=== PATIENT | female | born 1945 | race Caucasian/White ===

== ENCOUNTER 2022-11-09 08:33 | Outpatient (OUT) | payer MEDICARE, OTHER, SELFPAY ==
[2022-11-09 09:14] LABS: Basophils Percent Auto 0.8 % (0.2-2.0); Eosinophils Absolute Auto 0.1 10^3/uL (0.0-0.7); Eosinophils Percent Auto 2.6 % (0.9-7.0); Hematocrit 41.5 % (36.0-48.0); Hemoglobin 13.7 g/dL (12.0-16.0); Immature Granulocytes Abs Auto 0.03 10^3/uL (0.00-0.03); Immature Granulocytes Pct Auto 0.6 % (0.0-0.5); Lymphocytes Absolute Auto 1.7 10^3/uL (1.2-3.8); Lymphocytes Percent Auto 31.1 % (20.5-60.0); Mean Corpuscular Hemoglobin 31.6 pg (26.7-34.0); Mean Corpuscular Volume 95.6 fL (81.0-99.0); Mean Platelet Volume 9.2 fL (9.5-13.5); Monocytes Absolute Auto 0.4 10^3/uL (0.3-0.8); Monocytes Percent Auto 6.6 % (1.7-12.0); Neutrophils Absolute Auto 3.1 10^3/uL (1.4-6.5); Neutrophils Percent Auto 58.3 % (43.0-75.0); Platelet Count 282 10^3/uL (150-450); Red Blood Count 4.34 10^6/uL (4.20-5.40); Red Cell Distribution Width 14.5 % (11.0-15.0); White Blood Count 5.3 10^3/uL (4.0-11.0)
[2022-11-09 10:01] LABS: Free T4 1.29 ng/dL (0.76-1.46)
[2022-11-09 10:04] LABS: Thyroid Stimulating Hormone 0.714 uIU/mL (0.358-3.740)
== END 2022-11-09 08:34 | disposition home or self-care (01) ==
LOC: LAB 08:36
PROVIDERS: PCP Family Medicine; Visit Provider Family Medicine
DX: R53.83 Other fatigue (principal); L65.9 Nonscarring hair loss, unspecified
CPT/HCPCS: 36415; 84436; 84439; 84443; 85025

== ENCOUNTER 2022-11-09 08:39 | Outpatient (OUT) | payer MEDICARE, OTHER, SELFPAY ==
[2022-11-09 10:00] LABS: Alanine Aminotransferase 21 U/L (14-59); Albumin Globulin Ratio 0.9; Albumin Level 3.6 g/dL (3.4-5.0); Alkaline Phosphatase 74 U/L (46-116); Anion Gap 12.7; Aspartate Amino Transferase 20 U/L (15-37); Bilirubin Total 0.7 mg/dL (0.2-1.0); Calcium 9.3 mg/dL (8.5-10.1); Carbon Dioxide 25.3 mmol/L (21.0-32.0); Chloride 106 mmol/L (98-107); Estimated GFR (African America >60 (>=60); Estimated GFR (Non-African Ame >60 (>=60); Globulin 4.1 g/dL; Glucose 97 mg/dL (74-106); Sodium 140 mmol/L (136-145); Total Protein 7.7 g/dL (6.4-8.2)
== END 2022-11-09 08:40 | disposition home or self-care (01) ==
PROVIDERS: PCP Family Medicine; Visit Provider Internal Medicine Rheumatology
DX: R53.83 Other fatigue (principal); L65.9 Nonscarring hair loss, unspecified; M15.0 Primary generalized (osteo)arthritis; Z79.899 Other long term (current) drug therapy
CPT/HCPCS: 36415; 80053; 84439; 84443; 85025

== ENCOUNTER 2023-01-07 08:52 | Outpatient (RCR) | payer MEDICARE, OTHER, SELFPAY | END 2023-01-22 16:02 | disposition home or self-care (01) | LOC: PT 08:52 | PROVIDERS: PCP Family Medicine; Visit Provider Family Medicine | DX: M25.511 Pain in right shoulder (principal) | CPT/HCPCS: 97110; 97161 ==

== ENCOUNTER 2023-05-12 07:24 | Outpatient (OUT) | payer MEDICARE, OTHER, SELFPAY ==
--- OUTSIDE RECORDS SUMMARY | 2023-05-12 07:28 | XMS_ITS | CCD ---
Author Name Unknown Address [address] [place] [address] Organization [facility] Care Team Providers Care [employer] Maker Name Role Phone Deborah Garcia Primary Care Provider LITTLE, MASON Attending Unavailable WALKER, BUD W Referring Unavailable LITTLE, MASON Admitting Unavailable LITTLE, MASON Attending Unavailable LITTLE, MASON Attending Unavailable WALKER, UBD W Referring Unavailable WALKER, BUD W Attending Unavailable WALKER, BUD W Referring Unavailable WALKER, BUD W Attending Unavailable WALKER, BUD W Referring Unavailable WALKER, BUD W Attending Unavailable WALKER, BUD W Referring Unavailable DEBORAH GARCIA Primary Care Unavailable Deborah Garcia MD Primary Care Provider Deobrah Garcia Primary Care Physician Deborah Garcia MD Primary Care Provider [phone] Timmis, Suzi H Referring Unavailable Timmis, Suzi H Attending Unavailable Timmis, Suzi H Admitting Unavailable Timmis, Suzi H Referring Unavailable Timmis, Suzi H Attending Unavailable Timmis, Suzi H Admitting Unavailable VIGESAA, MARINA Attending Unavailable VIGESAA, MARINA Admitting Unavailable HOY ., DR CABRERA Primary Care Unavailable VIGESAAMARINA Consulting Unavailable HOY ., DR CABRERA Consulting Unavailable HOY ., DR CABRERA Attending Unavailable HOY ., DR CABRERA Admitting Unavailable HOY ., DR CABRERA Primary Care Unavailable HOY ., DR CABRERA Consulting Unavailable HOY ., DR CABRERA Attending Unavailable HOY ., DR CABRERA Admitting Unavailable HOY ., DR CABRERA Primary Care Unavailable CHARLTON, DR DAWKINS Admitting Unavailable CHARLTON, DR DAWKINS Attending Unavailable HOY ., DR CABRERA Primary Care Unavailable CHARLTON, DR DAWKINS Attending Unavailable CHARLTON, DR DAWKINS Admitting Unavailable HOY ., DR CABRERA Primary Care Unavailable HOY ., DR CABRERA Primary Care Unavailable MISC, DOCTOR Consulting Unavailable MISC, DOCTOR Attending Unavailable MISC, DOCTOR Admitting Unavailable ARIAN DE JESUS Referring Unavailable DEBORAH GARCIA M Primary Care Unavailable DEBORAH GARCIA M Primary Care Unavailable ARMANDOMARINA Referring Unavailable NEAL ARIAN Rosario Attending Unavailable DEBORAH GARCIA Primary Care Unavailable ARIAN DE JESUS Admitting Unavailable ARIAN DE JESUS Referring Unavailable DEBORAH GARCIA Primary Care Unavailable Allergies Allergy Classification Reported Allergen(s) Allergy Type Date of Onset Reaction(s) Facility (7 sources) Acetaminophen; Translations: [acetaminophen] Drug Allergy 02-13-20 15 Other (See Comments) [facility] (6 sources) Acetaminophen / HYDROcodone; Translations: [acetaminophen-hydr ocodone] Drug Allergy 12-17-19 16 Nausea And Vomiting [facility] (7 sources) Amoxicillin; Translations: [amoxicillin] Drug Allergy 12-17-19 16 Diarrhea (finding), Diarrhea [facility] (3 sources) black walnut pollen extract Drug Allergy 12-24-19 16 [facility] (3 sources) cycloSPORINE Drug Allergy 12-24-19 16 [facility] (3 sources) difluprednate Drug Allergy 12-24-19 16 [facility] (6 sources) ezetimibe; Translations: [ezetimibe] Drug Allergy 12-17-19 16 Irregular heart beat (finding) [facility] (4 sources) Hmg-Coa Reductase Inhibitors (Statins); Translations: [statins] Propensity to adverse reactions to drug 02-13-20 15 Other (See Comments) [facility] (6 sources) Ketorolac; Translations: [ketorolac ophthalmic] Drug Allergy 12-17-19 16 Burning of face, cheeks, head, neck [facility] (5 sources) levothyroxine; Translations: [levothyroxine] Drug Allergy 12-17-19 16 Diarrhea (finding) [facility] (4 sources) metroNIDAZOLE; Translations: [metronidazole] Drug Allergy 12-24-19 16 Diarrhea [facility] (3 sources) predniSONE Drug Allergy 12-17-19 16 [facility] (5 sources) Simvastatin; Translations: [Simvastatin] Drug Allergy 05-31-19 19 joint pain, dizziness, headache [facility] (5 sources) Sulfamethoxazole / Trimethoprim; Translations: [sulfamethoxazole-t rimethoprim] Drug Allergy 05-31-19 19 Stomach bleeding, Stomach bloating [facility] (2 sources) Sulfonamides (Antibiotic) Propensity to adverse reactions to drug 01-01-20 16 [facility] (5 sources) Caffeine; Translations: [Caffeine] Drug Allergy 05-11-19 Heart races [facility] (5 sources) carvedilol; Translations: [carvedilol] Drug Allergy 05-11-19 throwing up, dizzy, disoriented [facility] (5 sources) cefdinir; Translations: [cefdinir] Drug Allergy 05-11-19 diarrhea stomach upset, hairloss [facility] (6 sources) fluticasone; Translations: [fluticasone nasal] Drug Allergy 05-11-19 hypertension over 200 cant take steroids [facility] (5 sources) gabapentin; Translations: [gabapentin] Drug Allergy 05-11-19 dizzy, coordination [facility] (3 sources) HMG-CoA reductase inhibitor; Translations: [statins] Drug allergy Unknown [facility] (5 sources) Ipratropium; Translations: [ipratropium nasal] Drug Allergy 05-11-19 nose bleeds [facility] (5 sources) irbesartan; Translations: [irbesartan] Drug Allergy 05-11-19 hair loss [facility] (5 sources) Lisinopril; Translations: [lisinopril] Drug Allergy 05-11-19 23 shakes ,chills, stomach pain, vomiting, dizzy [facility] (5 sources) meloxicam; Translations: [meloxicam] Drug Allergy 05-11-19 vomiting /diarrhea [facility] (5 sources) Metoprolol; Translations: [metoprolol] Drug Allergy 05-11-19 jitters [facility] (3 sources) Metronidazole; Translations: [metronidazole containing compounds] Drug allergy Candidiasis of mouth (disorder), Diarrhea (finding) [facility] (5 sources) Wakeman-3 Acid Ethyl Esters (INTERMEDIATE); Translations: [omega-3 polyunsaturated fatty acids] Drug Allergy 12-24-19 16 Dizziness or Vertigo [facility] (5 sources) prednisoLONE; Translations: [prednisolone ophthalmic] Drug Allergy 05-11-19 23 Burning of face, sinus, cheeks, teeth, head [facility] (1 source) HMG-CoA reductase inhibitor Propensity to adverse reactions to drug 02-13-20 15 Other (See Comments) [employer] (1 source) Ketorolac Drug Allergy 05-11-19 23 [employer] Work Phone: (1 source) Piroxicam Drug Allergy 05-11-19 23 [employer] Work Phone: (1 source) Sulfonamides (Antibiotic) Propensity to adverse reactions to drug 01-01-20 16 [employer] Work Phone: (3 sources) Acetaminophen; Translations: [Tylenol] Drug Allergy 12-24-19 16 [facility] (3 sources) Acetaminophen / HYDROcodone; Translations: [Vicodin] Drug Allergy 12-17-19 16 [facility] (3 sources) ezetimibe; Translations: [Zetia] Drug Allergy 12-17-19 16 [facility] (1 source) Ketorolac; Translations: [ketorolac ophthalmic] Drug Allergy [facility] (3 sources) levothyroxine; Translations: [Levoxyl] Drug Allergy 12-17-19 16 [facility] (3 sources) Simvastatin; Translations: [Zocor] Drug Allergy 12-17-19 16 [facility] (3 sources) Sulfamethoxazole / Trimethoprim; Translations: [Bactrim] Drug Allergy 12-24-19 16 [facility] (2 sources) Amoxicillin Drug Allergy 12-17-[address] [facility] (2 sources) black walnut pollen extract Drug Allergy 12-24-[address] [facility] (2 sources) cycloSPORINE Drug Allergy 12-24-[address] [facility] (2 sources) difluprednate Drug Allergy 12-24-[address] [facility] (2 sources) Ketorolac Drug Allergy 12-17-[address] [facility] (2 sources) metroNIDAZOLE Drug Allergy 12-24-[address] [facility] (2 sources) Wakeman-3 Acid Ethyl Esters (INTERMEDIATE) Drug Allergy 12-24-[address] [facility] (2 sources) predniSONE Drug Allergy 12-17-[address] [facility] (1 source) Sulfonamides (Antibiotic) Drug allergy (disorder) 01-01-[address] [facility] Medications Current Medications Medication Drug Class(es) Dates Sig (Normalized) Sig (Original) aspirin 81 mg oral tablet (9 sources) Platelet Aggregation Inhibitor, Nonsteroidal Anti-inflammatory Drug Start: 04-10-2016 take 81 mg by mouth once daily as needed Aspirin Low Dose 81 mg, Oral, Daily, PRN Other (see comment), Refills(s) 0, Prophylaxis Start Date: 04/10/16 Status: Ordered cycloSPORINE 0.5 mg/ml ophthalmic suspension (5 sources) Calcineurin Inhibitor Immunosuppressant End: 06-06-2018 take 1 drop(s) into the eye(s) twice daily cycloSPORINE (RESTASIS) 0.05 % ophthalmic emulsion Place 1 drop into both eyes 2 times daily 0 Active docosahexaenoic acid 120 mg / eicosapentaenoic acid 180 mg oral capsule (2 sources) take 1 capsule by mouth once daily Wakeman-3 Fatty Acids (FISH OIL) 1000 MG CAPS Take 4,000 mg by mouth daily 0 Active Fish Oils (3 sources) Start: 04-10-2016 take 4 capsules by mouth once daily Fish Oil 1000 mg oral capsule 4,000 mg = 4 cap(s), Oral, Daily, Refills(s) 0, High cholesterol Start Date: 04/10/16 Status: Ordered levothyroxine sodium 0.1 mg oral tablet (12 sources) l-Thyroxine Start: 01-20-2018 End: 06-06-2018 SYNTHROID 100 MCG Tab tablet Start: 04-10-2016 Synthroid 100 microgram, Oral, Daily, Refills(s) 0, Thyroid Start Date: 04/10/16 Status: Ordered omega-3 acid ethyl esters (u sp) 1000 mg oral capsule (4 sources) Wakeman-3 Fatty Ac ids (FISH OIL) 1000 MG Cap Take 4,000 mg by mouth. 0 Active Wakeman-3 Fatty Ac ids (FISH OIL) 1000 MG Cap Take 4,000 mg by mouth. Active pantoprazole 40 mg delayed release oral tablet (7 sources) Proton Pump Inhibitor Start: 04-20-2022 Pantoprazole 40 mg D R Tab 40 mg = 1 tab(s), Oral, Daily, Refills(s) 0, Control of stomach acid Start Date: 04/20/22 Status: Ordered Start: 03-08-2018 pantoprazole [address] DR promethazine hydrochloride 25 mg oral tablet (2 sources) Phenothiazine Start: 06-06-2018 take 1 tablet by mouth every six hours as needed promethazine (PHENERGAN) tablet 12.5 mg Start: 06-06-2018 take 1 tablet by kathleen th every six hours as needed promethazine (PHENERGAN) tablet 25 mg 1000 ml sodium chloride 9 mg /ml injection (1 source) Start: 06-06-2018 sodium chlorid e 0.9% IV solution Completed/Discontinued Medications Medication Drug Class(es) Dates Sig (Normalized) Sig (Original) balanced salt solution 500 mL with 0.5 mg epinephrine (BSS with Epi) ophthalmic irrigation 500 mL (1 source) Start: 06-06-2018 End: 06-06-2018 balanced salt solution 500 mL with 0.5 mg epinephrine (BSS with Epi) ophthalmic irrigation 500 mL 10 ml bupivacaine hydrochloride 7.5 mg/ml injection (1 source) Amide Local Anesthetic Start: 06-06-2018 End: 06-06-2018 bupivacaine (PF) (MARCAINE) 0.75 % injection 1 drop cefdinir 300 mg oral capsule (3 sources) Cephalosporin Antibacterial Start: 01-12-2018 End: 06-06-2018 cefdinir (OMNICEF) 300 MG capsule ciprofloxacin 500 mg oral tablet (3 sources) Quinolone Antimicrobial Start: 01-13-2018 End: 06-06-2018 ciprofloxacin 500 MG Tab tablet cyclopentolate hydrochloride 10 mg/ml ophthalmic solution (1 source) Start: 06-06-2018 End: 06-06-2018 cyclopentolate (CYCLOGYL) 1 % ophthalmic solution 1 drop flurbiprofen sodium 0.3 mg/ml ophthalmic solution (3 sources) Nonsteroidal Anti-inflammatory Drug Start: 06-06-2018 End: 06-06-2018 flurbiprofen (OCUFEN) 0.03 % ophthalmic solution 1 drop take 1 tablet by mouth twice mateusz ly flurbiprofen 50 MG Tab Take 50 mg by mouth 2 times daily. 0 Active phenylephrine hydrochloride 25 mg/ml ophthalmic solution (1 source) alpha-1 Adrenergic Agonist Start: 06-06-2018 End: 06-06-2018 phenylephrine (MYDFRIN) 2.5 % ophthalmic solution 1 drop tropicamide 10 mg/ml ophthalmic solution (1 source) Anticholinergic Start: 06-06-2018 End: 06-06-2018 tropicamide (MYDRIACYL) 1 % ophthalmic solution 1 drop Problems Active Problems Problem Classification Problem Date Documented Date Episodic/Chronic Cardiac dysrhythmias (3 sources) Atrial flutter; Translations: [Unspecified atrial flutter] Onset: 05-03-2022 Chronic Cardiac dysrhythmias (3 sources) Palpitations 04-10-2016 Episodic Comment on above: I've had fibrillati on once in a while It wasn't diagnosed by any kind of monitor and I don't see anyone for it Cataract (7 sources) Age-related nuclear cataract, right eye; Translations: [Cortical age-related cataract of left eye] Onset: 02-18-2015 05-24-2018 Chronic Cataract (1 source) Age-related nuclear cataract of right eye; Translations: [Age-related nuclear cataract, right eye] Onset: 05-24-2018 05-24-2018 Disorders of lipid metabolism (4 sources) Hypercholesterolemia; Translations: [Hyperlipidemia, unspecified] Onset: 01-06-2022 04-20-2022 Chronic Essential hypertension (7 sources) Hypertensive disorder; Translations: [Essential (primary) hypertension] Onset: 01-02-2022 04-10-2016 Chronic Heart valve disorders (3 sources) Heart murmur 04-20-2022 Episodic Malaise and fatigue (1 source) Other fatigue; Translations: [OTHER FATIGUE] Onset: 05-03-2022 Episodic Nutritional deficiencies (1 source) Vitamin D deficiency, unspecified; Translations: [VITAMIN D DEFICIENCY UNSPECIFIED] Onset: 01-06-2022 Chronic Osteoarthritis (4 sources) Primary generalized (osteo)arthritis; Translations: [PRIMARY GENERALIZED OSTEOARTHRITIS] Onset: 07-15-2022 Chronic Other aftercare (1 source) 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; Translations: [OTH 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 CURRENT DRUG THERAPY] Onset: 07-19-2022 Episodic Other circulatory disease (3 sources) History of cardiac arrhythmia 04-10-2016 Episodic Comment on above: I've had fibrillati on once in a while It wasn't diagnosed by any kind of monitor and I don't see anyone for it but me and my family doctor came up with that together Other ear and sense organ disorders (3 sources) Hearing loss 04-20-2022 Chronic Other eye disorders (3 sources) Dry eyes 04-10-2016 Episodic Other eye disorders (1 source) Vitreous detachment of left eye; Translations: [Vitreous detachment, left] Other nervous system disorders (2 sources) Carpal tunnel syndrome, right upper limb; Translations: [Carpal tunnel syndrome, right upper limb] Onset: 04-12-2023 Chronic Other nervous system disorders (3 sources) H/O: migraine 04-20-2022 Episodic Comment on above: Optic Migraines Other nutritional; endocrine; and metabolic disorders (3 sources) H/O: hyperthyroidism 04-10-2016 Episodic Comment on above: S/P Radiation to Thy roid Thyroid disorders (5 sources) Hypothyroidism, unspecified; Translations: [HYPOTHYROIDISM UNSPECIFIED] Onset: 01-06-2022 Chronic Unclassified (2 sources) Post Op Visit; Translations: [Post Op Visit] Onset: 07-06-2018 Past or Other Problems Problem Classification Problem Date Documented Date Episodic/Chronic Diabetes mellitus without complication (1 source) Other abnormal glucose; Translations: [OTHER ABNORMAL GLUCOSE] Onset: 01-06-2022 Episodic Other screening for suspected conditions (not mental disorders or infectious disease) (8 sources) Electrocardiogram abnormal; Translations: [Abnormal electrocardiogram [ECG] [EKG]] Onset: 01-06-2022 Episodic Results Test Name Value Interpretation Reference Range Facility Basic Metabolic Profon 04-12 Anion gap [Moles/Vol] 14 mmol/L Normal 12-13 [facility] Comment on above: Performed By: #### B CÉSAR, CDP #### [facility] [address] [place] [address] Care Taker: Abdirashid Boone MD BUN/CRE Ratio 31 High 12-16 [facility] Comment on above: Performed By: #### B CÉSAR, CDP #### [facility] [address] [place] [address] Care Taker: Abdirashid Boone MD Calcium [Mass/Vol] 10.1 mg/dL Normal 8.6-10.4 [facility] Comment on above: Performed By: #### B CÉSAR, CDP #### [facility] [address] [place], [place] [id number] Care Taker: Abdirashid Boone MD Chloride [Moles/Vol] 102 mmol/L Normal 98-107 [facility] Comment on above: Performed By: #### B CÉSAR, CDP #### [facility] [address] [place] [address] Care Taker: Abdirashid Boone MD CO2 [Moles/Vol] 23 mmol/L Normal 20-31 [facility] Comment on above: Performed By: #### B CÉSAR, CDP #### [facility] [address] [place] [address] Care Taker: Abdirashid Boone MD Creatinine [Mass/Vol] 0.8 mg/dL Normal 0.5-0.9 [facility] Comment on above: Performed By: #### B CÉSAR, CDP #### [facility] [address] [place] [address] Care Taker: Abdirashid Boone MD GFR/1.73 sq M.predicted among non-blacks MDRD (S/P/Bld) [Vol rate/Area] mL/min/{1.73_m2} Normal >60 [facility] Comment on above: Result Comment: These results are not intended for use in patients <18 years of age. eGFR results are calculated without a race factor using the 2020 CKD-EPI equation. Careful clinical correlation is recommended, particularly when comparing to results calculated using previous equations. The CKD-EPI equation is less accurate in patients with extremes of muscle mass, extra-renal metabolism of creatine, excessive creatine ingestion, or following therapy that affects renal tubular secretion. Performed By: #### B CÉSAR, CDP #### [facility] [address] [place] [address] Care Taker: Abdirashid Boone MD Glucose [Mass/Vol] 100 mg/dL High 70-99 [facility] Comment on above: Performed By: #### B CÉSAR, CDP #### [facility] [address] [place], [place] [id number] Care Taker: Abdirashid Boone MD Potassium [Moles/Vol] 4.2 mmol/L Normal 3.7-5.3 [facility] Comment on above: Performed By: #### B CÉSAR, CDP #### [facility] [address] [place], [place] [id number] Care Taker: Abdirashid Boone MD Sodium [Moles/Vol] 139 mmol/L Normal 135-144 [facility] Comment on above: Performed By: #### B CÉSAR, CDP #### [facility] [address] [place], [place] [id number] Care Taker: Abdirashid Boone MD Urea nitrogen [Mass/Vol] 25 mg/dL High 8-23 [facility] Comment on above: Performed By: #### B CÉSAR, CDP #### [facility] [address] [place], [place] [id number] Care Taker: Abdirashid Boone MD CBC with Diffon 04-12-2023 Abs. Basophil 0.02 k/uL Normal 0.00-0.20 [facility] Comment on above: Performed By: #### B CÉSAR, CDP #### [facility] [address] [place], [place] [id number] Care Taker: Abdirashid Boone MD Abs.Imm.Granulocyte 0.01 k/uL Normal 0.00-0.30 [facility] Comment on above: Performed By: #### B CÉSAR, CDP #### [facility] [address] [place], [place] [id number] Care Taker: Abdirashid Boone MD Abs.Neutrophil (Seg) 4.29 k/uL Normal 2.5-7.0 [facility] Comment on above: Performed By: #### B CÉSAR, CDP #### [facility] [address] [place] [address] Care Taker: Abdirashid Boone MD Basophils/100 WBC (Bld) 0 % Normal 0-2 [facility] Comment on above: Performed By: #### B MP, CDP #### [facility] [address] [place] [address] Care Taker: Abdirashid Boone MD Eosinophils (Bld) [#/Vol] 0.17 10*3/uL Normal 0.00-0.40 [facility] Comment on above: Performed By: #### B MP, CDP #### [facility] [address] [place], [place] [id number] Care Taker: Abdirashid Boone MD Eosinophils/100 WBC (Bld) 2 % Normal 0-5 [facility] Comment on above: Performed By: #### B CÉSAR, CDP #### [facility] [address] [place], [place] [id number] Care Taker: Abdirashid Boone MD Erythrocyte distribution width (RBC) [Ratio] 13.5 % Normal 12.1-15.2 [facility] Comment on above: Performed By: #### B MP, CDP #### [facility] [address] [place], [place] [id number] Care Taker: Abdirashid Boone MD Hematocrit (Bld) [Volume fraction] 42.8 % Normal 36.0-46.0 [facility] Comment on above: Performed By: #### B MP, CDP #### [facility] [address] [place], [place] [id number] Care Taker: Abdirashid Boone MD Hemoglobin (Bld) [Mass/Vol] 14.0 g/dL Normal 12.0-16.0 [facility] Comment on above: Performed By: #### B MP, CDP #### [facility] [address] [place] [address] Care Taker: Abdirashid Boone MD Immature granulocytes/100 WBC (Bld) 0 % Normal 0-5 [facility] Comment on above: Performed By: #### B CÉSAR, CDP #### [facility] [address] [place] [address] Care Taker: Abdirashid Boone MD Lymphocytes (Bld) [#/Vol] 2.08 10*3/uL Normal 1.00-4.80 [facility] Comment on above: Performed By: #### B CÉSAR, CDP #### [facility] [address] [place] [address] Care Taker: Abdirashid Boone MD Lymphocytes/100 WBC (Bld) 30 % Normal 15-40 [facility] Comment on above: Performed By: #### B CÉSAR, CDP #### [facility] [address] [place] [address] Care Taker: Abdirashid Boone MD MCH (RBC) [Entitic mass] 29.7 pg Normal 26.0-34.0 [facility] Comment on above: Performed By: #### B CÉSAR, CDP #### [facility] [address] [place] [address] Care Taker: Abdirashid Boone MD MCHC (RBC) [Mass/Vol] 32.7 g/dL Normal 31.0-37.0 [facility] Comment on above: Performed By: #### B CÉSAR, CDP #### [facility] [address] [place] [address] Care Taker: Abdirashid Boone MD MCV (RBC) [Entitic vol] 90.7 fL Normal 80.0-100.0 [facility] Comment on above: Performed By: #### B CÉSAR, CDP #### [facility] [address] [place] [address] Care Taker: Abdirashid Boone MD Monocytes (Bld) [#/Vol] 0.38 10*3/uL Normal 0.00-1.00 [facility] Comment on above: Performed By: #### B MP, CDP #### [facility] [address] [place], [place] [id number] ([phone] Care Taker: Abdirashid Boone MD Monocytes/100 WBC (Bld) 6 % Normal 4-8 [facility] Comment on above: Performed By: #### B MP, CDP #### [facility] [address] [place] [address] Care Taker: Abdirashid Boone MD Neutrophil (Seg) 62 % Normal 47-75 [facility] Comment on above: Performed By: #### B CÉSAR, CDP #### [facility] [address] [place] [address] Care Taker: Abdirashid Boone MD Platelet mean volume (Bld) [Entitic vol] 8.9 fL Normal 6.0-12.0 [facility] Comment on above: Performed By: #### B CÉSAR, CDP #### [facility] [address] [place] [address] Care Taker: Abdirashid Boone MD Platelets (Bld) [#/Vol] 324 10*3/uL Normal 140-450 [facility] Comment on above: Performed By: #### B CÉSAR, CDP #### [facility] [address] [place], [place] [id number] ([phone] Care Taker: Abdirashid Boone MD RBC (Bld) [#/Vol] 4.72 10*6/uL Normal 4.00-5.20 [facility] Comment on above: Performed By: #### B MP, CDP #### [facility] [address] [place], [place] [id number] Care Taker: Abdirashid Boone MD WBC (Bld) [#/Vol] 7.0 10*3/uL Normal 3.5-11.0 [facility] Comment on above: Performed By: #### B MP, CDP #### [facility] [address] [place] [address] Care Taker: Abdirashid Boone MD CBC AUTO DIFFon 07-15-2022 BASO # 0.0 103/ul Normal 0.0-0.1 [facility] Comment on above: Performed By: #### F T3, T4, TSH #### [facility] [address] [place] [address] Dr. Britney Gambino Basophils/100 WBC (Bld) 0.5 % Normal 0.2-2.[address] [facility] Comment on above: Performed By: #### F T3, T4, TSH #### [facility] [address] [place] [address] Dr. Britney Gambino EO # 0.2 103/ul Normal 0.0-0.7 [facility] Comment on above: Performed By: #### F T3, T4, TSH #### [facility] [address] [place] [address] Dr. Britney Gambino Eosinophils/100 WBC (Bld) 2.9 % Normal 0.9-7.[address] [facility] Comment on above: Performed By: #### F T3, T4, TSH #### [facility] [address] [place] [address] Dr. Britney Gambino Erythrocyte distribution width (RBC) [Ratio] 14.2 % Normal 11.0-15.0 [facility] Comment on above: Performed By: #### F T3, T4, TSH #### [facility] [address] [place] [address] Dr. Britney Gambino Hematocrit (Bld) [Volume fraction] 43.4 % Normal 36.0-48.[address] [facility] Comment on above: Performed By: #### F T3, T4, TSH #### [facility] [address] [place] [address] Dr. Britney Gambino Hemoglobin (Bld) [Mass/Vol] 14.1 g/dL Normal 12.0-16.[address] [facility] Comment on above: Performed By: #### F T3, T4, TSH #### [facility] [address] [address] [address] Britney Gambino IG # 0.02 10e3/ul Normal 0.00-0.03 [facility] Comment on above: Performed By: #### F T3, T4, TSH #### [facility] [address] [address] [address] Britney Gambnio IG % 0.3 % Normal 0.0-0.5 [facility] Comment on above: Performed By: #### F T3, T4, TSH #### [facility] [address] [place] [address] Dr. Britney Gambino LYMPH # 2.1 103/ul Normal 1.2-3.8 [facility] Comment on above: Performed By: #### F T3, T4, TSH #### [facility] [address] [place] [address] Dr. Britney Gambino Lymphocytes/100 WBC (Bld) 33.1 % Normal 20.5-60.0 [facility] Comment on above: Performed By: #### F T3, T4, TSH #### [facility] [address] [place] [address] Dr. Britney Gambino MANUAL DIFF REQ NO Normal [facility] Comment on above: Performed By: #### F T3, T4, TSH #### [facility] [address] [place] [address] Dr. Britney Gambino MCH (RBC) [Entitic mass] 31.1 pg Normal 26.7-34.0 [facility] Comment on above: Performed By: #### F T3, T4, TSH #### [facility] [address] [place] [address] Dr. Britney Gambino MCHC (RBC) [Mass/Vol] 32.5 g/dL Normal 29.9-35.2 [facility] Comment on above: Performed By: #### F T3, T4, TSH #### [facility] [address] [place] [address] Dr. Britney Gambino MCV (RBC) [Entitic vol] 95.8 fL Normal 81.0-99.0 [facility] Comment on above: Performed By: #### F T3, T4, TSH #### [facility] [address] [place] [address] Dr. Britney Gambino MONO # 0.4 103/ul Normal 0.3-0.8 [facility] Comment on above: Performed By: #### F T3, T4, TSH #### [facility] [address] [place] [address] Dr. Britney Gambino Monocytes/100 WBC (Bld) 6.0 % Normal 1.7-12.0 [facility] Comment on above: Performed By: #### F T3, T4, TSH #### [facility] [address] [place] [address] Dr. Britney Gambino NEUT # 3.6 103/ul Normal 1.4-6.5 [facility] Comment on above: Performed By: #### F T3, T4, TSH #### [facility] [address] [place] [address] Dr. Britney Gambino Neutrophils/100 WBC (Bld) 57.2 % Normal 43.0-75.0 [facility] Comment on above: Performed By: #### F T3, T4, TSH #### [facility] [address] [place] [address] Dr. Britney Gambino Platelet mean volume (Bld) [Entitic vol] 9.7 fL Normal 9.5-13.[address] [facility] Comment on above: Performed By: #### F T3, T4, TSH #### [facility] [address] [place] [address] Dr. Britney Gambino PLT 264 103/ul Normal 150-[address] [facility] Comment on above: Performed By: #### F T3, T4, TSH #### [facility] [address] [place] [address] Dr. Britney Gambino RBC 4.53 106/ul Normal 4.20-5.[address] [facility] Comment on above: Performed By: #### F T3, T4, TSH #### [facility] [address] [place] [address] Dr. Britney Gambino WBC 6.2 103/ul Normal 4.0-11.0 [facility] Comment on above: Performed By: #### F T3, T4, TSH #### [facility] [address] [place] [address] Dr. Britney Gambino PROF 14(COMP METB)on 023 Albumin [Mass/Vol] 3.6 g/dL Normal 3.4-5.0 [facility] Comment on above: Performed By: #### F T3, T4, TSH #### [facility] [address] [place] [address] Dr. Britney Gambino Albumin/Globulin [Mass ratio] 0.8 {ratio} Normal [facility] Comment on above: Performed By: #### F T3, T4, TSH #### [facility] [address] [place] [address] Dr. Britney Gambino ALP [Catalytic activity/Vol] 76 U/L Normal 46-116 [facility] Comment on above: Performed By: #### F T3, T4, TSH #### [facility] [address] [place] [address] Dr. Britney Gambino ALT [Catalytic activity/Vol] 20 U/L Normal 14-59 [facility] Comment on above: Performed By: #### F T3, T4, TSH #### [facility] [address] [place] [address] Dr. Britney Gambino Anion gap [Moles/Vol] 13.3 mmol/L Normal [facility] Comment on above: Performed By: #### F T3, T4, TSH #### [facility] [address] [place] [address] Dr. Britney Gambino AST [Catalytic activity/Vol] 22 U/L Normal 15-37 [facility] Comment on above: Performed By: #### F T3, T4, TSH #### [facility] [address] [place] [address] Dr. Britney Gambino Bilirubin [Mass/Vol] 0.6 mg/dL Normal 0.2-1.0 [facility] Comment on above: Performed By: #### F T3, T4, TSH #### [facility] [address] [address] [address] Britney Gambino Calcium [Mass/Vol] 9.6 mg/dL Normal 8.5-10.1 [facility] Comment on above: Performed By: #### F T3, T4, TSH #### [facility] [address] [address] [address] Britney Gambino Chloride [Moles/Vol] 107 mmol/L Normal 98-[address] [facility] Comment on above: Performed By: #### F T3, T4, TSH #### [facility] [address] [place] [address] Dr. Britney Gambino CO2 [Moles/Vol] 26.9 mmol/L Normal 21.0-32.0 [facility] Comment on above: Performed By: #### F T3, T4, TSH #### [facility] [address] [place] [address] Dr. Britney Gambino Creatinine [Mass/Vol] 1.03 mg/dL Critically high 0.55-1.02 [facility] Comment on above: Performed By: #### F T3, T4, TSH #### [facility] [address] [place] [address] Dr. Britney Gambino EGFR-AF [facility] >60 Normal >=[address] [facility] Comment on above: Performed By: #### F T3, T4, TSH #### [facility] [address] [place] [address] Dr. Britney Gambino EGFR-NON AF [facility] 52 mL/min/1.73m2 Critically low >=[address] [facility] Comment on above: Performed By: #### F T3, T4, TSH #### [facility] [address] [place] [address] Dr. Britney Gambino Globulin (S) [Mass/Vol] 4.4 g/dL Normal [facility] Comment on above: Performed By: #### F T3, T4, TSH #### [facility] [address] [place] [address] Dr. Britney Gambino Glucose [Mass/Vol] 90 mg/dL Normal 74-106 [facility] Comment on above: Performed By: #### F T3, T4, TSH #### [facility] [address] [address] [address] Britney Gambino Potassium [Moles/Vol] 4.2 mmol/L Normal 3.5-5.1 [facility] Comment on above: Performed By: #### F T3, T4, TSH #### [facility] [address] [address] [address] Britney Gambino Protein [Mass/Vol] 8.0 g/dL Normal 6.4-8.2 [facility] Comment on above: Performed By: #### F T3, T4, TSH #### [facility] [address] [address] [address] Britney Gambino Sodium [Moles/Vol] 143 mmol/L Normal 136-145 [facility] Comment on above: Performed By: #### F T3, T4, TSH #### [facility] [address] [address] [address] Britney Gambino Urea nitrogen [Mass/Vol] 22.0 mg/dL Critically high 7.0-18.0 [facility] Comment on above: Performed By: #### F T3, T4, TSH #### [facility] [address] [address] [address] Britney Gambino Urea nitrogen/Creatinine [Mass ratio] 21.4 mg/mg Normal [facility] Comment on above: Performed By: #### F T3, T4, TSH #### [facility] [address] [address] [address] Britney Gambino Postoperative Documentson Postoperative Documents [id number]#1 .00CD:127 Normal [facility] Coding Summary.on 06-03-2022 Coding Summary. CD:[id number] G h0bWw+PGhlYWQ+JT6SEDD oD71bqALhyZ3qQ2XLETkT SywgQVBQTElOSyIgbmFtZ N0zfYTaNLYq IC8+CU0pEHBaBicphQZbt 4H8wSJ2Q78ztu6eDHvxqM P0JMNgYwIrsgcuv4dqpKx 6IDcuNmluOyBt PBYgsH71OBD7kR55On57l MMqxIRuz3ckqJt2MhFxAJ ScXUX5kFvpSBwfu1MmALD cX09ouKAni4R4 PVIggUpoeLChJeFwsKH4t D4oHVhxplyyn2ixxidkGz l6mw22hNZdz8A4eYK7G4J sdgM2ZPMinTKf ZshqaCCUqT5ktsdaj7eic fsbQxUaXEPcMLh5SBg1UZ MazPrsSlDzAF82BUU8IJD iypDbT4NkDVSd cNhxWoG8f8W1Di8NF9ZYT qwfB4UQVTOMUUzfwLJ+PC 48bz86H8OsGlyjBqx7VDD mNBL6fAI4wN7q UKGrWYlfo2E1jDI9P4Mhp gKrny8wl6ddXTCnHZukE6 5ceWDsr2O8CJBgiHS2CER xmZpaJrFpkP97 Oyc+IGXciRead9BgGuohc 4hih3nphUf0OrptGSDwtb GyzNnzCAW3n1ReWn6zNPG qvOZ9gUX6tJ8o BwDfXaJ9FOcsA594YeZct LUbClvtA19pC1PmkKB+PH HeTus9GPRdmCwdCI2bH0J hZGRpbmctbGVm dWuyFU1oMGIxxnlbTTDso B6cGRRaX9l1OwMxOxY1EK xrL3QrDYMewmksXa03zI3 iUqYsBuC3KFmm E2UlgiQ3IMNnvMFkNQucH TY7T72hb1J7KTAuLWKqQQ Y9iMW3aG9dqQeydhndsGJ mdDsgdmVydGlj NEzrJMpuT859NSUcbGdjC kNvZGluZyBEYXRlOiAgMD MvMDgvMjAyMzwvdGQ+PHR aJXM0tTrkRQVq iABwSHhlLa4qwTxgvRiwW Q1oVQVmcizuMEXrmB6jXW EtiGXvfUdmBO0uQDCwlwd jt002HsKlJKM3 SUJjbFZdF2AdrK9oRnDdV RPiUGBgZ1EimHQaIJkjU6 86NBbnHqZ5MOJgxdLxL1V sLWFsaWduOiB0 h3N2Bo2Jf7CmjiexE4Pmu SQfJlSbMdjuETq1C2YuDu wvdHI+ZK61IJVrJM58YPr 8POK2mAxvMYnc OCAlS6CxnJ0cSxWmGRRjD GRkOyc+PHRhYmxlIHdpZH RoPScxMDAlJyBzdHlsZT0 lQl3jPWOyWNIr yPgvpEEsSaAun0rmDVTgX UubTA3ikGybB3DnqMK7LC Fmc2n5Kf38T83nW8IjvEU +GYYzhKD2iFG4 aL6tCtFkDhZ4SUngK056C aSjyHHvFikwr7lde0dlwA y0FkH4ZPHnpxZeaSguRUU 0i4OnHh53T21j IHdpZHRoPSIxNSUiIHZhb Yzfvu2jvP8jFi0+PGNvbC M5zIV1nP6hGzYsQwM2CSk iR419HlQvyPNy Kyhrv6qnp8vyoQe5YxPtU GTymjEvyUbqWUX6x3OoOr 58N5KgfHnpz8WdIlq9dm9 6gPZfr3C9mDW0 T2MhNHRydpjusWApnRbhS O5lCTFehbsxQUWcfG0wXJ AfF8b4FrNtByV0IOzdF8Z sfiL6BLWonFDs PBXnnIUQcS0ibytja0leu moqXyOxYVJmJHs0OIw7UU PwcIupRyXfSOO3YpA4DYX 7zCYbzB6pbSdj tmlhkT1dQxb+VKS0xLWrn GUVMI5yVogrhOZ+PHRkIH Z1kNkrQXfxUMXnjM3oJKT nM5t2PzOuUzB4 GQcvC1FgzxX3STVnoLNnC AXbuEWTaX5sjhmcr3zulx owXiPsKJSzLUq1ABj2RAL saWduOiBsZWZ0 ZjV6PMB3zRXysM0ivQhrv vigpD8vShf+QmlydGggRG W6KKm4S0YsEqc6YTRchXy dBS2wlLDlDVpe Tm4jzOqgnCvtDA1xNESym zjcv453EuMsj3tmPJNkdN DpVQvvHTG5K83mm7M4QAJ qFTAgITG3uWU3 dI8qdTlcpnqzsVVbkVfsa pIejKytCPnnHJzzS942SK KlpWlvFaVuWQw7Z6AxMuf 5EHGltMimXU8s wQZyZLiuXe8ymNjfeHxzZ Q9aZWBlbedtt520NhQmt9 dbBGEjyEVqXUetKUN7P00 rh9W4RDKqTMVi RNG4vTF9yK9zsVqcibxua GVmdDsgdmVydGljYWwtYW rxL506JNJfyYfmQfGrlEg 7X1NhCrw3MAHe sAugUR7stGXhAXuwKf8lq IjyePfnMH7vIWFoxccoy8 60YdMph7ybLZSsuTRzGKs wLNU2T55ht6E3 GWOoMOHoBCR8uEP7jB1mt GlnbjogbGVmdDsgdmVydG fzZUawTZfhW813LVUkdZo nPlBhdGllbnQg HQeaKGc5U5GcDbmeiZE+P G40VMSlET06eDTcgPTze3 ldtTn5ZcGsRNOoMYH9mRi kCScuc7PnFQNo C27riGHri8J4CDSwqRbpj YXaJhZxpTW6cU4lCIyjcr kyz9trayxaLfbsb3rong2 3rC17T28vQAtc ZHRoPSIzMCUiIHZhbGlnb k1jkL4pBg9+SIBbqMO0tC A1xG9sABJcGgE0IYxiI08 9InRvcCIvPjxj g7thn1evhAq4MkY9ZGCeu xStlPziUWV5s6FcVa99E6 9sIHdpZHRoPSIyMCUiIHZ qqYggod0dqF4y Ii8+ULNnvYA3mOP0nL0hU lMsQsQ4HVzoX102RhTzgG IeAwjnU82fO3BddCM+PHR eVhp7AXHdzYyy MH6ivYIfFHodFs2dVSR0V vHeMlFbYHqwS0MqJUIiwl fgmbkysNE0QPOpYBFusG2 9Hx3pmBhmJJSg dGDLlQ2xfztbn7aqrlfsT tUwMAGpQYm9ADb6ASZtlS xrBrRyJQI7PyB4FEH6pPH meU8ypXnjhpky eY7dT9QxJDRfnbktJs16i C5iGgPaIiD4KJckBjp+Uk eNRUbULuuRJvjeU7CRWP9 gSzwvdGQ+PHRk KKM8mRwrUGmjVHMwuQ0tV UMoQ9o8PzSyEtA5QFlaJ3 AwYUEpdltfNq96vI7hZbM sWyI7EOqiZ3Vg ixH4LFDvgRKuRLhbCET4Q 90rd2P1SNWtSZEoMXG6dJ C3vK5rkVbqxxogoIUdxWc gdmVydGljYWwt GMcgT664KQUbbXlqAqOgI cD2VhB3YDV5F9OfJlz3UG UawTikCU5ovJWuOGlmWx5 voLupeFpfTI0p WQMtmwhaMLOltZ3jHGOiz QDlzSzhHK2vCIYhldzct3 15QhEzACQ7TNEjhHUmM9M jtY8vPrPrXPIa RAJtX3NmsBHiBXdgB183X KekRwR9NSOvfbGgN1CfMX UnyRrvEnE8g5F2Bi82SlQ ZZWFyczwvdGQ+ TVBdXDN3bFxcNGqzMUCsh T6wXYBbW9u4UaEuAtL0FX jpK2EvILRagtwgIh27eF9 gKzQtMjZ2SMii H3PtqmM5FPEfcIFdRBmbH NG3F28uh7T2KFRnUCAtPS X0gEC7oA5qkRqnbzfhoXV mdDsgdmVydGlj YBluNIifK380ATAffGejT kZlbWFsZTwvdGQ+PHRkIH O5jOvlXJugGYFhhB7nICJ sN3k5AiZjApQ0 PTwbA8HqVSSaqqskZv15s Z9zVuUmGkB6UQkfW3Utwo U2NPRxzGErFYxxVQJ6Q17 pg3V0OTRuBKEp NKB9eJD1jI4koNmlkazig GVmdDsgdmVydGljYWwtYW spZ724VFExcVwyIo21jLO jzJapbsH0X4Cj PjwvdHI+JS14YSMyMM46g KKuoSVpa9jfgRg9BiXtHZ AuDCK9iHzeWJths2XgAII xK36puAEjm0R1 EEKbrLklxRSwXmIguXB6i F6eRTgxbuhqu5qoidizIo lvd3kage96cO37W09aVRg pZHRoPSIzMCUi PLRysMflse3geA2oGk6+P ELwtRE3yVF8hE9gHlLeTu Q9LOgiX969DySadNAbGgq jt2egb6tyjUv8 ZeIyWFZkgrSdrUqfRBA7b 5UfDk91V29gQOiyWCErZG QeDJYoPPCyzDhoiy3kzB7 wIi8+NH8lh3lh ac53jW30lCD+AJInJOT8b PihRNnjIXRrxE4rAVpbZh N2BRAiZbKmqQ58vLGhHRt kCx8smSfgkBxt JR1cBBYnpldtk875HkQwf 0hpHJTeiGRbEOkcHEW3H3 5mh5C1PVFpKDRgYHQ8cIZ 9xI7mtTjkkayj bGVmdDsgdmVydGljYWwtY MxsI104QUWiaBjnMpMbzM YiF1hvayWDIU8qFkvezKG +JQNaDPU2aHpl OCntDXUfaF3kFPAmX0a2I hFdPqK8FIffQ7JaenQ6OE NbuTDqRCEwgUYSoG3ewlb uy9rmfvmnEpVb EZAsOFp7CQs7EXHtqYhvW cZdYWP8QyM2CKL3oBUdxP 8udRkvuuguxQ8iKlw+Rkl OOjwvdGQ+PHRk RNN4iYipOKitPJXnrJ8wV RGoW9z3JkEoBkI7ORfqQ8 AnukN5YHTnmQToVVDzcDE YwJ3inkkkw5yd gcevFrQeCACpSAt1MHl9G OQxkFwnJdCsMQE1GhY3HZ M1nQGixW2pqGbfixcdeO8 wOyc+TVJOOjwv dGQ+NZDuDDA7tIydFEcoY QUvqW8yJYQcT5t8JqCjWa S6JQocE4XofpX6ACGvyTQ uXVXrgBJGjT9w xlhgq2uqrvvzBtFcBEYmU Sg5CDy7URDskAobVgYlZO D2HlC6PXN4lGThsV1jaAm idewqfO4zFmk+ XJW9UZO0NO35WR50L1GyR jwvdGFibGU+PHRhYmxlIH dpZHRoPScxMDAlJyBzdHl uIS3wIo8lYBAn LWNv (more content not included)... [facility] Physician Orderon 06-03-2022 Physician Order [id number]#1 .00CD:127 [facility] Consent for Anesthesiaon Consent for Anesthesia [id number]# 1.00CD:127 [facility] Discharge Instructionson Discharge Instructions [id number]# 1.00CD:127 [facility] Outside Recordson 06-02-2022 Outside Records [id number]# 1.00CD:127 [facility] Preoperative Documentson Preoperative Documents [id number]# 1.00CD:127 [facility] Preoperative Documents [id number]# 1.00CD:127 [facility] Coding Summary.on 06-01-2022 Coding Summary. CD:[id number] G h0bWw+PGhlYWQ+XL3OMAC yR71gyGCfcB8KD9qNWI2D SIBTXEBSJV3OQU0eyZD4L CloA0TlglWs SycanKWoBB31ZLg8KII0q EuoAAwnvF1jjGZkB7b8Ox BuPT69yF00XGvsZDGuMfK 3LjZpbjsgbWFy H2prBwRfaFCjGnl+PHRhY mxlIHdpZHRoPScxMDAlJy QvsLttZG4nRd7lJTWcVUF vbGxhcHNlOiBj f3owICIvNInnNM8yuEqfY 1ZueON5GIUpd5z0Hb84pU I+PERbKPF7aZmzWJatd18 1MmUvb8edRXI9 sZZfWFzmLNB9T64pd8H0Z PDsKLAlCCP1aJO9aZ1zbF itjprpQ8LnyDXqYhU9BGM 5gAHhpH3kdAov pptvqX4oDhw+J44HPC4HT MNQWY9FXvs6I2SbBynnaO I+IU91SJEvBK43dHCacKG gn6yfxFg7FbUz GTXqCYU9iAkbZDipb6KxP NSpP16fxGTbp8A1RDRwwQ dosSJoEdDxcFP0bT2gWIg bbmufc5mfhxud Hxdzv7wcyd25jT70E68yZ QxlPSFqMMN7MBOhKZMtjU vuxw2krK0pWe0+QTnki8b zj5lqyKz3KvMv ITOusvMadQzvQLS0k3UrB l69P3JikVhan1UaRrp9ok 28oPOtq1B1xSB7CLslQUN fsG2pXMphNaT4 ZDThLkTykF22iSDmMVibE j9msHcdoNriBY7oVKExej bqXRTqmA6gUBXqaTOnmTt oPB5yCJZcgywf q553AaRfZYD0ADYcqMTgD 2QosC5wBtMkDMZqSOChO8 BkuUOyYBkdO058BKfsHuA 7VARlhnExN0Ht QUDurLciEdO7v7Z9Ar6Tt 5AbzouiTEB0WDodTYZoHf K6BvRsVrY0O2GvUcw6FPS fpMztTH2lR7Uu WWSfxgcqfvflxZH1MRYwM WGccR58pCUvIQjsJy9wm5 L7i303CZUdKEUcqV24Th5 udDogMTBwdCBU rF7ckxuyv4flbdghAkJxK NZdONc4ZYj1DKBjqAwnUz BmKNK8MkJ6SKF3kJKyfQ7 tcRbjfgtgyY9x Oyc+H18tuY2iWGM3GDQ3t pmrZNRsbjQfET37JJ95M8 RyPjwvdGFibGU+PGRpdiB qqIuuRX7yBxGq f7vis8WrOUpvJ0JyTKVbF UhvRsl3SDCoJMW5qBB8lE 5eJUEsYXvtr6O7bYV6B5P jucGuag7vk7pa SVPxWLicD54moZGhz4P9W AUeoEW0COJjoBabQsLygH 93Oyc+PWHraVpcv2SlNsj uc4xwk0lnkHp6 DhBvWJNrvfFxoKrqHZQ8m 2LsVn19K58jVGyrECKpOI IuPMIoITAdaAkupz0mfR9 wIi8+PGNvbCB3 pXH3yM1nXUFzPbP4ELnqQ 760BrLmbZEoSnugc2qtr4 qxiBe1SeCmWGRucyKcgMv sJNX6e5PiUi76 L81mXLmdAVLsHCRdECSxR YEzpQrsiv7wjD2hNs6+PC 8pi8jfgm51aT89mSG+PHR qDPP3pQugOBuw GVMghF5bJGnwZbX2QUJpW jIsrD88zRIhJVpgWx0yaP xuuRzeIQ2fEDPxmfgcs68 2LvGyt4upPBFw kTWuTHgrYMR4F79oo2T6K LMvUWYaNMH5nCE0qU4rfB lnbjogbGVmdDsgdmVydGl iOSzoECucX137 IHRvcDsnPlBhdGllbnQgT aAuKCw0G8LtSvb4MEXafM sdDU8ioIOcHBfsXj5wlRb hzFlyXF0mRXFi thnlb580RzGpc2eyICTfd XJpYEugCOW7X70bg4U4TC PaVNSuMBG8hEX5zS8mtBo nbjogbGVmdDsg ycAdgNbfXLemJGntE610U HRvcDsnPkJpcnRoIERhdG C1EO57YN59yDYwv7R5sOE 1L1LrEDWjuicc mniniRP6ARYgNJMmzR75S p2yfYzbCx9oIKJyCTF0WR JmjQSvH3QpdU8hPcJkINB dFXQhV4GooSIr DJlmQ252CLvjUoG3GOTdo cHvT3HtGTFppYdgAaH6k4 R7Vx1BB5L6DL94UX72rFS iv4G7uDJ8G7Wr VOCgopkmntrkfUL1BVPkK AAodN44Yy8ykRjvUn5iTS JdHRD9EEQirJKeI6GmfK4 yOiAjMDAwMDAw M2KcaJTiOGtsD035CKsnZ wI4VPSspxUgQ3KuSUNkjJ xlQgZ2h0Y1Zl3MVVx2XQ3 8NP25vEIwd3Z8 kYY1E1QeEHRhusjhpdxum QG2ZGHfQQDxvG69Bb9egI ehTi7uYVQsUYY2ROWwlHK dD4NsgT2zZdPx QBAhJCAjI8HjkMTkATmpA 231ODfzJsE7ZDKfkeBtT8 TtRBQbxGcwOmG9o5Y1My7 VNJBrWH72SHT1 xXK5FK73IM94W4FySewwl GFibGU+PHRhYmxlIHdpZH RoPScxMDAlJyBzdHlsZT0 fVl6sAZDwRCWz lRehtVRbWhZrw6doQDUcX JtgKT0zoHtxL5YxoVL5LE Aby4b9Rx70A27jV0DbqWX +XSSgjUC0rRW0 vO4nToRxKfS5TObaH444X sAyvRRkPfusy6szj9cxmI f2RgO7ICKvggPuiWztNAL 8q8UjDj34S29a IHdpZHRoPSIxNSUiIHZhb Oogqp1paV4rUi6+PGNvbC U3xOY2vE7oZlLcUeD7ALt iW930AvIdsYJe Wpaxt3ljr2gncSq5BgWuT MFyibEzbRxsUMI8i9OpEw 87D1UywFfqr8JyPgd5xv0 3hNAtc5U5jUD6 V9JuPVZspnwddPGmtZdmO Z4bIYOspeliPHPcbM2dOD DvZ8p1XyUnYyT8ZUttC8A heuH0XJGndTSh RYqyCPI5C20fd0H6HDJrX SKjQDM0eWK7zW6vhNnthd ogbGVmdDsgdmVydGljYWw yHGzzZ533INYf aRveMJOfnV3uJFEbaGZsy FjqSA8oGMNrjtwlIdCSXG CXGA5ALWWjRWLAT4LHVZq 3B5TkKdb4HXHm mBwzSK5wxZJmOYrjIt9sc LkmlXumMF7rOLFxtigeIA PzfC5wCYFmsGNnwJkhCK2 hJWFdchmni588 QdKkFIF6JSKouHQdD3Hyh M0pNxAgSGXlWXBcM5FqiK NpZDsiW678HHkcCaK4CEG aqaKsE3JaUTXb rLcpGaP7f1A2Mp7hNl7bN U6bLRR4EJ46DV48vPFtj1 P4zHU3P1EsZJGhcyjhmig adUJ1GNJiGWUx cX49cVOfPTtyKd4ik3E2v 844CSCvPLKrsG28Cy3npL ozBQQwlMMPlE4dcsghm9i vcjogIzAwMDAw SDb3FNy4SPIkdTdoBhLsX JO6OuE0QCC8eUIzqS4ueE cckbvocN8oJjd+NzcgWWV xhgV3U3LeOgu3 IRXcwHmwUH7kbSStBVpeL d3yvHuhcRqtZY4jOKNnxi ymTBYouB7mYKBqcOVjrAh jEG2jRAGmflxz s630RpUxKTI2NWYfqJAfC 9BueT8rCgJkULJbHLUwG1 ItrERjSJwdU789YBdySoE 5ALLjzcOaP2Gy TUGlbBjeXtE8x0H2Ht5LL T9lhVN4O4BjTsi0LPBrqM bbKI2bbMMbTMwuOo4pdAq miUzlAC6eHENs fbqkQBZaoY1kUEGhmGVkq UdxWA7bFZRpqgycl931De LxAYE1EFKchNWzB0EryL9 yOiAjMDAwMDAw C1ApmHXwXFmxC562NFdqU vB4LGYnwmDmM9CrEPMnpF jgAcC2s9L4At5ZlTQ3rHT 5b0Q6K7RvdUCa KTQ1ZGS5dyinphe6P1RpG jwvdHI+JM66MJAfPM07eY VysNVeq1wuwHw1IwYtGRN lDAI1lItrSDbd m2QlRMEzT96sbQNdv0S6Z UKcxHjqwOZfQyZwpHP1mL 5bZJpgqpfbe6astekjWxt iq4rebt46yK20 C63vNVwkZSWaAEKxWAXsL MIqvWbmyu2reD0tSv9+PG KnzAH0cLX6uS5qQhFeHsW 9KJkbX595JdBp uOMjWtsja3tce0qngXl4Y wQgYRChrfXfwTcoFYM3o7 ZuZp44V23nSEnuWSXlFJE yMCUiIHZhbGln er3vlK5nUu7+JR1pg7uwz j76pS07qQS+KRGgZBE9qZ zzLYlmQSTuyX1oYBrrTfB 3XXBxJvBghS54 rINvJTxiGj9ccDdwsFftK T5iWUUuwskme887FsZoj9 eqXFNfjDXbBFodAIO1L86 yi6J0GSRmMDVf ITF7sKA2sZ8lwNsylbofl GVmdDsgdmVydGljYWwtYW zrV778ZTDutSalNrDvnXR jF9grluMGIL7z OjwvdGQ+ICUuDFC8wAsjT SytLZBepR1tLXUeR7r1Mm UeEhW4NQetP8WvluB6UXW vbGQgMTBwdCBU dM0jceghu7hzuzddKbVkX POzJAf0CMf0OVLbhFfgXy NfSOD8WbW3AII2nGTxcT7 bsTgzehsdxP0u Oyc+RklOOjwvdGQ+PHRkI GB4fAwkAUxnLYCtvM4bLE NtG4x0JmHoCbD7ZYncM7F nwbN8QJJybLGd HZTxjSJKlA0qlusen3mdq csdAsUzGHNjBSt8VWy8QC EqvXfeKyNdBRZ4HzI1WZU 4sTCgbX6qbWef bypaxG7nUgs+TVJOOjwvd GQ+COLjEVS7bIggQYhyZY ZwnI7wLSEcM2s9KoTiZxS 3VBfjL7AcwoQ9 YXKguOLhZYQszSBDdK1la dpod4btfcijQpEyTPEvAY r0YEg8YREnzQnfZcOrTOQ 8BsP3WNK1kURa eI4prQcirmjknC8xCgp+U SN3EQK5WW26LZ56R5RyCh wvdGFibGU+PHRhYmxlIHd pZHRoPScxMDAl JyBz (more content not included)... Normal [facility] Progress Note-Physicianon Progress Note-Physician Patient: PATRICIA TURNER Age: 77 years Sex: Female : 1945 Associated Diagnoses: None Author: Riky Robles Jr, DO Preoperative Information Time patient last ate or drank:=== (npo 8 hours) Anesthesia history: Patient history: No prior anesthesia problems. Re-evaluation prior to induction: Completed, Initial evaluation reviewed. Review of Systems Respiratory: No shortness of breath. Cardiovascular: No chest pain. Hematology/Lymphatics : No bruising tendency, No bleeding tendency. Health Status Allergies: Allergic Reactions (All) Severity Not Documented Amoxicillin- Diarrhea. Bactrim- Stomach bloating and stomach bleeding. Carvedilol- Throwing up, dizzy, disoriented. Cefdinir- Diarrhea stomach upset, hairloss. Fluticasone Propionate- Hypertension over 200 cant take steroids. Gabapentin- Dizzy, coordination. Ipratropium [place] Nasal- Nose bleeds. Irbesartan- Hair loss. Ketorolac ophthalmic- Burning of face, cheeks, head, neck. Levoxyl- Diarrhea. Lisinopril- Shakes ,chills, stomach pain, vomiting, dizzy. Metoprolol- Jitters. Metronidazole- Oral thrush and diarrhea. PrednisoLONE ophthalmic- burning of face, sinus, cheeks, teeth, head . Statins- Unknown. Tylenol- Headaches. Vicodin- Vomiting. Zetia- Irregular heartbeat. Zocor- Dizziness, headache and joint pain. Nonallergic Reactions (All) Severity Not Documented Caffeine- heart races . Lovaza- feels like head will explode , dizziness and headaches. Meloxicam- Vomiting /diarrhea. Current medications: (Selected) Inpatient Medications Ordered Lactated Ringers IV Pascale 1000 mL 1,000 mL: 1,000 mL, IV, 150 mL/hr, Routine, Start date 05/29/22 12:00:00 EST, 6.7 hour(s), Total volume (mL): 1,000 Documented Medications Documented Aspirin Low Dose: 81 mg, Oral, Daily, PRN Other (see comment), Refills(s) 0, Prophylaxis Fish Oil 1000 mg oral capsule: 4,000 mg = 4 cap(s), Oral, Daily, Refills(s) 0, High cholesterol Pantoprazole [address] Tab: 40 mg = 1 tab(s), Oral, Daily, Refills(s) 0, Control of stomach acid Synthroid: 100 microgram, Oral, Daily, Refills(s) 0, Thyroid Problem list: All Problems Bilateral dry eyes / SNOMED CT 680309895 / Confirmed History of hyperthyroidism / SNOMED CT 530853900 / Confirmed S/P Radiation to Thyroid Hx of migraines optic / SNOMED CT 070469300 / Confirmed Optic Migraines [place] (hard of hearing) / SNOMED CT 28932834 / Confirmed Cardiac murmur / SNOMED CT 825362231 / Confirmed History of irregular heartbeat / SNOMED CT 0042532057 / Confirmed I've had fibrillation once in a while It wasn't diagnosed by any kind of monitor and I don't see anyone for it but me and my family doctor came up with that together Hypertension / SNOMED CT 8120076419 / Confirmed Heart palpitations / SNOMED CT 554647473 / Confirmed I've had fibrillation once in a while It wasn't diagnosed by any kind of monitor and I don't see anyone for it Resolved: High cholesterol / SNOMED CT 03278006 Histories Past Medical History: No active or resolved past medical history items have been selected or recorded. Family History: No family history items have been selected or recorded. Procedure history: mri with sedation on 04/27/2016 at 71 Years. History of YAG laser capsulotomy of lens ([id number]) in 2015 at 71 Years. Cataract extraction and insertion of intraocular lens ([id number]) in 2014 at 70 Years. Comments: 04/10/2016 10:41 Rhina Bermeo RN Left Eye History of appendectomy ([id number]) in 2008 at 64 Years. History of cholecystectomy ([id number]) in 2008 at 64 Years. History of repair of umbilical hernia ([id number]) in 2008 at 64 Years. Radiation to eyes in 2007 at 63 Years. Thyroid Radiation in 2006 at 62 Years. History of Left Meniscus Repair in 1999 at 55 Years. Diskectomy ([id number]) in 1989 at 45 Years. Social History Social & Psychosocial Habits Alcohol 04/10/2016 Risk Assessment: Denies Alcohol Use Substance Abuse 04/10/2016 Risk Assessment: Denies Substance Abuse Tobacco 04/10/2016 Risk Assessment: Denies Tobacco Use . Physical Examination Vital Signs 05/29/2022 12:17 EST Heart Rate Monitored 100 bpm SpO2 97 % 05/29/2022 12:17 EST Respiratory Rate 20 br/min 05/29/2022 12:16 EST Systolic Blood Pressure 163 mmHg HI Diastolic Blood Pressure 83 mmHg Mean Arterial Pressure, Monitered 110 mmHg Respiratory: Lungs are clear to auscultation. Cardiovascular: Normal rate, Regular rhythm. Review / Management Results review Interpretation of Outside Results Chest x-ray results Radiology results ECG interpretation Condition Plan [place] [employer] (ASA) physical status classification: Class III. Anesthetic Preoperative Plan Anesthesia: General. . Anesthetic plan, risks, benefits, and alternatives discussed with the patient and/or famil (more content not included)... Normal [facility] Comment on above: Result Comment: Elec tronically Signed By: Riky Robles Jr, DO\.br\Date and Time Signed: 06/01/22 09:10 EST Progress Note-Physician Patient: PATRICIA TURNER Age: 77 years Sex: Female : 1945 Associated Diagnoses: None Author: Riky Robles Jr, DO Postoperative Information Postoperative disposition: Postoperative disposition: To PACU. Optimetrix number: Optimetrix number [id number]. Anesthetic utilized: General. Health Status Allergies: Allergic Reactions (Selected) Severity Not Documented Amoxicillin- Diarrhea. Bactrim- Stomach bloating and stomach bleeding. Carvedilol- Throwing up, dizzy, disoriented. Cefdinir- Diarrhea stomach upset, hairloss. Fluticasone Propionate- Hypertension over 200 cant take steroids. Gabapentin- Dizzy, coordination. Ipratropium [place] Nasal- Nose bleeds. Irbesartan- Hair loss. Ketorolac ophthalmic- Burning of face, cheeks, head, neck. Levoxyl- Diarrhea. Lisinopril- Shakes ,chills, stomach pain, vomiting, dizzy. Metoprolol- Jitters. Metronidazole- Oral thrush and diarrhea. PrednisoLONE ophthalmic- burning of face, sinus, cheeks, teeth, head . Statins- Unknown. Tylenol- Headaches. Vicodin- Vomiting. Zetia- Irregular heartbeat. Zocor- Dizziness, headache and joint pain. Nonallergic Reactions (Selected) Severity Not Documented Caffeine- heart races . Lovaza- feels like head will explode , dizziness and headaches. Meloxicam- Vomiting /diarrhea. Physical Examination VS/Measurements Pain Assessment: Controlled. General: Awake, Alert, Appropriate. Respiratory: Adequate air exchange. Cardiovascular: Stable, Normal peripheral perfusion. Neurological: Normal sensory function, Normal motor function. Assessment Anesthetic outcome No anesthetic complications noted. Adequate pain relief. able to void without difficulty, able to ambulate with assist, tolerating PO intake, no N/V. Review / Management Condition: Stable. Plan Transfer/Discharge: Transfer/Discharge Discharge when meets criteria ( To home ). Normal [facility] Comment on above: Result Comment: Elec tronically Signed By: Riky Robles Jr, DO\Date and Time Signed: 06/01/22 09:10 EST MRI Brain w/ + w/o Contrasto n 05-30-2022 MRI Brain w/ + w/o Contrast Exam Date/Time: 05/29/2022 15:30 EST Reason for Exam: H90.3 Report IMPRESSION: NO ACUTE INTRACRANIAL PROCESS. NORMAL SIGNAL AND MORPHOLOGY OF CRANIAL NERVES VII/VIII COMPLEXES. NO INTERNAL AUDITORY CANAL OR CEREBELLOPONTINE ANGLE MASS. EXAM: MRI of the brain without and with contrast History: Right ear pain, tenderness, and hearing loss since December 2021 Technique: Multiplanar multisequence MRI of the brain was performed without and with contrast including pre and postcontrast thin contrast sequences through the internal auditory canals. Comparison: None available Findings: Brain volume is age-appropriate. Ventricular morphology is within normal limits. No edema, hemorrhage, enhancing mass or pathologic enhancement, mass effect, midline shift, or abnormal extra-axial fluid collection. Midline structures are within normal limits. The posterior fossa is within normal limits. There is no diffusion restriction. No susceptibility artifact is identified on the gradient echo sequence. Cranial nerves VII and VIII are normal in course and contour. No enhancing mass is present in the cerebellopontine angles or internal auditory canals. There is normal fluid signal of the inner ear structures including cochlea and vestibules. There is intact osseous covering over the superior semicircular canals. The major intracranial vascular flow voids are maintained. Mild paranasal sinus because of thickening. The bilateral mastoid air cells are clear. Ordering Provider: Suzi Neely FINAL REPORT Dictated: 05/30/2022 12:08 pm Jhony Kimball DO Signed (Electronic Signature): 05/30/2022 12:08 pm Signed by: Jhony Kimball DO Transcribed by: JERSEY Technologist: NAPOLEON Technical Comments MultiHance Contrast amount in ml's: 18 Normal [facility] CHEMISTRYOrdered By: SYSTEM SYSTEM on 05-29-2022 Creatinine [Mass/Vol] 0.8 mg/dL Normal 0.5 - 1.3 mg/dL [facility] Remisol GFR/1.73 sq M.predicted among blacks MDRD (S/P/Bld) [Vol rate/Area] mL/min/1.73 m2 Normal >=59mL/min/1. 73 m2 [facility] Chem S GFR/1.73 sq M.predicted among non-blacks MDRD (S/P/Bld) [Vol rate/Area] mL/min/1.73 m2 Normal >=59mL/min/1. 73 m2 [facility] Chem S Consent for Treatmenton Consent for Treatment [id number]#1 .00CD:127 Normal [facility] Creatinineon 05-29-2022 Creatinine [Mass/Vol] 0.8 mg/dL Normal 0.5-1.3 [facility] Comment on above: Performed By: #### 1 [id number] ####[facility] [address] [place] [address] Main OR PACU I [facility] Main OR PACU I Record PACU Phase I Docum ent Type FT Summary Primary Physician: EVY, XXXX Finalized Date/Time: 05/29/22 17:30:09 Pt. Name: PATRICIA TURNER Markus Hoover/Sex: 1945 Female Med Rec #: [id number] Physician: Suzi Neely MD Financial #: [id number] Pt. Type: A Room/Bed: Admit/Disch: 05/29/22 11:53:30 - 05/29/22 17:15:00 Institution: Case Times PACU I FT Pre-Care Text: Identifies barriers to communication and implements measures to provide psychological support Develops individualized plan of care, and ensures continuity of care Maintains patient's dignity and privacy, and maintains patient confidentiality Identifies and reports philosophical, cultural, and spiritual beliefs and values Identifies individual values and wishes concerning care Implements aseptic technique, and administers prescribed antibiotic therapy and immunizing agents as ordered Evaluates postoperative tissue perfusion Implements thermoregulation measures, and monitors body temperature Evaluates postoperative respiratory status Evaluates postoperative cardiac status Evaluates postoperative neurological status Assesses pain control, collaborated in initiating patient-controlled analgesia and implements alternative methods of pain control Verifies allergies, administers prescribed medications and solutions, evaluates response to medications Entry 1 In PACU I 05/29/22 15:25:00 Discharge from PACU 05/29/22 15:55:00 I Outcomes Met? Yes Last Modified By: Melania Morris RN 05/29/22 17:28:10 Post-Care Text: The patient demonstrates knowledge of the expected response to the operative or invasive procedure The patient's care is consistent with the individualized perioperative plan of care The patient's right to privacy is maintained The patient's value system, lifestyle, ethnicity, and culture are considered, respected, and incorporated into the perioperative plan of care The patient participates in decisions affecting his or her perioperative plan of care The patient is free from signs and symptoms of infection The patient has wound/tissue perfusion consistent with or improved from baseline levels established preoperatively The patient is at or returning to normothermia at the conclusion of the immediate postoperative period The patient's respiratory function is consistent with or improved from baseline levels established preoperatively The patient's cardiovascular status is consistent with or improved from baseline levels established preoperatively The patient's cardiovascular status is consistent with or improved from baseline levels established preoperatively The patient demonstrates and/or reports adequate pain control throughout the perioperative period The patient received appropriate medication(s), safely administered during the perioperative period Acuity Level PACU I FT Entry 1 Start Time 05/29/22 15:25:00 Stop Time 05/29/22 15:55:00 Acuity Level Acuity Level I Last Modified By: Melania Morris RN 05/29/22 17:28:27 Finalized By: Melania Morris RN Document Signatures Signed By: Melania Morris RN 05/29/22 17:28 Melania Morris RN 05/29/22 17:28 Melania Morris RN 05/29/22 17:30 [facility] Main OR PACU II Rec[facility] Main OR PACU II Record PACU Phase II Document Type FT Summary Primary Physician: NONE, XXXX Finalized Date/Time: 05/29/22 17:19:40 Pt. Name: PATRICIA TURNER Sneha/Sex: 1945 Female Med Rec #: [id number] Physician: Suzi Neely MD Financial #: [id number] Pt. Type: A Room/Bed: Admit/Disch: 05/29/22 11:53:30 - Institution: Case Times PACU II FT Pre-Care Text: Identifies barriers to communication and implements measures to provide psychological support and determines knowledge level Develops individualized plan of care, and ensures continuity of care Maintains patient's dignity and privacy, and maintains patient confidentiality Identifies and reports philosophical, cultural, and spiritual beliefs and values Identifies individual values and wishes concerning care administers prescribed antibiotic therapy and immunizing agents as ordered, Evaluates postoperative tissue perfusion Implements thermoregulation measures, and monitors body temperature Evaluates postoperative respiratory status Evaluates postoperative cardiac status Evaluates postoperative neurological status Assesses pain control, collaborated in initiating patient-controlled analgesia and implements alternative methods of pain control Verifies allergies, administers prescribed medications and solutions, evaluates response to medications Entry 1 In PACU II 05/29/22 15:56:00 Discharge from PACU 05/29/22 17:15:00 II Outcomes Met? Yes Last Modified By: Nicki Ortiz 05/29/22 17:19:38 Post-Care Text: The patient demonstrates knowledge of the expected response to the operative or invasive procedure The patient's care is consistent with the individualized perioperative plan of care The patient's right to privacy is maintained The patient's value system, lifestyle, ethnicity, and culture are considered, respected, and incorporated into the perioperative plan of care The patient participates in decisions affecting his or her perioperative plan of care. The patient is free from signs and symptoms of infection The patient has wound/tissue perfusion consistent with or improved from baseline levels established preoperatively The patient is at or returning to normothermia at the conclusion of the immediate postoperative period The patient's respiratory function is consistent with or improved from baseline levels established preoperatively The patient's cardiovascular status is consistent with or improved from baseline levels established preoperatively The patient's neurological status is consistent with or improved from baseline levels established preoperatively The patient demonstrates and/or reports adequate pain control throughout the perioperative period The patient received appropriate medication(s), safely administered during the perioperative period Finalized By: Nicki Ortiz Document Signatures Signed By: Nicki Ortiz 05/29/22 17:19 Normal [facility] Monitor [facility] 05-29-2022 Monitor Record [id number]# 1.00CD:127 Normal [facility] Progress Note-Nurseon 2022 Progress Note-Nurse 1402 PATIENT TRANSPORTED TO MRI VIA CART. ALL SIDERAILS UP. PATIENT AWAKE, ALERT AND ORIENTED. 1405 ARRIVED IN MRI. 1411 PATIENT PUT TO SLEEP BY Aleksandra LU CRNA. LMA. 1415 PATIENT MOVED INTO MRI ROOM. VS: 176/89, HR 89, RR 21, SPO2 98%. 1421 MRI STARTED. 1440 PATIENT TOLERATING ANESTHESIA AND MRI WELL. VS: 85/56, HR 82, RR 20, SPO2 98%. 1450 VS: 110/68, HR 91, RR18, SPO2 99%. 1505 VS: 92/61, HR93, RR 18, SPO2 98%. 1515 MRI COMPLETE. PATIENT BEING WOKE UP BY ANESTHESIA. VS AT THIS TIME 87/59, HR 92, RR 24, SPO2 98%. 1525 PATIENT TRANSPORTED TO PACU BY DR. ROBLES AND Viri GOULD RN. PATIENT AWAKE AND FOLLOWING DIRECTIONS. NO SIGNS OF DISTRESS. TRANSPORTED VIA CART WITH SIDERAILS UP. VERBAL AND WRITTEN REPORT GIVEN TO PACU NURSES ON ARRIVAL. Rosi GOULD RN. Normal [facility] RAD - MRI Screening Formon 0 05-29-2022 RAD - MRI Screening Form [id number] #1.00CD:127 Normal [facility] RAD - MRI Screening Form [id number] #1.00CD:127 Normal [facility] eGFRon 05-29-2022 GFR/1.73 sq M.predicted among blacks MDRD (S/P/Bld) [Vol rate/Area] mL/min/{1.73_m2} Normal >=59 [facility] Comment on above: Order Comment: Order added by Discern Expert. Result Comment: eGFR is race adjusted. AA=. Performed By: #### 1 [id number], [id number] ####[facility] [address] [place] [address] GFR/1.73 sq M.predicted among non-blacks MDRD (S/P/Bld) [Vol rate/Area] mL/min/{1.73_m2} Normal >=59 [facility] Comment on above: Order Comment: Order added by Discern Expert. Result Comment: Mud Temperer basia kidney disease could be indicated at eGFR's of less than 60 mL/min/1.73m2. Kidney failure is indicated at less than 15 mL/min/1.73m2. Performed By: #### 1 [id number], [id number] ####[facility] [address] [place] [address] Physician Orderon 05-28-2022 Physician Order [id number]# 1.00CD:127 Normal [facility] Outside Recordson 05-27-2022 Outside Records [id number]#1 .00CD:127 Normal [facility] Lipid Panelon 05-11-2022 Cholesterol [Mass/Vol] 191 mg/dL NINF - 200 mg/dL [facility] Comment on above: Cholesterol Guidelines: <200 Desirable 200-240 Borderline >240 Undesirable Cholesterol in HDL [Mass/Vol] 50 mg/dL 40 - PINF mg/dL [facility] Comment on above: HDL Guidelines: <40 Undesirable 40-59 Borderline >59 Desirable Cholesterol in LDL [Mass/Vol] 114 mg/dL 0 - 130 mg/dL [employer] Comment on above: LDL Guidelines: <100 Desirable 100-129 Near to/above Desirable 130-159 Borderline >159 Undesirable Direct (measured) LDL and calculated LDL are not interchangeable tests. Cholesterol.total/Cho lesterol in HDL [Mass ratio] 3.8 {ratio} NINF - 5 [facility] Triglyceride [Mass/Vol] 136 mg/dL NINF - 150 mg/dL [facility] Comment on above: Triglyceride Guidelines: <150 Desirable 150-199 Borderline 200-499 High >499 Very high Based on AHA Guidelines for fasting triglyceride, December 2011. [facility] Lipid Profileon 05-11-2022 Cholesterol [Mass/Vol] 191 mg/dL Normal <200 [facility] Comment on above: Result Comment: Cholesterol Guidelines: <200 Desirable 200-240 Borderline >240 Undesirable Performed By: #### Z FAST #### [facility] [address] [place] [address] Care Taker: Abdirashid Boone MD #### LIPR #### [facility] [address] [place] [address] [id number] Care Taker: Morteza German MD Cholesterol in HDL [Mass/Vol] 50 mg/dL Normal >40 [facility] Comment on above: Result Comment: HDL Guidelines: <40 Undesirable 40-59 Borderline >59 Desirable Performed By: #### Z FAST #### [facility] [address] [place] [address] Care Taker: Abdirashid Boone MD #### LIPR #### [address] [address] Care Taker: Morteza German MD Cholesterol in LDL [Mass/Vol] 114 mg/dL Normal 0-130 [facility] Comment on above: Result Comment: LDL Guidelines: <100 Desirable 100-129 Near to/above Desirable 130-159 Borderline >159 Undesirable Direct (measured) LDL and calculated LDL are not interchangeable tests. Performed By: #### Z FAST #### [facility] [address] [place] [address] Care Taker: Abdirashid Boone MD #### LIPR #### [address] [place] [address] Care Taker: Morteza German MD Cholesterol.total/Cho lesterol in HDL [Mass ratio] 3.8 {ratio} Normal <5 [facility] Comment on above: Performed By: #### Z FAST #### [facility] [address] [place], [place] [id number] Care Taker: Abdirashid Boone MD #### LIPR #### [facility] [address] [place], [place] [id number] Care Taker: Morteza German MD Triglyceride [Mass/Vol] 136 mg/dL Normal <150 [facility] Comment on above: Result Comment: Triglyceride Guidelines: <150 Desirable 150-199 Borderline 200-499 High >499 Very high Based on AHA Guidelines for fasting triglyceride, December 2011. Performed By: #### Z FAST #### [facility] [address] [place], [place] [id number] Care Taker: Abdirashid Boone MD #### LIPR #### [facility] [address] [place], [place] [id number] Care Taker: Morteza German MD Patient Fasting?on 3 Patient Fasting? yes [facility] Patient fasting?on 3 Patient fasting? yes Normal [facility] Comment on above: Performed By: #### Z FAST #### [facility] [address] [place] [address] Care Taker: Abdirashid Boone MD #### LIPR #### [facility] [address] [place], [place] [id number] Care Taker: Morteza German MD ECHOCARDIO M/2D COMPLETEon 0 05-01-2022 ECHOCARDIO M/2D COMPLETE Patient: PATRICIA TURNER Exam Date: 05/01/2022 : 1945 Gender:F Ordering : DR DEBORAH GARCIA . Admission #: [id number] Family : MARINA LERMA Order #: [id number] CLICK HERE TO VIEW EXAM ECHOCARDIOGRAM REPORT PROCEDURE: CARDIO PULMONARY ECHOCARDIO M/2D COMP INDICATIONS: Abnormal EKG COMPARISON: None. DESCRIPTION: COMPLETE ECHOCARDIOGRAM Real-time transthoracic echocardiography with 2D, M-mode, spectral and color flow Doppler performed. QUALITY: Technical quality was good. 63 190# BP 152/80 LEFT VENTRICLE: Normal chamber size. Thickened septal wall. LV EF: Normal left ventricular ejection fraction, (>55%). No wall motion abnormalities. DIASTOLIC: Not adequately assessed due to heart rhythm. ATRIAL SEPTUM: Visually appears intact. LEFT ATRIUM: Severe dilatation. RIGHT ATRIUM: Moderate dilatation. RIGHT VENTRICLE: Mild dilatation. Right ventricular systolic function is normal. TRICUSPID VALVE: Normal mobility and thickness. Moderate regurgitation. Doppler studies reveal moderately (45-60) elevated right sided pressures. RVSP 52 mmHg MITRAL VALVE: Mildly thickened with normal mobility. No evidence of mitral valve stenosis. There is no mitral annular calcification. Mild mitral regurgitation. AORTIC VALVE: Normal trileaflet appearance. Thickened aortic valve. Normal leaflet mobility. No evidence of aortic valve stenosis. No aortic regurgitation. AORTIC ROOT: Normal diameter and appearance. PULMONIC VALVE: Normal thickness and mobility. No stenosis. Trivial regurgitation. PERICARDIUM: Anterior free space; trivial effusion versus fat pad. IVC: Not well visualized. CONCLUSION: Global left ventricular systolic function is normal; visually estimated ejection fraction is 55 to 60%. No wall motion abnormalities. Left ventricular wall thickness is increased. Biatrial enlargement. The right ventricle is mildly dilated with normal systolic function. Moderate tricuspid regurgitation. Moderately elevated right-sided pressures; RVSP 52 mmHg. Mild mitral regurgitation. Anterior free space; trivial effusion versus fat pad. Adult Echocardiography Procedure Report Left Ventricle LVEDD (3.7 - 5.6 cm): 5.04 cm LVESD (2.2 - 4.0 cm): 4.12 cm LVIVS thickness (0.6 - 1.2 cm): 1.27 cm LVPW thickness (0.5 - 1.0 cm): 0.91 cm LVOT Max Gradient: 0.83 mm[Hg] Peak Velocity (LVOT): 0.45 m/s LVOT Diameter 2.26 cm Left Atrium LA Volume Index (2D A2C): 94.25 ml, 94.25 ml Left Atrium Systolic Dimension: 5.08 cm Mitral Valve Mitral Valve E-Wave Peak Velocity: 0.74 m/s, 0.65 m/s Right Ventricle Aorta AO Root Diam: 3.13 cm Aortic Valve AoV Area (Peak Koby): 2.14 cm2, 2.14 cm2 Peak Velocity(Antegrade Flow): 0.85 m/s Peak Gradient(Antegrade Flow): 2.91 mm[Hg] Tricuspid Valve Peak Velocity (Regurgitant Flow): 2.41 m/s, 2.22 m/s, 2.28 m/s, 3.03 m/s Pulmonic Valve Peak Velocity: 0.73 m/s, 0.65 m/s Peak Gradient: 2.15 mm[Hg], 1.71 mm[Hg] Right Atrium Right Atrium Systolic Pressure: 93.61 ml, 93.61 ml Dictated by: Ashanti House M.D. on 05/01/2022 at 11:33 Approved by: Ashanti House M.D. on 05/01/2022 at 11:36 Normal [facility] FREE T3on 05-01-2022 FREE T3 2.42 pg/mlL Normal 2.18-3.98 [facility] Comment on above: Performed By: #### F T3, T4, TSH #### [facility] [address] [place] [address] Dr. Britney Gambino MAGNESIUMon 05-01-2022 Magnesium [Mass/Vol] 1.9 mg/dL Normal 1.8-2.4 [facility] Comment on above: Performed By: #### M G, CMP #### [facility] [address] [place] [address] Dr. Britney Gambino PROF 14(COMP METB)on 023 Albumin [Mass/Vol] 3.7 g/dL Normal 3.4-5.0 [facility] Comment on above: Performed By: #### M G, CMP #### [facility] [address] [place] [address] Dr. Britney Gambino Albumin/Globulin [Mass ratio] 0.8 {ratio} Normal [facility] Comment on above: Performed By: #### M G, CMP #### [facility] [address] [place] [address] Dr. Britney Gambino ALP [Catalytic activity/Vol] 87 U/L Normal 46-[address] [facility] Comment on above: Performed By: #### M G, CMP #### [facility] [address] [place] [address] Dr. Britney Gambino ALT [Catalytic activity/Vol] 19 U/L Normal 14-59 [facility] Comment on above: Performed By: #### M G, CMP #### [facility] [address] [address] [address] Britney Gambino Anion gap [Moles/Vol] 13.0 mmol/L Normal [facility] Comment on above: Performed By: #### M G, CMP #### [facility] [address] [place] [address] [address] Britney Gambino AST [Catalytic activity/Vol] 18 U/L Normal 15-37 [facility] Comment on above: Performed By: #### M G, CMP #### [facility] [address] [address] [address] Britney Gambino Bilirubin [Mass/Vol] 0.7 mg/dL Normal 0.2-1.0 [facility] Comment on above: Performed By: #### M G, CMP #### [facility] [address] [address] [address] Britney Gambino Calcium [Mass/Vol] 9.5 mg/dL Normal 8.5-10.1 [facility] Comment on above: Performed By: #### M G, CMP #### [facility] [address] [address] [address] Britney Gambino Chloride [Moles/Vol] 103 mmol/L Normal 98-107 [facility] [facility] Comment on above: Performed By: #### M G, CMP #### [facility] [address] [address] [address] Britney Gambino CO2 [Moles/Vol] 27.1 mmol/L Normal 21.0-32.[address] [facility] Comment on above: Performed By: #### M G, CMP #### [facility] [address] [address] [address] Britney Gambino Creatinine [Mass/Vol] 0.90 mg/dL Normal 0.55-1.02 [facility] Comment on above: Performed By: #### M G, CMP #### [facility] [address] [address] [address] Britney Gambino EGFR-AF ST LUCIAN >60 Normal >=60 [facility] Comment on above: Performed By: #### M G, CMP #### [facility] [address] [address] [address] Britney Gambino EGFR-NON AF ST LUCIAN >60 Normal >=[address] [facility] Comment on above: Performed By: #### M G, CMP #### [facility] [address] [address] [address] Britney Gambino Globulin (S) [Mass/Vol] 4.4 g/dL Normal [facility] Comment on above: Performed By: #### M G, CMP #### [facility] [address] [address] [address] Britney Gambino Glucose [Mass/Vol] 89 mg/dL Normal 74-106 [facility] Comment on above: Performed By: #### M G, CMP #### [facility] [address] [place] [address] Dr. Britney Gambino Potassium [Moles/Vol] 4.1 mmol/L Normal 3.5-5.[address] [facility] Comment on above: Performed By: #### M G, CMP #### [facility] [address] [place] [address] Dr. Britney Gambino Protein [Mass/Vol] 8.1 g/dL Normal 6.4-8.2 [facility] Comment on above: Performed By: #### M G, CMP #### [facility] [address] [place] [address] Dr. Britney Gambino Sodium [Moles/Vol] 139 mmol/L Normal 136-145 [facility] Comment on above: Performed By: #### M G, CMP #### [facility] [address] [place] [address] Dr. Britney Gambino Urea nitrogen [Mass/Vol] 17.0 mg/dL Normal 7.0-18.[address] [facility] Comment on above: Performed By: #### M G, CMP #### [facility] [address] [place] [address] Dr. Britney Gambino Urea nitrogen/Creatinine [Mass ratio] 18.9 mg/mg Normal [facility] Comment on above: Performed By: #### M G, CMP #### [facility] [address] [place], [place] [address] Dr. Britney Gambino T4on 05-01-2022 T4 [Mass/Vol] 10.10 ug/dL Normal 4.80-13.90 [facility] Comment on above: Performed By: #### F T3, T4, TSH #### [facility] [address] [address] [address] Britney Gambino TSHon 05-01-2022 TSH 0.825 uIU/mL Normal 0.358-3.740 [facility] Comment on above: Performed By: #### F T3, T4, TSH #### [facility] [address] [address] [address] Britney Gambino RAD - MRI Screening Formon 0 04-22-2022 RAD - MRI Screening Form [id number]# 1.00CD:127 Normal [facility] COVID-19 (MC)on 04-21-2022 Performing Instrument FT Octavio 2 Normal [facility] Comment on above: Performed By: #### 2 [id number] ####[facility] [address] [place] [address] SARS-CoV-2 (COVID-19) RNA KRYSTA+probe Ql (Resp) Not detected Normal Not Detected [facility] Comment on above: Result Comment: This test result should be correlated with clinical presentations and medical history by a healthcare provider to determine its clinical significance. This assay was performed by a reverse transcriptase real-time polymerase chain reaction (rt PCR) method on the [employer] system. This test has been authorized only for the detection of nucleic acid from SARS-CoV-2, not for any other viruses or pathogens. This test has not been FDA cleared or approved. This test has been authorized by FDA under an Emergency Use Authorization (EUA). This test is only authorized for the duration of time the declaration on that circumstances exist justifying the authorization emergency use of in vitro diagnostic tests for detection and/or diagnosis of COVID-19 infection under section 564 (b) (1) of the Act, 21 U.S.C. 360 bbb-3 (b) (1), unless authorization is terminated or revoked sooner. Performed By: #### 2 [id number] ####[facility] [address] [place] [address] SARS-CoV-2 (COVID-19) RNA KRYSTA+probe Ql (Unsp spec) Pass Normal Pass [facility] Comment on above: Performed By: #### 2 [id number] ####[address] [place] [address] Specimen source Nom (Unsp spec) Nasal Normal [facility] Comment on above: Performed By: #### 2 [id number] ####[address] [place] [address] XR Chest 2 Viewson 3 XR Chest 2 Views Exam Date/Time: 04/20/2022 16:53 EST Reason for Exam: pre op Report IMPRESSION: NO RADIOGRAPHIC EVIDENCE OF ACTIVE DISEASE IN THE CHEST. CLINICAL INFORMATION: pre op. COMPARISON: APRIL 10, 2016. FINDINGS: Two views of the chest were obtained. Heart and mediastinum appear normal. The lungs appear clear. Visualized bony thorax and remainder of the chest appears unremarkable. FINAL REPORT Dictated: 04/21/2022 9:25 am Efra Ferrer MD Signed (Electronic Signature): 04/21/2022 9:25 am Signed by: Efra Ferrer MD Transcribed by: JERSEY Technologist: ORB Normal [facility] BUNon 04-20-2022 Urea nitrogen [Mass/Vol] 27 mg/dL High 5-21 [facility] Comment on above: Performed By: #### 2 [id number], 1377022, 5520276, 47073918, 3560378, 8095702 ####[facility] [address] [place] [address] CBC w/Indiceson 04-20-2022 Erythrocyte distribution width (RBC) [Ratio] 14.9 % High 10.9-14.2 [facility] Comment on above: Performed By: #### 2 775702, 4006227, 8522210, 90012147, 7736165, 3074069 ####[id number] Hematocrit (Bld) [Volume fraction] 43.9 % Normal 34.0-46.0 [facility] Comment on above: Performed By: #### 2 332294, 9492302, 4197662, 88041844, 9564475, 0922555 ####[address] [address] Hemoglobin (Bld) [Mass/Vol] 14.1 g/dL Normal 12.0-16.0 [facility] Comment on above: Performed By: #### 2 071762, 9832350, 3623867, 15600457, 9752788, 9108003 ####[address] MCH (RBC) [Entitic mass] 30.8 pg Normal 27.0-34.0 [facility] Comment on above: Performed By: #### 2 668470, 4854736, 7719134, 72861514, 0943121, 2872187 ####[address] MCHC (RBC) [Mass/Vol] 32.1 g/dL Normal 31.4-36.0 [facility] Comment on above: Performed By: #### 2 497942, 2761183, 2580296, 26377781, 6198329, 3774371 ####[address] [address] MCV (RBC) [Entitic vol] 96.1 fL Normal 80.0-100.0 [facility] Comment on above: Performed By: #### 2 293916, 2366356, 2275960, 38877613, 9688464, 8383451 ####[address] [address] Platelet mean volume (Bld) [Entitic vol] 8.6 fL Normal 6.4-10.8 [facility] Comment on above: Performed By: #### 2 828587, 8084586, 8366828, 32481712, 4020564, 3660228 ####[facility] [address] [place] [address] Platelets (Bld) [#/Vol] 253.0 E9/L Normal 150.0-500.0 [facility] Comment on above: Performed By: #### 2 524446, 4288988, 8041636, 55248761, 2530241, 1805460 ####[facility] [address] [place] [address] RBC (Bld) [#/Vol] 4.6 E12/L Normal 4.3-5.9 [facility] Comment on above: Performed By: #### 2 140648, 8291471, 5719249, 92569975, 8048542, 3657348 ####[facility] [address] [place] [address] WBC corrected for nucl RBC Auto (Bld) [#/Vol] 6.4 E9/L Normal 4.0-11.0 [facility] Comment on above: Performed By: #### 2 175120, 6048338, 1124946, 48729308, 4740518, 0597010 ####[facility] [address] [place] [address] CHEMISTRYOrdered By: SYSTEM SYSTEM on 04-20-2022 Anion gap [Moles/Vol] 12 mmol/L Normal 6 - 16 mEq/L [facility] Remisol Chloride [Moles/Vol] 105 mmol/L Normal 101 - 1 11 mmol/L [facility] Remisol CO2 [Moles/Vol] 23 mmol/L Normal 21 - 31 mmol/L [facility] Remisol Creatinine [Mass/Vol] 0.8 mg/dL Normal 0.5 - 1.3 mg/dL FT Remisol GFR/1.73 sq M.predicted among blacks MDRD (S/P/Bld) [Vol rate/Area] mL/min/1.73 m2 Normal >=59mL/min/1. 73 m2 [facility] Chem S GFR/1.73 sq M.predicted among non-blacks MDRD (S/P/Bld) [Vol rate/Area] mL/min/1.73 m2 Normal >=59mL/min/1. 73 m2 [facility] Chem S Glucose [Mass/Vol] 82 mg/dL Normal 55 - 199 mg/dL [facility] Remisol Potassium [Moles/Vol] 4.1 mmol/L Normal 3.5 - 5.3 mmol/L [facility] Remisol Sodium [Moles/Vol] 136 mmol/L Normal 135 - 145 mmol/L [facility] Remisol Urea nitrogen [Mass/Vol] 27 mg/dL High 5 - 21 mg/dL [facility] Remisol Consent for Treatmenton 03-30 Consent for Treatment [id number]#1 .00CD:127 Normal [facility] Consent for Treatment [id number]# 1.00CD:127 Normal [facility] Creatinineon 04-20-2022 Creatinine [Mass/Vol] 0.8 mg/dL Normal 0.5-1.3 [facility] Comment on above: Performed By: #### 2 844998, 7116031, 5606832, 00356382, 8189986, 3077476 ####[facility] [address] [place] [address] Glucoseon 04-20-2022 Glucose [Mass/Vol] 82 mg/dL Normal 55-199 [facility] Comment on above: Performed By: #### 2 996057, 1852521, 1144942, 78980829, 3025041, 1132366 ####[facility] [address] [place] [address] HEMATOLOGYOrdered By: Katrina Arias on 04-20-2022 Erythrocyte distribution width (RBC) [Ratio] 14.9 % High 10.9 - 14.2 % [facility] HemeAutoSS Hematocrit (Bld) [Volume fraction] 43.9 % Normal 34.0 - 46.0 % [facility] HemeAutoSS Hemoglobin (Bld) [Mass/Vol] 14.1 g/dL Normal 12.0 - 16.0 gm/dL [facility] HemeAutoSS MCH (RBC) [Entitic mass] 30.8 pg Normal 27.0 - 34.0 pg [facility] HemeAutoSS MCHC (RBC) [Mass/Vol] 32.1 g/dL Normal 31.4 - 36.0 gm/dL FT [employer] MCV (RBC) [Entitic vol] 96.1 fL Normal 80.0 - 100.0 fL FT [facility] Platelet mean volume (Bld) [Entitic vol] 8.6 fL Normal 6.4 - 10.8 fL FT [facility] Platelets (Bld) [#/Vol] 253.0 E9/L Normal 150.0 - 500.0 E9/L FT [facility] RBC (Bld) [#/Vol] 4.6 E12/L Normal 4.3 - 5.9 E12/L FT [facility] WBC corrected for nucl RBC Auto (Bld) [#/Vol] 6.4 E9/L Normal 4.0 - 11.0 E9/L [facility] HemeAutoSS Lyteson 04-20-2022 Anion gap [Moles/Vol] 12 mmol/L Normal 6-16 [facility] Comment on above: Performed By: #### 2 320093, 2924617, 7557051, 19480868, 4506798, 1584887 ####[facility] [address] [place] [address] Chloride [Moles/Vol] 105 mmol/L Normal 101-111 [facility] Comment on above: Performed By: #### 2 626275, 5231697, 8313352, 66237847, 9932047, 0543500 ####[facility] [address] [place] [address] CO2 [Moles/Vol] 23 mmol/L Normal 21-31 [facility] Comment on above: Performed By: #### 2 866977, 3388955, 3935393, 70805420, 3135458, 8108019 ####[facility] [address] [place] [address] Potassium [Moles/Vol] 4.1 mmol/L Normal 3.5-5.3 [facility] Comment on above: Performed By: #### 2 243020, 6397540, 5968227, 18792935, 2526710, 1450261 ####[facility] [address] [place] [address] Sodium [Moles/Vol] 136 mmol/L Normal 135-145 [facility] Comment on above: Performed By: #### 2 067325, 4483702, 2890251, 75740503, 1303881, 7496985 ####[facility] [address] [place] [address] eGFRon 04-20-2022 GFR/1.73 sq M.predicted among blacks MDRD (S/P/Bld) [Vol rate/Area] mL/min/{1.73_m2} Normal >=59 [facility] Comment on above: Order Comment: Order added by Discern Expert. Result Comment: eGFR is race adjusted. AA=. Performed By: #### 2 429676, 0317884, 6816422, 17419348, 8687244, 9688570 ####[facility] [address] [place] [address] GFR/1.73 sq M.predicted among non-blacks MDRD (S/P/Bld) [Vol rate/Area] mL/min/{1.73_m2} Normal >=59 [facility] Comment on above: Order Comment: Order added by Discern Expert. Result Comment: Mud Temperer basia kidney disease could be indicated at eGFR's of less than 60 mL/min/1.73m2. Kidney failure is indicated at less than 15 mL/min/1.73m2. Performed By: #### 2 835290, 0201252, 1568610, 51970951, 7932444, 1950616 ####[facility] [address] [place] [address] COVID-19 ([facility])on 04-17-2022 ADMITTED TO INTENSIVE CARE UNIT FOR CONDITION OF INTEREST:FIND:PT: NO Normal [facility] Comment on above: Performed By: #### 2 [id number] ####[facility] [address] [place] [address] EMPLOYED IN A HEALTHCARE SETTING:FIND:PT: Unknown Normal [facility] Comment on above: Performed By: #### 2 [id number] ####[facility] [address] [place] [address] FIRST TEST FOR CONDITION OF INTEREST:FIND:PT: Unknown Normal [facility] Comment on above: Performed By: #### 2 [id number] ####[place] [address] HAS SYMPTOMS RELATED TO CONDITION OF INTEREST:FIND:PT: Unknown Normal [facility] Comment on above: Performed By: #### 2 [id number] ####[place] [address] HOSPITALIZED FOR CONDITION OF INTEREST:FIND:PT: NO Normal [facility] Comment on above: Performed By: #### 2 [id number] ####[place] [address] STATUS:FIND:PT: NO Normal [facility] Comment on above: Performed By: #### 2 [id number] ####[place] [address] RESIDES IN A CONGREGA CARE SETTING:FIND:PT: Unknown Normal [facility] Comment on above: Performed By: #### 2 [id number] ####[place] [address] Physician Orderon 04-16-2022 Physician Order [id number]# 1.00CD:127 Normal [facility] Physician Orderon 04-15-2022 Physician Order [id number]#1 .00CD:127 Normal [facility] CBC AUTO DIFFon 01-02-2022 BASO # 0.0 103/ul Normal 0.0-0.1 [facility] Comment on above: Performed By: #### F T3, T4, TSH #### [facility] [address] [address] [address] Britney Gambino Basophils/100 WBC (Bld) 0.8 % Normal 0.2-2.0 [facility] Comment on above: Performed By: #### F T3, T4, TSH #### [facility] [address] [place] [address] Dr. Britney Gambino EO # 0.2 103/ul Normal 0.0-0.7 [facility] Comment on above: Performed By: #### F T3, T4, TSH #### [facility] [address] [place] [address] Dr. Britney Gambino Eosinophils/100 WBC (Bld) 4.7 % Normal 0.9-7.[address] [facility] Comment on above: Performed By: #### F T3, T4, TSH #### [facility] [address] [place] [address] Dr. Britney Gambino Erythrocyte distribution width (RBC) [Ratio] 13.5 % Normal 11.0-15.0 [facility] Comment on above: Performed By: #### F T3, T4, TSH #### [facility] [address] [place] [address] Dr. Britney Gambino Hematocrit (Bld) [Volume fraction] 39.9 % Normal 36.0-48.[address] [facility] Comment on above: Performed By: #### F T3, T4, TSH #### [facility] [address] [place] [address] Dr. Britney Gambino Hemoglobin (Bld) [Mass/Vol] 12.9 g/dL Normal 12.0-16.[address] [facility] Comment on above: Performed By: #### F T3, T4, TSH #### [facility] [address] [place] [address] Dr. Britney Gambino IG # 0.02 10e3/ul Normal 0.00-0.[address] [facility] Comment on above: Performed By: #### F T3, T4, TSH #### [facility] [address] [place] [address] Dr. Britney Gambino IG % 0.4 % Normal 0.0-0.[address] [facility] Comment on above: Performed By: #### F T3, T4, TSH #### [facility] [address] [address] [address] Britney Gambino LYMPH # 2.1 103/ul Normal 1.2-3.[address] [facility] Comment on above: Performed By: #### F T3, T4, TSH #### [facility] [address] [place] [address] Dr. Britney Gambino Lymphocytes/100 WBC (Bld) 40.6 % Normal 20.5-60.[address] [facility] Comment on above: Performed By: #### F T3, T4, TSH #### [facility] [address] [place] [address] Dr. Britney Gambino MANUAL DIFF REQ NO Normal [facility] Comment on above: Performed By: #### F T3, T4, TSH #### [facility] [address] [place] [address] Dr. Britney Gambino MCH (RBC) [Entitic mass] 31.2 pg Normal 26.7-34.0 [facility] Comment on above: Performed By: #### F T3, T4, TSH #### [facility] [address] [place] [address] Dr. Britney Gambino MCHC (RBC) [Mass/Vol] 32.3 g/dL Normal 29.9-35.2 [facility] Comment on above: Performed By: #### F T3, T4, TSH #### [facility] [address] [place] [address] Dr. Britney Gambino MCV (RBC) [Entitic vol] 96.4 fL Normal 81.0-99.0 [facility] Comment on above: Performed By: #### F T3, T4, TSH #### [facility] [address] [place] [address] Dr. Britney Gambino MONO # 0.4 103/ul Normal 0.3-0.[address] [facility] Comment on above: Performed By: #### F T3, T4, TSH #### [facility] [address] [place] [address] Dr. Britney Gambino Monocytes/100 WBC (Bld) 7.6 % Normal 1.7-12.0 [facility] Comment on above: Performed By: #### F T3, T4, TSH #### [facility] [address] [address] [address] Britney Gambino NEUT # 2.3 103/ul Normal 1.4-6.5 [facility] Comment on above: Performed By: #### F T3, T4, TSH #### [facility] [address] [place] [address] Dr. Britney Gambino Neutrophils/100 WBC (Bld) 45.9 % Normal 43.0-75.0 [facility] Comment on above: Performed By: #### F T3, T4, TSH #### [facility] [address] [place] [address] Dr. Britney Gambino Platelet mean volume (Bld) [Entitic vol] 9.5 fL Normal 9.5-13.5 [facility] Comment on above: Performed By: #### F T3, T4, TSH #### [facility] [address] [place] [address] Dr. Britney Gambino PLT 250 103/ul Normal 150-[address] [facility] Comment on above: Performed By: #### F T3, T4, TSH #### [facility] [address] [place] [address] Dr. Britney Gambino RBC 4.14 106/ul Critically low 4.20-5.40 [facility] Comment on above: Performed By: #### F T3, T4, TSH #### [facility] [address] [place] [address] Dr. Britney Gambino WBC 5.1 103/ul Normal 4.0-11.[address] [facility] Comment on above: Performed By: #### F T3, T4, TSH #### [facility] [address] [place] [address] Dr. Britney Gambino FREE T3on 01-02-2022 FREE T3 2.30 pg/mlL Normal 2.18-3.98 [facility] Comment on above: Performed By: #### L IPID, TSH, CMP, T4, FT3 #### [facility] [address] [place] [address] Dr. Britney aGmbino GLYCOHEMOGLOBIN A1Con 2021 ADA RECOMMENDATION SEE BELOW Normal [facility] Comment on above: Result Comment: ADA RECOMMENDED LIMIT 4.0 - 6.0 ADA THERAPEUTIC TARGET < 7.0 ACTION SUGGESTED > 7.0 Performed By: #### F T3, T4, TSH #### [facility] [address] [address] [address] Britney Gambino Glucose [Mass/Vol] 103 mg/dL Normal [facility] Comment on above: Performed By: #### F T3, T4, TSH #### [facility] [address] [address] [address] Britney Gambino HbA1c (Bld) [Mass fraction] 5.2 % Normal 4.5-6.2 [facility] Comment on above: Performed By: #### F T3, T4, TSH #### [facility] [address] [address] [address] Britney Gambino LIPID PROFILEon 01-02-2022 CHOL-HDL RATIO NORM SEE BELOW Normal [facility] Comment on above: Result Comment: 3.3 - 4.4 LOW RISK 4.4 - 7.1 AVERAGE RISK 7.1 - 11.0 MODERATE RISK >11.0 HIGH RISK Performed By: #### F T3, T4, TSH #### [facility] [address] [place] [address] Dr. Britney Gambino Cholesterol [Mass/Vol] 211 mg/dL Critically high <=200 [facility] Comment on above: Performed By: #### F T3, T4, TSH #### [facility] [address] [address] [address] Britney Gambino Cholesterol in HDL [Mass/Vol] 65 mg/dL Critically high 40-60 [facility] Comment on above: Performed By: #### F T3, T4, TSH #### [facility] [address] [address] [address] Britney Gambino Cholesterol in LDL [Mass/Vol] 129.0 mg/dL Normal [facility] Comment on above: Performed By: #### F T3, T4, TSH #### [facility] [address] [address] [address] Britney Gambino Cholesterol.total/Cho lesterol in HDL [Mass ratio] 3.2 {ratio} Normal [facility] Comment on above: Performed By: #### F T3, T4, TSH #### [facility] [address] [place] [address] Dr. Britney Gambino HDL NORMAL > or = 60 mg/dl - LO W CARDIOVASCULAR RISK <40 mg/dl - HIGH CARDIOVASCULAR RISK Normal [facility] Comment on above: Performed By: #### F T3, T4, TSH #### [facility] [address] [place] [address] Dr. Britney Gambino LDL CALC NORMAL SEE BELOW Normal [facility] Comment on above: Result Comment: <100 mg/dl OPTIMAL 100 - 129 mg/dl NEAR OR ABOVE OPTIMAL 130 - 159 mg/dl BORDERLINE HIGH 160 - 189 mg/dl HIGH >190 mg/dl VERY HIGH Performed By: #### F T3, T4, TSH #### [facility] [address] [place] [address] Dr. Britney Gambino Triglyceride [Mass/Vol] 85 mg/dL Normal <=150 [facility] Comment on above: Performed By: #### F T3, T4, TSH #### [facility] [address] [place] [address] Dr. Britney Gambino VLDL CALC 17.0 mg/dL Normal [facility] Comment on above: Performed By: #### F T3, T4, TSH #### [facility] [address] [place] [address] Dr. Britney Gambino PROF 14(COMP METB)on 022 Albumin [Mass/Vol] 3.8 g/dL Normal 3.4-5.0 [facility] Comment on above: Performed By: #### L IPID, TSH, CMP, T4, FT3 #### [facility] [address] [place] [address] Dr. Britney Gambino Albumin/Globulin [Mass ratio] 1.0 {ratio} Normal [facility] Comment on above: Performed By: #### L IPID, TSH, CMP, T4, FT3 #### [facility] [address] [place] [address] Dr. Britney Gambino ALP [Catalytic activity/Vol] 70 U/L Normal 46-116 [facility] Comment on above: Performed By: #### L IPID, TSH, CMP, T4, FT3 #### [facility] [address] [place] [address] Dr. Britney Gambino ALT [Catalytic activity/Vol] 19 U/L Normal 14-59 [facility] Comment on above: Performed By: #### L IPID, TSH, CMP, T4, FT3 #### [facility] [address] [address] [address] Britney Gambino Anion gap [Moles/Vol] 9.8 mmol/L Normal [facility] Comment on above: Performed By: #### L IPID, TSH, CMP, T4, FT3 #### [facility] [address] [place] [address] Dr. Britney Gambino AST [Catalytic activity/Vol] 18 U/L Normal 15-37 [facility] Comment on above: Performed By: #### L IPID, TSH, CMP, T4, FT3 #### [facility] [address] [place] [address] Dr. Britney Gambino Bilirubin [Mass/Vol] 0.8 mg/dL Normal 0.2-1.0 [facility] Comment on above: Performed By: #### L IPID, TSH, CMP, T4, FT3 #### [facility] [address] [place] [address] Dr. Britney Gambino Calcium [Mass/Vol] 9.3 mg/dL Normal 8.5-10.1 [facility] Comment on above: Performed By: #### L IPID, TSH, CMP, T4, FT3 #### [facility] [address] [place] [address] Dr. Britney Gambino Chloride [Moles/Vol] 104 mmol/L Normal 98-107 [facility] Comment on above: Performed By: #### L IPID, TSH, CMP, T4, FT3 #### [facility] [address] [place] [address] Dr. Britney Gambino CO2 [Moles/Vol] 27.1 mmol/L Normal 21.0-32.[address] [facility] Comment on above: Performed By: #### L IPID, TSH, CMP, T4, FT3 #### [facility] [address] [address] [address] Britney Gambino Creatinine [Mass/Vol] 0.84 mg/dL Normal 0.55-1.02 [facility] Comment on above: Performed By: #### L IPID, TSH, CMP, T4, FT3 #### [facility] [address] [address] [address] Britney Gambino EGFR-AF [facility] LUCIAN >60 Normal >=[address] [facility] Comment on above: Performed By: #### L IPID, TSH, CMP, T4, FT3 #### [facility] [address] [place] [address] Dr. Britney Gambino EGFR-NON AF [facility] LUCIAN >60 Normal >=60 [facility] Comment on above: Performed By: #### L IPID, TSH, CMP, T4, FT3 #### [facility] [address] [place] [address] Dr. Britney Gambino Globulin (S) [Mass/Vol] 3.8 g/dL Normal [facility] Comment on above: Performed By: #### L IPID, TSH, CMP, T4, FT3 #### [facility] [address] [address] [address] Britney Gambino Glucose [Mass/Vol] 95 mg/dL Normal 74-106 [facility] Comment on above: Performed By: #### L IPID, TSH, CMP, T4, FT3 #### [facility] [address] [address] [address] Britney Gambino Potassium [Moles/Vol] 3.9 mmol/L Normal 3.5-5.1 [facility] Comment on above: Performed By: #### L IPID, TSH, CMP, T4, FT3 #### [facility] [address] [address] [address] Britney Gambino Protein [Mass/Vol] 7.6 g/dL Normal 6.4-8.2 [facility] Comment on above: Performed By: #### L IPID, TSH, CMP, T4, FT3 #### [facility] [address] [place] [address] Dr. Britney Gamibno Sodium [Moles/Vol] 137 mmol/L Normal 136-145 [facility] Comment on above: Performed By: #### L IPID, TSH, CMP, T4, FT3 #### [facility] [address] [place] [address] Dr. Britney Gambino Urea nitrogen [Mass/Vol] 16.0 mg/dL Normal 7.0-18.0 [facility] Comment on above: Performed By: #### L IPID, TSH, CMP, T4, FT3 #### [facility] [address] [place] [address] Dr. Britney Gambino Urea nitrogen/Creatinine [Mass ratio] 19.0 mg/mg Normal [facility] Comment on above: Performed By: #### L IPID, TSH, CMP, T4, FT3 #### [facility] [address] [place] [address] Dr. Britney Gambino T4on 01-02-2022 T4 [Mass/Vol] 11.40 ug/dL Normal 4.80-13.90 [facility] Comment on above: Performed By: #### L IPID, TSH, CMP, T4, FT3 #### [facility] [address] [place] [address] Dr. Britney Gambino TSHon 01-02-2022 TSH 1.861 uIU/mL Normal 0.358-3.740 [facility] Comment on above: Performed By: #### L IPID, TSH, CMP, T4, FT3 #### [facility] [address] [place] [address] Dr. Britney Gambino VITAMIN D 25 OHon 01-02-2022 VIT D 25-OH 35.9 ng/mL Normal [facility] Comment on above: Performed By: #### F T3, T4, TSH #### [facility] [address] [place] [address] Dr. Britney Gambino VIT D RANGES SEE BELOW Normal [facility] Comment on above: Result Comment: <20 ng/mL Vit D deficient 20 - <30 ng/mL Vit D insufficient 30 - 100 ng/mL Vit D sufficient >100 ng/mL Potential Toxicity Performed By: #### F T3, T4, TSH #### [facility] [address] [address] [address] Britney Gambino Vital Signs Date Time Vital Sign Value Performing Clinician Faci lity 05-29-2022 17:00-0500 Heart rate 80 /min Suzi Timmis [facility] 05-29-2022 17:00-0500 SaO2% (BldA) [Mass fraction] 100 % Suzi Timmis [facility] 05-29-2022 17:00-0500 Respiratory rate 18 /min Suzi Timmis [facility] 05-29-2022 17:00-0500 Diastolic blood pressure 88 mm[Hg] Suzi Timmis [facility] 05-29-2022 17:00-0500 Mean blood pressure 109 mm[Hg] Suzi Timmis [facility] 05-29-2022 17:00-0500 Systolic blood pressure 151 mm[Hg] Suzi Timmis [facility] 05-29-2022 16:03-0500 Heart rate 71 /min Suzi Timmis [facility] 05-29-2022 16:03-0500 SaO2% (BldA) [Mass fraction] 97 % Suzi Timmis [facility] 05-29-2022 16:03-0500 Respiratory rate 16 /min Suzi Timmis [facility] 05-29-2022 16:03-0500 Diastolic blood pressure 87 mm[Hg] Suzi Timmis [facility] 05-29-2022 16:03-0500 Mean blood pressure 111 mm[Hg] Suzi Timmis [facility] 05-29-2022 16:03-0500 Systolic blood pressure 161 mm[Hg] Suzi Timmis [facility] 05-29-2022 16:03-0500 Body temperature 98.78 [degF] Suzi Timmis [facility] 05-29-2022 15:50-0500 Blood Pressure Location Suzi Timmis [facility] 05-29-2022 15:50-0500 Body temperature 97.52 [degF] Suzi Timmis [facility] 05-29-2022 15:50-0500 Diastolic blood pressure 94 mm[Hg] Suzi Timmis [facility] 05-29-2022 15:50-0500 Heart rate 92 /min Suzi Timmis [facility] 05-29-2022 15:50-0500 Respiratory rate 18 /min Suzi Timmis [facility] 05-29-2022 15:50-0500 SaO2% (BldA) [Mass fraction] 96 % Suzi Timmis [facility] 05-29-2022 15:50-0500 Systolic blood pressure 146 mm[Hg] Suzi Timmis [facility] 05-29-2022 15:40-0500 Blood Pressure Location Suzi Timmis [facility] 05-29-2022 15:40-0500 Respiratory rate 15 /min Suzi Timmis [facility] 05-29-2022 15:35-0500 Blood Pressure Location Suzi Timmis [facility] 05-29-2022 15:35-0500 Respiratory rate 11 /min Suzi Timmis [facility] 05-29-2022 12:17-0500 Respiratory rate 20 /min Suzi Timmis [facility] 05-29-2022 12:16-0500 Mean blood pressure 110 mm[Hg] Suzi Timmis [facility] 04-20-2022 16:54-0500 Blood Pressure Location Suzi Timmis [facility] 04-20-2022 16:54-0500 Diastolic blood pressure 90 mm[Hg] Suzi Timmis [facility] 04-20-2022 16:54-0500 Systolic blood pressure 166 mm[Hg] Suzi Timmis [facility] 04-20-2022 16:43-0500 Heart rate 86 /min Suzi Timmis [facility] 04-20-2022 16:43-0500 SaO2% (BldA) [Mass fraction] 99 % Suzi Timmis [facility] 04-20-2022 16:43-0500 Diastolic blood pressure 91 mm[Hg] Suzi Timmis [facility] 04-20-2022 16:43-0500 Mean blood pressure 116 mm[Hg] Suzi Timmis [facility] 04-20-2022 16:43-0500 Systolic blood pressure 168 mm[Hg] Suzi Timmis [facility] 04-20-2022 16:43-0500 Blood Pressure Location Suzi Timmis [facility] 04-20-2022 16:43-0500 Body temperature 98.06 [degF] Suzi Neely [facility] 04-20-2022 16:43-0500 Respiratory rate 16 /min Suzi Neely [facility] 06-06-2018 08:05-0400 BP Diastolic 52 mm[Hg] [facility] 06-06-2018 08:05-0400 BP Systolic 109 mm[Hg] [facility] 06-06-2018 08:05-0400 Pulse (Heart Rate) 53 /min [facility] 06-06-2018 08:05-0400 Pulse Oximetry 93 % [facility] 06-06-2018 08:05-0400 Respiratory Rate 15 /min [facility] 06-06-2018 07:55-0400 Body Temperature 97 [degF] [facility] 06-06-2018 06:46-0400 BMI (Body Mass Index) 34.75 kg/m2 [facility] 06-06-2018 06:46-0400 Weight 86.18 kg [facility] 06-06-2018 06:43-0400 Height 157.5 cm [facility] Encounters Encounter Date Encounter Type Care Provider Facility Start: 04-16-2023 End: 04-16-2023 [facility] Start: 04-12-2023 End: 04-13-2023 ambulatory [facility] Start: 07-15-2022 End: 07-16-[address] DEBORAH GARCIA . Facility: Start: 05-29-2022 End: 05-29-2022 ambulatory Suzi Neely Facility[facility] Start: 05-29-2022 End: 05-29-2022 Admission to same day surgery center Suzi Neely [facility] Start: 05-11-2022 End: 05-12-2022 ambulatory DEBORAH GARCIA [facility] Start: 05-11-2022 Encounter for other preprocedural examination ARIAN [facility] Start: 05-11-2022 End: 05-11-2022 Patient encounter status Deborah Garcia MD Work Phone: [facility] Start: 05-11-2022 End: 05-11-2022 Subsequent hospital visit by physician Deborah Garcia MD Work Phone: [facility] Comment on above: Abnormal EKG; Atrial flutter, unspecified type (HCC); Encounter for lipid screening for cardiovascular disease; Pre-op testing Start: 05-03-2022 Encounter for other preprocedural examination MARINA LERMA [facility] Start: 05-01-2022 End: 05-02-2022 Encounter for other preprocedural examination MARINA LERMA Facility:[facility] Start: 05-01-2022 End: 05-02-2022 ambulatory MARINA LERMA Facility:[facility] Start: 04-20-2022 End: 04-21-2022 ambulatory Suzi Neely Facility:[facility] Start: 04-20-2022 End: 04-20-2022 Patient encounter procedure Suzi Neely [facility] Start: 04-15-2022 End: 04-24-2022 Pre-admission assessment Suzi Neely [facility] Start: 01-02-2022 End: 01-03-[address] DEBORAH GARCIA . Facility:[facility] Start: 10-09-[address] JUANCHO CHARLTON [facility] ity:[facility] Start: 06-06-2021 End: 06-06-2021 Subsequent hospital visit by physician Karmen George OT [facility] Comment on above: Arrived Start: 05-19-2019 End: 05-19-2019 Office outpatient visit 25 minutes Bud Henderson Work Phone: [facility] Comment on above: Vitreous detachment, left (Primary Dx) Start: 07-06-2018 Patient encounter procedure [facility] Start: 06-14-2018 Patient encounter procedure MASHPEE Saeed [facility] Start: 06-07-[address] [facility] Start: 06-06-2018 End: 06-06-2018 [facility] Start: 06-06-2018 End: 06-06-2018 Patient encounter procedure Mason Kate Work Phone: [facility]i Comment on above: Age-related nuclear cataract, right eye Start: 05-24-2018 End: 05-24-2018 Patient encounter procedure Mason Kate Work Phone: [facility] Start: 04-05-2018 End: 04-05-2018 Patient encounter procedure Historical Provider [facility] [place] Start: 04-01-2018 Patient encounter procedure [facility] Procedures Date Procedure Procedure Detail Performing Clinician Start: 05-29-2022 Magnetic resonance imaging Suzi Blankmis Start: 05-11-2022 Lipid panel Marina morales MD Work Phone: Start: 05-11-2022 PATIENT FASTING? Marina Lerma MD Work Phone: Start: 05-24-2018 OPHTHALMOLOGY DIAGNO STIC IMAGING (SCANNED) Mason Kate Work Phone: Start: 04-01-2018 End: 04-01-2018 OPHTHALMOLOGY DIAGNOSTIC IMAGING (SCANNED) Historical Provider Start: 04-27-2016 mri with sedation Santipriti Neely Start: 03-29-2015 History of jdfrsfz-[id number] (YAG) laser capsulotomy of lens Suzi Abhaymis Start: 03-29-2014 Cataract extraction and insertion of intraocular lens Suzi Abhaymis Comment on above: Left Eye Start: 03-29-2008 History of appendectomy Suzi Timmis Start: 03-29-2008 History of cholecystectomy Suzi Abhaymis Start: 03-29-2008 History of repair of umbilical hernia Suzi Bridgess Start: 03-29-2007 Radiation to eyes Deon y Cyruss Start: 03-29-2006 Thyroid Radiation Santiar y Abhaymis Start: 03-29-1999 History of Left Meni scus Repair Suzi Neely Start: 03-29-1989 Discectomy of spine Hil kenisha Neely Plan of Treatment Date Care Activity Detail Author Start: 10-27-2021 Influenza vaccination Flu vaccine (# 1) [facility] Start: 06-13-2021 End: 06-13-2021 Patient encounter procedure 06/13/2021 Appointment Occupational Therapy Kala Bal OTA [facility] Start: 06-10-2021 End: 06-10-2021 Patient encounter procedure 06/10/2021 Appointment Occupational Therapy Karmen George OT [facility] Start: 06-06-2021 Annual Wellness Visi t (AWV) Annual Wellness Visit (AWV) [facility] Start: 11-27-2020 Influenza vaccination Flu vaccine (# 1) [facility] Start: 05-24-2020 End: 05-24-2020 Office Visit 05/24/2020 Office Visit Optometry Bud Henderson, OD [address] [facility] [address] [facility], [place] [id number] [facility] [place] Start: 11-27-2018 Influenza vaccination INFLUENZA VACC INE (#1) [facility] Start: 06-14-2018 End: 06-14-2018 Office Visit 06/14/2018 Office Visit Optometry Bud Henderson, OD [address] [place], [place] [id number] [facility] [place] Start: 06-07-2018 End: 06-07-2018 Office Visit 06/07/2018 Office Visit Ophthalmology Mason Kate MD [address] [place] [address] [facility] Start: 06-06-2018 End: 06-06-2018 Procedure Pass FELICIA [facility] Per[facility] Comment on above: Age-related nuclear cataract, right eye EXTRACTION EXTRACAPS ULAR CATARACT W/ IMPLANT (ECCE IOL) right Start: 05-24-2018 End: 05-24-2018 Ambulatory 05/24/2018 Office Visit Ophthalmology Mason Kate MD [address] [place] [id number] [facility] Start: 11-27-2017 Influenza vaccination INFLUENZA VACC INE (#1) [facility] Work Phone: Start: 2010 Pneumococcal 65+ yea rs Vaccine (1 - PCV) Pneumococcal 65+ years Vaccine (1 - PCV) [facility] Start: 2010 Pneumococcal 65+ yea rs Vaccine (1 of 1 - PPSV23) Pneumococcal 65+ years Vaccine (1 of 1 - PPSV23) [facility] Start: 2010 Pneumococcal vaccination PNEUMOCOCCAL VACCINE SERIES (1 of 2 - PCV13) [facility] Work Phone: Start: 2000 Screening for osteoporosis DEXA (modify frequency per FRAX score) [facility] Start: 1995 Colonoscopy COLORECTAL CAN CER SCREENING DISCUSSION [facility] Start: 1995 Protein mass conc COLON CANCER SCREENING DISCUSSION [facility] Work Phone: Start: 1995 Shingles Vaccine (1 of 2) Shingles Vaccine (1 of 2) [facility] Start: 1995 Zoster vaccine hzv l ilene for subcutaneous use ZOSTER (SHINGLES) VACCINE (1 of 2) [facility] Start: 1985 Fasting lipid profile LIPID SCREENIN G [facility] Work Phone: Start: 12-09-1985 Protein mass conc MAMMOGRAM SC REENING DISCUSSION [facility] Work Phone: Start: 1985 Screening mammography MAMMOGRA M SCREENING DISCUSSION [facility] Start: 1966 Screening for malign ant neoplasm of cervix [facility] Work Phone: Start: 1964 DTaP/Tdap/Td vaccine (1 - Tdap) DTaP/Tdap/Td vaccine (1 - Tdap) [facility] Start: 1964 Third diphtheria, tetanus and acellular pertussis (DTaP) vaccination TDAP (ADULT) [facility] Work Phone: Start: 1963 Hepatitis C screening Hepatitis C sc reen [facility] Start: 1963 Tetanus vaccination TETANUS [facility] Work Phone: Start: 1957 Depression Screen Depression Screen [facility] Start: 1950 COVID-19 Vaccine (1) COVID-19 Vaccin e (1) [facility] Start: 1945 COVID-19 Vaccine (#1) COVID-19 Vacci ne (#1) [facility] Start: 1945 Hepatitis C antibody , confirmatory test HEPATITIS C VIRUS SCREENING [facility] Work Phone: Start: 1945 Hepatitis C screening Hepatitis C sc [facility] Start: 1945 Screening for osteoporosis DEXA SCAN DISCUSSION [facility] Work Phone: Start: 1945 Thyrotropin Qn TSH [facility] Work Phone: Payers Date Payer Category Payer Unknown [id number] 2018 Medicare MEDICARE MEDICAR E A AND B xxxxxxxxxxx 2018-Present [place], [place] xxxxxxxxxxx [id number] 2018 Unknown GENERIC PAYOR GE NERIC PLAN xxxxxxxx 2018-Present xxxxxxxx [id number] 2018 Unknown [id number] 1959 Medicare [id number] 1959 Self-pay 1959 Unknown [id number] 1945 Unknown [id number] 1945 Unknown [id number] 1945 Unknown [id number] 1945 Unknown [id number] 1945 Unknown [id number] 1945 Unknown [id number] 1945 Unknown [id number] 1945 Unknown [id number] [id number] 1945 Unknown [id number] 1945 Unknown [id number] 1945 Unknown [id number] 1945 Unknown [id number] 1945 Unknown [id number] 1945 Unknown [id number] 1945 Unknown [id number] Social History Date Type Detail Facility [facility] Work Phone: Start: 1945 Sex Assigned At Not on file O [facility] Work Phone: Start: 05-24-2018 [facility] if ever smoked [employer] Start: 02-18-2015 End: 06-06-2018 Tobacco smoking status NHIS Never smoker [employer] Start: 06-06-2018 Alcohol Comment rarely [facility] Start: 02-18-2015 Alcohol intake Current drinke r of alcohol (finding) [employer] Work Phone: Start: 02-18-2015 Alcohol intake [facility] Work Phone: Start: 02-18-2015 History SDOH Alcohol Comment occ [employer] Work Phone: Tobacco smoking status No Smokin g Status Entered [facility] Sex Assigned At Female [facility] History of tobacco use Passive smoker [facility] Work Phone: Medical Equipment Procedure Code Equipment Code Equipment Origin al Text Equipment Identifier Dates [employer] Start: 06-06-2018 Acrysof Iq Start: 06-06-2018 Acrysof Iq [id number] Start: 06-06-2018 Functional Status Date Assessment Result Facility 04-20-2022 Functional Status No [facility] History of Present illness Narrative 06-06-2021 Karmen George, OT - 06/06/2021 3:30 PM EST Note Date & Type Note Facility 06-06-2021 History of Present illness Narrative Images from the original note were not included. [facility] Outpatient Occupational Therapy Evaluation Date: 06/06/2021 Patient: Patricia Turner : 1945 Referring Practitioner: Stevenson Camilo PA-C Diagnosis: L CTR surgery Additional Pertinent Hx: Pt had CTR on 06/03/2021. Referred to outpt OT 3 days post op. Treatment Diagnosis: L CTR Onset Date: 06/06/21 Total # of Visits Approved: 12 Per Physician Order Total # of Visits to Date: 1 No Show: 0 Canceled Appointment: 0 Subjective Subjective: Pt presents to evaluation w/ soft bandages on L hand. Per pt, this can come off today & be replaced w/ a regular adhesive bandage. Objective LUE AROM (degrees) LUE General AROM: Pt can make full fist w/ all digits touching DPC, can complete thumb opposition to all digits L Forearm Pron 0-90: WFL L Forearm Supination 0-90: WFL L Wrist Radial Deviation 0-20: 0-15 L Wrist Ulnar Deviation 0-45: 0-15 RUE AROM (degrees) R Forearm Pron 0-90: WFL R Forearm Supination 0-90: WFL R Wrist Flexion 0-80: 0-60 R Wrist Extension 0-70: 0-62 R Wrist Radial Deviation 0-20: 0-20 R Wrist Ulnar Deviation 0-45: 0-35 Right Hand AROM (degrees) Right Hand General AROM: pt can complete full fist & touch all digits to DPC and thumb opposition to all digits Assessment Performance deficits / Impairments: Decreased ROM,Decreased strength,Decreased high-level IADLs Assessment: Pt referred to outpt OT 3 days p/o CTR. Pt's post op dressing removed. Pt suture site looks clean and dry. Dry banage placed over sutures to keep dry. Educated pt on ROM for digits only and provided tendon glide HEP. Educated pt on suture site care and edema control. Instructed pt to continue to wear prefab splint to limit use of hand- pt V/U. Pt demonstrates the above deficits with ROM & safety director/pinch strength and would benefit from continued outpt OT at this time. Pt has follow-up appt with surgeon on . 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 1: Pt to demonstrate L wrist flexion 60 degrees or more & L wrist extension to 62 degrees or more in order to push self up from seated surfaces jail goal 2: Pt to demonstrate L wrist radial deviation 20 degrees or more & L wrist ulnar deviation 35 degrees or more in order to open containers jail goal 3: Pt to demonstrate L safety director strength to within 10% of R hand in order to carry heavy items jail goal 4: Pt to demonstrate L lateral/tip/ 3pt pinch strength tto within 10% of the R hand 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 Patient's Goal: Pt wishes to return to daily tasks Time In: 1535 Time Out: 1625 Timed Coded Minutes: 0 Total Treatment Time: 50 ALEK Shoemaker, OTR/L 06/06/2021 documented in this encounter [facility] Phone: Evaluation + Plan note Radiology Note Date & Type Note Facility Evaluation + Plan note Future Appointments Appointment Date:04/23/2022 10:00:00 AM Scheduled Provider: Location:.MRI Appointment Type:MRI Brain (FT) Appointment Date:04/23/2022 10:00:00 AM Scheduled Provider: Location:[facility] Appointment Type:Surgery FT Diagnostic Tests PendingCOVID-19 ([facility] 04/20/22 Future Scheduled TestsMRI Brain w/ + w/o Contrast 04/23/22 [facility] Evaluation note Note Date & Type Note Facility Evaluation note Diagnosis Abnormal EKG Nonspecific abnormal electrocardiogram (ECG) (EKG) Atrial flutter, unspecified type (HCC) Encounter for lipid screening for cardiovascular disease Pre-op testing Preoperative examination, unspecified documented in this encounter [facility] Work Phone: Hospital course Narrative Note Date & Type Note Facility Hospital course Narrative No data available for this section [facility] Hospital Discharge instructions Note Date & Type Note Facility Hospital Discharge instructions No data available for this section [facility] Progress note Note Date & Type Note Facility Progress note No data available for this section [facility] Assessments Diagnosis Age-related nuclear cataract, right eye Diagnosis Vitreous detachment, left Summary Purpose Family History No Family History Records FoundNo Family History Records FoundNo Family History Records FoundNo Family History Records FoundNo Family History Records Found Advance Directives No Advanced Directives Records FoundDocuments on File Type Date 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 ACP-Advance Directive ACP-Power of Nurses' Registry Director Latest Code Status on File Code Status Date Activated Date Inactivated Comments Full Code 02/18/2015 10:45 AM 02/18/2015 12:05 PM Full Code 02/18/2015 10:45 AM 02/18/2015 10:45 AM Full Code 02/18/2015 7:56 AM 02/18/2015 10:45 AM Latest Code Status on File Code Status Date Activated Date Inactivated Comments Full Code 02/18/2015 10:45 AM 02/18/2015 12:05 PM Full Code 02/18/2015 10:45 AM 02/18/2015 10:45 AM Full Code 02/18/2015 7:56 AM 02/18/2015 10:45 AM History of Present Illness * Bud Henderson, OD - 05/19/2019 9:00 AM EST REASON FOR VISIT Chief Complaint Eye Problem HISTORY OF PRESENT ILLNESS HPI 1 year followup of: PE/IOL OU; OS- Set for NEAR Vitreous detachment left. No changes in appearance, per pt. She denies eye discomfort Last edited by Bud Henderson, OD on 05/19/2019 9:44 AM. (History) Allergies, medications & history reviewed & updated by Bud Henderson, OD Assessment: 1) Stable PE/IOL OU; OS- Set for NEAR 2) Vitreous detachment left. 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 Could also be her awareness of vitreous detachment cloud. Plan: 1) spect Rx issed at patient's request 2) 1 year dilated exam; sooner if having vision changes or eye discomfort *Pt is very sensitive to clinic equipment sterilization practices: alcohol wipe for her to see as evidence. She is appreciative of this practice. documented in this encounter Additional Source Comments Reason for Visit (unrecogniz ed section and content) Status Reason Specialty Diagnoses / Procedures Referre d By Contact Referred To Contact Diagnoses Age-related nuclear cataract, right eye [H25.11] Mason Kate MD [address] [facility] [address] [place] [address] Reason Comments Eye Problem Specialty Diagnoses / Procedures Referred By Rick bui Referred To Contact Occupational Therapy Diagnoses Encounter for other preprocedural examination Carpal tunnel syndrome, left upper limb Pre surg eval CTS Procedures eval and treat Stevenson Camilo PA-C [address] [address] [address] [facility] [address] [place] [address] Referral ID Status Reason Start Date Expiration Date V isits Requested Visits Authorized [id number] Pending Review 05/26/2021 05/26/2022 1 1 INFORMATION SOURCE (unrecogn ized section and content) DATE CREATED AUTHOR 06/08/2018 [facility] DATE CREATED AUTHOR AUTHOR'S ORGANIZ ATION 07/07/2018 [facility] DATE CREATED AUTHOR AUTHOR'S ORGANIZ ATION 06/10/2022 [facility] DATE CREATED AUTHOR AUTHOR'S ORGANIZ ATION 07/19/2022 [facility] DATE CREATED AUTHOR AUTHOR'S ORGANIZ ATION 04/17/2023 [facility] Care Teams (unrecognized sec tion and content) [employer] Relationship Specialty Start Date End Date Deborah Garcia MD [address] [place] [address] PCP - General 02/13/15 [employer] Relationship Specialty Start Date End Date Deborah Garcia MD [address] [place] [address] PCP - General 02/13/15 FOR RECORDS PERTAINING TO PATIENTS WHO ARE OR HAVE BEEN ENROLLED IN A CHEMICAL DEPENDENCY/SUBSTANCEABUSE PROGRAM, SOME INFORMATION MAY BE OMITTED. This clinical summary was aggregated from multiple sources. Caution should be exercised in using it in the provision of clinical care. This summary normalizes information from multiple sources, and as a consequence, information in this document may materially change the coding, format and clinical context of patient data. In addition, data may be omitted in some cases. CLINICAL DECISIONS SHOULD BE BASED ON THE PRIMARY CLINICAL RECORDS. [facility] [employer] [facility]. provides no warranty or guarantee of the accuracy or completeness of information in this document.
[2023-05-12 07:44] LABS: Basophils Absolute Auto 0.1 10^3/uL (0.0-0.1); Basophils Percent Auto 1.2 % (0.2-2.0); Eosinophils Absolute Auto 0.2 10^3/uL (0.0-0.7); Eosinophils Percent Auto 3.6 % (0.9-7.0); Hemoglobin 13.1 g/dL (12.0-16.0); Immature Granulocytes Abs Auto 0.03 10^3/uL (0.00-0.03); Immature Granulocytes Pct Auto 0.5 % (0.0-0.5); Lymphocytes Absolute Auto 2.1 10^3/uL (1.2-3.8); Lymphocytes Percent Auto 36.3 % (20.5-60.0); Mean Corpuscular Volume 93.8 fL (81.0-99.0); Mean Platelet Volume 9.1 fL (9.5-13.5); Monocytes Absolute Auto 0.5 10^3/uL (0.3-0.8); Monocytes Percent Auto 8.2 % (1.7-12.0); Neutrophils Absolute Auto 2.9 10^3/uL (1.4-6.5); Neutrophils Percent Auto 50.2 % (43.0-75.0); Platelet Count 307 10^3/uL (150-450); Red Blood Count 4.37 10^6/uL (4.20-5.40); Red Cell Distribution Width 14.4 % (11.0-15.0); White Blood Count 5.8 10^3/uL (4.0-11.0)
[2023-05-12 07:51] LABS: Alanine Aminotransferase 17 U/L (14-59); Albumin Globulin Ratio 0.7; Albumin Level 3.3 g/dL (3.4-5.0); Alkaline Phosphatase 86 U/L (46-116); Anion Gap 12.2; Aspartate Amino Transferase 17 U/L (15-37); BUN Creatinine Ratio 25.8; Bilirubin Total 0.6 mg/dL (0.2-1.0); Calcium 9.2 mg/dL (8.5-10.1); Chloride 104 mmol/L (98-107); Estimated GFR (African America >60 (>=60); Estimated GFR (Non-African Ame 58 (>=60); Globulin 4.5 g/dL; Glucose 86 mg/dL (74-106); Potassium 4.2 mmol/L (3.5-5.1); Sodium 139 mmol/L (136-145); Total Protein 7.8 g/dL (6.4-8.2)
== END 2023-05-12 07:25 | disposition home or self-care (01) ==
LOC: LAB 07:26
PROVIDERS: PCP Family Medicine; Visit Provider Registered Nurse
DX: M15.0 Primary generalized (osteo)arthritis (principal); Z79.899 Other long term (current) drug therapy
CPT/HCPCS: 36415; 80053; 85025

== ENCOUNTER 2023-11-17 08:16 | Outpatient (OUT) | payer MEDICARE, OTHER, SELFPAY ==
--- OUTSIDE RECORDS SUMMARY | 2023-11-17 08:29 | XMS_ITS | CCD ---
Author Organization [facility] Care Team Providers Care Dredgemaster Name Role Phone Deborah Garcia Primary Care Provider LITTLE, MASON Attending Unavailable WALKER, BUD W Referring Unavailable LITTLE, MASON Admitting Unavailable LITTLE, MASON Attending Unavailable LITTLE, MASON Attending Unavailable WALKER, BUD W Referring Unavailable WALKER, BUD W Attending Unavailable WALKER, BUD W Referring Unavailable WALKER, BUD W Attending Unavailable WALKER, BUD W Referring Unavailable WALKER, BUD W Attending Unavailable WALKER, BUD W Referring Unavailable DEBORAH GARCIA Primary Care Unavailable Deborah Garcia MD Primary Care Provider [phone] Deborah Garcia Primary Care Physician [phone] Deborah Garcia MD Primary Care Provider Timmis, Suzi H Referring Unavailable Timmis, Suzi H Attending Unavailable Timmis, Suzi H Admitting Unavailable Timmis, Suzi H Referring Unavailable Timmis, Suzi H Attending Unavailable Timmis, Suzi H Admitting Unavailable VIGESAAMARINA Attending Unavailable VIGESAA, MARINA Admitting Unavailable CHRISY ., DR CABRERA Primary Care Unavailable VIGESAAMARINA [...] Primary Care Unavailable MISC, DOCTOR Consulting Unavailable MIS, DOCTOR Attending Unavailable MISC, DOCTOR Admitting Unavailable ARIAN DE JESUS Referring Unavailable DEBORAH GARCIA Primary Care Unavailable DEBORAH GARCIA Primary Care Unavailable MARINA LERMA Referring Unavailable ARIAN DE JESUS Attending Unavailable CHRISDEBORAH Oliveros Primary Care Unavailable ARIAN DE JESUS Admitting Unavailable ARIAN DE JESUS Referring Unavailable CHRISDEBORAH Oliveros Primary Care Unavailable Allergies Allergy Classification Reported Allergen(s) Allergy Type Date of Onset Reaction(s) Facility (7 sources) Acetaminophen; Translations: [acetaminophen] Drug Allergy 02-13-20 15 Other (See Comments) [facility] (6 sources) Acetaminophen / HYDROcodone; Translations: [acetaminophen-hydr ocodone] Drug Allergy 12-17-19 16 Nausea And Vomiting [facility] (7 sources) Amoxicillin; Translations: [amoxicillin] Drug Allergy 12-17-19 16 Diarrhea (finding), Diarrhea [facility] (3 sources) black walnut pollen extract Drug Allergy 12-24-19 16 [facility] (3 sources) cycloSPORINE Drug Allergy 12-24-19 16 [facility] (3 sources) difluprednate Drug Allergy 12-24-19 16 [facility] (6 sources) ezetimibe; Translations: [ezetimibe] Drug Allergy 12-17-19 16 Irregular heart beat (finding) [facility] (4 sources) Hmg-Coa Reductase Inhibitors (Statins); Translations: [statins] Propensity to adverse reactions to drug 02-13-20 15 Other (See Comments) [facility] (6 sources) Ketorolac; Translations: [ketorolac ophthalmic] Drug Allergy 12-17-19 16 Burning of face, cheeks, head, neck [facility] (5 sources) levothyroxine; Translations: [levothyroxine] Drug Allergy 12-17-19 16 Diarrhea (finding) [facility] (4 sources) metroNIDAZOLE; Translations: [metronidazole] Drug Allergy 12-24-19 16 Diarrhea [facility] (3 sources) predniSONE Drug Allergy 12-17-19 16 [facility] (5 sources) Simvastatin; Translations: [Simvastatin] Drug Allergy 05-31-19 19 joint pain, dizziness, headache [facility] (5 sources) Sulfamethoxazole / Trimethoprim; Translations: [sulfamethoxazole-t rimethoprim] Drug Allergy 05-31-19 19 Stomach bleeding, Stomach bloating [facility] (2 sources) Sulfonamides (Antibiotic) Propensity to adverse reactions to drug 01-01-20 [facility] (5 sources) Caffeine; Translations: [Caffeine] Drug Allergy 05-11-19 23 Heart races [facility] (5 sources) carvedilol; Translations: [carvedilol] Drug Allergy 05-11-19 throwing up, dizzy, disoriented [facility] (5 sources) cefdinir; Translations: [cefdinir] Drug Allergy 05-11-19 diarrhea stomach upset, hairloss [facility] (6 sources) fluticasone; Translations: [fluticasone nasal] Drug Allergy 05-11-19 hypertension over 200 cant take steroids [facility] (5 sources) gabapentin; Translations: [gabapentin] Drug Allergy 05-11-19 dizzy, coordination [facility] (3 sources) HMG-CoA reductase inhibitor; Translations: [statins] Drug allergy Unknown [facility] (5 sources) Ipratropium; Translations: [ipratropium nasal] Drug Allergy 05-11-19 nose bleeds [facility] (5 sources) irbesartan; Translations: [irbesartan] Drug Allergy 05-11-19 23 hair loss [facility] (5 sources) Lisinopril; Translations: [lisinopril] Drug Allergy 05-11-19 shakes ,chills, stomach pain, vomiting, dizzy [facility] (5 sources) meloxicam; Translations: [meloxicam] Drug Allergy 05-11-19 vomiting /diarrhea [facility] (5 sources) Metoprolol; Translations: [metoprolol] Drug Allergy 05-11-19 23 jitters [facility] (3 sources) Metronidazole; Translations: [metronidazole containing compounds] Drug allergy Candidiasis of mouth (disorder), Diarrhea (finding) [facility] (5 sources) [place]-3 Acid Ethyl Esters ([facility]); Translations: [omega-3 polyunsaturated fatty acids] Drug Allergy 12-24-19 16 Dizziness or Vertigo [facility] (5 sources) prednisoLONE; Translations: [prednisolone ophthalmic] Drug Allergy 05-11-19 23 Burning of face, sinus, cheeks, teeth, head [facility] (1 source) HMG-CoA reductase inhibitor Propensity to adverse reactions to drug 02-13-20 15 Other (See Comments) [facility] (1 source) Ketorolac Drug Allergy 05-11-19 23 [employer] Work Phone: (1 source) Piroxicam Drug Allergy 05-11-19 23 [employer] Work Phone: (1 source) Sulfonamides (Antibiotic) Propensity to adverse reactions to drug 01-01-20 16 [facility] Phone: (3 sources) Acetaminophen; Translations: [Tylenol] Drug Allergy 12-24-19 16 [facility] (3 sources) Acetaminophen / HYDROcodone; Translations: [Vicodin] Drug Allergy 12-17-19 16 [facility] (3 sources) ezetimibe; Translations: [Zetia] Drug Allergy 12-17-19 16 [facility] (1 source) Ketorolac; Translations: [ketorolac ophthalmic] Drug Allergy [facility] (3 sources) levothyroxine; Translations: [Levoxyl] Drug Allergy 12-17-19 16 [facility] (3 sources) Simvastatin; Translations: [Zocor] Drug Allergy 12-17-19 16 [facility] (3 sources) Sulfamethoxazole / Trimethoprim; Translations: [Bactrim] Drug Allergy 12-24-19 16 [facility] (2 sources) Amoxicillin Drug Allergy 12-17-[address] [facility] (2 sources) black walnut pollen extract Drug Allergy 12-24-[address] [facility] (2 sources) cycloSPORINE Drug Allergy 12-24-[address] [facility] (2 sources) difluprednate Drug Allergy 12-24-[address] [facility] (2 sources) Ketorolac Drug Allergy 12-17-[address] [facility] (2 sources) metroNIDAZOLE Drug Allergy 12-24-[address] [facility] (2 sources) [place]-3 Acid Ethyl Esters ([facility]) Drug Allergy 12-24-[address] [facility] (2 sources) predniSONE Drug Allergy 12-17-[address] [facility] (1 source) Sulfonamides (Antibiotic) Drug allergy (disorder) 01-01-[address] [facility] Medications Current Medications Medication Drug Class(es) [...] take 1 capsule by mouth once daily [place]-3 Fatty Acids (FISH OIL) 1000 MG CAPS [...] sp) 1000 mg oral capsule (4 sources) [place]-3 Fatty Ac ids (FISH OIL) 1000 MG Cap Take 4,000 mg by mouth. 0 Active [place]-3 Fatty Ac ids (FISH OIL) 1000 MG [...] 07-15-2022 Chronic Other aftercare (1 source) Other long term care administrator (current) drug therapy; Translations: [OTH ASSISTED CURRENT DRUG THERAPY] Onset: 07-19-2022 Episodic Other [...] 04-12 Anion gap [Moles/Vol] 14 mmol/L Normal 9-17 [facility] Comment on above: Performed By: #### B CÉSAR, CDP #### [facility] [address] [place], [place] [id number] Rd Lab Technician: Abdirashid Boone MD BUN/CRE Ratio 31 High 9- [facility] Comment on above: Performed By: #### B CÉSAR, CDP #### [facility] [address] [place], [place] [id number] Rd Lab Technician: Abdirashid Boone MD Calcium [Mass/Vol] 10.1 mg/dL Normal 8.6-10.4 [facility] Comment on above: Performed By: #### B MP, CDP #### [facility] [address] [place], [place] [id number] Rd Lab Technician: Abdirashid Boone MD Chloride [Moles/Vol] 102 mmol/L Normal 98-107 [facility] Comment on above: Performed By: #### B MP, CDP #### [facility] [address] [place] [address] Rd Lab Technician: Abdirashid Boone MD CO2 [Moles/Vol] 23 mmol/L Normal 20-31 [facility] Comment on above: Performed By: #### B MP, CDP #### [facility] [address] [place], [place] [id number] Rd Lab Technician: Abdirashid Boone MD Creatinine [Mass/Vol] 0.8 mg/dL Normal 0.5-0.9 [facility] Comment on above: Performed By: #### B CÉSAR, CDP #### [facility] [address] [place], [place] [id number] Rd Lab Technician: Abdirashid Boone MD GFR/1.73 sq M.predicted among non-blacks MDRD (S/P/Bld) [Vol rate/Area] mL/min/{1.73_m2} Normal >60 [facility] Comment on above: Result Comment: These results [...] renal tubular secretion. Performed By: #### B MP, CDP #### [facility] [address] [place], [place] [address] Rd Lab Technician: Abdirashid Boone MD Glucose [Mass/Vol] 100 mg/dL High 70-99 [facility] Comment on above: Performed By: #### B CÉSAR, CDP #### [facility] [address] [place], [place] [id number] Rd Lab Technician: Abdirashid Boone MD Potassium [Moles/Vol] 4.2 mmol/L Normal 3.7-5.3 [facility] Comment on above: Performed By: #### B CÉSAR, CDP #### [facility] [address] [place], [place] [id number] Rd Lab Technician: Abdirashid Boone MD Sodium [Moles/Vol] 139 mmol/L Normal 135-144 [facility] Comment on above: Performed By: #### B CÉSAR, CDP #### [facility] [address] [place], [place] [id number] Rd Lab Technician: Abdirashid Boone MD Urea nitrogen [Mass/Vol] 25 mg/dL High 8-23 [facility] Comment on above: Performed By: #### B CÉSAR, CDP #### [facility] [address] [place], [place] [id number] Rd Lab Technician: Abdirashid Boone MD CBC with Diffon 04-12-2023 Abs. Basophil 0.02 k/uL Normal 0.00-0.20 [facility] Comment on above: Performed By: #### B CÉSAR, CDP #### [facility] [address] [place], [place] [id number] Rd Lab Technician: Abdirashid Boone MD Abs.Imm.Granulocyte 0.01 k/uL Normal 0.00-0.30 [facility] Comment on above: Performed By: #### B CÉSAR, CDP #### [facility] [address] [place], [place] [id number] Rd Lab Technician: Abdirashid Bonoe MD Abs.Neutrophil (Seg) 4.29 k/uL Normal 2.5-7.0 [facility] Comment on above: Performed By: #### B CÉSAR, CDP #### [facility] [address] [place], [place] [id number] Rd Lab Technician: Abdirashid Boone MD Basophils/100 WBC (Bld) 0 % Normal 0-2 [facility] Comment on above: Performed By: #### B CÉSAR, CDP #### [facility] [address] [place], [place] [id number] Rd Lab Technician: Abdirashid Boone MD Eosinophils (Bld) [#/Vol] 0.17 10*3/uL Normal 0.00-0.40 [facility] Comment on above: Performed By: #### B CÉSAR, CDP #### [facility] [address] [place], [place] [id number] Rd Lab Technician: Abdirashid Boone MD Eosinophils/100 WBC (Bld) 2 % Normal 0-5 [facility] Comment on above: Performed By: #### B CÉSAR, CDP #### [facility] [address] [place], [place] [id number] Rd Lab Technician: Abdirashid Boone MD Erythrocyte distribution width (RBC) [Ratio] 13.5 % Normal 12.1-15.2 [facility] Comment on above: Performed By: #### B CÉSAR, CDP #### [facility] [address] [place], [place] [id number] Rd Lab Technician: Abdirashid Boone MD Hematocrit (Bld) [Volume fraction] 42.8 % Normal 36.0-46.0 [facility] Comment on above: Performed By: #### B CÉSAR, CDP #### [facility] [address] [place], [place] [id number] Rd Lab Technician: Abdirashid Boone MD Hemoglobin (Bld) [Mass/Vol] 14.0 g/dL Normal 12.0-16.0 [facility] Comment on above: Performed By: #### B CÉSAR, CDP #### [facility] [address] [place], [place] [id number] Rd Lab Technician: Abdirashid Boone MD Immature granulocytes/100 WBC (Bld) 0 % Normal 0-5 [facility] Comment on above: Performed By: #### B CÉSAR, CDP #### [facility] [address] [place] [address] Rd Lab Technician: Abdirashid Boone MD Lymphocytes (Bld) [#/Vol] 2.08 10*3/uL Normal 1.00-4.80 [facility] Comment on above: Performed By: #### B CÉSAR, CDP #### [facility] [address] [place] [address] Rd Lab Technician: Abdirashid Boone MD Lymphocytes/100 WBC (Bld) 30 % Normal 15-40 [facility] Comment on above: Performed By: #### B CÉSAR, CDP #### [facility] [address] [place] [address] Rd Lab Technician: Abdirashid Boone MD MCH (RBC) [Entitic mass] 29.7 pg Normal 26.0-34.0 [facility] Comment on above: Performed By: #### B CÉSAR, CDP #### [facility] [address] [place] [address] Rd Lab Technician: Abdirashid Boone MD MCHC (RBC) [Mass/Vol] 32.7 g/dL Normal 31.0-37.0 [facility] Comment on above: Performed By: #### B CÉSAR, CDP #### [facility] [address] [place] [address] Rd Lab Technician: Abdirashid Boone MD MCV (RBC) [Entitic vol] 90.7 fL Normal 80.0-100.0 [facility] Comment on above: Performed By: #### B CÉSAR, CDP #### [facility] [address] [place] [address] Rd Lab Technician: Abdirashid Boone MD Monocytes (Bld) [#/Vol] 0.38 10*3/uL Normal 0.00-1.00 [facility] Comment on above: Performed By: #### B MP, CDP #### [facility] [address] [place], [place] [id number] (842) Rd Lab Technician: Abdirashid Boone MD Monocytes/100 WBC (Bld) 6 % Normal 4-8 [facility] Comment on above: Performed By: #### B MP, CDP #### [facility] [address] [place], [place] [id number] (090) Rd Lab Technician: Abdirashid Boone MD Neutrophil (Seg) 62 % Normal 47-75 [facility] Comment on above: Performed By: #### B MP, CDP #### [facility] [address] [place], [place] [address]74240 (246) Rd Lab Technician: Abdirashid Boone MD Platelet mean volume (Bld) [Entitic vol] 8.9 fL Normal 6.0-12.0 [facility] Comment on above: Performed By: #### B MP, CDP #### [facility] [address] [place], [place] [id number] (865) Rd Lab Technician: Abdirashid Boone MD Platelets (Bld) [#/Vol] 324 10*3/uL Normal 140-450 [facility] Comment on above: Performed By: #### B MP, CDP #### [facility] [address] [place], [place] [id number] (739) Rd Lab Technician: Abdirashid Boone MD RBC (Bld) [#/Vol] 4.72 10*6/uL Normal 4.00-5.20 [facility] Comment on above: Performed By: #### B MP, CDP #### [facility] [address] [place], [place] [id number] (124) Rd Lab Technician: Abdirashid Boone MD WBC (Bld) [#/Vol] 7.0 10*3/uL Normal 3.5-11.0 [facility] Comment on above: Performed By: #### B MP, CDP #### [facility] [address] [place] [address] Rd Lab Technician: Abdirashid Boone MD CBC AUTO DIFFon 07-15-2022 BASO # 0.0 103/ul Normal 0.0-0.1 [facility] Comment on above: Performed By: #### F T3, T4, TSH #### [facility] [address] [place] [address] Dr. Britney Gambino Basophils/100 WBC (Bld) 0.5 % Normal 0.2-2.0 [facility] Comment on above: Performed By: #### F T3, T4, TSH #### [facility] [address] [place] [address] Dr. Britney Gambino EO # 0.2 103/ul Normal 0.0-0.7 [facility] Comment on above: Performed By: #### F T3, T4, TSH #### [facility] [address] [place] [address] Dr. Britney Gambino Eosinophils/100 WBC (Bld) 2.9 % Normal 0.9-7.0 [facility] Comment on above: Performed By: #### F T3, T4, TSH #### [facility] [address] [place] [address] Dr. Britney Gambino Erythrocyte distribution width (RBC) [Ratio] 14.2 % Normal 11.0-15.0 [facility] Comment on above: Performed By: #### F T3, T4, TSH #### [facility] [address] [place] [address] Dr. Britney Gambino Hematocrit (Bld) [Volume fraction] 43.4 % Normal 36.0-48.0 [facility] Comment on above: Performed By: #### F T3, T4, TSH #### [facility] [address] [place] [address] Dr. Britney Gambino Hemoglobin (Bld) [Mass/Vol] 14.1 g/dL Normal 12.0-16.0 [facility] Comment on above: Performed By: #### F T3, T4, TSH #### [facility] [address] [address] [address] Britney Gambino IG # 0.02 10e3/ul Normal 0.00-0.03 [facility] Comment on above: Performed By: #### F T3, T4, TSH #### [facility] [address] [place] [address] Dr. Britney Gambino IG % 0.3 % Normal 0.0-0.5 [facility] Comment on above: Performed By: #### F T3, T4, TSH #### [facility] [address] [place] [address] Dr. Britney Gambino LYMPH # 2.1 103/ul Normal 1.2-3.[address] [facility] Comment on above: Performed By: #### F T3, T4, TSH #### [facility] [address] [place] [address] Dr. Britney Gambino Lymphocytes/100 WBC (Bld) 33.1 % Normal 20.5-60.0 [facility] Comment on above: Performed By: #### F T3, T4, TSH #### [facility] [address] [place] [address] Dr. Britney Gambino MANUAL DIFF REQ NO Normal [facility] Comment on above: Performed By: #### F T3, T4, TSH #### [facility] [address] [place] [address] Dr. Britney Gambino MCH (RBC) [Entitic mass] 31.1 pg Normal 26.7-34.0 [facility] Comment on above: Performed By: #### F T3, T4, TSH #### [facility] [address] [place] [address] Dr. Britney Gambino MCHC (RBC) [Mass/Vol] 32.5 g/dL Normal 29.9-35.[address] [facility] Comment on above: Performed By: #### F T3, T4, TSH #### [facility] [address] [place] [address] Dr. Britney Gambino MCV (RBC) [Entitic vol] 95.8 fL Normal 81.0-99.0 [facility] Comment on above: Performed By: #### F T3, T4, TSH #### [facility] [address] [place] [address] Dr. Britney Gambino MONO # 0.4 103/ul Normal 0.3-0.8 [facility] Comment on above: Performed By: #### F T3, T4, TSH #### [facility] [address] [place] [address] Dr. Britney Gambino Monocytes/100 WBC (Bld) 6.0 % Normal 1.7-12.0 [facility] Comment on above: Performed By: #### F T3, T4, TSH #### [facility] [address] [place] [address] Dr. Britney Gambino NEUT # 3.6 103/ul Normal 1.4-6.5 [facility] Comment on above: Performed By: #### F T3, T4, TSH #### [facility] [address] [place] [address] Dr. Britney Gambino Neutrophils/100 WBC (Bld) 57.2 % Normal 43.0-75.0 [facility] Comment on above: Performed By: #### F T3, T4, TSH #### [facility] [address] [place] [address] Dr. Britney Gambino Platelet mean volume (Bld) [Entitic vol] 9.7 fL Normal 9.5-13.5 [facility] Comment on above: Performed By: #### F T3, T4, TSH #### [facility] [address] [place] [address] Dr. Britney Gambino PLT 264 103/ul Normal 150-[address] [facility] Comment on above: Performed By: #### F T3, T4, TSH #### [facility] [address] [place] [address] Dr. Britney Gambino RBC 4.53 106/ul Normal 4.20-5.[address] [facility] Comment on above: Performed By: #### F T3, T4, TSH #### [facility] [address] [place] [address] Dr. Britney Gambino WBC 6.2 103/ul Normal 4.0-11.0 [facility] Comment on above: Performed By: #### F T3, T4, TSH #### [facility] [address] [address] [address] Britney Gambino PROF 14(COMP METB)on 023 Albumin [Mass/Vol] 3.6 g/dL Normal 3.4-5.0 [facility] Comment on above: Performed By: #### F T3, T4, TSH #### [facility] [address] [address] [address] Britney Gambino Albumin/Globulin [Mass ratio] 0.8 {ratio} Normal [facility] Comment on above: Performed By: #### F T3, T4, TSH #### [facility] [address] [place] [address] Dr. Britney Gambino ALP [Catalytic activity/Vol] 76 U/L Normal 46-116 [facility] Comment on above: Performed By: #### F T3, T4, TSH #### [facility] [address] [address] [address] Britney Gambino ALT [Catalytic activity/Vol] 20 U/L Normal 14-59 [facility] Comment on above: Performed By: #### F T3, T4, TSH #### [facility] [address] [place] [address] Dr. Britney Gambino Anion gap [Moles/Vol] 13.3 mmol/L Normal [facility] Comment on above: Performed By: #### F T3, T4, TSH #### [facility] [address] [place] [address] Dr. Britney Gambino AST [Catalytic activity/Vol] 22 U/L Normal 15-37 [facility] Comment on above: Performed By: #### F T3, T4, TSH #### [facility] [address] [place] [address] Dr. Britney Gambino Bilirubin [Mass/Vol] 0.6 mg/dL Normal 0.2-1.0 [facility] Comment on above: Performed By: #### F T3, T4, TSH #### [facility] [address] [place] [address] Dr. Britney Gambino Calcium [Mass/Vol] 9.6 mg/dL Normal 8.5-10.1 [facility] Comment on above: Performed By: #### F T3, T4, TSH #### [facility] [address] [address] [address] Britney Gambino Chloride [Moles/Vol] 107 mmol/L Normal 98-[address] [facility] Comment on above: Performed By: #### F T3, T4, TSH #### [facility] [address] [address] [address] Britney Gambino CO2 [Moles/Vol] 26.9 mmol/L Normal 21.0-32.0 [facility] Comment on above: Performed By: #### F T3, T4, TSH #### [facility] [address] [place] [address] Dr. Britney Gambino Creatinine [Mass/Vol] 1.03 mg/dL Critically high 0.55-1.02 [facility] Comment on above: Performed By: #### F T3, T4, TSH #### [facility] [address] [place] [address] Dr. Britney Gambino EGFR-AF IVORIAN >60 Normal >=60 [facility] Comment on above: Performed By: #### F T3, T4, TSH #### [facility] [address] [place] [address] Dr. Britney Gambino EGFR-NON AF IVORIAN 52 mL/min/1.73m2 Critically low >=[address] [facility] Comment on above: Performed By: #### F T3, T4, TSH #### [facility] [address] [address] [address] Britney Gambino Globulin (S) [Mass/Vol] 4.4 g/dL Normal [facility] Comment on above: Performed By: #### F T3, T4, TSH #### [facility] [address] [place] [address] Dr. Britney Gambino Glucose [Mass/Vol] 90 mg/dL Normal 74-106 [facility] Comment on above: Performed By: #### F T3, T4, TSH #### [facility] [address] [address] [address] Britney Gambino Potassium [Moles/Vol] 4.2 mmol/L Normal 3.5-5.1 [facility] [facility] Comment on above: Performed By: #### F T3, T4, TSH #### [facility] [address] [address] [address] Britney Gambino Protein [Mass/Vol] 8.0 g/dL Normal 6.4-8.2 [facility] Comment on above: Performed By: #### F T3, T4, TSH #### [facility] [address] [address] [address] Britney Gambino Sodium [Moles/Vol] 143 mmol/L Normal 136-145 [facility] Comment on above: Performed By: #### F T3, T4, TSH #### [facility] [address] [address] [address] Britney Gambino Urea nitrogen [Mass/Vol] 22.0 mg/dL Critically high 7.0-18.0 [facility] Comment on above: Performed By: #### F T3, T4, TSH #### [facility] [address] [address] [address] Britney Gambino Urea nitrogen/Creatinine [Mass ratio] 21.4 mg/mg Normal [facility] Comment on above: Performed By: #### F T3, T4, TSH #### [facility] [address] [place] [address] Dr. Britney Gambino Postoperative Documentson Postoperative Documents [id number]#1 .00CD:127 [facility] Coding Summary.on 06-03-2022 Coding Summary. CD:[id number] G h0bWw+PGhlYWQ+JO8PKID oM36kgIWipE3aM7OISHsD SywgQVBQTElOSyIgbmFtZ D3raQPjLPIr IC8+UG3rOXOuWpxmrKPuw 4D9eTG0R99bqn2zBLnhiR L4EAJaRhWnfbejg1stwCg 6IDcuNmluOyBt TWIwxJ71XXL4zU30Kv93e XWnnSVjv7rkqLz8NiCqLE YoCBS6hWhmFCfwb7KnDRP yF50oeTYpe5E4 AOXrbWinoZAfKcLzjCT7s W4fBIicnkcta9awhpvyKg c3hp24sWQao7O0uTE6A4X vhsJ7OKOozRTe DndtaTHJoT5onwnoy3deb bzsOvFdGVHrATs5WHb3WG UmbCfpFrRzDR49QCB9JWO qxfGuI9QkLKHr qUzgDwX5n6D0Jp9QZ4QMG dvlJ6BRHYURPUkccAR+PC 43ff25A6BqXzytPua9WEW zYCP1iBV7xR1i RAOtFSoix3R9qNB3E0Mba dBbon8dr2nvQXCjJEefD2 0yxQUuf8Y0ZBOlwMO5OES baTtsQpEahN92 Oyc+CIYeaNtwv8JoVeyrh 8uab3nnlIm9KcajLKQhiz EowVjrPQN2d9CrWg5lXPN ylYS0xUQ4gZ7a DvGfYbX0GBegI450BvWip TIrRyysY38dW1FziGD+PH MeImv4TAKgbTlvYY0oF3J hZGRpbmctbGVm lJikJF4jQIYttrrgXNGrr Y0fTSOmL9o0AvIcNzC8UK wnP5SyOROtzyzaBy96tO2 sHwVtIpW6UCzj E4NlrjC8QGGfzEChJYexM EB5U79em7F3UIIlXMSxKM N5hLN6tA7zvCmsgojshPK mdDsgdmVydGlj JJcwXQpfJ694BSXhkQcjL kNvZGluZyBEYXRlOiAgMD MvMDgvMjAyMzwvdGQ+PHR kYHS7pEmrNTEc xZUbHIwnJc9xkRvsoVnnC V6bVEWoyslhALWrwK8yQF BorBLivBviHF2eAJGtfpg us259PmCrAAQ1 PECbjYWdJ6VrdE1iHfNcZ ONzPJHkU9FnbEPvGRedE3 02LQfzImH8DRGtbpTuO9Y sLWFsaWduOiB0 z2A2We0Pu9CwzaubI0Glb PBnAsYzUlakYJd0C8QxFe wvdHI+PD75BHUtJD42JTq 6FIA1zKjqWHcx RMJjL2QjcO9uEiLhYDZsN GRkOyc+PHRhYmxlIHdpZH RoPScxMDAlJyBzdHlsZT0 qKj6qZISpYRQp dXbfoEFmVmJjv8jkKNUpF XjtZC1fbMqjS8EmpOT4HS Kpw0x7Ha35F61dT5YotHW +SNScbOP8jBB7 xK5rOsMzGaB9DXruV843Q yLeoRTwFdgro0sen1uxxL y0XhX8TASybsFdrRxpHJW 2p7ZlIg94V73r IHdpZHRoPSIxNSUiIHZhb Ezrpl9kdL8nGo4+PGNvbC M7wBW8xO4bNvBrUcI5ZDm uM733BsSbiCFt Iripq9zcq0vayCm7NtPjQ SOfyvDhqWzpIHL8d3MfXj 42X9DkcWyal8NvHjt2ub0 9eGQwa5S1wJJ3 E6EsWNWzkirnmZNuxZptH C6uURTssruzFYUhiK4yPC InG8q5UyGuYaT3JNpoV4L kxyH4IYMogZVu IOMfpNXQaS1sibrvv1oij qemDjSyLKEsEZp9MPm8ZU BdtNafHmKcKNO6JuC5LDD 8bBWpeS6wnEpt zgmtaZ1dQoa+PGP5wHZkl WREIF7xEcfvuFB+PHRkIH M8oCmpLXpyLUFscE3hFIX hF8d4WlYpFbZ1 XUfiW7ZbmbZ0OCWhtQCdR XKhePBTvV2ohsbky9nuzm bdAnBfQDZdHWb0IGw0DVC saWduOiBsZWZ0 NaK6QEE0kQCszK7xrHbvh thysI1aBij+QmlydGggRG F5IPg6C2RxAbp3YACawKi xIU5mdQFkWGvy Dm5rzRxmiHpqSX0wSNCgb vrbm806QyGnn2daROKfvQ SlSZibVJF3V64lm4S5VUI qSOKhIZZ7dDU1 sJ7nuWgroeyzvAAnmKmld iAzpWpnTTkfORpgW731HE NjaWulOiKlGKe3J5WlPig 1HYGwaAeuJD1u pACqQIanDw5pkXqynQvvR N6sXDTpobwyk586RbCej5 jwMGHagMNxBUpjIHG1M68 pz4P6HREwPWEs FUK5hXY0nY5asIqklswov GVmdDsgdmVydGljYWwtYW oyN694JMOfnVnqPrSuiBj 0K6EjEhg1UVTw aEosSM1clMCkIDpmLr4ra SqjfFstEP8mSSGuefrxx0 35SqUjk5hwXNJlcHDvBKe kVKR8W92ki5O4 PXUdMNBnFTA6xTE4vK1nd GlnbjogbGVmdDsgdmVydG enDHexWItiK523NSXvhKz nPlBhdGllbnQg NYdcQTp6B8GbOtlhxSS+P X78NGKeBE44wAUycBBja7 egcZl4UtCuFQSvGJT7uJh iNMpzx4TrWNFc O02jiVRom7B7HJPdaLcbr HYyTxFhbZT7iC5vYFdxei wmv4cltxytZpidq4ktni7 1nJ84H97nJQkv ZHRoPSIzMCUiIHZhbGlnb l8smD9mSm8+FXYiwTG6hR E1gC3tMBXoIpA6HHwaV32 9InRvcCIvPjxj m4pka3bnkHf7WbB3FHWka xNmzGlpDNA3x0RgSj76D8 9sIHdpZHRoPSIyMCUiIHZ oiVypbp2gnQ9y Ii8+SMCrfMR2hFV9bS9aP aLnClA1NUzeX962GgBrbT UlQijgL80gS4EtoES+PHR dEia9DDGkwOzi EN3hpWIxSHrsQt2sRBU3S wSzTzZgPMizG3ArOXGuvh msrgmycJC4BWIaWATwqH4 7Hs7peBkiKFTz tKCZeN6sugnih5kdncpuY zFfGPXlTCl4WCg1QYGyxL phMdIwMKZ2SkN2KXX1gIS kpG9xzDmifsmo kQ9eX9BuMYWlfcigZj81t F6zExGiCwC6RLwmJdb+Uk lVCBsSEmkMVdyaJ7URIP6 gSzwvdGQ+PHRk RUT8xBopBJmxJFJcuN3kI LHbP8h3LiWbFcW8QZkzM4 XoWNVddvylCq14bI7sLyH kVdA7SUbzF4Xd ibE7ZABevRQgHNndQNY7X 28wv3E0LTZsXGDdEKT1pG U3cT0auExnisxnkCTifEe gdmVydGljYWwt PDsuR070WIKojQzcBvYxK bF4HtH0QIE8Z8YvZkv8AU DubLrxJE1feNZlSHhvCd5 hlPbjoKyaVF7h ZLRxfsldENQyeC9gQQLsq CKbsBzsFB5bRICxqytwd6 41PkVbEUK1EDWgrQPjH9S hvI3xQfCpXQOm AAJiJ6EflKVzKBnpS787I RrkZsM0DFZkswNsL9TrCG GbkKwlNdW2g7M9Xj98UtU ZZWFyczwvdGQ+ NRWcXQV4wZszITwnRGDkj C5jEVJxB2e8MmHiKdU7NN nuB6XrNKAvdatkRg71jA7 cUaBhZoQ5FChr W7VhhhK6EDVaxACwHTtoH RN3H17kb4W3KWOiCYKtBG M5gUY7vY3kkUqeefhawLQ mdDsgdmVydGlj ZCtlKPibP915PCQghSsjT kZlbWFsZTwvdGQ+PHRkIH R6vFcnTHujRMKtvK3zJWI bG3l7KvFfOgN6 ZGosM9UrGVAgtyidGr07r R9xTmQcHeO0RUkpU6Qlxk X6ILOrsNOuYCgfTDZ8J55 dv2L3GKNlBPYq DAT7rXI2iP4qyJobakvwr GVmdDsgdmVydGljYWwtYW znE050CHFovRenTx08zLS zbDpbihQ3Q3Wg PjwvdHI+XE93CCOrCT52p ETkoJAji9pzsMq1YeMoTV YgYVR4lGkwGHmad8YiVQE iJ06esUYdg5B8 LXTqfQqarJDhLxLpoZC2d S5uLLhdfwagu6dwvuhgJc gqi0wpid84pW55N41cAXw pZHRoPSIzMCUi MUNliNolvh1maW1lDo0+P SFykMY6aWC2dU1pLwTmZa L9EPibX389IzNdpBIiPet rt3lkd7ohtOj6 EzDoSDUpnwOsmIbnXDS1b 9PqWc73X96fPZznGCXdBM WfEOFeOMBwuZxwnd4wrX4 wIi8+KB1cm3ef jz74eM98bQO+BHLsSJF4z IkhLIkcOVVrmE7lXNyiWw P5OZAoHaWogZ33rBEmHXr ySi5lrQgayIlu XV1oGTQljwjvp330JpBog 7kwSZAdcLIrOMayLGH0V6 8uw9M2UDZzFVYzZOL7dCF 3hM8akDnfvgog bGVmdDsgdmVydGljYWwtY GjmY566CZVgzPqtFrInoF TbH6vuhrFYXE1oTfjrpUO +IMIyEEE2mAbg BQyiOPLhcB5tZTNmV3w6L nJfAfK3UHpuX0MoqnO7FP VotLXeFMAesGJZpB6wkxg db3lqsebqEpMt DMWsYTz7GBa3VJDhdPrhC vVsSMI4NeP9LHE1jMJvcA 7sjVntecmtbI5jGgh+Rkl OOjwvdGQ+PHRk BHL0oMkpMFwoDYBjmC3gR MBvH6g8BrOaPdG5HOslC5 RaiwF2VNBfaOHgAQEhcIH ToI3yaizpa6su ymafVuQaZGDyJIa6OUm5Q HQliVxnQcWpQYW0RjB3WR Z5oNVuzB6wyAqrfpozyF2 wOyc+TVJOOjwv dGQ+PVTwNRX6xCahRAxaY HTbgP0yGASqA7w0YoEdYn C1WTldB6CjuwW4TDPciFS hAVDtuOCGrO0q ytoup3kknujySaUrLFGjP Ss8JEh8GVIssAylYaZsJE G8MgM2SVL3jPQosF4mqGa ifihwbH0bSez+ CNM3FSW9VN70HH54U7McG jwvdGFibGU+PHRhYmxlIH dpZHRoPScxMDAlJyBzdHl gWM8bUg8hSTLd LWNv (more content not included)... Normal [facility] Physician Orderon 06-03-2022 Physician Order [id number]#1 .00CD:127 [facility] Consent for Anesthesiaon Consent for Anesthesia [id number]# 1.00CD:127 [facility] Discharge Instructionson Discharge Instructions [id number]# 1.00CD:127 [facility] Outside Recordson 06-02-2022 Outside Records [id number]# 1.00CD:127 [facility] Preoperative Documentson Preoperative Documents [id number]# 1.00CD:127 [facility] Preoperative Documents [id number]# 1.00CD:127 [facility] Coding Summary.on 06-01-2022 Coding Summary. CD:[id number] G h0bWw+PGhlYWQ+KU4TZTY rG49uvLIqdJ3HC8fKOT2B JUPJISTHWA6UBY5omSU6F DnqO0DixlIq YjlczFCoZT67XUq2SCQ7n VzwAZvccT8ewFHgW7l2Gc UpGT79aZ48UAulOIEmEqC 3LjZpbjsgbWFy Q2lhQsIaaWBeQfi+PHRhY mxlIHdpZHRoPScxMDAlJy HfjMyuAB4zGu4xBAIpJVF vbGxhcHNlOiBj y8qaVFGaBZvqBP1jlNsfS 3MbuQL7NWUiv0x1Wu42aG I+CKBbVDR5cLbwUManb78 6WrClz3ggMLT0 zHHjLIhpRTF6Y27dq7O8O CCgCEHuQLP6cTG8wG8lbB dljtxfS8MiqOVdNuR9BEA 7aWCycM1jcJds gqgdwR9vSxl+G71SDI5HB UNREO1LNgc4P0BwCjexqS I+ZR41CMBuTP38wIDjzXH kq0mewNn1EcAv CWOiVHL1nTrpYVkxg1KcR KGzQ67wyGSxb2T5PUSyyJ uspGSzOmVjoTH6mN3qJSe eoqeoh0urhpak Kjcbk0zuqd92yI43Q43eA PhkJSNaIKP7DDQrUJIzuE rfyg9voE6lWx1+QBzer4y rr6owfKy4EfYj QLMwerDktEtnMYR7s0ChD o07S3BfhGotn6YoRdz2eq 18sODrs3G6hVF1WKfzPIC ovJ6yNUpxQhS1 LFDoNkMbdJ25cATgKQwsB p7ydKdcqLszCE4kZTBnxv lbWCWlpX7jKRUacBQovOm tST5kGXKpjznf e507DjKtRAH2ZMObhKTxS 5WloW1yOiWgWEEkUUVdJ9 BdvRFiBRsfS993QLczNyY 1PJQorgByM4Hc YNPtzQbxUfF4q5S5Av3Cr 3OwtsxxOIO1RGbdKLZxKl C4OvHcUlF1Y1QiQcv8PJJ moDqzPP2sJ5Sl PGUgqajykntgtUY0OPNjZ JHhjG28aEDhVRluYr1yg2 W8p873LYKqKUJjpD12Dy3 udDogMTBwdCBU hG7oglrte3bhhpagRuEqC LRrHKs6DNy3WNQsiOxnDd ZhDBC7RsY9IMA4kUIyhS8 ezOeywkjjqI1o Oyc+U59xxC1iZYP6JPG4e ypdBSWriySnFM81CE82L6 RyPjwvdGFibGU+PGRpdiB ezTkmHF9uGjCr u0szb8FmCQfyJ4ImZGIfW VsuHib4JHFqMVY7vRS7dQ 2lHNLlEVzvy1P9lBT3U9L eweHpos6dl6ec IJPkLFyuQ25tlFCfe8I1J YEkyBJ0CJLcgHvhFjOraW 93Oyc+QNVcaIvql8ZfJld ct5bfk6bcxKu3 DgEjYJUgggQjdTaoXYX2k 9XiAo04Z64aIBezSZLdJS HdJDCeYCChzJohus4xtZ6 wIi8+PGNvbCB3 vKM6zQ2yPCCxXsB0XGueY 888IeOskKZqAgcny2anc1 dfsIf9AwHbBPCtagJgxFg jGQK3o4NhOr57 Y60jTIbkNENoAWJoZYHzB URujUibln0slM6sDl4+PC 2zc1vtvd19rZ61jYK+PHR wEJX3lQzhCMco OWGrxW9lUXdoKuF6LAAwM fPoaT07gVIfGXbyAo9wjA rzjHdyCI3hICUtcoxes59 8GdIkv0noFEQk iSFgYOhfYEU3A02lk9J6K UBrYBDaVAH3uIN6jP1slE lnbjogbGVmdDsgdmVydGl hKMpcHWunO648 IHRvcDsnPlBhdGllbnQgT wOdGHt5E7DmYnb2CDHtzE juXL7pjZUnWMbeRn2qrRu wiYrnWX6rLHCu kuigv004ZkCmo3cvKTRxq JFxGBuiYIM4Q25xn6T5UO SuFPAhHFL6cIL6fK8puXw nbjogbGVmdDsg znPnaJhjMZcjVSouF502H HRvcDsnPkJpcnRoIERhdG H2XG22ID52gLKdy9T9cQB 8B5LaBJEslyet ngorlKG0FKVcLWEevD66U r4vhKjhSp2pNAAeYLW8ZL RwkNOgC5ZcpR3aYwYkIWV rRKVqE5CamPJq SApeS285MCxpPoC0HXDdr rSaX5WcIPOecAzgHmQ4p1 G1Op6KZ0S3WV90KI19rHO iw8N1vYB6N9Ag CTNjlmvevvbasWL1HXLlD HMhvC13Kp0cvLytPe3nRF ZrEDS1NHVneAOjG4EvmI3 yOiAjMDAwMDAw O7NncMJrWAyfT301TMudK kP7MRSdzpQtR9YvSVEniK tyUyI2z6T6Up0DHSs9YI7 8JU22bRGoj1K7 tKL7S2EiGOSuvywiuhazl EJ2HEBsHUYcgZ77Om5uvI vcZz4jWITeHHD1FOIkfDM uP4CsaS6lJyYg ZWIwPEIgT3CcpISbSEywW 694KWoeXpI5QHPviyWeF8 QfNDOlvQxtUzD6a5L8Yn0 BFRGaOX63ESO1 yDA0MK33PI53D6EuUpbwq GFibGU+PHRhYmxlIHdpZH RoPScxMDAlJyBzdHlsZT0 bXc6hCEWxTSMv xCmgnGMeAaKgv3qcROPiH NefDN4bsFbhP6TnvSA1QE Pnc1r2Jg14K27dE8UewYV +ULAguKT8xLA7 nD8qVcNqDwH0TEqaR588M dCyxUGfThewp9jcw2asuZ y9GmE2UEZqcdSprWrnPBC 5v8AdQq35F42h IHdpZHRoPSIxNSUiIHZhb Ybqqy8dpQ2aUf1+PGNvbC M0zBB3kM0zOhRcUfU7CXb qL359YeZmxCMd Oxztn0gep9cbyDl4MmLzA EEbkiNstJzbCQT7c5ImXw 41E6DymBzah8LqQfx9py1 6mOYxi9N0sMX5 W5PhAHKahznhmPZpgAjnB Q7hRYLurcgjSKGfxH2hHL MxK9t9MtEfMsK6XEenQ9K ugpB2HIXwyOGm GEifTVP0M59kh5Z9WQVtN SEoQZO7qTO6iY2akUiaaf ogbGVmdDsgdmVydGljYWw tZWriV544SPIb hZjgENFffT3oKPYdwXTyd QbvCS5aTHXwlxhgCfVGJM KKEP2ITHQjTZPZE2NBVGd 6L2PfHut6HTSg pYbfRG2kgBRlGOdzMq2so LpzyXxaFX2jIXXzigphQD JmsU8tIBMxfHKzhGfnUQ7 rFAIzyrtcb404 LyZvMRB4QHFpqRWjZ7Urg H7wAoAwXLIsSBMjW8SlbO VdZOmpW224SJblVaM6YDP juiRuI1GoBXWw fKlxVaQ5u0R1Jm4nCc9mQ W7aXMS4TH55BC00cEBll8 K4sFO1I6HtFVDhakumvkg zbSW2HQCnOZHn gO15jWAqPUuoTc5zr1R0u 368KESgAYFzrU19Ib9opR duFNDgsWRYfZ3qnsygu0q vcjogIzAwMDAw UYj3ITs1NKJbkAalEfSrI GJ3ZkJ7JVX2bDNsqT6wbC jygckhiF5kBhs+NzcgWWV nbvE1J8TzKrx2 FLOieDfgOA7xnVCuGWdgF w9bgZputYcbTW6yWBGaps plCDPayT8oCGGxmYYxyVk xWW4qYKUkdhma r517MsAiOCC7TKTdiQGrS 9ZyrC8wBvRwQBXsMCGjO0 ZerUDsTPfsK271EJwfWmH 3SJVlhyOpQ3Vf ZYYncYuoEbM9c6P2Ac8QX X7upIF9A5CyAkb4NZJvyV tePJ7uuVXcCEmtAo8leIp uiGxbGD0zTMAv ymnnCOOzxH5oIGXfpEClq MhbZB2eUVIlatraa456Yn RyCEI7TSToxCFzK0OnqB8 yOiAjMDAwMDAw A9EhzYFoHIffP119KHchF cS0BAEovoUtJ6JrTKNzdQ vdSfK1r7D7Zk8JwBU2xQL 4u3Z6E1DspXDc XWL1DAL8lnxecur3B3QjG jwvdHI+SY67NVHwNC58nR WukCLiv7jrwQx8RbGeSTX dTES8nVgcYTbv m7RuDYBeL86gcEBuq7R1S UHwyMmriVWiKzYgrJR7cW 6lATfxzapeh8trqkewDvr im5ptvq39nE86 I20vOIwkMFJaEVEqLCOyA KAjbUmrbx4ynF1rDh5+PG TjrCL6gOJ1sR2aRdPzZqC 8AMphI315OcWy lHTfReiwg3yyc4pexVc0K uPjZFJkhvLetZgvKTZ1m9 LkEu88E13qXLfaLWKxARL yMCUiIHZhbGln wb6ucO0hXh3+QA0sx4gei e37eM25yFJ+SDFkNJH9aO cnFHufJPVosQ4oSRxsFuA 6HTLiItEfxH21 kUCtSAziWo8adPiytFhxF F2oDMUdaamdc216BeIiz4 unCLGgtRRvVTjhUGG4B52 uo1W4IECxJSPz KXQ1yPW5aK8ieAyuomwbe GVmdDsgdmVydGljYWwtYW psB670KWMwzNafNnRhjOX aA8hcblGISN0p OjwvdGQ+ZNUaPVK5kRyzZ IqnLERbsB7mEQCnS2u2Fv OdXjY0VIzkF8JahvS5HQO vbGQgMTBwdCBU eI3iqevyq8vyxvhkJbRmS PPrOMq9MTk3CALdmNjrFw FiZPS3DoO1ASP5xRGkaJ4 rlYpdqdydeM4i Oyc+RklOOjwvdGQ+PHRkI GO4tSdiROuoOSJsoW5cYY FvB2p1MxLkFmF3GZxuS2H chqG6JOKxcWWl TZRfpEETbV8dwccpj7gtx ggaZrHgZDTuOJd8NZb2UW ZuzHeiCyObJIC8MzQ6URJ 5nYAfwL3bbHmr mrmpoD5aYap+TVJOOjwvd GQ+VSXbXJX4pYrqUGqyVP VqiA8lNJQfX7j8DxGlSkZ 1SKtbL6VcupZ0 LWVitSOtSCQdiXTOzE8jn pzfb3kzejowBcZsIBRqZG y9BSu1XYMfmPykQlFlFBO 1AcB1AKL8vXBg pX2ybYqfqtxvzU7qLjw+U BI4BXA4XY89LN87O5SyYw wvdGFibGU+PHRhYmxlIHd pZHRoPScxMDAl JyBz (more content not included)... Normal [facility] Progress Note-Physicianon Progress Note-Physician Patient: PATRICIA [...] cant take steroids. Gabapentin- Dizzy, coordination. Ipratropium [place] Nasal- Nose bleeds. Irbesartan- Hair loss. Ketorolac [...] Problems Bilateral dry eyes / SNOMED CT [id number] / Confirmed History of hyperthyroidism / SNOMED CT 598702664 / Confirmed S/P Radiation to Thyroid Hx of migraines optic / SNOMED CT 895135487 / Confirmed Optic Migraines [place] (hard of hearing) / SNOMED CT 73209889 / Confirmed Cardiac murmur / SNOMED CT 295279168 / Confirmed History of irregular heartbeat / SNOMED CT 0018699582 / Confirmed I've had fibrillation once in a while It wasn't diagnosed by any kind of monitor and I don't see anyone for it but me and my family doctor came up with that together Hypertension / SNOMED CT 4810323090 / Confirmed Heart palpitations / SNOMED CT 850426514 / Confirmed I've had fibrillation once in a while It wasn't diagnosed by any kind of monitor and I don't see anyone for it Resolved: High cholesterol / SNOMED CT 82936330 Histories Past Medical History: No active or resolved past medical history items have been selected or recorded. Family History: No family history items have been selected or recorded. Procedure history: mri with sedation on 04/27/2016 at 71 Years. History of YAG laser capsulotomy of lens ([id number]) in 2015 at 71 Years. Cataract extraction and insertion of intraocular lens ([id number]) in 2014 at 70 Years. Comments: 04/10/2016 10:41 Rhina Bermeo RN Left Eye History of appendectomy ([id number]) in 2008 at 64 Years. History of cholecystectomy ([id number]) in 2008 at 64 Years. History of repair of umbilical hernia ([id number]) in 2008 at 64 Years. Radiation to eyes in 2007 at 63 Years. Thyroid Radiation in 2006 at 62 Years. History of Left Meniscus Repair in 1999 at 55 Years. Diskectomy ([id number]) in 1989 at 45 Years. Social History [...] results Radiology results ECG interpretation Condition Plan [place] [employer] (ASA) physical status classification: Class III. Anesthetic Preoperative Plan Anesthesia: General. . Anesthetic plan, risks, benefits, and alternatives discussed with the patient and/or famil (more content not included)... Normal [facility] Comment on above: Result Comment: Elec [...] cant take steroids. Gabapentin- Dizzy, coordination. Ipratropium [place] Nasal- Nose bleeds. Irbesartan- Hair loss. Ketorolac [...] meets criteria ( To home ). Normal [facility] Comment on above: Result Comment: Elec [...] MultiHance Contrast amount in ml's: 18 Normal [facility] CHEMISTRYOrdered By: SYSTEM SYSTEM on 05-29-2022 Creatinine [Mass/Vol] 0.8 mg/dL Normal 0.5 - 1.3 mg/dL [facility] Remisol GFR/1.73 sq M.predicted among blacks MDRD (S/P/Bld) [Vol rate/Area] mL/min/1.73 m2 Normal >=59mL/min/1. 73 m2 [facility] Chem S GFR/1.73 sq M.predicted among non-blacks MDRD (S/P/Bld) [Vol rate/Area] mL/min/1.73 m2 Normal >=59mL/min/1. 73 m2 [facility] Chem S Consent for Treatmenton Consent for Treatment [id number]#1 .00CD:127 Normal [facility] Creatinineon 05-29-2022 Creatinine [Mass/Vol] 0.8 mg/dL Normal 0.5-1.3 [facility] Comment on above: Performed By: #### 1 [id number] ####[facility] [id number] [place] [address] Main OR PACU I Recordon Main OR PACU I Record PACU Phase I Docum ent Type FT Summary Primary Physician: NONE, XXXX Finalized Date/Time: 05/29/22 17:30:09 Pt. Name: YUEPATRICIA/Sex: 1945 Female Med Rec #: [id number] Physician: Suzi Neely MD Financial #: [id number] Pt. Type: A Room/Bed: [facility]/ Admit/Disch: 05/29/22 11:53:30 - 05/29/22 17:15:00 Institution: [...] 05/29/22 17:28 Melania Morris RN 05/29/22 17:30 [facility] Main OR PACU II Recordon Main OR PACU II Record PACU Phase II Document Type FT Summary Primary Physician: NONE, XXXX Finalized Date/Time: 05/29/22 17:19:40 Pt. Name: PATRICIA TURNER./Sex: 1945 Female Med Rec #: [id number] Physician: Suzi Neely MD Financial #: [id number] Pt. Type: A Room/Bed: Admit/Disch: 05/29/22 11:53:30 [...] Ortiz Document Signatures Signed By: Nicki Ortiz 03/03/23 17:19 [facility] Monitor Recordon 05-29-2022 Monitor Record [id number]# 1.00CD:127 Normal [facility] Progress Note-Nurseon 2022 Progress Note-Nurse 1402 [...] NURSES ON ARRIVAL. Rosi GOULD RN. Normal [facility] RAD - MRI Screening Formon 0 05-29-2022 RAD - MRI Screening Form [id number] #1.00CD:127 Normal [facility] RAD - MRI Screening Form [id number] #1.00CD:127 Normal [facility] eGFRon 05-29-2022 GFR/1.73 sq M.predicted among blacks MDRD (S/P/Bld) [Vol rate/Area] mL/min/{1.73_m2} Normal >=59 [facility] Comment on above: Order Comment: Order added by Discern Expert. Result Comment: eGFR is race adjusted. AA=. Performed By: #### 1 [id number] ####[id number] [place] [address] GFR/1.73 sq M.predicted among non-blacks MDRD (S/P/Bld) [Vol rate/Area] mL/min/{1.73_m2} Normal >=59 [facility] Comment on above: Order Comment: Order added by Discern Expert. Result Comment: Statistics Teacher basia kidney disease could be indicated at eGFR's of less than 60 mL/min/1.73m2. Kidney failure is indicated at less than 15 mL/min/1.73m2. Performed By: #### 1 [id number], [id number] ####[facility] [id number] [place] [address] Physician Orderon 05-28-2022 Physician Order [id number]# 1.00CD:127 Normal [facility] Outside Recordson 05-27-2022 Outside Records [id number]#1 .00CD:127 Normal [facility] Lipid Panelon 05-11-2022 Cholesterol [Mass/Vol] 191 mg/dL NINF - 200 mg/dL [facility] Comment on above: Cholesterol Guidelines: <200 Desirable 200-240 Borderline >240 Undesirable Cholesterol in HDL [Mass/Vol] 50 mg/dL 40 - PINF mg/dL [facility] Comment on above: HDL Guidelines: <40 Undesirable 40-59 Borderline >59 Desirable Cholesterol in LDL [Mass/Vol] 114 mg/dL 0 - 130 mg/dL [facility] Comment on above: LDL Guidelines: <100 Desirable 100-129 Near to/above Desirable 130-159 Borderline >159 Undesirable Direct (measured) LDL and calculated LDL are not interchangeable tests. Cholesterol.total/Cho lesterol in HDL [Mass ratio] 3.8 {ratio} NINF - 5 [facility] Triglyceride [Mass/Vol] 136 mg/dL NINF - 150 mg/dL [facility] Comment on above: Triglyceride Guidelines: <150 Desirable 150-199 Borderline 200-499 High >499 Very high Based on AHA Guidelines for fasting triglyceride, December 2011. [facility] Lipid Profileon 05-11-2022 Cholesterol [Mass/Vol] 191 mg/dL Normal <200 [facility] Comment on above: Result Comment: Cholesterol Guidelines: <200 Desirable 200-240 Borderline >240 Undesirable Performed By: #### Z FAST #### [facility] [address] [place] [address] Rd Lab Technician: Abdirashid Boone MD #### LIPR #### [address] [address] [address] Lab Technician: Morteza German MD Cholesterol in HDL [Mass/Vol] 50 mg/dL Normal >40 [facility] Comment on above: Result Comment: HDL Guidelines: <40 Undesirable 40-59 Borderline >59 Desirable Performed By: #### Z FAST #### [facility] [address] [place] [address] Rd Lab Technician: Abdirashid Boone MD #### LIPR #### [address] [address] [address] Lab Technician: Morteza German MD Cholesterol in LDL [Mass/Vol] 114 mg/dL Normal 0-130 [facility] Comment on above: Result Comment: LDL Guidelines: <100 Desirable 100-129 Near to/above Desirable 130-159 Borderline >159 Undesirable Direct (measured) LDL and calculated LDL are not interchangeable tests. Performed By: #### Z FAST #### [facility] [address] [place] [address] Rd Lab Technician: Abdirashid Boone MD #### LIPR #### [address] [address] [address] Lab Technician: Morteza German MD Cholesterol.total/Cho lesterol in HDL [Mass ratio] 3.8 {ratio} Normal <5 [facility] Comment on above: Performed By: #### Z FAST #### [facility] [address] [place] [address] Rd Lab Technician: Abdirashid Boone MD #### LIPR #### [facility] [address] [place] [id number] Lab Technician: Morteza German MD Triglyceride [Mass/Vol] 136 mg/dL Normal <150 [facility] Comment on above: Result Comment: Triglyceride Guidelines: <150 Desirable 150-199 Borderline 200-499 High >499 Very high Based on AHA Guidelines for fasting triglyceride, December 2011. Performed By: #### Z FAST #### [facility] [address] [place] [address] Rd Lab Technician: Abdirashid Boone MD #### LIPR #### [facility] [address] [place], [place] [id number] Rd Lab Technician: Morteza German MD Patient Fasting?on 3 Patient Fasting? yes [facility] Patient fasting?on 3 Patient fasting? yes Normal [facility] Comment on above: Performed By: #### Z FAST #### [facility] [address] [place] [address] Rd Lab Technician: Abdirashid Boone MD #### LIPR #### [facility] [address] [place], [place] [id number] Rd Lab Technician: Morteza German MD ECHOCARDIO M/2D COMPLETEon 0 05-01-2022 ECHOCARDIO M/2D COMPLETE Patient: PATRICIA TURNER Exam Date: 05/01/2022 : 1945 Gender:F Ordering : DR DEBORAH GARCIA . Admission #: [id number] Family : MARINA LERMA Order #: [id number] CLICK HERE TO VIEW EXAM ECHOCARDIOGRAM REPORT [...] House M.D. on 05/01/2022 at 11:36 Normal [facility] FREE T3on 05-01-2022 FREE T3 2.42 pg/mlL Normal 2.18-3.98 [facility] Comment on above: Performed By: #### F T3, T4, TSH #### [facility] [address] [place] [address] Dr. Britney Gambino MAGNESIUMon 05-01-2022 Magnesium [Mass/Vol] 1.9 mg/dL Normal 1.8-2.4 [facility] Comment on above: Performed By: #### Jessica Wells, CMP #### [facility] [address] [place] [address] Dr. Britney Gambino PROF 14(COMP METB)on 023 Albumin [Mass/Vol] 3.7 g/dL Normal 3.4-5.0 [facility] Comment on above: Performed By: #### Jessica Wells, CMP #### [facility] [address] [place] [address] Dr. Britney Gambino Albumin/Globulin [Mass ratio] 0.8 {ratio} Normal [facility] Comment on above: Performed By: #### Jessica Wells, CMP #### [facility] [address] [place] [address] Dr. Britney Gambino ALP [Catalytic activity/Vol] 87 U/L Normal 46-[address] [facility] Comment on above: Performed By: #### M G, CMP #### [facility] [address] [place] [address] Dr. Britney Gambino ALT [Catalytic activity/Vol] 19 U/L Normal 14-59 [facility] Comment on above: Performed By: #### Jessica Wells, CMP #### [facility] [address] [place] [address] Dr. Britney Gambino Anion gap [Moles/Vol] 13.0 mmol/L Normal [facility] Comment on above: Performed By: #### M G, CMP #### [facility] [address] [place] [address] Dr. Britney Gambino AST [Catalytic activity/Vol] 18 U/L Normal 15-37 [facility] Comment on above: Performed By: #### M G, CMP #### [facility] [address] [place] [address] Dr. Britney Gambino Bilirubin [Mass/Vol] 0.7 mg/dL Normal 0.2-1.0 [facility] Comment on above: Performed By: #### M G, CMP #### [facility] [address] [place] [address] Dr. Britney Gambino Calcium [Mass/Vol] 9.5 mg/dL Normal 8.5-10.1 [facility] Comment on above: Performed By: #### Jesisca G, CMP #### [facility] [address] [place] [address] Dr. Britney Gambino Chloride [Moles/Vol] 103 mmol/L Normal 98-107 [facility] Comment on above: Performed By: #### M G, CMP #### [facility] [address] [place] [address] Dr. Britney Gambino CO2 [Moles/Vol] 27.1 mmol/L Normal 21.0-32.0 [facility] Comment on above: Performed By: #### Jessica Wells, CMP #### [facility] [address] [place] [address] Dr. Britney Gambino Creatinine [Mass/Vol] 0.90 mg/dL Normal 0.55-1.02 [facility] Comment on above: Performed By: #### M G, CMP #### [facility] [address] [place] [address] Dr. Britney Gambino EGFR-AF IVORIAN >60 Normal >=60 [facility] Comment on above: Performed By: #### M G, CMP #### [facility] [address] [place] [address] Dr. Britney Gambino EGFR-NON AF IVORIAN >60 Normal >=60 [facility] Comment on above: Performed By: #### M G, CMP #### [facility] [address] [place] [address] Dr. Britney Gambino Globulin (S) [Mass/Vol] 4.4 g/dL Normal [facility] Comment on above: Performed By: #### M G, CMP #### [facility] [address] [place] [address] Dr. Britney Gambino Glucose [Mass/Vol] 89 mg/dL Normal 74-106 [facility] Comment on above: Performed By: #### M G, CMP #### [facility] [address] [place] [address] Dr. Britney Gambino Potassium [Moles/Vol] 4.1 mmol/L Normal 3.5-5.1 [facility] Comment on above: Performed By: #### Jessica G, CMP #### [facility] [address] [place] [address] Dr. Britney Gambino Protein [Mass/Vol] 8.1 g/dL Normal 6.4-8.2 [facility] Comment on above: Performed By: #### M G, CMP #### [facility] [address] [place] [address] Dr. Britney Gambino Sodium [Moles/Vol] 139 mmol/L Normal 136-145 [facility] Comment on above: Performed By: #### M G, CMP #### [facility] [address] [place] [address] Dr. Britney Gambino Urea nitrogen [Mass/Vol] 17.0 mg/dL Normal 7.0-18.0 [facility] Comment on above: Performed By: #### M G, CMP #### [facility] [address] [place] [address] Dr. Britney Gambino Urea nitrogen/Creatinine [Mass ratio] 18.9 mg/mg Normal [facility] Comment on above: Performed By: #### M G, CMP #### [facility] [address] [place] [address] Dr. Britney Gambino T4on 05-01-2022 T4 [Mass/Vol] 10.10 ug/dL Normal 4.80-13.90 [facility] Comment on above: Performed By: #### F T3, T4, TSH #### [facility] [address] [place], [place] [address] Dr. Britney Gambino TSHon 05-01-2022 TSH 0.825 uIU/mL Normal 0.358-3.740 [facility] Comment on above: Performed By: #### F T3, T4, TSH #### [facility] [address] [address] [address] Britney Gambino RAD - MRI Screening Formon 0 04-22-2022 RAD - MRI Screening Form [id number]# 1.00CD:127 Normal [facility] COVID-19 (MC)on 04-21-2022 Performing Instrument FT Octavio 2 Normal Fis [facility] Comment on above: Performed By: #### 2 [id number] ####[facility] [address] [place] [address] SARS-CoV-2 (COVID-19) RNA KRYSTA+probe Ql (Resp) Not detected Normal Not Detected [facility] Comment on above: Result Comment: This test result should be correlated with clinical presentations and medical history by a healthcare provider to determine its clinical significance. This assay was performed by a reverse transcriptase real-time polymerase chain reaction (rt PCR) method on the [employer] system. This test has been authorized only [...] or revoked sooner. Performed By: #### 2 [id number] ####[facility] [address] [place] [address] SARS-CoV-2 (COVID-19) RNA KRYSTA+probe Ql (Unsp spec) Pass Normal Pass [facility] Comment on above: Performed By: #### 2 [id number] ####[facility] [address] [place] [address] Specimen source Nom (Unsp spec) Nasal Normal [facility] Comment on above: Performed By: #### 2 [id number] ####[address] [place] [address] XR Chest 2 Viewson 3 XR Chest [...] MD Transcribed by: JERSEY Technologist: ORB Normal [facility] BUNon 04-20-2022 Urea nitrogen [Mass/Vol] 27 mg/dL High 5-21 [facility] Comment on above: Performed By: #### 2 280471, 8463163, 7719243, 03777370, 6324937, 8403722 ####[facility] [address] [place] [address] CBC w/Indiceson 04-20-2022 Erythrocyte distribution width (RBC) [Ratio] 14.9 % High 10.9-14.2 [facility] Comment on above: Performed By: #### 2 205770, 4303628, 8170237, 65834613, 6151831, 3189517 ####[facility] [address] [place] [address] Hematocrit (Bld) [Volume fraction] 43.9 % Normal 34.0-46.0 [facility] Comment on above: Performed By: #### 2 240959, 9460152, 2833350, 82637852, 8977414, 1405614 ####[facility] [address] [place] [address] Hemoglobin (Bld) [Mass/Vol] 14.1 g/dL Normal 12.0-16.0 [facility] Comment on above: Performed By: #### 2 174758, 1018852, 3945185, 91447812, 0701199, 0573093 ####[address] [place] [address] MCH (RBC) [Entitic mass] 30.8 pg Normal 27.0-34.0 [facility] Comment on above: Performed By: #### 2 817709, 0974948, 0061074, 78835657, 3409743, 6513908 ####[address] [address] MCHC (RBC) [Mass/Vol] 32.1 g/dL Normal 31.4-36.0 [facility] Comment on above: Performed By: #### 2 592012, 8889531, 2085961, 89968390, 4867385, 2333552 ####[address] [address] MCV (RBC) [Entitic vol] 96.1 fL Normal 80.0-100.0 [facility] Comment on above: Performed By: #### 2 422337, 2462970, 9544469, 15404107, 9208275, 5901828 ####[address] [place] [address] Platelet mean volume (Bld) [Entitic vol] 8.6 fL Normal 6.4-10.8 [facility] Comment on above: Performed By: #### 2 809684, 2672372, 9168915, 44801273, 0257889, 0153944 ####[address] [place] [address] Platelets (Bld) [#/Vol] 253.0 E9/L Normal 150.0-500.0 [facility] Comment on above: Performed By: #### 2 642211, 1389571, 4932827, 71035481, 2686035, 4254262 ####[facility] [address] [place] [address] RBC (Bld) [#/Vol] 4.6 E12/L Normal 4.3-5.9 [facility] Comment on above: Performed By: #### 2 781126, 7372933, 8333491, 52186670, 7901524, 3200511 ####[facility] [address] [place] [address] WBC corrected for nucl RBC Auto (Bld) [#/Vol] 6.4 E9/L Normal 4.0-11.0 [facility] Comment on above: Performed By: #### 2 321595, 6331151, 9413370, 83186998, 0904111, 1638803 ####[facility] [address] [place] [address] CHEMISTRYOrdered By: SYSTEM SYSTEM on 04-20-2022 Anion gap [Moles/Vol] 12 mmol/L Normal 6 - 16 mEq/L F [facility] Remisol Chloride [Moles/Vol] 105 mmol/L Normal 101 - 1 11 mmol/L [facility] Remisol CO2 [Moles/Vol] 23 mmol/L Normal 21 - 31 mmol/L [facility] Remisol Creatinine [Mass/Vol] 0.8 mg/dL Normal 0.5 - 1.3 mg/dL [facility] Remisol GFR/1.73 sq M.predicted among blacks MDRD (S/P/Bld) [Vol rate/Area] mL/min/1.73 m2 Normal >=59mL/min/1. 73 m2 [facility] Chem S GFR/1.73 sq M.predicted among non-blacks MDRD (S/P/Bld) [Vol rate/Area] mL/min/1.73 m2 Normal >=59mL/min/1. 73 m2 [facility] Chem S Glucose [Mass/Vol] 82 mg/dL Normal 55 - 199 mg/dL [facility] Remisol Potassium [Moles/Vol] 4.1 mmol/L Normal 3.5 - 5.3 mmol/L [facility] Remisol Sodium [Moles/Vol] 136 mmol/L Normal 135 - 145 mmol/L [facility] Remisol Urea nitrogen [Mass/Vol] 27 mg/dL High 5 - 21 mg/dL [facility] Remisol Consent for Treatmenton 03-30 Consent for Treatment [id number]#1 .00CD:127 Normal [facility] Consent for Treatment [id number]# 1.00CD:127 Normal [facility] Creatinineon 04-20-2022 Creatinine [Mass/Vol] 0.8 mg/dL Normal 0.5-1.3 [facility] Comment on above: Performed By: #### 2 912955, 9759278, 3331856, 57648982, 6449981, 1210301 ####[facility] [address] [place] [address] Glucoseon 04-20-2022 Glucose [Mass/Vol] 82 mg/dL Normal 55-199 [facility] Comment on above: Performed By: #### 2 302389, 2074473, 8270824, 67589018, 6182587, 5723200 ####[facility] [address] [place] [address] HEMATOLOGYOrdered By: Katrina Arias on 04-20-2022 Erythrocyte distribution width (RBC) [Ratio] 14.9 % High 10.9 - 14.2 % [facility] HemeAutoSS Hematocrit (Bld) [Volume fraction] 43.9 % Normal 34.0 - 46.0 % [facility] HemeAutoSS Hemoglobin (Bld) [Mass/Vol] 14.1 g/dL Normal 12.0 - 16.0 gm/dL [facility] HemeAutoSS MCH (RBC) [Entitic mass] 30.8 pg Normal 27.0 - 34.0 pg [facility] HemeAuto[employer] MCHC (RBC) [Mass/Vol] 32.1 g/dL Normal 31.4 - 36.0 gm/dL [facility] [employer] MCV (RBC) [Entitic vol] 96.1 fL Normal 80.0 - 100.0 fL FT [facility] Platelet mean volume (Bld) [Entitic vol] 8.6 fL Normal 6.4 - 10.8 fL [facility] HemeAutoSS Platelets (Bld) [#/Vol] 253.0 E9/L Normal 150.0 - 500.0 E9/L FT [facility] RBC (Bld) [#/Vol] 4.6 E12/L Normal 4.3 - 5.9 E12/L [facility] HemeAutoSS WBC corrected for nucl RBC Auto (Bld) [#/Vol] 6.4 E9/L Normal 4.0 - 11.0 E9/L [facility] HemeAutoSS Lyteson 04-20-2022 Anion gap [Moles/Vol] 12 mmol/L Normal 6-16 [facility] Comment on above: Performed By: #### 2 575000, 1442411, 4865689, 54523857, 1349671, 7578782 ####[facility] [address] [place] [address] Chloride [Moles/Vol] 105 mmol/L Normal 101-111 [facility] Comment on above: Performed By: #### 2 654146, 6017115, 9834873, 45037538, 9744785, 0359984 ####[facility] [address] [place] [address] CO2 [Moles/Vol] 23 mmol/L Normal 21-31 [facility] Comment on above: Performed By: #### 2 138354, 9577916, 5093786, 65157675, 8747324, 8198759 ####[facility] [address] [place] [address] Potassium [Moles/Vol] 4.1 mmol/L Normal 3.5-5.3 [facility] Comment on above: Performed By: #### 2 818908, 0140598, 0841517, 56764426, 7146635, 5585535 ####[facility] [address] [place] [address] Sodium [Moles/Vol] 136 mmol/L Normal 135-145 [facility] Comment on above: Performed By: #### 2 257777, 1291403, 0901655, 33517566, 5510507, 2886338 ####[facility] [address] [place] [address] eGFRon 04-20-2022 GFR/1.73 sq M.predicted among blacks MDRD (S/P/Bld) [Vol rate/Area] mL/min/{1.73_m2} Normal >=59 [facility] Comment on above: Order Comment: Order added by Discern Expert. Result Comment: eGFR is race adjusted. AA=. Performed By: #### 2 517233, 6230985, 5651961, 82940954, 7544670, 3564303 ####[facility] [address] [place] [address] GFR/1.73 sq M.predicted among non-blacks MDRD (S/P/Bld) [Vol rate/Area] mL/min/{1.73_m2} Normal >=59 [facility] Comment on above: Order Comment: Order added by Discern Expert. Result Comment: Statistics Teacher basia kidney disease could be indicated at eGFR's of less than 60 mL/min/1.73m2. Kidney failure is indicated at less than 15 mL/min/1.73m2. Performed By: #### 2 430793, 3413829, 7086667, 91162439, 4463030, 8797518 ####[facility] [address] [place] [address] COVID-19 ([facility])on 04-17-2022 ADMITTED TO INTENSIVE CARE UNIT FOR CONDITION OF INTEREST:FIND:PT: NO Normal [facility] Comment on above: Performed By: #### 2 [id number] ####[facility] [address] [place] [address] EMPLOYED IN A HEALTHCARE SETTING:FIND:PT: Unknown Normal [facility] Comment on above: Performed By: #### 2 [id number] ####[place] [address] FIRST TEST FOR CONDITION OF INTEREST:FIND:PT: Unknown Normal [facility] Comment on above: Performed By: #### 2 [id number] ####[place] [address] HAS SYMPTOMS RELATED TO CONDITION OF INTEREST:FIND:PT: Unknown Normal [facility] Comment on above: Performed By: #### 2 [id number] ####[place] [address] HOSPITALIZED FOR CONDITION OF INTEREST:FIND:PT: NO Normal [facility] Comment on above: Performed By: #### 2 [id number] ####[place] [address] STATUS:FIND:PT: NO Normal [facility] Comment on above: Performed By: #### 2 [id number] ####[place] [address] RESIDES IN A [facility] CARE SETTING:FIND:PT: Unknown Normal [facility] Comment on above: Performed By: #### 2 [id number] ####[place] [address] Physician Orderon 04-16-2022 Physician Order [id number]# 1.00CD:127 Normal [facility] Physician Orderon 04-15-2022 Physician Order [id number]#1 .00CD:127 Normal [facility] CBC AUTO DIFFon 01-02-2022 BASO # 0.0 103/ul Normal 0.0-0.1 [facility] Comment on above: Performed By: #### F T3, T4, TSH #### [facility] [address] [address] [address] Britney Gambino Basophils/100 WBC (Bld) 0.8 % Normal 0.2-2.0 [facility] Comment on above: Performed By: #### F T3, T4, TSH #### [facility] [address] [place] [address] Dr. Britney Gambino EO # 0.2 103/ul Normal 0.0-0.7 [facility] Comment on above: Performed By: #### F T3, T4, TSH #### [facility] [address] [place] [address] Dr. Britney Gambino Eosinophils/100 WBC (Bld) 4.7 % Normal 0.9-7.0 [facility] Comment on above: Performed By: #### F T3, T4, TSH #### [facility] [address] [place] [address] Dr. Britney Gambino Erythrocyte distribution width (RBC) [Ratio] 13.5 % Normal 11.0-15.0 [facility] Comment on above: Performed By: #### F T3, T4, TSH #### [facility] [address] [place] [address] Dr. Britney Gambino Hematocrit (Bld) [Volume fraction] 39.9 % Normal 36.0-48.0 [facility] Comment on above: Performed By: #### F T3, T4, TSH #### [facility] [address] [place] [address] Dr. Britney Gambino Hemoglobin (Bld) [Mass/Vol] 12.9 g/dL Normal 12.0-16.0 [facility] Comment on above: Performed By: #### F T3, T4, TSH #### [facility] [address] [place] [address] Dr. Britney Gambino IG # 0.02 10e3/ul Normal 0.00-0.[address] [facility] Comment on above: Performed By: #### F T3, T4, TSH #### [facility] [address] [place] [address] Dr. Britney Gambino IG % 0.4 % Normal 0.0-0.5 [facility] Comment on above: Performed By: #### F T3, T4, TSH #### [facility] [address] [place] [address] Dr. Britney Gambino LYMPH # 2.1 103/ul Normal 1.2-3.[address] [facility] Comment on above: Performed By: #### F T3, T4, TSH #### [facility] [address] [place] [address] Dr. Britney Gambino Lymphocytes/100 WBC (Bld) 40.6 % Normal 20.5-60.0 [facility] Comment on above: Performed By: #### F T3, T4, TSH #### [facility] [address] [place] [address] Dr. Britney Gambino MANUAL DIFF REQ NO Normal [facility] Comment on above: Performed By: #### F T3, T4, TSH #### [facility] [address] [place] [address] Dr. Britney Gambino MCH (RBC) [Entitic mass] 31.2 pg Normal 26.7-34.0 [facility] Comment on above: Performed By: #### F T3, T4, TSH #### [facility] [address] [place] [address] Dr. Britney Gambino MCHC (RBC) [Mass/Vol] 32.3 g/dL Normal 29.9-35.[address] [facility] Comment on above: Performed By: #### F T3, T4, TSH #### [facility] [address] [place] [address] Dr. Brtiney Gambino MCV (RBC) [Entitic vol] 96.4 fL Normal 81.0-99.[address] [facility] Comment on above: Performed By: #### F T3, T4, TSH #### [facility] [address] [place] [address] Dr. Britney Gambino MONO # 0.4 103/ul Normal 0.3-0.[address] [facility] Comment on above: Performed By: #### F T3, T4, TSH #### [facility] [address] [place] [address] Dr. Britney Gambino Monocytes/100 WBC (Bld) 7.6 % Normal 1.7-12.[address] [facility] Comment on above: Performed By: #### F T3, T4, TSH #### [facility] [address] [address] [address] Britney Gambino NEUT # 2.3 103/ul Normal 1.4-6.5 [facility] Comment on above: Performed By: #### F T3, T4, TSH #### [facility] [address] [address] [address] Britney Gambino Neutrophils/100 WBC (Bld) 45.9 % Normal 43.0-75.0 [facility] Comment on above: Performed By: #### F T3, T4, TSH #### [facility] [address] [address] [address] Britney Gambino Platelet mean volume (Bld) [Entitic vol] 9.5 fL Normal 9.5-13.5 [facility] Comment on above: Performed By: #### F T3, T4, TSH #### [facility] [address] [address] [address] Britney Gambino PLT 250 103/ul Normal 150-[address] [facility] Comment on above: Performed By: #### F T3, T4, TSH #### [facility] [address] [address] [address] Britney Gambino RBC 4.14 106/ul Critically low 4.20-5.[address] [facility] Comment on above: Performed By: #### F T3, T4, TSH #### [facility] [address] [address] [address] Britney Gambino WBC 5.1 103/ul Normal 4.0-11.[address] [facility] Comment on above: Performed By: #### F T3, T4, TSH #### [facility] [address] [address] [address] Britney Gambino FREE T3on 01-02-2022 FREE T3 2.30 pg/mlL Normal 2.18-3.98 [facility] Comment on above: Performed By: #### L IPID, TSH, CMP, T4, FT3 #### [facility] [address] [address] [address] Britney Gambino GLYCOHEMOGLOBIN A1Con 2021 ADA RECOMMENDATION SEE BELOW Normal [facility] Comment on above: Result Comment: ADA RECOMMENDED LIMIT 4.0 - 6.0 ADA THERAPEUTIC TARGET < 7.0 ACTION SUGGESTED > 7.0 Performed By: #### F T3, T4, TSH #### [facility] [address] [address] [address] Britney Gambino Glucose [Mass/Vol] 103 mg/dL Normal [facility] Comment on above: Performed By: #### F T3, T4, TSH #### [facility] [address] [address] [address] Britney Gambino HbA1c (Bld) [Mass fraction] 5.2 % Normal 4.5-6.2 [facility] Comment on above: Performed By: #### F T3, T4, TSH #### [facility] [address] [place] [address] Dr. Britney Gambino LIPID PROFILEon 01-02-2022 CHOL-HDL RATIO NORM SEE BELOW Normal [facility] Comment on above: Result Comment: 3.3 - 4.4 LOW RISK 4.4 - 7.1 AVERAGE RISK 7.1 - 11.0 MODERATE RISK >11.0 HIGH RISK Performed By: #### F T3, T4, TSH #### [facility] [address] [address] [address] Britney Gambino Cholesterol [Mass/Vol] 211 mg/dL Critically high <=200 [facility] Comment on above: Performed By: #### F T3, T4, TSH #### [facility] [address] [address] [address] Britney Gambino Cholesterol in HDL [Mass/Vol] 65 mg/dL Critically high 40-60 [facility] Comment on above: Performed By: #### F T3, T4, TSH #### [facility] [address] [address] [address] Britney Gambino Cholesterol in LDL [Mass/Vol] 129.0 mg/dL Normal [facility] Comment on above: Performed By: #### F T3, T4, TSH #### [facility] [address] [address] [address] Britney Gambino Cholesterol.total/Cho lesterol in HDL [Mass ratio] 3.2 {ratio} Normal [facility] Comment on above: Performed By: #### F T3, T4, TSH #### [facility] [address] [address] [address] Britney Gambino HDL NORMAL > or = 60 mg/dl - LO W CARDIOVASCULAR RISK <40 mg/dl - HIGH CARDIOVASCULAR RISK Normal [facility] Comment on above: Performed By: #### F T3, T4, TSH #### [facility] [address] [address] [address] Britney Gambino LDL CALC NORMAL SEE BELOW Normal [facility] Comment on above: Result Comment: <100 mg/dl OPTIMAL 100 - 129 mg/dl NEAR OR ABOVE OPTIMAL 130 - 159 mg/dl BORDERLINE HIGH 160 - 189 mg/dl HIGH >190 mg/dl VERY HIGH Performed By: #### F T3, T4, TSH #### [facility] [address] [address] [address] Britney Gambino Triglyceride [Mass/Vol] 85 mg/dL Normal <=150 [facility] Comment on above: Performed By: #### F T3, T4, TSH #### [facility] [address] [address] [address] Britney Gambino VLDL CALC 17.0 mg/dL Normal [facility] Comment on above: Performed By: #### F T3, T4, TSH #### [facility] [address] [address] [address] Britney Gambnio PROF 14(COMP METB)on 022 Albumin [Mass/Vol] 3.8 g/dL Normal 3.4-5.0 [facility] Comment on above: Performed By: #### L IPID, TSH, CMP, T4, FT3 #### [facility] [address] [address] [address] Britney Gambino Albumin/Globulin [Mass ratio] 1.0 {ratio} Normal [facility] Comment on above: Performed By: #### L IPID, TSH, CMP, T4, FT3 #### [facility] [address] [address] [address] Britney Gambino ALP [Catalytic activity/Vol] 70 U/L Normal 46-116 [facility] Comment on above: Performed By: #### L IPID, TSH, CMP, T4, FT3 #### [facility] [address] [address] [address] Britney Gambino ALT [Catalytic activity/Vol] 19 U/L Normal 14-59 [facility] Comment on above: Performed By: #### L IPID, TSH, CMP, T4, FT3 #### [facility] [address] [address] [address] Britney Gambino Anion gap [Moles/Vol] 9.8 mmol/L Normal [facility] Comment on above: Performed By: #### L IPID, TSH, CMP, T4, FT3 #### [facility] [address] [place] [address] Dr. Britney Gambino AST [Catalytic activity/Vol] 18 U/L Normal 15-37 [facility] Comment on above: Performed By: #### L IPID, TSH, CMP, T4, FT3 #### [facility] [address] [place] [address] Dr. Britney Gambino Bilirubin [Mass/Vol] 0.8 mg/dL Normal 0.2-1.0 [facility] Comment on above: Performed By: #### L IPID, TSH, CMP, T4, FT3 #### [facility] [address] [place] [address] Dr. Britney Gambino Calcium [Mass/Vol] 9.3 mg/dL Normal 8.5-10.1 [facility] Comment on above: Performed By: #### L IPID, TSH, CMP, T4, FT3 #### [facility] [address] [address] [address] Britney Gambino Chloride [Moles/Vol] 104 mmol/L Normal 98-107 [facility] Comment on above: Performed By: #### L IPID, TSH, CMP, T4, FT3 #### [facility] [address] [address] [address] Britney Gambino CO2 [Moles/Vol] 27.1 mmol/L Normal 21.0-32.0 [facility] Comment on above: Performed By: #### L IPID, TSH, CMP, T4, FT3 #### [facility] [address] [place] [address] Dr. Britney Gambino Creatinine [Mass/Vol] 0.84 mg/dL Normal 0.55-1.[address] [facility] Comment on above: Performed By: #### L IPID, TSH, CMP, T4, FT3 #### [facility] [address] [place] [address] Dr. Britney Gambino EGFR-AF IVORIAN >60 Normal >=60 [facility] Comment on above: Performed By: #### L IPID, TSH, CMP, T4, FT3 #### [facility] [address] [place] [address] Dr. Britney Gambino EGFR-NON AF IVORIAN >60 Normal >=60 [facility] Comment on above: Performed By: #### L IPID, TSH, CMP, T4, FT3 #### [facility] [address] [place] [address] Dr. Britney Gambino Globulin (S) [Mass/Vol] 3.8 g/dL Normal [facility] Comment on above: Performed By: #### L IPID, TSH, CMP, T4, FT3 #### [facility] [address] [place] [address] Dr. Britney Gambino Glucose [Mass/Vol] 95 mg/dL Normal 74-106 [facility] Comment on above: Performed By: #### L IPID, TSH, CMP, T4, FT3 #### [facility] [address] [place] [address] Dr. Britney Gambino Potassium [Moles/Vol] 3.9 mmol/L Normal 3.5-5.[address] [facility] Comment on above: Performed By: #### L IPID, TSH, CMP, T4, FT3 #### [facility] [address] [place] [address] Dr. Britney Gambino Protein [Mass/Vol] 7.6 g/dL Normal 6.4-8.2 [facility] Comment on above: Performed By: #### L IPID, TSH, CMP, T4, FT3 #### [facility] [address] [address] [address] Britney Gambino Sodium [Moles/Vol] 137 mmol/L Normal 136-145 [facility] Comment on above: Performed By: #### L IPID, TSH, CMP, T4, FT3 #### [facility] [address] [place] [address] Dr. Britney Gambino Urea nitrogen [Mass/Vol] 16.0 mg/dL Normal 7.0-18.0 [facility] Comment on above: Performed By: #### L IPID, TSH, CMP, T4, FT3 #### [facility] [address] [place] [address] Dr. Britney Gambino Urea nitrogen/Creatinine [Mass ratio] 19.0 mg/mg Normal [facility] Comment on above: Performed By: #### L IPID, TSH, CMP, T4, FT3 #### [facility] [address] [place] [address] Dr. Britney Gambino T4on 01-02-2022 T4 [Mass/Vol] 11.40 ug/dL Normal 4.80-13.90 [facility] Comment on above: Performed By: #### L IPID, TSH, CMP, T4, FT3 #### [facility] [address] [place] [address] Dr. Britney Gambino TSHon 01-02-2022 TSH 1.861 uIU/mL Normal 0.358-3.740 [facility] Comment on above: Performed By: #### L IPID, TSH, CMP, T4, FT3 #### [facility] [address] [place] [address] Dr. Britney Gambino VITAMIN D 25 OHon 01-02-2022 VIT D 25-OH 35.9 ng/mL Normal [facility] Comment on above: Performed By: #### F T3, T4, TSH #### [facility] [address] [place] [address] Dr. Britney Gambino VIT D RANGES SEE BELOW Normal [facility] Comment on above: Result Comment: <20 ng/mL Vit D deficient 20 - <30 ng/mL Vit D insufficient 30 - 100 ng/mL Vit D sufficient >100 ng/mL Potential Toxicity Performed By: #### F T3, T4, TSH #### [facility] [address] [place] [address] Dr. Britney Gambino Vital Signs Date Time Vital Sign Value Performing Clinician Faci lity 05-29-2022 17:00-0500 Heart rate 80 /min Suzi Timmis [facility] 05-29-2022 17:00-0500 SaO2% (BldA) [Mass fraction] 100 % Suzi Timmis [facility] 05-29-2022 17:00-0500 Respiratory rate 18 /min Suzi Timmis [facility] 05-29-2022 17:00-0500 Diastolic blood pressure 88 mm[Hg] Suzi Timmis [facility] 05-29-2022 17:00-0500 Mean blood pressure 109 mm[Hg] Suzi Timmis [facility] 05-29-2022 17:00-0500 Systolic blood pressure 151 mm[Hg] Suzi Timmis [facility] 05-29-2022 16:03-0500 Heart rate 71 /min Suzi Timmis [facility] 05-29-2022 16:03-0500 SaO2% (BldA) [Mass fraction] 97 % Suzi Timmis [facility] 05-29-2022 16:03-0500 Respiratory rate 16 /min Suzi Timmis [facility] 05-29-2022 16:03-0500 Diastolic blood pressure 87 mm[Hg] Suzi Timmis [facility] 05-29-2022 16:03-0500 Mean blood pressure 111 mm[Hg] Suzi Timmis [facility] 05-29-2022 16:03-0500 Systolic blood pressure 161 mm[Hg] Suzi Timmis [facility] 05-29-2022 16:03-0500 Body temperature 98.78 [degF] Suzi Timmis [facility] 05-29-2022 15:50-0500 Blood Pressure Location Suzi Timmis [facility] 05-29-2022 15:50-0500 Body temperature 97.52 [degF] Suzi Timmis [facility] 05-29-2022 15:50-0500 Diastolic blood pressure 94 mm[Hg] Suzi Timmis [facility] 05-29-2022 15:50-0500 Heart rate 92 /min Suzi Timmis [facility] 05-29-2022 15:50-0500 Respiratory rate 18 /min Suzi Timmis [facility] 05-29-2022 15:50-0500 SaO2% (BldA) [Mass fraction] 96 % Suzi Timmis [facility] 05-29-2022 15:50-0500 Systolic blood pressure 146 mm[Hg] Suzi Timmis [facility] 05-29-2022 15:40-0500 Blood Pressure Location Suzi Timmis [facility] 05-29-2022 15:40-0500 Respiratory rate 15 /min Suzi Timmis [facility] 05-29-2022 15:35-0500 Blood Pressure Location Suzi Timmis [facility] 05-29-2022 15:35-0500 Respiratory rate 11 /min Suzi Timmis [facility] 05-29-2022 12:17-0500 Respiratory rate 20 /min Suzi Timmis [facility] 05-29-2022 12:16-0500 Mean blood pressure 110 mm[Hg] Suzi Timmis [facility] 04-20-2022 16:54-0500 Blood Pressure Location Suzi Timmis [facility] 04-20-2022 16:54-0500 Diastolic blood pressure 90 mm[Hg] Suzi Timmis [facility] 04-20-2022 16:54-0500 Systolic blood pressure 166 mm[Hg] Suzi Timmis [facility] 04-20-2022 16:43-0500 Heart rate 86 /min Suzi Timmis [facility] 04-20-2022 16:43-0500 SaO2% (BldA) [Mass fraction] 99 % Suzi Timmis [facility] 04-20-2022 16:43-0500 Diastolic blood pressure 91 mm[Hg] Suzi Timmis [facility] 04-20-2022 16:43-0500 Mean blood pressure 116 mm[Hg] Suzi Timmis [facility] 04-20-2022 16:43-0500 Systolic blood pressure 168 mm[Hg] Suzi Timmis [facility] 04-20-2022 16:43-0500 Blood Pressure Location Suzi Timmis [facility] 04-20-2022 16:43-0500 Body temperature 98.06 [degF] Suzi Neely [facility] 04-20-2022 16:43-0500 Respiratory rate 16 /min Suzi Neely [facility] 06-06-2018 08:05-0400 BP Diastolic 52 mm[Hg] [facility] 06-06-2018 08:05-0400 BP Systolic 109 mm[Hg] [facility] 06-06-2018 08:05-0400 Pulse (Heart Rate) 53 /min [facility] 06-06-2018 08:05-0400 Pulse Oximetry 93 % [facility] 06-06-2018 08:05-0400 Respiratory Rate 15 /min [facility] 06-06-2018 07:55-0400 Body Temperature 97 [degF] [facility] 06-06-2018 06:46-0400 BMI (Body Mass Index) 34.75 kg/m2 [facility] 06-06-2018 06:46-0400 Weight 86.18 kg [facility] 06-06-2018 06:43-0400 Height 157.5 cm [facility] Encounters Encounter Date Encounter Type Care Provider Facility Start: 04-16-2023 End: 04-16-2023 [facility] Start: 04-12-2023 End: 04-13-2023 [facility] Start: 07-15-2022 End: 07-16-[address] DEBORAH GARCIA . Facility: Start: 05-29-2022 End: 05-29-2022 ambulatory Suzi Kenzie Abhayharper Facility:[facility] Start: 05-29-2022 End: 05-29-2022 Admission to same day surgery center Suzi Kenzie Abhayharper [facility] Start: 05-11-2022 End: 05-12-2022 ambulatory [facility] Start: 05-11-2022 [facility] Start: 05-11-2022 End: 05-11-2022 Patient encounter status Deborah Garcia MD Work Phone: [facility] Start: 05-11-2022 End: 05-11-2022 Subsequent hospital visit by physician Deborah Garcia MD Work Phone: [facility] Comment on above: Abnormal EKG; Atrial flutter, unspecified type (HCC); Encounter for lipid screening for cardiovascular disease; Pre-op testing Start: 05-03-2022 Encounter for other preprocedural examination MARINA LERMA [facility] Start: 05-01-2022 End: 05-02-2022 Encounter for other preprocedural examination MARINA LERMA Facility:[facility] Start: 05-01-2022 End: 05-02-2022 ambulatory MARINA LERMA Facility:[facility] Start: 04-20-2022 End: 04-21-2022 ambulatory Suzi Neely Facility:[facility] Start: 04-20-2022 End: 04-20-2022 Patient encounter procedure Suzi Neely [facility] Start: 04-15-2022 End: 04-24-2022 Pre-admission assessment Suzi Neely [facility] Start: 01-02-2022 End: 01-03-[address] DEBORAH GARCIA . Facility:[facility] Start: 10-09-[address] JUANCHO CHARLTON [facility] ity:[facility] Start: 06-06-2021 End: 06-06-2021 Subsequent hospital visit by physician Karmen George OT [facility] Comment on above: Arrived Start: 05-19-2019 End: 05-19-2019 Office outpatient visit 25 minutes Bud Henderson Work Phone: [facility] Comment on above: Vitreous detachment, left (Primary Dx) Start: 07-06-2018 Patient encounter procedure BUD W [facility] Start: 06-14-2018 Patient encounter procedure BUD [place]on [facility] Start: 06-07-2018 Patient encounter procedure MASONRosi KATE [facility] Start: 06-06-2018 End: 06-06-2018 Patient encounter procedure MASON KATE [facility] Start: 06-06-2018 End: 06-06-2018 Patient encounter procedure Mason Kate Work Phone: [facility] Comment on above: Age-related nuclear cataract, right eye Start: 05-24-2018 End: 05-24-2018 Patient encounter procedure Mason Kate Work Phone: [facility] Start: 04-05-2018 End: 04-05-2018 Patient encounter procedure Historical Provider [facility] [place] Start: 04-01-2018 Patient encounter procedure BUD [place] [facility] Procedures Date Procedure Procedure Detail Performing Clinician Start: 05-29-2022 Magnetic resonance imaging Suzi Bridgess Start: 05-11-2022 Lipid panel Marina morales MD Work Phone: Start: 05-11-2022 PATIENT FASTING? Marina Lerma MD Work Phone: Start: 05-24-2018 OPHTHALMOLOGY DIAGNO STIC IMAGING (SCANNED) Mason Kate Work Phone: Start: 04-01-2018 End: 04-01-2018 OPHTHALMOLOGY DIAGNOSTIC IMAGING (SCANNED) Historical Provider Start: 04-27-2016 mri with sedation Santiar y Chin Start: 03-29-2015 History of goszgrf-epjrstbf-pbkrdg (YAG) laser capsulotomy of lens Suzi Abhaymis Start: 03-29-2014 Cataract extraction and insertion of intraocular lens Suzi Abhaymis Comment on above: Left Eye Start: 03-29-2008 History of appendectomy Suzi Timmis Start: 03-29-2008 History of cholecystectomy Suzi Abhaymis Start: 03-29-2008 History of repair of umbilical hernia Suzi Neely Start: 03-29-2007 Radiation to eyes Deon y Chin Start: 03-29-2006 Thyroid Radiation Deon y Chin Start: 03-29-1999 History of Left Meni scus Repair Suzi Neely Start: 03-29-1989 Discectomy of spine Hil kenisha Neely Plan of Treatment Date Care Activity Detail Author Start: 10-27-2021 Influenza vaccination Flu vaccine (# 1) [facility] Start: 06-13-2021 End: 06-13-2021 Patient encounter procedure 06/13/2021 Appointment Occupational Therapy Kala Bal OTA [facility] Start: 06-10-2021 End: 06-10-2021 Patient encounter procedure 06/10/2021 Appointment Occupational Therapy Karmen George OT [facility] Start: 06-06-2021 Annual Wellness Visi t (AWV) Annual Wellness Visit (AWV) [facility] Start: 11-27-2020 Influenza vaccination Flu vaccine (# 1) [facility] Start: 05-24-2020 End: 05-24-2020 Office Visit 05/24/2020 Office Visit Optometry Bud Henderson, OD [address] [place] [address] [facility] [place] Start: 11-27-2018 Influenza vaccination INFLUENZA VACC INE (#1) [facility] Start: 06-14-2018 End: 06-14-2018 Office Visit 06/14/2018 Office Visit Optometry Bud Henderson, OD [address] [place] [address] [facility] [place] Start: 06-07-2018 End: 06-07-2018 Office Visit 06/07/2018 Office Visit Ophthalmology Mason Kate MD [address] [place] [address] [place] [phone] [facility] Start: 06-06-2018 End: 06-06-2018 Procedure Pass [facility] Comment on above: Age-related nuclear cataract, right eye EXTRACTION EXTRACAPS ULAR CATARACT W/ IMPLANT (ECCE IOL) right Start: 05-24-2018 End: 05-24-2018 Ambulatory 05/24/2018 Office Visit Ophthalmology Mason Kate MD [address] [place] [phone] [facility] Start: 11-27-2017 Influenza vaccination INFLUENZA VACC INE (#1) [facility] Work Phone: Start: 2010 Pneumococcal 65+ yea rs Vaccine (1 - PCV) Pneumococcal 65+ years Vaccine (1 - PCV) [facility] Start: 2010 Pneumococcal 65+ yea rs Vaccine (1 of 1 - PPSV23) Pneumococcal 65+ years Vaccine (1 of 1 - PPSV23) [facility] Start: 2010 Pneumococcal vaccination PNEUMOCOCCAL VACCINE SERIES (1 of 2 - PCV13) [facility] Work Phone: Start: 2000 Screening for osteoporosis DEXA (modify frequency per FRAX score) [facility] Start: 1995 Colonoscopy COLORECTAL CAN CER SCREENING DISCUSSION [facility] Start: 1995 Protein mass conc COLON CANCER SCREENING DISCUSSION [facility] Work Phone: Start: 1995 Shingles Vaccine (1 of 2) Shingles Vaccine (1 of 2) [facility] Start: 1995 Zoster vaccine hzv l ilene for subcutaneous use ZOSTER (SHINGLES) VACCINE (1 of 2) [facility] Start: 1985 Fasting lipid profile LIPID SCREENIN G [facility] Work Phone: Start: 1985 Protein mass conc MAMMOGRAM SC REENING DISCUSSION [facility] Work Phone: Start: 1985 Screening mammography MAMMOGRA M SCREENING DISCUSSION [facility] Start: 1966 Screening for malign ant neoplasm of cervix [facility] Work Phone: Start: 1964 DTaP/Tdap/Td vaccine (1 - Tdap) DTaP/Tdap/Td vaccine (1 - Tdap) [facility] Start: 1964 Third diphtheria, tetanus and acellular pertussis (DTaP) vaccination TDAP (ADULT) [facility] Work Phone: Start: 1963 Hepatitis C screening Hepatitis C sc reen [facility] Start: 1963 Tetanus vaccination TETANUS Idi [facility] Work Phone: Start: 1957 Depression Screen Depression Screen [facility] Start: 1950 COVID-19 Vaccine (1) COVID-19 Vaccin e (1) [facility] Start: 1945 COVID-19 Vaccine (#1) COVID-19 Vacci ne (#1) [facility] Start: 1945 Hepatitis C antibody , confirmatory test HEPATITIS C VIRUS SCREENING [facility] Work Phone: Start: 1945 Hepatitis C screening Hepatitis C sc [facility] Start: 1945 Screening for osteoporosis DEXA SCAN DISCUSSION [facility] Work Phone: Start: 1945 Thyrotropin Qn TSH [facility] Work Phone: Payers Date Payer Category Payer Unknown [id number] 2018 Medicare MEDICARE MEDICAR E A AND B xxxxxxxxxxx 2018-Present [place], [place] xxxxxxxxxxx [id number] 2018 Unknown GENERIC PAYOR NERIC PLAN xxxxxxxx 2018-Present xxxxxxxx [id number] 2018 Unknown [id number] 1959 Medicare [id number] 1959 Self-pay 1959 Unknown [id number] 1945 Unknown [id number] 1945 Unknown [id number] 1945 Unknown [id number] 1945 Unknown [id number] 1945 Unknown [id number] [id number] 1945 Unknown [id number] 1945 Unknown [id number] 1945 Unknown [id number] [id number] 1945 Unknown [id number] [id number] 1945 Unknown [id number] 1945 Unknown [id number] [id number] 1945 Unknown [id number] [id number] 1945 Unknown [id number] [id number] 1945 Unknown [id number] [id number] 1945 Unknown [id number] Social History Date Type Detail Facility [facility] Work Phone: Start: 1945 Sex Assigned At Not on file [facility] Work Phone: Start: 05-24-2018 [facility] if ever smoked [employer] Start: 02-18-2015 End: 06-06-2018 Tobacco smoking status NHIS Never smoker [employer] Start: 06-06-2018 Alcohol Comment rarely [facility] Start: 02-18-2015 Alcohol intake Current drinke r of alcohol (finding) [employer] Work Phone: Start: 02-18-2015 Alcohol intake Intent [facility] Work Phone: Start: 02-18-2015 History SDOH Alcohol Comment occ [employer] Work Phone: Tobacco smoking status No Smokin g Status Entered [facility] Sex Assigned At Female [facility] History of tobacco use Passive smoker [employer] Work Phone: Medical Equipment Procedure Code Equipment Code Equipment Origin al Text Equipment Identifier Dates [employer] Start: 06-06-2018 Acrysof Iq Start: 06-06-2018 Acrysof Iq [id number] Start: 06-06-2018 Functional Status Date Assessment Result Facility 04-20-2022 Functional Status No [facility] History of Present illness Narrative 06-06-2021 Karmen George, OT - 06/06/2021 3:30 PM EST Note Date & Type Note Facility 06-06-2021 History of Present illness Narrative Images from the original note were not included. [facility] Evaluation Date: 06/06/2021 Patient: [...] demonstrates the above deficits with ROM & front office associate/pinch strength and would benefit from continued outpt OT at this time. Pt has follow-up appt with surgeon on . Prognosis: Fair Short term goals Time Frame for Short term goals: 6 visits (06/27/2021) Short term goal 1: Pt to be independent in HEP Short term goal 2: Pt to be compliant w/ splint wear schedule termite helper goals Time Frame for termite helper goals : 12 visits (07/18/2021) termite helper goal 1: Pt to demonstrate L wrist flexion 60 degrees or more & L wrist extension to 62 degrees or more in order to push self up from seated surfaces FPC goal 2: Pt to demonstrate L wrist radial deviation 20 degrees or more & L wrist ulnar deviation 35 degrees or more in order to open containers FPC goal 3: Pt to demonstrate L front office associate strength to within 10% of R hand in order to carry heavy items FPC goal 4: Pt to demonstrate L lateral/tip/ 3pt pinch strength tto within 10% of the R hand in order to pick up attendant and hold objects Patient's Goal: Pt wishes to return to daily tasks Time In: 1535 Time Out: 1625 Timed Coded Minutes: 0 Total Treatment Time: 50 ALEK Shoemaker, OTR/L 06/06/2021 documented in this encounter [employer] Phone: Evaluation + Plan note Radiology Note Date & Type Note Facility Evaluation + Plan note Future Appointments Appointment Date:04/23/2022 10:00:00 AM Scheduled Provider: Location:.MRI Appointment Type:MRI Brain (FT) Appointment Date:04/23/2022 10:00:00 AM Scheduled Provider: Location:[facility] Appointment Type:Surgery FT Diagnostic Tests PendingCOVID-19 ([facility]) 04/20/22 Future Scheduled TestsMRI Brain w/ + w/o Contrast 04/23/22 [facility] Evaluation note Note Date & Type Note Facility Evaluation note Diagnosis Abnormal EKG Nonspecific abnormal electrocardiogram (ECG) (EKG) Atrial flutter, unspecified type (HCC) Encounter for lipid screening for cardiovascular disease Pre-op testing Preoperative examination, unspecified documented in this encounter [facility] [employer] Phone: Hospital course Narrative Note Date & Type Note Facility Hospital course Narrative No data available for this section [facility] Hospital Discharge instructions Note Date & Type Note Facility Hospital Discharge instructions No data available for this section [facility] Progress note Note Date & Type Note Facility Progress note No data available for this section [facility] Assessments Diagnosis Age-related nuclear cataract, right eye Diagnosis Vitreous detachment, left Summary Purpose Family History No Family History Records FoundNo Family History Records FoundNo Family History Records FoundNo Family History Records FoundNo Family History Records Found Advance Directives No Advanced Directives Records FoundDocuments on File Type Date Recorded Patient Physical Education Department Chair Expl anation ACP-Advance Directive ACP-Power of Internal Communications Intern Latest Code Status on File Code Status [...] right eye [H25.11] Mason Kate MD [address] [facility] [address] [place] [address] Reason Comments Eye Problem Specialty Diagnoses / Procedures Referred By Contac t Referred To Contact Occupational Therapy Diagnoses Encounter for other preprocedural examination Carpal tunnel syndrome, left upper limb Pre surg eval CTS Procedures eval and treat Stevenson Camilo PA-C [address] [facility] [address] [place] [address] [facility] [address] [place] [address] Referral ID Status Reason Start Date Expiration Date V isits Requested Visits Authorized [id number] Pending Review 05/26/2021 05/26/2022 1 1 INFORMATION SOURCE (unrecogn ized section and content) DATE CREATED AUTHOR 06/08/2018 [facility] DATE CREATED AUTHOR AUTHOR'S ORGANIZ ATION 07/07/2018 [facility] DATE CREATED AUTHOR AUTHOR'S ORGANIZ ATION 06/10/2022 [facility] DATE CREATED AUTHOR AUTHOR'S ORGANIZ ATION 07/19/2022 [facility] DATE CREATED AUTHOR AUTHOR'S ORGANIZ ATION 04/17/2023 [facility] Care Teams (unrecognized sec tion and content) Dredgemaster Relationship Specialty [place] [address] [place] [id number] PCP - General 02/13/15 [employer]redgemaster Relationship Specialty Start Date End Date Deborah Garcia MD [address] [place] [address] PCP - General 02/13/15 FOR RECORDS PERTAINING [...] BE BASED ON THE PRIMARY CLINICAL RECORDS. [facility] ([employer] [facility]. provides no warranty or guarantee of the accuracy or completeness of information in this document.
[2023-11-17 08:47] LABS: Basophils Absolute Auto 0.1 10^3/uL (0.0-0.1); Basophils Percent Auto 0.8 % (0.2-2.0); Eosinophils Absolute Auto 0.2 10^3/uL (0.0-0.7); Eosinophils Percent Auto 3.2 % (0.9-7.0); Hematocrit 40.7 % (36.0-48.0); Hemoglobin 13.3 g/dL (12.0-16.0); Immature Granulocytes Abs Auto 0.02 10^3/uL (0.00-0.03); Immature Granulocytes Pct Auto 0.3 % (0.0-0.5); Lymphocytes Absolute Auto 2.1 10^3/uL (1.2-3.8); Lymphocytes Percent Auto 34.2 % (20.5-60.0); Mean Corpuscular HGB Conc 32.7 g/dL (29.9-35.2); Mean Corpuscular Hemoglobin 31.6 pg (26.7-34.0); Mean Corpuscular Volume 96.7 fL (81.0-99.0); Mean Platelet Volume 9.6 fL (9.5-13.5); Monocytes Absolute Auto 0.5 10^3/uL (0.3-0.8); Neutrophils Absolute Auto 3.2 10^3/uL (1.4-6.5); Neutrophils Percent Auto 53.5 % (43.0-75.0); Platelet Count 260 10^3/uL (150-450); Red Blood Count 4.21 10^6/uL (4.20-5.40); Red Cell Distribution Width 14.6 % (11.0-15.0)
[2023-11-17 09:17] LABS: Alanine Aminotransferase 20 U/L (14-59); Albumin Globulin Ratio 0.9; Albumin Level 3.4 g/dL (3.4-5.0); Alkaline Phosphatase 78 U/L (46-116); Anion Gap 13.3; Aspartate Amino Transferase 19 U/L (15-37); BUN Creatinine Ratio 30.4; Bilirubin Total 0.6 mg/dL (0.2-1.0); Calcium 9.6 mg/dL (8.5-10.1); Carbon Dioxide 25.9 mmol/L (21.0-32.0); Chloride 105 mmol/L (98-107); Cholesterol 187 mg/dL (<=200); Estimated GFR (African America >60 (>=60); Estimated GFR (Non-African Ame 59 (>=60); Free T3 2.23 pg/mL (2.18-3.98); Globulin 3.8 g/dL; Glucose 81 mg/dL (74-106); HDL Cholesterol 62 mg/dL (40-60); Potassium 4.2 mmol/L (3.5-5.1); Sodium 140 mmol/L (136-145); Total Protein 7.2 g/dL (6.4-8.2); Triglycerides 59 mg/dL (<=150); VLDL CHOLESTEROL 11.8 mg/dL
[2023-11-17 10:10] LABS: Estimated Average Glucose 108 mg/dL; Glycohemoglobin A1C 5.4 % (4.5-6.2)
== END 2023-11-17 08:17 | disposition home or self-care (01) ==
LOC: LAB 08:17
PROVIDERS: PCP Family Medicine; Visit Provider Family Medicine
DX: G56.00 Carpal tunnel syndrome, unspecified upper limb (principal); K21.9 Gastro-esophageal reflux disease without esophagitis; E78.5 Hyperlipidemia, unspecified; E03.9 Hypothyroidism, unspecified; R03.0 Elevated blood-pressure reading, without diagnosis of hypertension; D64.9 Anemia, unspecified; E11.9 Type 2 diabetes mellitus without complications; I10 Essential (primary) hypertension; E55.0 Rickets, active
CPT/HCPCS: 36415; 80053; 80061; 82306; 83036; 83540; 84436; 84443; 84481; 85025

== ENCOUNTER 2024-05-17 08:38 | Outpatient (OUT) | payer MEDICARE, OTHER, SELFPAY ==
[2024-05-17 08:57] LABS: Basophils Absolute Auto 0.1 10^3/uL (0.0-0.1); Basophils Percent Auto 0.9 % (0.2-2.0); Eosinophils Absolute Auto 0.2 10^3/uL (0.0-0.7); Eosinophils Percent Auto 3.6 % (0.9-7.0); Hematocrit 39.1 % (36.0-48.0); Hemoglobin 12.6 g/dL (12.0-16.0); Immature Granulocytes Abs Auto 0.02 10^3/uL (0.00-0.03); Immature Granulocytes Pct Auto 0.4 % (0.0-0.5); Lymphocytes Absolute Auto 1.9 10^3/uL (1.2-3.8); Lymphocytes Percent Auto 34.5 % (20.5-60.0); Mean Corpuscular HGB Conc 32.2 g/dL (29.9-35.2); Mean Corpuscular Hemoglobin 31.2 pg (26.7-34.0); Mean Corpuscular Volume 96.8 fL (81.0-99.0); Mean Platelet Volume 9.2 fL (9.5-13.5); Monocytes Absolute Auto 0.4 10^3/uL (0.3-0.8); Monocytes Percent Auto 6.9 % (1.7-12.0); Neutrophils Percent Auto 53.7 % (43.0-75.0); Platelet Count 319 10^3/uL (150-450); Red Blood Count 4.04 10^6/uL (4.20-5.40); Red Cell Distribution Width 13.5 % (11.0-15.0); White Blood Count 5.5 10^3/uL (4.0-11.0)
[2024-05-17 09:20] LABS: Alanine Aminotransferase 17 U/L (14-59); Albumin Globulin Ratio 0.9; Albumin Level 3.6 g/dL (3.4-5.0); Alkaline Phosphatase 82 U/L (46-116); Anion Gap 12.6; Aspartate Amino Transferase 22 U/L (15-37); BUN Creatinine Ratio 21.8; Bilirubin Total 0.8 mg/dL (0.2-1.0); Calcium 9.4 mg/dL (8.5-10.1); Carbon Dioxide 26.6 mmol/L (21.0-32.0); Chloride 105 mmol/L (98-107); Estimated GFR (African America 58 (>=60 mL/min/1.73m^2); Estimated GFR (Non-African Ame 48 (>=60 mL/min/1.73m^2); Globulin 3.9 g/dL; Glucose 87 mg/dL (74-106); Potassium 4.2 mmol/L (3.5-5.1); Sodium 140 mmol/L (136-145); Total Protein 7.5 g/dL (6.4-8.2)
== END 2024-05-17 08:39 | disposition home or self-care (01) ==
LOC: LAB 08:39
PROVIDERS: PCP Family Medicine; Visit Provider Registered Nurse
DX: M15.0 Primary generalized (osteo)arthritis (principal); Z79.899 Other long term (current) drug therapy
CPT/HCPCS: 36415; 80053; 85025

== ENCOUNTER 2024-09-13 08:26 | Outpatient (OUT) | payer MEDICARE, OTHER, SELFPAY ==
--- OUTSIDE RECORDS SUMMARY | 2023-11-25 07:29 | XMS_ITS ---
Author Organization [facility] [place] Address [address] [place] [address] Care Team Providers Care Regional Geodetic Advisor Name Role Phone Shabbir Garcia Primary Care Provider [phone] Encounters Encounter Location Date Provider Diagnosis [facility] [address] [place] [address] 11/25/2023 Shabbir Garcia Plan Of Treatment No Information Progress Notes * Patricia TURNER KDOB:[birth year] (78 yo F)Acc No.[id number]:11/25/2023 Patient: Milton HERCULESPatricia :1945 A ge:78 Y S ex:Female Address: [address], [place], [address] Subjective: * Chief Complaints: * * Medical History: * Surgical History: * Hospitalization/Major Diagno stic Procedure: * Medications: Objective: * Vitals: * Physical Examination: Assessment: Plan: * Treatment: * Procedure Codes: * true * Date: Generated for Printi ng/Faxing/eTransmitting on: 0 09/13/2024 08:34 AM EDT
--- OUTSIDE RECORDS SUMMARY | 2024-01-31 03:58 | XMS_ITS ---
Author Organization [facility] in [place] Address [address] [place] [address] Care Team Providers Care Social Service Liaison Name Role Phone Hirajosé miguelShabbir Primary Care Provider [phone] Medications Medication SIG (Take, Route, Fr equency, Duration) Notes Start Date End Date Status Synthroid 100 MCG TAKE 1 TABLET BY REDD TH ONCE DAILY IN THE MORNING ON AN EMPTY STOMACH Orally Once a day for 90 days Ac tive Encounters Encounter Location Date Provider Diagnosis [address] [address] 01/31/2024 Shabbir Garcia Plan Of Treatment Medication Medication Name Sig Start Date Stop Date Notes Synthroid 100 MCG TAKE 1 TABLET BY REDD TH ONCE DAILY IN THE MORNING ON AN EMPTY STOMACH Orally Once a day for 90 days Progress Notes * Patricia TURNER KDOB:[birth year] (78 yo F)Acc No.[id number]:01/31/2024 Patient: Milton Patricia HERCULES :1945 A ge:78 Y S ex:Female Address: [address], [place], [place], [address] * Refills Refill Synthroid Tablet, 100 MCG, Orally, 90, TAKE 1 TABLET BY MOUTH ONCE DAILY IN THE MORNING ON AN EMPTY STOMACH, Once a day, 90 days, Refills=3 * true * Date: Generated for Printi ng/Faroxannag/eTransmitting on: 0 09/13/2024 08:35 AM EDT
--- OUTSIDE RECORDS SUMMARY | 2024-09-13 08:34 | XMS_ITS | Clinical Summary ---
Author Organization [facility] Address [address] [place] [address] Phone Care Team Providers Care Escrow Officer Name Role Phone Unavailable Primary Care Provider Unavailabl e Social History Tobacco Use Types Packs/Day Years Used Date Smoking Tobacco: Never Assessed Comments Unknown Sex and Gender Information Value Date Recorded Sex Assigned at Not on file Legal Sex Female 4:06 PM EDT Gender Identity Not on file Sexual Orientation Not on file Plan of Treatment Not on file
--- OUTSIDE RECORDS SUMMARY | 2024-09-13 08:34 | XMS_ITS | Clinical Summary ---
Author Organization [facility] Address [address] [facility] [facility] [place] [address] Care Team Providers Care Wool Scourer Name Role Phone Ernst Garcia MD Primary Care Provider [phone] Allergies Active Allergy Reactions Criticality Noted Date Comments Acetaminophen 02/12/2015 Other reaction(s): AOF, Other (See Comments) davis Amoxicillin 12/17/2015 Sulfamethoxazole-Trimethoprim 2018 Black [place] Pollen 12/24/2015 Other reaction(s): AOF Cyclosporine 12/24/2015 Difluprednate 12/24/2015 Ezetimibe 12/17/2015 Other reaction(s): AOF Hydrocodone-Acetaminophen 12/17/2015 Other reaction(s): AOF Ketorolac 12/17/2015 Metronidazole 12/24/2015 Other reaction(s): UNKNOWN Prednisone 12/17/2015 Statins 02/12/2015 Other reaction(s): AOF, Other (See Comments) h a vomiting Sulfa Antibiotics 01/01/2016 Thyroxine 12/17/2015 Other reaction(s): AOF Simvastatin 05/30/2018 Medications aspirin 81 MG Tab Take 81 mg by mouth. Active [place]-3 Fatty Acids (FISH OIL) 1000 MG Cap Take 4,000 mg by mouth. Active SYNTHROID 100 MCG Tab tablet 01/20/2018 Acti ve pantoprazole [address] tablet DR 03/08/2018 Active flurbiprofen 50 MG Tab Take 50 mg by mouth 2 times daily. Active Active Problems Problem Noted Date Diagnosed Date Age-related nuclear cataract, right eye 05/24/19 19 Overview (05/24/2018): Added automatically from request for surgery [id number] Social History Tobacco Use Types Packs/Day Years Used Date Smoking Tobacco: Never Smokeless Tobacco: Never Comments No Sex and Gender Information Value Date Recorded Sex Assigned at Not on file Legal Sex Female 9:19 AM EST Gender Identity Female 03/28/2018 9:23 AM EST Sexual Orientation Not on file Last Filed Vital Signs Vital Sign Reading Time Taken Comments Blood Pressure 109/52 06/06/2018 8:05 AM EDT Pulse 53 06/06/2018 8:05 AM EDT Temperature 36.1 C (97 F) 06/06/2018 7:55 AM EDT Respiratory Rate 15 06/06/2018 8:05 AM EDT Oxygen Saturation 93% 06/06/2018 8:05 AM EDT Inhaled Oxygen Concentration - - Weight 86.2 kg (190 lb) 06/06/2018 6:46 AM EDT Height 157.5 cm (5' 2 ) 06/06/2018 6:43 AM EDT Body Mass Index 34.75 06/06/2018 6:43 AM EDT Plan of Treatment Health Maintenance Due Date Last Done Comments DEXA SCAN DISCUSSION 1945 HEPATITIS C VIRUS SCREENING 1945 TETANUS 1945 TDAP (ADULT) 1964 CERVICAL CANCER SCREENING DISCUSSION 1966 MAMMOGRAM SCREENING DISCUSSION 1985 COLORECTAL CANCER SCREENING DISCUSSION 1990 PNEUMOCOCCAL VACCINE SERIES (1 of 1 - PCV) 1995 ZOSTER (SHINGLES) VACCINE (1 of 2) 1995 RSV VACCINE (1 - 1-dose 75+ series) 2020 COVID-19 VACCINE ( - 2023-2 5 season) 2023 INFLUENZA VACCINE (Season Ended) 2024 HEP B VACCINE Aged Out No longer elig ible based on patient's age to complete this topic Medical Devices Implanted Type Area Airborne Electronics Analyst Device Identifier Shelf Expiration Date Model / Serial / Lot Acrysof Iq Implanted:Qty: 1 on 06/06/2018 by Mason Kate MD at [facility] Right: Eye [employer] 08/26/2022 [id number] / [id number] / Insurance MEDICARE A AND B GENERIC PLAN MEDICARE A AND B GENERIC PLAN Care Teams Wool Scourer Relationship Specialty Start Date End Date Ernst Garcia MD PCP - General Family Medicine 04/01/18
--- OUTSIDE RECORDS SUMMARY | 2024-09-13 08:34 | XMS_ITS | Patient Health Record ---
Author Organization [facility] Address [address] [place] [address] Care Team Providers Care Onyx Chip Terrazzo Worker Name Role Phone Shabbir Garcialas Primary Care Provider Unavailabl e Allergies Allergen (clinical drug ingredient) Drug/Non Drug Allergy documented on EMR Reaction Allergy Type Onset Date Status metronidazole METRONIDAZOLE comment: diarrhea,oral thrush; Drug Allergy Active SULFAMETHOXAZOLE comment: stomach bloatness-blee ding; Drug Allergy Active trimethoprim TRIMETHOPRIM comment: stomach bloatness-blee ding; Drug Allergy Active ketorolac KETOROLAC comment: (eye)-burning sinus,face,madyson eks,teeth,head ; Drug Allergy Active lovastatin LOVASTATIN comment: feels like head will explode; Drug Allergy Active SIMVASTATIN comment: headache,dizzy ,joints hurt; Drug Allergy Active caffeine CAFFEINE comment: heart races; Drug Allergy Active ezetimibe EZETIMIBE comment: regular-irregu lar heart beat; Drug Allergy Active LEVOTHYROXINE SODIUM comment: diarrhea; Drug Allergy Active PREDNISOLONE ACETATE comment: (eye); Drug Allergy Active Reason For Referral No Information Medications Medication SIG (Take, Route, Frequency, Duration) Notes Start Date End Date Status Restasis 0.05% OPHTHALMIC RESTASIS Acti ve topiramate 50 mg ORAL TOPIRAMATE Ac tive Aspir-Low 81 mg ORAL ASPIR-LOW Acti ve Synthroid 100 mcg (0.1 mg) ORAL SYNTHROID Active Fish Oil ORAL FISH OIL Active Ibuprofen 800 mg ORAL IBUPROFEN Act ilene Problems Problem Type SNOMED Code ICD Code Onset Dates Problem Status W/U Status Risk Notes Problem 198042992762704 Carpal tunnel syndrome of right wrist (G56.01) Active confirmed Problem 412803545 Surgical aftercare, nervous system (Z48.811) Active confirmed Plan Of Treatment Pending Test Test Name Order Date CBC with diff, BMP, EKG 01/11/2023 Surgery Scheduling 03/31/2023 Insurance Providers Payer Name Payer Address Payer Phone Subscriber Number Group Number Insured Name Patient Relationship to Insured Coverage Start Date [place] [address] [place] [address] [id number] LUIS A COLE Self - patient is the insured [address] [id number] LUIS A COLE Self - patient is the insured Medical (General) History Medical History History ICD Code Hypothyroidism Surgical History Surgery Date(Month/Year) Right endoscopic carpal tunnel release 0 04/16/2023
--- OUTSIDE RECORDS SUMMARY | 2024-09-13 08:35 | XMS_ITS | Encounter Summary ---
Author Organization [facility] Address [address] [place] [address] Care Team Providers Care Membership Administrator Name Role Phone Ernst Garcia MD Primary Care Provider [phone] Encounter Details Date Type Department Care Team (Late st Contact Info) Description 02/12/2015 PAT Telephone [facility] PRE ADMIT [address] [phone] Enedelia Gaytan, RN Social History Tobacco Use Types Packs/Day Years Used Date Smoking Tobacco: Never Assessed Comments Unknown Sex and Gender Information Value Date Recorded Sex Assigned at Not on file Legal Sex Female 1:17 PM EST Gender Identity Not on file Sexual Orientation Not on file documented as of this encounter Plan of Treatment Not on file documented as of this encounter Visit Diagnoses Not on filedocumented in this encounter Care Teams Membership Administrator Relationship Specialty Start Date End Date Ernst Garcia MD [address] [place] [address] PCP - General 02/13/15 documented as of this encounter
--- OUTSIDE RECORDS SUMMARY | 2024-09-13 08:35 | XMS_ITS | Clinical Summary ---
Author Organization [facility] Address [address] [place] [address] Care Team Providers Care Oyster Cultivator Name Role Phone Ernst Garcia MD Primary Care Provider [phone] Allergies Active Allergy Reactions Criticality Noted Date Comments Amoxicillin Diarrhea Low 12/17/2015 Other reaction(s): moderate Sulfamethoxazole-Trim ethoprim Rash Low 04/06/2023 Black [place] Pollen Low 12/24/2015 Caffeine 05/11/2022 Other reaction(s): Heart races Carvedilol 05/11/2022 Other reaction(s): throwing up, dizzy, disoriented Cefdinir 05/11/2022 Other reaction(s): diarrhea stomach upset, hairloss, stomach upset, diarrhea Cetirizine Dizziness or Vertigo 04/06/2023 Cyclosporine Low 12/24/2015 Other reaction(s): mild Difluprednate Low 12/24/2015 Other reaction(s): mild Ezetimibe Low 12/17/2015 Other reaction(s): Irregular heartbeat, mild Other reaction(s): AOF Fluticasone 05/11/2022 Other reaction(s): hypertension over 200 cant take steroids Fluticasone Propionate 05/11/2022 Other reaction(s): hypertension over 200 cant take steroids Gabapentin 05/11/2022 Other reaction(s): dizzy, coordination Hydrocodone-Acetamino phen Nausea And Vomiting Low 12/17/2015 Other reaction(s): mild Ipratropium 05/11/2022 Other reaction(s): nose bleeds Irbesartan 05/11/2022 Other reaction(s): hair loss Ketorolac Low 12/17/2015 Other reaction(s): Burning of face, cheeks, head, neck Ketorolac Tromethamine 05/11/2022 Other reaction(s): mild Lisinopril 05/11/2022 Other reaction(s): shakes ,chills, stomach pain, vomiting, dizzy Meloxicam 05/11/2022 Other reaction(s): vomiting /diarrhea Metoprolol 05/11/2022 Other reaction(s): jitters Metronidazole Diarrhea Low 12/24/2015 Other reaction(s): mild, Oral thrush Other reaction(s): UNKNOWN [id number] Ethyl Esters (Fish) Dizziness or Vertigo Low 12/24/2015 Other reaction(s): feels like head will explode , headaches, mild Piroxicam 05/11/2022 Other reaction(s): joint pain Prednisolone 05/11/2022 Other reaction(s): Burning of face, sinus, cheeks, teeth, head , mild Prednisone Low 12/17/2015 Propofol Hallucinations 04/06/2023 Statins Other (See Comments) 02/12/2015 h a vomiting Sulfa Antibiotics 01/01/2016 Thyroxine Diarrhea 12/17/2015 Other reaction(s): AOF Acetaminophen Other (See Comments) 02/12/2015 davis Medications aspirin 81 MG tablet Take 81 mg by mouth daily Active levothyroxine (SYNTHROID) 100 MCG tablet Take 1 tablet by mouth Daily Active [place]-3 Fatty Acids (FISH OIL) 1000 MG CAPS Take 4 capsules by mouth daily Active cycloSPORINE (RESTASIS) 0.05 % ophthalmic emulsion Place 1 drop into both eyes 2 times daily Active Biotin 72731 MCG TABS Take 1 tablet by mouth daily Active Active Problems Problem Noted Date Diagnosed Date 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 Social History Tobacco Use Types Packs/Day Years Used Date Smoking Tobacco: Passive Smo ke Exposure - Never Smoker Alcohol Use Standard Drinks/Week Comments Yes 1 (1 standard drink = 0.6 oz pur e alcohol) occ Interpersonal Safety Domain Source: IP Abuse Scr eening Answer Date Recorded Read-Only, Retired: Physical Abuse Denies 04/16/2023 Read-Only, Retired: Verbal Abuse Denies 04/16/2023 Read-Only, Retired: Emotional abuse Denies 04/16/2023 Read-Only, Retired: Financial Abuse Denies 04/16/2023 Read-Only, Retired: Sexual abuse Denies 04/16/2023 Comments No Sex and Gender Information Value Date Recorded Sex Assigned at Not on file Legal Sex Female 1:17 PM EST Gender Identity Not on file Sexual Orientation Not on file Last Filed Vital Signs Vital Sign Reading Time Taken Comments Blood Pressure 121/70 04/16/2023 10:45 AM EST Pulse 101 04/16/2023 10:45 AM EST Temperature 36.1 C (96.9 F) 04/16/2023 10:15 AM EST Respiratory Rate 18 04/16/2023 10:45 AM EST Oxygen Saturation 95% 04/16/2023 10:45 AM EST Inhaled Oxygen Concentration - - Weight 80.1 kg (176 lb 9.6 oz) 04/16/2023 8:52 A M EST Height 157.5 cm (5' 2 ) 04/16/2023 8:52 AM EST Body Mass Index 32.3 04/16/2023 8:52 AM EST Plan of Treatment Health Maintenance Due Date Last Done Comments Depression Screen 1957 Hepatitis C screen 1963 DTaP/Tdap/Td vaccine (1 - Tdap) 1964 Pneumococcal 50+ years Vacci ne (1 of 1 - PCV) 1995 Shingles vaccine (1 of 2) 1995 DEXA (modify frequency per F RAX score) 2000 Respiratory Syncytial Virus (RSV) or age 60 yrs+ (1 - 1-dose 75+ series) 2020 Annual Wellness Visit (Medicare) 02/22/2023 COVID-19 Vaccine (1 - 2023-2 5 season) 2023 Flu vaccine (Season Ended) 2024 Lipids Discontinued 05/11/2022 Hepatitis A vaccine Aged Out No longe r eligible based on patient's age to complete this topic Hepatitis B vaccine Aged Out No longe r eligible based on patient's age to complete this topic Hib vaccine Aged Out No longer eligi ble based on patient's age to complete this topic Meningococcal (ACWY) vaccine Aged Out No longer eligible based on patient's age to complete this topic Meningococcal B vaccine Aged Out No l onger eligible based on patient's age to complete this topic Polio vaccine Aged Out No longer elig ible based on patient's age to complete this topic Procedures Procedure Name Priority Date/Time Associated Diagnosis Comments LIPID PANEL Routine 05/11/2022 7:32 AM EST Abnormal EKG Atrial flutter, unspecified type (HCC) Encounter for lipid screening for cardiovascular disease Pre-op testing from Last 3 Months or Most Recently Relevant to Health Maintenance Results * Lipid Panel (05/11/2022 7:32 AM EST) Cholesterol 191 <200 mg/dL 05/11/2022 7:32 AM EST [facility] Comment: Cholesterol Guidelines: <200 Desirable 200-240 Borderline >240 Undesirable HDL 50 >40 mg/dL 05/11/2022 7:32 AM EST [facility] Comment: HDL Guidelines: <40 Undesirable 40-59 Borderline >59 Desirable LDL Cholesterol 114 0 - 130 mg/dL 05/11/2022 7:32 AM EST [facility] Comment: LDL Guidelines: <100 Desirable 100-129 Near to/above Desirable 130-159 Borderline >159 Undesirable Direct (measured) LDL and calculated LDL are not interchangeable tests. Chol/HDL Ratio 3.8 <5 05/11/2022 7:32 AM EST [facility] Comment: Triglycerides 136 <150 mg/dL 05/11/2022 7:32 AM EST [facility] Comment: Triglyceride Guidelines: <150 Desirable 150-199 Borderline 200-499 High >499 Very high Based on AHA Guidelines for fasting triglyceride, December 2011. BLOOD SPECIMEN / Unknown 05/11/2022 7:32 AM EST 05/11/2022 7:33 AM EST us Cruz Lerma MD CHEMISTRY ORDERABLES Final Res ult [employer] [facility] [address] [place] [address], [facility] [phone] [facility] [place] [address], [facility] [phone] from Last 3 Months or Most Recently Relevant to Health Maintenance Insurance MEDICARE [facility] Advance Directives * Full Code (Latest Code Status on File) Date Activated Date Inactivated Comments 02/18/2015 10:45 AM 02/18/2015 12:05 PM * Full Code Date Activated Date Inactivated Comments 02/18/2015 10:45 AM 02/18/2015 10:45 AM * Full Code Date Activated Date Inactivated Comments 02/18/2015 7:56 AM 02/18/2015 10:45 AM Care Teams Oyster Cultivator Relationship Specialty Start Date End Date Ernst Garcia MD [address] [place] [address] PCP - General 02/13/15
--- OUTSIDE RECORDS SUMMARY | 2024-09-13 08:35 | XMS_ITS | Encounter Summary ---
Author Organization [facility] Address [address] [place] [address] Care Team Providers Care Financial Services Assistant Name Role Phone Ernst Garcia MD Primary Care Provider [phone] Encounter Details Date Type Department Care Team (Late st Contact Info) Description 09/01/2022 Abstract [facility] [address] [place] [id number] Jillian Kim, [facility] [address] [place] [address] Social History Tobacco Use Types Packs/Day Years Used Date Smoking Tobacco: Never Smokeless Tobacco: Never Alcohol Use Standard Drinks/Week Comments Yes 2 (1 standard drink = 0.6 oz pur e alcohol) Comments Unknown Sex and Gender Information Value Date Recorded Sex Assigned at Not on file Legal Sex Female 6:52 PM EDT Gender Identity Not on file Sexual Orientation Not on file COVID-19 Exposure Response Date Recorded In the last 10 days, have yo u been in contact with someone who was confirmed or suspected to have Coronavirus/COVID-19? No / Unsure 09/01/2022 1:46 PM EDT documented as of this encounter Plan of Treatment Not on file documented as of this encounter Visit Diagnoses Not on filedocumented in this encounter Care Teams Financial Services Assistant Relationship Specialty Start Date End Date Ernst Garcia MD PCP - General Family Medicine 08/31/22 documented as of this encounter
--- OUTSIDE RECORDS SUMMARY | 2024-09-13 08:35 | XMS_ITS | Patient Health Record ---
Author Organization [facility] [place] Address [address] [place] [address] Care Team Providers Care Nursing Manager Name Role Phone Shabbir Garcia Primary Care Provider Allergies Allergen (clinical drug ingredient) Drug/Non Drug Allergy documented on EMR Reaction Allergy Type Onset Date Status propofol diprovan (uncoded) Unknown Allergy A ctive sulfamethoxazole / trimethoprim Bactrim Unknown Drug Allergy Active metronidazole Flagyl Unknown Drug Allergy Act ilene ketorolac Ketorolac Tromethamine Unknown Drug Allergy Active omega-3 acid ethyl esters (GROUP [facility]) Lovaza Unknown Drug Allergy Active prednisolone prednisoLONE Unknown Drug Allergy A ctive cyclosporine Restasis Unknown Drug Allergy Acti ve acetaminophen Tylenol Unknown Drug Allergy Act ilene Vicodin Unknown Drug Allergy Active ezetimibe Zetia Unknown Drug Allergy Active difluprednate Durezol Unknown Drug Allergy Act ilene amoxicillin Amoxicillin Unknown Drug Allergy Act ilene levothyroxine Levothyroxine Unknown Drug Allergy Active simvastatin Simvastatin Unknown Drug Allergy Act ilene Results Component Value Reference Range Notes CBC AUTO DIFF Reviewed date:11/17/2023 12:46:52 PM Interpretation: Performing Lab: Notes/Report: [facility] , White Blood Count 6.0 4.0-11.0 10 3/uL Red Blood Count 4.21 4.20-5.40 10 6/uL Hemoglobin 13.3 12.0-16.0 g/dL Hematocrit 40.7 36.0-48.0 % Mean Corpuscular Volume 96.7 81.0-99.0 fL Mean Corpuscular Hemoglobin 31.6 26.7-34.0 pg Mean Corpuscular HGB Conc 32.7 29.9-35.2 g/dL Red Cell Distribution Width 14.6 11.0-15.0 % Platelet Count 260 150-450 10 3/uL Mean Platelet Volume 9.6 9.5-13.5 fL Neutrophils Percent Auto 53.5 43.0-75.0 % Lymphocytes Percent Auto 34.2 20.5-60.0 % Monocytes Percent Auto 8.0 1.7-12.0 % Eosinophils Percent Auto 3.2 0.9-7.0 % Basophils Percent Auto 0.8 0.2-2.0 % Immature Granulocytes Pct Auto 0.3 0.0-0.5 % Neutrophils Absolute Auto 3.2 1.4-6.5 10 3/uL Lymphocytes Absolute Auto 2.1 1.2-3.8 10 3/uL Monocytes Absolute Auto 0.5 0.3-0.8 10 3/uL Eosinophils Absolute Auto 0.2 0.0-0.7 10 3/uL Basophils Absolute Auto 0.1 0.0-0.1 10 3/uL Immature Granulocytes Abs Auto 0.02 0.00-0.03 10 3/uL Performing Lab: see note ML - [facility] LB FREE T3 Reviewed date:11/17/2023 12:46:52 PM Interpretation: Performing Lab: Notes/Report: [facility] , Free T3 2.23 2.18-3.98 pg/mL Performing Lab: see note ML - [facility] LB IRON Reviewed date:11/17/2023 12:46:52 PM Interpretation: Performing Lab: Notes/Report: [facility] , Iron 44.0 50.0-170.0 ug/dL Performing Lab: see note ML - [facility] LB LIPID PROFILE Reviewed date:11/17/2023 12:46:52 PM Interpretation: Performing Lab: Notes/Report: [facility] , Triglycerides 59 <=150 mg/dL Cholesterol 187 <=200 mg/dL HDL Cholesterol 62 40-60 mg/dL <40 mg/dl - HIGH CARDIOVASCULAR RISK > or =60 mg/dl - LOW CARDIOVASCULAR RISK LDL Cholesterol Calculated 114.0 >190 mg/dl VERY HIGH 100-129 mg/dl NEAR OR ABOVE OPTIMAL <100 mg/dl OPTIMAL 130-159 mg/dl BORDERLINE HIGH 160-189 mg/dl HIGH VLDL CHOLESTEROL 11.8 Chol HDL Ratio 3.0 4.4 - 7.1 AVERAGE RISK 3.3 - 4.4 LOW RISK >11.0 HIGH RISK 7.1 - 11.0 MODERATE RISK Performing Lab: see note ML - [facility] PROF 14(COMP METB) Reviewed date:11/17/2023 12:46:52 PM Interpretation: Performing Lab: Notes/Report: [facility] , Sodium 140 136-145 mmol/L Potassium 4.2 3.5-5.1 mmol/L Chloride 105 98-107 mmol/L Carbon Dioxide 25.9 21.0-32.0 mmol/L Anion Gap 13.3 Glucose 81 74-106 mg/dL Blood Urea Nitrogen 28.0 7.0-18.0 mg/dL Creatinine 0.92 0.55-1.02 mg/dL Estimated GFR ( Nathalie >60 >=60 Estimated GFR (Non- Lore 59 >=60 BUN Creatinine Ratio 30.4 Calcium 9.6 8.5-10.1 mg/dL Bilirubin Total 0.6 0.2-1.0 mg/dL Aspartate Amino Transferase 19 15-37 U/L Alanine Aminotransferase 20 14-59 U/L Alkaline Phosphatase 78 46-116 U/L Total Protein 7.2 6.4-8.2 g/dL Albumin Level 3.4 3.4-5.0 g/dL Globulin 3.8 Albumin Globulin Ratio 0.9 Performing Lab: see note ML - [facility] LB T4 Reviewed date:11/17/2023 12:46:52 PM Interpretation: Performing Lab: Notes/Report: [facility] , T4 Thyroxine 11.40 4.80-13.90 ug/dL Performing Lab: see note ML - [facility] LB TSH Reviewed date:11/17/2023 12:46:52 PM Interpretation: Performing Lab: Notes/Report: [facility] , Thyroid Stimulating Hormone 1.020 0.358-3.740 u IU/mL Performing Lab: see note ML - [facility] LB PROF 14(COMP METB) Reviewed date:05/17/2024 07:41:33 PM Interpretation: Performing Lab: Notes/Report: [facility] , Sodium 140 136-145 mmol/L Potassium 4.2 3.5-5.1 mmol/L Chloride 105 98-107 mmol/L Carbon Dioxide 26.6 21.0-32.0 mmol/L Anion Gap 12.6 Glucose 87 74-106 mg/dL Blood Urea Nitrogen 24.0 7.0-18.0 mg/dL Creatinine 1.10 0.55-1.02 mg/dL Estimated GFR ( Nathalie 58 >=60 mL/min/1.73m 2 Estimated GFR (Non- Lore 48 >=60 mL/min/1.73m 2 BUN Creatinine Ratio 21.8 Calcium 9.4 8.5-10.1 mg/dL Bilirubin Total 0.8 0.2-1.0 mg/dL Aspartate Amino Transferase 22 15-37 U/L Alanine Aminotransferase 17 14-59 U/L Alkaline Phosphatase 82 46-116 U/L Total Protein 7.5 6.4-8.2 g/dL Albumin Level 3.6 3.4-5.0 g/dL Globulin 3.9 Albumin Globulin Ratio 0.9 Performing Lab: see note ML - [facility] LB CBC AUTO DIFF Reviewed date:05/17/2024 07:41:33 PM Interpretation: Performing Lab: Notes/Report: [facility] , White Blood Count 5.5 4.0-11.0 10 3/uL Red Blood Count 4.04 4.20-5.40 10 6/uL Hemoglobin 12.6 12.0-16.0 g/dL Hematocrit 39.1 36.0-48.0 % Mean Corpuscular Volume 96.8 81.0-99.0 fL Mean Corpuscular Hemoglobin 31.2 26.7-34.0 pg Mean Corpuscular HGB Conc 32.2 29.9-35.2 g/dL Red Cell Distribution Width 13.5 11.0-15.0 % Platelet Count 319 150-450 10 3/uL Mean Platelet Volume 9.2 9.5-13.5 fL Neutrophils Percent Auto 53.7 43.0-75.0 % Lymphocytes Percent Auto 34.5 20.5-60.0 % Monocytes Percent Auto 6.9 1.7-12.0 % Eosinophils Percent Auto 3.6 0.9-7.0 % Basophils Percent Auto 0.9 0.2-2.0 % Immature Granulocytes Pct Auto 0.4 0.0-0.5 % Neutrophils Absolute Auto 3.0 1.4-6.5 10 3/uL Lymphocytes Absolute Auto 1.9 1.2-3.8 10 3/uL Monocytes Absolute Auto 0.4 0.3-0.8 10 3/uL Eosinophils Absolute Auto 0.2 0.0-0.7 10 3/uL Basophils Absolute Auto 0.1 0.0-0.1 10 3/uL Immature Granulocytes Abs Auto 0.02 0.00-0.03 10 3/uL Performing Lab: see note - [facility] VITAMIN D 25 [place] Reviewed date:11/17/2023 12:46:52 PM Interpretation: Performing Lab: Notes/Report: [facility] , Vitamin D 39.6 >100 ng/mL Potential Toxicity 30-100 ng/mL Vit D sufficient <20 ng/mL Vit D deficient 20-<30 ng/mL Vit D insufficient Performing Lab: see note [facility] GLYCOHEMOGLOBIN A1C Reviewed date:11/17/2023 12:46:52 PM Interpretation: Performing Lab: Notes/Report: [facility] , Glycohemoglobin A1C 5.4 4.5-6.2 % ADA RECOMMENDED LIMIT 4.0 - 6.0 ADA THERAPEUTIC TARGET < 7.0 ACTION SUGGESTED > 7.0 Estimated Average Glucose 108 Performing Lab: see note - [facility] Reason For Referral No Information Medications Medication SIG (Take, Route, Fr equency, Duration) Notes Start Date End Date Status Synthroid 100 MCG TAKE 1 TABLET BY REDD TH ONCE DAILY IN THE MORNING ON AN EMPTY STOMACH Orally Once a day for 90 days Ac tive Social History Tobacco Use: Social History Observation Description Date Details (start date - stop date) Never Smoker NA - NA Tobacco Use/Smoking Question Answer Notes Patient is a nonsmoker Alcohol Screen (Audit-C) Question Answer Notes Did you have a drink containing alcohol in the p ast year? No Points 0 Interpretation Negative AUDIT-C (Standard) Question Answer Notes Did you have a drink contain ing alcohol in the past year? Yes How often did you have six o r more drinks on one occasion in the past year? Never (0 point) How many drinks did you have on a typical day when you were drinking in the past year? 1 or 2 drinks (0 point) How often did you have a dri nk containing alcohol in the past year? Monthly or less (1 point) Points 1 Interpretation Negative Problems Problem Type SNOMED Code ICD Code Onset Dates Problem Status W/U Status Risk Notes Problem Hyperlipidemia (31235413) Hyperlipidemia (E78.5) Active confirmed Problem Osteoarthritis (419852870) Osteoarthritis (M19.90) Active confirmed Problem Gastroesophageal reflux disease (662711637) GERD (gastroesophageal reflux disease) (K21.9) Active confirmed Problem Hypothyroidism (59120145) Hypothyroidism (E03.9) Active confirmed Problem Atrial fibrillation (disorder) (98293728) Afib (I48.91) Active confirmed Problem Carpal tunnel syndrome (81286496) Carpal tunnel syndrome (G56.00) Active confirmed Problem Diverticular disease of colon (085161750) Diverticulosis (K57.90) Active confirmed Problem Irritable bowel syndrome (98790153) IBS (irritable bowel syndrome) (K58.9) Active confirmed Problem Elevated blood pressure reading without diagnosis of hypertension (852248927) Borderline hypertension (R03.0) Active confirmed Problem Colitis (28454692) Colitis (K52.9) Active confi rmed Problem Degeneration of lumbar intervertebral disc (37109708) Degenerative disc disease, lumbar (M51.36) Active confirmed Problem Serous otitis media (59293821) Serous otitis media (H65.90) Active confirmed Problem Paresthesia (63160060) Paresthesia (R20.2) Active confirmed Problem Dysphagia (41526363) Dysphagia (R13.10) Active confirmed Problem Cervical disc disease (682306753) Cervical disc disease (M50.90) Active confirmed Problem Shoulder joint pain (279016923) Shoulder pain, right (M25.511) Active confirmed Problem Graves disease (991324628) Graves disease (E05.00) Active confirmed Problem Overweight (529295517) Over weight (E66.3) Active confirmed Problem Spondylolysis of cervical spine (436721180) Cervical spondylolysis (M43.02) Active confirmed Vital Signs Blood pressure diastolic 92 mm Hg 11/16/2023 Height 63 in 11/16/2023 Blood pressure systolic 160 mm Hg 11/16/2023 Weight 179.8 lbs 11/16/2023 BMI 31.85 kg/m2 11/16/2023 Encounters Encounter Location Date Provider Diagnosis [facility] [address] [place] [address] 11/05/2023 Shabbir Robert Breck [facility] [address] [facility] [place] [address] 11/17/2023 Shabbir josé miguel [facility] [address] [place] [address] 11/25/2023 Shabbir Garcia [facility] [address] [place] [address] 01/31/2024 Shabbir Robert Breck [facility] [address] [facility] [place] [address] 11/16/2023 Shabbir josé miguel Carpal tunnel syndro me G56.00 ; GERD (gastroesophageal reflux disease) K21.9 ; Hyperlipidemia E78.5 ; Hypothyroidism E03.9 and Borderline hypertension R03.0 Assessments Encounter Date Diagnosis (ICD Code) Assessment Notes Treatment Notes Treatment Clinical Notes Section Notes 11/16/2023 Carpal tunnel syndrome (ICD-10 - G56.00) 11/16/2023 GERD (gastroesophageal reflux disease) (ICD-10 - K21.9) 11/16/2023 Hyperlipidemia (ICD-10 - E78.5) 11/16/2023 Hypothyroidism (ICD-10 - E03.9) 11/16/2023 Borderline hypertension (ICD-10 - R03.0) Plan Of Treatment Pending Test Test Name Order Date CMP (COMPLETE METABOLIC PANEL) 4 HEMOGLOBIN A1C (GLYCO) 11/16/2023 IRON, TOTAL 11/16/2023 LIPID PANEL (CHOL/TRIG/HDL/LDL) 11/16/19 24 CBC WITH DIFF 11/16/2023 VITAMIN D, 25 LEVEL (TOTAL) 11/16/2023 CBC AUTO DIFF 10/30/2022 THYROID PROFILE WITH TSH 10/30/2022 THYROID PANEL (T4/TSH/FREE T3) 4 MM screening mammo BI 11/16/2023 Insurance Providers Payer Name Payer Address Payer Phone Subscriber Number Group Number Insured Name Patient Relationship to Insured Coverage Start Date Coverage End Date [place] [address] [place] [address] [id number] Patricia Guan Self - patient is the insured [employer] OF [address] [facility] [id number] MEDICARE SUPP [facility] [phone] [id number] Patricia Guan Self - patient is the insured Medical (General) History Medical History History ICD Code Afib I48.91 Over weight E66.3 Osteoarthritis M19.90 Cervical spondylolysis M43.02 Carpal tunnel syndrome G56.00 Paresthesia R20.2 GERD (gastroesophageal reflux disease) K 21.9 Dysphagia R13.10 Degenerative disc disease, lumbar M51.36 Hyperlipidemia E78.5 Colitis K52.9 Cervical disc disease M50.90 Diverticulosis K57.90 Graves disease E05.00 Hypothyroidism E03.9 IBS (irritable bowel syndrome) K58.9 Surgical History Surgery Date(Month/Year) appendectomy cholecystectomy intracular lens cataract right eye 2018 carpal tunnel release left wrist 2021 carpal tunnel release right wrist 2023 Hospitalization History Reason Date(Month/Year) see above
--- OUTSIDE RECORDS SUMMARY | 2024-09-13 08:35 | XMS_ITS | Clinical Summary ---
Author Organization [facility] Address [address] [place] [address] Care Team Providers Care Carriage Rider Name Role Phone Ernst Garcia MD Primary Care Provider [phone] Allergies Active Allergy Reactions Criticality Noted Date Comments Acetaminophen 08/30/2022 Other Reaction(s): mild Amoxicillin 08/30/2022 Other Reaction(s): moderate [place] Pollen Low 12/24/2015 Other reaction(s): AOF Caffeine 05/11/2022 Other reaction(s): Heart races Carvedilol 05/11/2022 Other reaction(s): throwing up, dizzy, disoriented Cefdinir 08/30/2022 Other Reaction(s): stomach upset, diarrhea Cyclosporine 08/30/2022 Other Reaction(s): mild Difluprednate 08/30/2022 Other Reaction(s): mild Ezetimibe 08/30/2022 Other Reaction(s): mild Fluticasone 05/11/2022 Other reaction(s): hypertension over 200 cant take steroids Gabapentin 05/11/2022 Other reaction(s): dizzy, coordination Hydrocodone-Acetaminophen 08/30/2022 Other Reaction(s): mild Ipratropium 05/11/2022 Other reaction(s): nose bleeds Irbesartan 05/11/2022 Other reaction(s): hair loss Ketorolac Tromethamine 08/30/2022 Other Reaction(s): mild Levothyroxine 08/30/2022 Other Reaction(s): mild Lisinopril 05/11/2022 Other reaction(s): shakes ,chills, stomach pain, vomiting, dizzy Meloxicam 05/11/2022 Other reaction(s): vomiting /diarrhea Metoprolol 05/11/2022 Other reaction(s): jitters Metronidazole 08/30/2022 Other Reaction(s): mild [id number] Ethyl Esters (Fish) 08/30/2022 Other Reaction(s): mild Piroxicam 08/30/2022 Other Reaction(s): joint pain Prednisolone 08/30/2022 Other Reaction(s): mild Propofol 08/30/2022 Other Reaction(s): severe Simvastatin 08/30/2022 Other Reaction(s): critical Sulfa Antibiotics 01/01/2016 Sulfamethoxazole-Trimethopr im 08/30/2022 Other Reaction(s): mild Medications buffered aspirin 81 MG tablet Take 81 mg by mouth. Active triamterene-hyd roCHLOROthiazid e (Dyazide) 37.5-25 MG capsule Take 1 capsule by mouth 1 (one) time each day at the same time. 06/29/2022 Active [place]-3 Fatty Acids (FISH OIL ADULT GUMMIES PO) Take 1 tablet by mouth in the morning. Active cycloSPORINE (Restasis) 0.05 % ophthalmic emulsion 1 drop. Active levothyroxine (Synthroid, Levoxyl) 100 MCG tablet Take 100 mcg by mouth in the morning. Active omega-3 (Fish Oil) 1000 MG capsule Take 4,000 mg by mouth in the morning. Active pantoprazole (ProtoNix) 40 MG EC tablet Take 40 mg by mouth 1 (one) time each day at the same time. 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 02/18/2015 08/30/2022 Family History Medical History Relation Name Comments Heart failure Father Stroke Father Cancer Mother Heart failure Paternal Grandfather Asthma Paternal Grandmother Diabetes Paternal Grandmother Relation Name Status Comments Father Mother Paternal Grandfather Paternal Grandmother Social History Tobacco Use Types Packs/Day Years Used Date Smoking Tobacco: Never Smokeless Tobacco: Never Tobacco Cessation:Counseling Given: Not Answered Alcohol Use Standard Drinks/Week Comments Yes 2 (1 standard drink = 0.6 oz pur e alcohol) Comments Unknown Sex and Gender Information Value Date Recorded Sex Assigned at Not on file Legal Sex Female 6:52 PM EDT Gender Identity Not on file Sexual Orientation Not on file Last Filed Vital Signs Vital Sign Reading Time Taken Comments Blood Pressure 158/84 09/09/2022 8:59 AM EDT Pulse - - Temperature - - Respiratory Rate - - Oxygen Saturation - - Inhaled Oxygen Concentration - - Weight 80.3 kg (177 lb) 09/09/2022 8:59 AM EDT Height 160 cm (5' 3 ) 09/09/2022 8:59 AM EDT Body Mass Index 31.35 09/09/2022 8:59 AM EDT Plan of Treatment Not on file Insurance [facility]ICARE [facility] [place] [id number] Care Teams Carriage Rider Relationship Specialty Start Date End Date Ernst Garcia MD PCP - General Family Medicine 08/31/22
--- OUTSIDE RECORDS SUMMARY | 2024-09-13 08:53 | XMS_ITS | CCD ---
Author Organization [facility] Care Team Providers Care Scrap Preparer Name Role Phone Deborah Garcia Primary Care Provider [phone] LITTLE, MASON Attending Unavailable WALKER, BUD W [...] Unavailable Deborah Garcia MD Primary Care Provider Deborah Garcia Primary Care Physician [phone] Deborah Garcia MD Primary Care Provider Timmis, [...] Drug Allergy 02-13-20 15 Other (See Comments) [facility] (6 sources) Acetaminophen / HYDROcodone; Translations: [acetaminophen-hydr ocodone] Drug Allergy 12-17-19 16 Nausea And Vomiting [facility] (7 sources) Amoxicillin; Translations: [amoxicillin] Drug Allergy 12-17-19 16 Diarrhea (finding), Diarrhea [facility] (3 sources) black walnut pollen extract Drug Allergy 12-24-[address] [facility] (3 sources) cycloSPORINE Drug Allergy 12-24-[address] [facility] (3 sources) difluprednate Drug Allergy 12-24-[address] [facility] (6 sources) ezetimibe; Translations: [ezetimibe] Drug Allergy 12-17-19 16 Irregular heart beat (finding) [facility] (4 sources) Hmg-Coa Reductase Inhibitors (Statins); Translations: [statins] Propensity to adverse reactions to drug 02-13-20 15 Other (See Comments) [facility] (6 sources) Ketorolac; Translations: [ketorolac ophthalmic] Drug Allergy 12-17-19 16 Burning of face, cheeks, head, neck [facility] (5 sources) levothyroxine; Translations: [levothyroxine] Drug Allergy 12-17-19 16 Diarrhea (finding) [facility] (4 sources) metroNIDAZOLE; Translations: [metronidazole] Drug Allergy 12-24-19 [address] [facility] (3 sources) predniSONE Drug Allergy 12-17-19 [address] [facility] (5 sources) Simvastatin; Translations: [Simvastatin] Drug Allergy 05-31-19 19 joint pain, dizziness, headache [facility] (5 sources) Sulfamethoxazole / Trimethoprim; Translations: [sulfamethoxazole-t rimethoprim] Drug Allergy 05-31-19 19 Stomach bleeding, Stomach bloating [facility] (2 sources) Sulfonamides (Antibiotic) Propensity to adverse reactions to drug 01-01-[address] [facility] (5 sources) Caffeine; Translations: [Caffeine] Drug Allergy 05-11-19 23 Heart races [facility] (5 sources) carvedilol; Translations: [carvedilol] Drug Allergy 05-11-19 throwing up, dizzy, disoriented [facility] (5 sources) cefdinir; Translations: [cefdinir] Drug Allergy 05-11-19 diarrhea stomach upset, hairloss [facility] (6 sources) fluticasone; Translations: [fluticasone nasal] Drug Allergy 05-11-19 hypertension over 200 cant take steroids [facility] (5 sources) gabapentin; Translations: [gabapentin] Drug Allergy 05-11-19 dizzy, coordination [facility] (3 sources) HMG-CoA reductase inhibitor; Translations: [statins] Drug allergy Unknown [facility] (5 sources) Ipratropium; Translations: [ipratropium nasal] Drug Allergy 05-11-19 nose bleeds [facility] (5 sources) irbesartan; Translations: [irbesartan] Drug Allergy 05-11-19 23 hair loss [facility] (5 sources) Lisinopril; Translations: [lisinopril] Drug Allergy 05-11-19 shakes ,chills, stomach pain, vomiting, dizzy [facility] (5 sources) meloxicam; Translations: [meloxicam] Drug Allergy 05-11-19 vomiting /diarrhea [facility] (5 sources) Metoprolol; Translations: [metoprolol] Drug Allergy 05-11-19 23 jitters [facility] (3 sources) Metronidazole; Translations: [metronidazole containing compounds] Drug allergy Candidiasis of mouth (disorder), Diarrhea (finding) [facility] (5 sources) [place]-3 Acid Ethyl Esters (INTERMEDIATE); Translations: [omega-3 polyunsaturated fatty acids] Drug Allergy 12-24-19 16 Dizziness or Vertigo [facility] (5 sources) prednisoLONE; Translations: [prednisolone ophthalmic] Drug Allergy 05-11-19 23 Burning of face, sinus, cheeks, teeth, head [facility] (1 source) HMG-CoA reductase inhibitor Propensity to adverse reactions to drug 02-13-20 15 Other (See Comments) [employer] (1 source) Ketorolac Drug Allergy 05-11-19 23 [employer] Work Phone: (1 source) Piroxicam Drug Allergy 05-11-19 23 [employer] Work Phone: (1 source) Sulfonamides (Antibiotic) Propensity to adverse reactions to drug 01-01-20 16 [employer] Phone: (3 sources) Acetaminophen; Translations: [Tylenol] Drug Allergy 12-24-19 16 [facility] (3 sources) Acetaminophen / HYDROcodone; Translations: [Vicodin] Drug Allergy 12-17-19 16 [facility] (3 sources) ezetimibe; Translations: [Zetia] Drug Allergy 12-17-19 16 [facility] (1 source) Ketorolac; Translations: [ketorolac ophthalmic] Drug Allergy [facility] (3 sources) levothyroxine; Translations: [Levoxyl] Drug Allergy 12-17-19 16 [facility] (3 sources) Simvastatin; Translations: [Zocor] Drug Allergy 12-17-19 16 [facility] (3 sources) Sulfamethoxazole / Trimethoprim; Translations: [Bactrim] Drug Allergy 12-24-19 16 [facility] (2 sources) Amoxicillin Drug Allergy 12-17-19 16 [facility] (2 sources) black walnut pollen extract Drug Allergy 12-24-19 16 [facility] (2 sources) cycloSPORINE Drug Allergy 12-24-19 16 [facility] (2 sources) difluprednate Drug Allergy 12-24-19 16 [facility] (2 sources) Ketorolac Drug Allergy 12-17-19 16 [facility] (2 sources) metroNIDAZOLE Drug Allergy 12-24-19 16 [facility] (2 sources) [place]-3 Acid Ethyl Esters (INTERMEDIATE) Drug Allergy 12-24-19 16 [facility] (2 sources) predniSONE Drug Allergy 12-17-19 16 [facility] (1 source) Sulfonamides (Antibiotic) Drug allergy (disorder) 01-01-20 16 [facility] Medications Current Medications Medication Drug [...] take 1 capsule by mouth once daily [place]-3 Fatty Acids (FISH OIL) 1000 MG CAPS [...] sp) 1000 mg oral capsule (4 sources) [place]-3 Fatty Ac ids (FISH OIL) 1000 MG Cap Take 4,000 mg by mouth. 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] Onset: 07-19-2022 Episodic Other [...] Anion gap [Moles/Vol] 14 mmol/L Normal 9-17 [facility] Comment on above: Performed By: #### B CÉSAR, CDP #### [facility] [address] [place], [place] [phone] Diamond Mounter: Abdirashid Boone MD BUN/CRE Ratio 31 High 9- [facility] Comment on above: Performed By: #### B CÉSAR, CDP #### [facility] [address] [place], [place] [phone] Diamond Mounter: Abdirashid Boone MD Calcium [Mass/Vol] 10.1 mg/dL Normal 8.6-10.4 [facility] Comment on above: Performed By: #### B MP, CDP #### [facility] [address], [place] [phone] Diamond Mounter: Abdirashid Boone MD Chloride [Moles/Vol] 102 mmol/L Normal 98-107 [facility] Comment on above: Performed By: #### B MP, CDP #### [facility] [address] [place] [address] Diamond Mounter: Abdirashid Boone MD CO2 [Moles/Vol] 23 mmol/L Normal 20-31 [facility] Comment on above: Performed By: #### B MP, CDP #### [facility] [address], [place] [phone] Diamond Mounter: Abdirashid Boone MD Creatinine [Mass/Vol] 0.8 mg/dL Normal 0.5-0.9 [facility] Comment on above: Performed By: #### B CÉSAR, CDP #### [facility] [address], [place] [phone] Diamond Mounter: Abdirashid Boone MD GFR/1.73 sq M.predicted among non-blacks MDRD (S/P/Bld) [Vol rate/Area] mL/min/{1.73_m2} Normal >60 [facility] Comment on above: Result Comment: These [...] Performed By: #### B MP, CDP #### [facility] [address], [place] [phone] Diamond Mounter: Abdirashid Boone MD Glucose [Mass/Vol] 100 mg/dL High 70-99 [facility] Comment on above: Performed By: #### B CÉSAR, CDP #### [facility] [address], [place] [phone] Diamond Mounter: Abdirashid Boone MD Potassium [Moles/Vol] 4.2 mmol/L Normal 3.7-5.3 [facility] Comment on above: Performed By: #### B CÉSAR, CDP #### [facility] [address], [place] [phone] Diamond Mounter: Abdirashid Boone MD Sodium [Moles/Vol] 139 mmol/L Normal 135-144 [facility] Comment on above: Performed By: #### B CÉSAR, CDP #### [facility] [address], [place] [phone] Diamond Mounter: Abdirashid Boone MD Urea nitrogen [Mass/Vol] 25 mg/dL High 8-23 [facility] Comment on above: Performed By: #### B CÉSAR, CDP #### [facility] [address], [place] [phone] Diamond Mounter: Abdirashid Boone MD CBC with Diffon 04-12-2023 Abs. Basophil 0.02 k/uL Normal 0.00-0.20 [facility] Comment on above: Performed By: #### B CÉSAR, CDP #### [facility] [address], [place] [phone] Diamond Mounter: Abdirashid Boone MD Abs.Imm.Granulocyte 0.01 k/uL Normal 0.00-0.30 [facility] Comment on above: Performed By: #### B CÉSAR, CDP #### [facility] [address], [place] [phone] Diamond Mounter: Abdirashid Boone MD Abs.Neutrophil (Seg) 4.29 k/uL Normal 2.5-7.0 [facility] Comment on above: Performed By: #### B CÉSAR, CDP #### [facility] [address], [place] [phone] Diamond Mounter: Abdirashid Boone MD Basophils/100 WBC (Bld) 0 % Normal 0-2 [facility] Comment on above: Performed By: #### B CÉSAR, CDP #### [facility] [address], [place] [phone] Diamond Mounter: Abdirashid Boone MD Eosinophils (Bld) [#/Vol] 0.17 10*3/uL Normal 0.00-0.40 [facility] Comment on above: Performed By: #### B CÉSAR, CDP #### [facility] [address], [place] [phone] Diamond Mounter: Abdirashid Boone MD Eosinophils/100 WBC (Bld) 2 % Normal 0-5 [facility] Comment on above: Performed By: #### B CÉSAR, CDP #### [facility] [address], [place] [phone] Diamond Mounter: Abdirashid Boone MD Erythrocyte distribution width (RBC) [Ratio] 13.5 % Normal 12.1-15.2 [facility] Comment on above: Performed By: #### B CÉSAR, CDP #### [facility] [address], [place] [phone] Diamond Mounter: Abdirashid Boone MD Hematocrit (Bld) [Volume fraction] 42.8 % Normal 36.0-46.0 [facility] Comment on above: Performed By: #### B CÉSAR, CDP #### [facility] [address], [place] [phone] Diamond Mounter: Abdirashid Boone MD Hemoglobin (Bld) [Mass/Vol] 14.0 g/dL Normal 12.0-16.0 [facility] Comment on above: Performed By: #### B CÉSAR, CDP #### [facility] [address], [place] [phone] Diamond Mounter: Abdirashid Boone MD Immature granulocytes/100 WBC (Bld) 0 % Normal 0-5 [facility] Comment on above: Performed By: #### B CÉSAR, CDP #### [facility] [address] [place] [address] Diamond Mounter: Abdirashid Boone MD Lymphocytes (Bld) [#/Vol] 2.08 10*3/uL Normal 1.00-4.80 [facility] Comment on above: Performed By: #### B CÉSAR, CDP #### [facility] [address] [place] [address] Diamond Mounter: Abdirashid Boone MD Lymphocytes/100 WBC (Bld) 30 % Normal 15-40 [facility] Comment on above: Performed By: #### B CÉSAR, CDP #### [facility] [address] [place] [address] Diamond Mounter: Abdirashid Boone MD MCH (RBC) [Entitic mass] 29.7 pg Normal 26.0-34.0 [facility] Comment on above: Performed By: #### B CÉSAR, CDP #### [facility] [address] [place] [address] Diamond Mounter: Abdirashid Boone MD MCHC (RBC) [Mass/Vol] 32.7 g/dL Normal 31.0-37.0 [facility] Comment on above: Performed By: #### B CÉSAR, CDP #### [facility] [address] [place] [address] Diamond Mounter: Abdirashid Boone MD MCV (RBC) [Entitic vol] 90.7 fL Normal 80.0-100.0 [facility] Comment on above: Performed By: #### B CÉSAR, CDP #### [facility] [address] [place] [address] Diamond Mounter: Abdirashid Boone MD Monocytes (Bld) [#/Vol] 0.38 10*3/uL Normal 0.00-1.00 [facility] Comment on above: Performed By: #### B MP, CDP #### [facility] [address], [place] [phone] Diamond Mounter: Abdirashid Boone MD Monocytes/100 WBC (Bld) 6 % Normal 4-8 [facility] Comment on above: Performed By: #### B MP, CDP #### [facility] [address], [place] [phone] (468) Diamond Mounter: Abdirashid Boone MD Neutrophil (Seg) 62 % Normal 47-75 [facility] Comment on above: Performed By: #### B MP, CDP #### [facility] [address], [place] [phone] ([phone] Diamond Mounter: Abdirashid Boone MD Platelet mean volume (Bld) [Entitic vol] 8.9 fL Normal 6.0-12.0 [facility] Comment on above: Performed By: #### B MP, CDP #### [facility] [address], [place] [phone] Diamond Mounter: Abdirashid Boone MD Platelets (Bld) [#/Vol] 324 10*3/uL Normal 140-450 [facility] Comment on above: Performed By: #### B MP, CDP #### [facility] [address], [place] [phone] Diamond Mounter: Abdirashid Boone MD RBC (Bld) [#/Vol] 4.72 10*6/uL Normal 4.00-5.20 [facility] Comment on above: Performed By: #### B MP, CDP #### [facility] [address], [place] [phone] Diamond Mounter: Abdirashid Boone MD WBC (Bld) [#/Vol] 7.0 10*3/uL Normal 3.5-11.0 [facility] Comment on above: Performed By: #### B MP, CDP #### [facility] [address] [place] [address] Diamond Mounter: Abdirashid Boone MD CBC AUTO DIFFon 07-15-2022 BASO # 0.0 103/ul Normal 0.0-0.1 [facility] Comment on above: Performed By: #### F T3, T4, TSH #### [facility] [address] [place] [address] Dr. Britney Gambino Basophils/100 WBC (Bld) 0.5 % Normal 0.2-2.0 [facility] Comment on above: Performed By: #### F T3, T4, TSH #### [facility] [address] [place] [address] Dr. Britney Gambino EO # 0.2 103/ul Normal 0.0-0.7 [facility] Comment on above: Performed By: #### F T3, T4, TSH #### [facility] [address] [place] [address] Dr. Britney Gambino Eosinophils/100 WBC (Bld) 2.9 % Normal 0.9-7.0 [facility] Comment on above: Performed By: #### F T3, T4, TSH #### [facility] [address] [place] [address] Dr. Britney Gambino Erythrocyte distribution width (RBC) [Ratio] 14.2 % Normal 11.0-15.0 [facility] Comment on above: Performed By: #### F T3, T4, TSH #### [facility] [address] [place] [address] Dr. Britney Gambino Hematocrit (Bld) [Volume fraction] 43.4 % Normal 36.0-48.0 [facility] Comment on above: Performed By: #### F T3, T4, TSH #### [facility] [address] [place] [address] Dr. Britney Gambino Hemoglobin (Bld) [Mass/Vol] 14.1 g/dL Normal 12.0-16.0 [facility] Comment on above: Performed By: #### F T3, T4, TSH #### [facility] [address] [address] [address] Britney Gambino IG # 0.02 10e3/ul Normal 0.00-0.03 [facility] Comment on above: Performed By: #### F T3, T4, TSH #### [facility] [address] [place] [address] Dr. Britney Gambino IG % 0.3 % Normal 0.0-0.5 [facility] Comment on above: Performed By: #### F T3, T4, TSH #### [facility] [address] [place] [address] Dr. Britney Gambino LYMPH # 2.1 103/ul Normal 1.2-3.8 [facility] Comment on above: Performed By: #### F T3, T4, TSH #### [facility] [address] [place] [address] Dr. Britney Gambino Lymphocytes/100 WBC (Bld) 33.1 % Normal 20.5-60.0 [facility] Comment on above: Performed By: #### F T3, T4, TSH #### [facility] [address] [place] [address] Dr. Britney Gambino MANUAL DIFF REQ NO Normal [facility] Comment on above: Performed By: #### F T3, T4, TSH #### [facility] [address] [place] [address] Dr. Britney Gambino MCH (RBC) [Entitic mass] 31.1 pg Normal 26.7-34.0 [facility] Comment on above: Performed By: #### F T3, T4, TSH #### [facility] [address] [place] [address] Dr. Britney Gambino MCHC (RBC) [Mass/Vol] 32.5 g/dL Normal 29.9-35.2 [facility] Comment on above: Performed By: #### F T3, T4, TSH #### [facility] [address] [place] [address] Dr. Britney Gambino MCV (RBC) [Entitic vol] 95.8 fL Normal 81.0-99.0 [facility] Comment on above: Performed By: #### F T3, T4, TSH #### [facility] [address] [place] [address] Dr. Britney Gambino MONO # 0.4 103/ul Normal 0.3-0.8 [facility] Comment on above: Performed By: #### F T3, T4, TSH #### [facility] [address] [place] [address] Dr. Britney Gambino Monocytes/100 WBC (Bld) 6.0 % Normal 1.7-12.0 [facility] Comment on above: Performed By: #### F T3, T4, TSH #### [facility] [address] [place] [address] Dr. Britney Gambino NEUT # 3.6 103/ul Normal 1.4-6.5 [facility] Comment on above: Performed By: #### F T3, T4, TSH #### [facility] [address] [place] [address] Dr. Britney Gambino Neutrophils/100 WBC (Bld) 57.2 % Normal 43.0-75.0 [facility] Comment on above: Performed By: #### F T3, T4, TSH #### [facility] [address] [place] [address] Dr. Britney Gambino Platelet mean volume (Bld) [Entitic vol] 9.7 fL Normal 9.5-13.5 [facility] Comment on above: Performed By: #### F T3, T4, TSH #### [facility] [address] [place] [address] Dr. Britney Gambino PLT 264 103/ul Normal 150-450 [facility] Comment on above: Performed By: #### F T3, T4, TSH #### [facility] [address] [place] [address] Dr. Britney Gambino RBC 4.53 106/ul Normal 4.20-5.40 [facility] Comment on above: Performed By: #### F T3, T4, TSH #### [facility] [address] [place] [address] Dr. Britney Gambino WBC 6.2 103/ul Normal 4.0-11.0 [facility] Comment on above: Performed By: #### F T3, T4, TSH #### [facility] [address] [address] [address] Britney Gambino PROF 14(COMP METB)on 023 Albumin [Mass/Vol] 3.6 g/dL Normal 3.4-5.0 [facility] Comment on above: Performed By: #### F T3, T4, TSH #### [facility] [address] [address] [address] Britney Gambino Albumin/Globulin [Mass ratio] 0.8 {ratio} Normal [facility] Comment on above: Performed By: #### F T3, T4, TSH #### [facility] [address] [place] [address] Dr. Britney Gambino ALP [Catalytic activity/Vol] 76 U/L Normal 46-116 [facility] Comment on above: Performed By: #### F T3, T4, TSH #### [facility] [address] [address] [address] Britney Gambino ALT [Catalytic activity/Vol] 20 U/L Normal 14-59 [facility] Comment on above: Performed By: #### F T3, T4, TSH #### [facility] [address] [place] [address] Dr. Britney Gambino Anion gap [Moles/Vol] 13.3 mmol/L Normal [facility] Comment on above: Performed By: #### F T3, T4, TSH #### [facility] [address] [place] [address] Dr. Britney Gambino AST [Catalytic activity/Vol] 22 U/L Normal 15-37 [facility] Comment on above: Performed By: #### F T3, T4, TSH #### [facility] [address] [place] [address] Dr. Britney Gambino Bilirubin [Mass/Vol] 0.6 mg/dL Normal 0.2-1.0 [facility] Comment on above: Performed By: #### F T3, T4, TSH #### [facility] [address] [place] [address] Dr. Britney Gambino Calcium [Mass/Vol] 9.6 mg/dL Normal 8.5-10.1 [facility] Comment on above: Performed By: #### F T3, T4, TSH #### [facility] [address] [address] [address] Britney Gambino Chloride [Moles/Vol] 107 mmol/L Normal 98-107 [facility] Comment on above: Performed By: #### F T3, T4, TSH #### [facility] [address] [address] [address] Britney Gambino CO2 [Moles/Vol] 26.9 mmol/L Normal 21.0-32.0 [facility] Comment on above: Performed By: #### F T3, T4, TSH #### [facility] [address] [place] [address] Dr. Britney Gambino Creatinine [Mass/Vol] 1.03 mg/dL Critically high 0.55-1.02 [facility] Comment on above: Performed By: #### F T3, T4, TSH #### [facility] [address] [place] [address] Dr. Britney Gambino EGFR-AF SERBIAN >60 Normal >=60 [facility] Comment on above: Performed By: #### F T3, T4, TSH #### [facility] [address] [place] [address] Dr. Britney Gambino EGFR-NON AF SERBIAN 52 mL/min/1.73m2 Critically low >=60 [facility] Comment on above: Performed By: #### F T3, T4, TSH #### [facility] [address] [address] [address] Britney Gambino Globulin (S) [Mass/Vol] 4.4 g/dL Normal [facility] Comment on above: Performed By: #### F T3, T4, TSH #### [facility] [address] [place] [address] Dr. Britney Gambino Glucose [Mass/Vol] 90 mg/dL Normal 74-106 [facility] Comment on above: Performed By: #### F T3, T4, TSH #### [facility] [address] [address] [address] Britney Gambino Potassium [Moles/Vol] 4.2 mmol/L Normal 3.5-5.1 [facility] Comment on above: Performed By: #### F T3, T4, TSH #### [facility] [address] [address] [address] Britney Gambino Protein [Mass/Vol] 8.0 g/dL Normal 6.4-8.2 [facility] Comment on above: Performed By: #### F T3, T4, TSH #### [facility] [address] [address] [address] Britney Gambino Sodium [Moles/Vol] 143 mmol/L Normal 136-145 [facility] Comment on above: Performed By: #### F T3, T4, TSH #### [facility] [address] [address] [address] Britney Gambino Urea nitrogen [Mass/Vol] 22.0 mg/dL Critically high 7.0-18.0 [facility] Comment on above: Performed By: #### F T3, T4, TSH #### [facility] [address] [address] [address] Birtney Gambino Urea nitrogen/Creatinine [Mass ratio] 21.4 mg/mg Normal [facility] Comment on above: Performed By: #### F T3, T4, TSH #### [facility] [address] [place] [address] Dr. Britney Gambino Postoperative Documentson Postoperative Documents [id number]#1 .00CD:127 Normal [facility] Coding Summary.on 06-03-2022 Coding Summary. CD:[id number] G h0bWw+PGhlYWQ+ZB4XNCV rS22wdJLmmO4oJ6PNFSwG SywgQVBQTElOSyIgbmFtZ Z9tdDMaMLDa IC8+VH5hRTHdVnjvsLIac 6G6yFX7T91cxr2yGKurbR L1FIYsOzRthhhbh2bjxJw 6IDcuNmluOyBt UXYgtJ97ZCZ4gY80Ao87t CBgzPLur5oilBi3RhJeFV IsYTQ2fLsoOYqhm5AkWKM gD84gkGRki1U7 TGScvHkzfHIeSoRduIB8p D3iNOafcaaxr4nlvibmLr t5wa07eRIhc1H8nNX3T2N zubO6GWXkfWLr KdarePZQdR1auydqz2nqy mfoMzUnDCCjFXx5FTy1TR GefJjoYaIpRP05LON9BSY mtwQyD5NaATTk vVbjSeY1k9A1Zw8AK8QDS elkH5BEMPDHKMzloFU+PC 99js14I3IlZmrcCoa2FBE hSZG4qUO7xM0g WIMnBRvsf7X2wVX7A2Pwt zPegt7wb8lsZWMxLRhiX5 0nmWYfy6D2XMCozKT7SUB qrQwrEbRuiK63 Oyc+PKVmiNeuy8NwHzemb 5nxc0kwvZs1ItlkQQWowa TxsWzgKGP3n1KgTn6gNUF dxKP3tDK0jN8t UpDtTqC2ELkpO092GdPwc XSaZgosB80jE9QpwRM+PH YdEyj9EZLkrZpeBB5uM0K hZGRpbmctbGVm pOmyOP9zCBTbdyjsVRAif D3sWLIsM3g0OvRwRqR3UN koW9DhJPBmxklrGm87jP7 uSaPeHaH1TEmu G6CfqvO5CEEvbOZjONomH IY6S50qd9S2MNEfTMReZD R3bOG3kO8cqUqhsznjlCI mdDsgdmVydGlj OUipGCplQ276HYXsfXftZ kNvZGluZyBEYXRlOiAgMD MvMDgvMjAyMzwvdGQ+PHR aGFX4jCifKXIs cPBbYKiwLc8rbHzmfAvxX R6lWKWzesjoVHNdnA9xZJ PdwNBlgOgxRM2mSDWnqvh ah337DcVnIEB4 CAAodJOqY9KtcM2dZjElS VPpTLLnT6LxtGQoBKacL5 82WPdgJqS6MMKvgwCjO7J sLWFsaWduOiB0 d6Z7Iz8Zv4LmmcvqM8Upb OFqNnKvSapyJDs4D9BlWw wvdHI+PE99XZNcTR14LSe 7MZX0iIxdWIvu SBGxY3CbmR8dFtHwNBAkY GRkOyc+PHRhYmxlIHdpZH RoPScxMDAlJyBzdHlsZT0 cGz5kXQKiLFYx mVmfiMCfRmDel3mpOKHgM CkkWV8jhIupQ2IvzSO1KU Jvs6y1Zg74F45vH5GslPU +UKAcnQV4dEI1 cO8fHqHgGcT0HXybQ345M nJloROwBfgjk9xgj2pnjE a1EjR5NGAyhzCcgVwdUNI 9d4EiVj65A85e IHdpZHRoPSIxNSUiIHZhb Kqdmm2ftB2tOx0+PGNvbC X1pOA7nX8dZqOuVfE4TRn jD538OuEyeWYn Nixwj2pfm8nbiYz5IvMwR ATnazWutCkjFVX0b5MtTc 47F8SelMpyg8UnNiy7sj9 3eZFsk9V3lTH2 H4RuWNQgmxzamOXmxBvuQ Y9bIAUyxbltNGJakP4hRR JzI7x6NcWjUsR5BCrsY1D mddT5LAQihLUi RUFojFJKmR4kqalgu9icn luhRhHmBLNyWVt7NKk3WK EvzFwnTtMgCNE1VhW9ZPW 6lVHvcT6qjWio nnbxbH9pVdf+IAG6hMSef LCENK7gWugqeRK+PHRkIH A5eTnfKYyfKTWpzD8vTMP qH7t0FdNgCaY0 VVpbU5JvsgA2OEMkzSOnY XCgdPRWfI1hspujc3nhat xbUxVsSGSdDYq4URq2CXY saWduOiBsZWZ0 HhC5UJP7tZNhxI8ikPlys dsxsT5tRwq+QmlydGggRG U6DMo4T0CgByj5MHCahYi cAY5cmHTpBEtr Fw6fdHbajWdiEV8lYKBlq gbxw837ImMsh5rxGWSmhJ KbSXgcXWZ1F79nm6N6WRT pJDFaTUV6pWE7 uJ0wcErnjjeevUPsqRwdz vUauYexPMhmFVbfC260IM CviBtiEsVvWXq7E6NaDhc 3CYWdxRpfKH1j bXTfSSgmJa1hpJdnaToaC G3bJYFkwmkef976YhHfs3 eoHGRooINnOEraTAF4Y07 tw7Z0BIFqUAEc DMI0aYD8jS4efGfaepksk GVmdDsgdmVydGljYWwtYW tkJ803RSDieIqzZaVlhVl 0H5LjRxu1JQEz iJarWM0jaUWiSTdnZp2ie QgtjFgjDC6pVEEyhvqpt7 53HtFco5spLLQaaWLqIGm pJIH9O32zu2N2 JUHpIDEsZRS3pRF5oL1gs GlnbjogbGVmdDsgdmVydG hbSIhfZGeuA798MZUitHs nPlBhdGllbnQg IZhqEPc6Z1MkLctjeDA+P T60XVKaRZ16oQXcaHHmp8 mcaLx0JvGkCZPgWWJ7xUq aEMwra4EuQONv H44ogHPib1P8DFCwuHqcw CFbMzFeaRF9rS0oMWqwpw edv8zgggfkYshqu5vuqy3 8wE09S78hNNhp ZHRoPSIzMCUiIHZhbGlnb l5mrM9hOn9+RCBtfMG0iR D8pW0yRKJgOsA2SWduS68 9InRvcCIvPjxj f6mgm5vllAk2FaL9LBGqz nDzgJrxANA2g7KfVk99C3 9sIHdpZHRoPSIyMCUiIHZ kpXisnv4wyJ8o Ii8+PBEtcVS7oCA6oY4vU jUzTkD8LGvvS654TgTkdH OtIbltG01cT7LtnLT+PHR nPmr6DEBzzWmm SI6uxHFjYWlfAi6vPPH6W sUlXpSwMIasR4KlMZVeyh bdgiehrRR9EOEnZRAfxG6 2Td4dlBmjXYRv gKWCbL9exhxrv6nujqvzE sJpINHwHQy5GDw1UKJvlS yeWrGyYYU2IcI4BMJ7yFJ czB8lgTvcyowh uW6rS0RnMQOiwnaqMn35n I0uKaMmVuG6UFazVxy+Uk aADCaTYnlQMbsfY2QJJD8 gSzwvdGQ+PHRk SDP7uOzlHPtlTPMyxE0vN ALtQ6w7GsYsLwW9GWrpR9 MlVPPfjbzuZq38rH3wBvP tIfH1KRsiL8Zk psZ7GRZpxWJeKYjjXNW3X 75km8E3INIoUIPrYZL1mX D8kC1zbScevmjsbAUioJp gdmVydGljYWwt VDbpN400GFIhnXulHqJsP uG4OvB5MAA5C9KbAdx2ED KtlDfeBY4daHEcVEbcNy3 baZxnsJwfUN8f NLFskbinWSBrzM9tHRWbb UJmlBqzHY0fPTJeyxqdy6 64TjAyCWA2UOCzaXBfD1H phR4pDxRcPMWc DRUlQ6ZclEOfHLqhG197L CtaDpM8ILMpxaEbW7KgLI WlcGtaZzH7g5R6Kc62MsK ZZWFyczwvdGQ+ BLRuPFI5yRvqWGtrWUWxm M6dLCWnT4h4YuVoDvW2MJ zwH9OkVCMhonjdBq53iM2 fDwJfTwS1HRvi M3XvxdJ1GBOmcBYbOSbtQ ZD9V68bj6W3KRSmGIGiBL C6aPL9kP0fsCckqnoxgNO mdDsgdmVydGlj BWtpSIkcJ884UUGcoPvxF kZlbWFsZTwvdGQ+PHRkIH Z6cXogFKihLCYbtH2eDKJ xR7p8SeJhXoL0 HAcrI3XyNSXhxjefZx75p Y3eVwWcXzM1HDfhM9Sstt T3XMNqoEYcMRpnQGC4L64 tz5T6PMXuGJRt CED2zRC2jD0ghNqjpghel GVmdDsgdmVydGljYWwtYW clU477FWJipRzjIy45zDC piWvczwI2Z9Ds PjwvdHI+NP63BWXiSN50d XUmfRYcj9fqgAq4WnWjJH GuHWJ3jJxpYNlxm1CgGQH pN54enVZou1E3 DSRpdGujaFXwPaPshCN8h L4gRHsrfhexv0oakjqgNo nyh5nuxj65gK25F80lOSt pZHRoPSIzMCUi HYFwtVnzyv6wwR8sAi7+P DNfnVD1qKY7aI2wUkKoXf U8ZRddM700ZgJdmJCyJwu eo7aan3ourPh7 YwDhZBHphpViuIqfQOX0y 5ViYh42D50oBJgsHXVhUV SrFQDqWBIhwWlisw5ysM3 wIi8+UP1mn3no en39hD06mQE+RCCzJBJ9m EizEUauCCPrrL3dUPypJs K7QYTzYtWycV26hIEePBk nRg2mbPgsjFxo CD2wVEWlggwey776JkPge 0lwVEVadSMuHVvvJBL1V9 8uf7X9CLEwFXHpIJX3eFY 7eO0jdYombghi bGVmdDsgdmVydGljYWwtY SizZ447NPGpxYenPoLytS TsA6gegkUVDX3nOabwoJG +BKTbSIO3iZlr BZgwHJRxcM7qFRVfT7x7X nSsBtG0TFmbV9BgxbL2HT SjpICbHPAhpOCMcD6muei ky5wjtxhaMrCp GLPrAKn1GBc1XLProApfA gTbDUN3JdJ0SJA9kSDgcG 7ogJergbnjiQ3zAts+Rkl OOjwvdGQ+PHRk KJN3sDooZBazFBAsjG8lV DEpI8n4SeQuDkZ2TCarP5 FjcmW8CLBcbLHlIKUcsWS QqW9oyitjq3af wuesSvOkVHNaEBj2QKx6K VOorXajFzJvTEM3PpA1YZ A6hNYakP6wwTcdhyoqqR7 wOyc+TVJOOjwv dGQ+XJNrOCK9lZxwXIqdT YXgbL9eCAEkF9b2JlFeSk V7SQscO0ZjgnC6YTNqiVB pDVHlmUIJbK3v iqlvo6wsdujsSbTjOOIvR Vh5MEi7MMMqsMppDgAsHF Z6EjS7TYU2nEScmG3wsKz fzeyndG3cJyl+ SEF1KOZ6NO59AT60H3NjX jwvdGFibGU+PHRhYmxlIH dpZHRoPScxMDAlJyBzdHl uUQ3qYl7eFYTs LWNv (more content not included)... Normal [facility] Physician Orderon 06-03-2022 Physician Order [id number]#1 .00CD:127 [facility] Consent for Anesthesiaon Consent for Anesthesia [id number]# 1.00CD:127 [facility] Discharge Instructionson Discharge Instructions [id number]# 1.00CD:127 [facility] Outside Recordson 06-02-2022 Outside Records [id number]# 1.00CD:127 [facility] Preoperative Documentson Preoperative Documents [id number]# 1.00CD:127 [facility] Preoperative Documents [id number]# 1.00CD:127 [facility] Coding Summary.on 06-01-2022 Coding Summary. CD:[id number] G h0bWw+PGhlYWQ+WB5ZIDI uD78tkMXhcV2PU8qVGI1C MYWIQOHSYN9NDL7nzRN9R SucK0NbkyFt MwfcfZZaZE30QGj8POU9b VqgGDsfuV2kqXNxJ0a0Dk PcIP65mH99NWurTTMmIyN 3LjZpbjsgbWFy M8hzStYcxXIsYak+PHRhY mxlIHdpZHRoPScxMDAlJy GleAxqMY6cWx8pBOBhKZA vbGxhcHNlOiBj z6qqEJNdAUqfSG6tnNayA 3IgdLC6DTOyc5m2Yx69kY I+CYXuHMQ4rGahTAgtt50 8UwZzs3avUJE1 eFLgMTijFSB8B78pj8K0V KIxZAVbQLG2zPO2uY1zzL pngudlG6UaxHLxGjZ6CAK 6jZLjiH9reOqo wkrypU7dOmr+T13IKJ3PC LUFIA8MCra9Y8PjNiwjsR I+OI19QZIoAO24oJMsnPU vp8cgrPx7WnUo LMDtPDD4gWwoDWpkw6IkK WZyJ19tnMXus1G1OALxqV hyzAWhQbSwoZP7rI9iBEo ekomuz6bdzvro Qbuvf7bhlp37uM10R76hA SnrUZPsCYC9PRVfFJDfbC dyne9nhO8cYt7+FWhnz0x ij3dbxEi2CkEo VEUykdWasXvaFIO7j0ByN r03G2HfzZatj0GbJrh2fi 61nUWrb1K8iCH3CHtqTAR vgQ1qJLgoVaD6 VLLxTyMsrA39gAXcWGigJ t0qvItogAumRT7gWLVcpi akJZVszF7aCPBwvKGjvHi hYS3tWVEdmvdz m698RpEoTAK5TDEfbRCnA 4YdvL0zXlOwDLAgJWSoL5 UeoDQjIGrsN925QWhiYtA 1GQHrbtXsQ8Qc LQYseYefJyB1x5O1St0Vp 4SqqpjyYAD5PRijBJFrIx A0ExBoMbX3B8GuKel9HZI ipKsrFN2gT3Ae ZGCgepxenszqlDC2JGAqT RLzvW44sBKrBItxMg7va9 M2s583KZUcGIKclM02Nk8 udDogMTBwdCBU hE5kmmusm9qkwizgYaKgR GPtAHd1NXd0QTOufBcaFt HuNVX2NzI1VET6sSPngN7 qaHiuxheirX6h Oyc+F27iqG2hQJU8EZH2f anqUWWcgxZmEH26WV44C9 RyPjwvdGFibGU+PGRpdiB yuRjkUV1pMmUx m9vyz0DtOJzqE2PwSSKfL EnkMwh2WQFxNOR4bEU9dG 9vEDIwIBchp5C4cJZ3R5A zxkWcbq9bd4bw PMKvWNggI22wkODzq5A5H TVwiIC8EXRuqUekVwCtzM 93Oyc+ZBOgiFnqh2ZeCiy ez6ewe9rzsZp6 UgUsYETvexXgsCebVVY0g 0EyNz76C66nDJkfRGZdQS JeMITbJEXhfPbayi1ueH2 wIi8+PGNvbCB3 iJA5jV4uONJdIzB5ZIquL 622HsWwnICtBehgf6uxj0 kfvAa6MqCoRFUmzeWayFr fINK4c4IuBu08 Z23wZCmrMLPiMEIdRDDiL HPksHmjlu6zzR9gWa0+PC 2li2kcjn64bM37bAH+PHR rDGQ7jPvsALoe KGGhxE3kIMvcMbD4QBJmA kDtqE04lYLvTNxwJl7kkJ saoLjkJO7aREVqupsaf63 1ZvAme2gpHVVq zUOaDGmyHRS8D53pf7O6Q OMlNSMkPVT3sHP2fB1vvL lnbjogbGVmdDsgdmVydGl fZMvvLWuaN831 IHRvcDsnPlBhdGllbnQgT fJzHFf6M7WyDlm9LDVwaP zkYS5wxMEdCDslIs6ydBj nxMoyYD7uFLHu ujzjd694ImEbm7nmHJIjl AAcBCdgSAN9T76hv0M3FT RiHGTrIKD7zOZ0zA2khVl nbjogbGVmdDsg yfXuvUgtCUuqPXffZ062H HRvcDsnPkJpcnRoIERhdG P2QF21SL77xGBae5H8gBX 2Z5TjRFMhguwx ryapkVR7MABdJLOaqK86E i1pqCniPo6bQSZcVZP8WW IggFMmP6YikL5rMzNpYXU rAEKvE6GypFEh YMbgC000QOgbJsZ6QTQrz gTcR6OaFFLpcVccGzR3r4 E1So5AC7N3VV50DF11hVH vd8A1eIE4W1Xy ZJMshfnpldgggHD2VURtG WJvvO01Hn2ymQyxTu2aMY XmVVZ0CYZhmLKzP2PpxL1 yOiAjMDAwMDAw Z1AkwLJxTBxnY632FAcyB yI9CZAqnlAxA4RtXBVbfQ jqVuA9x0N7Di1TOOr2TG5 4XN58pOIca6Z8 qVU3W4IsFYSrqkjlpkjkr CH2IQXzWAVjgB14Gq7cnZ nvVn6pDBQgCJA4IRAavQB zK7FymJ3gJqNg VXWmOTYsX5VgnUKbUQsyX 123KVnhXsY7TEJtqxJkB8 ZmYLNebBjxZhG8h3A7Iy4 ZDTKzFN13RHF8 vDF5IG99CT12Y9WnHemba GFibGU+PHRhYmxlIHdpZH RoPScxMDAlJyBzdHlsZT0 mEo6cIVGkTEJm lAofnBQtSlBrd5ckJHWkC IjdTV2yzYdeJ5DwdUH6TC Xfo9u1Fv53D19eR4EzlFQ +VNQhrIG3hRY1 nI3nAhLuXwT7RZwxR936Q iKpkLXpLgxyx6xjb9aruK v7EgY7VOMidgUeaZzeHCC 8i8OmNz26T57n IHdpZHRoPSIxNSUiIHZhb Nhltd9qeY7aRb5+PGNvbC R7eIU5yD2dPaHxKqY8VNh aX754PxYopRJq Ufzxw0zmi5tqkDd5LuZsX UBuyuIbqTfkQDD2b2MqGk 19W6GxkUaje4KzJqo8xo8 3pOZjj1S9jSN9 W6JxITAwhpdkfUSfjHaeM P5mFONkxvohVXYmvL4qIO ZeH3a5PcFjLwS9DXwrI6Z aakB4GCCnyKKg BYxhTKM6B75sk9A8PMAwW LGhFKX7qLM5vO2igQqlrj ogbGVmdDsgdmVydGljYWw pQJglK991DGOe vAeaUOPajF5cVWZynISoh NfxBJ9cONVwaaliCwLITI OHTR7DFXSbYSHRA6MTUJl 3V7MfHrd0VTBg cKdiIN4iaZClAXipYm6vr YbmgYgxTB4oOXTvqefwEP DwsA6dZIRlqUCkwJwgYU2 oWQUllmadq807 AzAsXGF7HGMryWPhX7Nzh Y7dSuZcIRJhWRCdO8TnfQ QqCFeuH898CExlTpG9CXA jyrFjW3MaWAYv uFgjKjD3e8Q2Ti2zCg4uM X4rSKU0ZE16UQ90iTJql6 J7fPF4B0VtRTDbfzwmdbj uzZI0CGVySOBj kB93nUNtDWmeEv8yr0M3c 009LHWaLPXseU41Hr3deV htGPUacILJyA8fcrwcm0u vcjogIzAwMDAw RUq9OWa0WBSoiWilVjRxG VE8WfI2CRM7mJOjcU6nrN drynfhrW3yKws+NzcgWWV diaQ1J4HuCdz9 UXHyzCrzRZ7gbPFqYCdjY m9jeOipiTgzME3iQIFsza woMDRegT1nZICmdPXcsHw mJJ8mZRJoucpi l559WqDgUEE5IEHtmJKkK 2IhlZ5pYeDlGZLlQHKjQ8 HteQRlXUmwK122EFbaXfR 5QDSznoDcU9Hu TJVpwBamTpW7y2S7Bj2YB L5hdKM2T7DdIwf0BLZxfB iyJO6dyYXfIQkkUv2asLl knEaiKJ5fVMSh pgdlEJGesS0iFIYonTNnx VxfWM6qKYZbmlgxi443Ma VlNBP3GBNrgVVlX1NsgE2 yOiAjMDAwMDAw J0AzhADcZGzcF228VDsqN mV9KLLeuhIkZ2QsLXOxrY lwAcL9t8D7Rc3FzYL5bDF 5t8Q4C8OpoILg UUO2TLW6rinlbfb7B1GdX jwvdHI+OE22ZLVyOY63fS CogFXbc1yvqQb2LoFdEUS qDME1zZwvGYiv o9QdDAWjX83xbLYjq4T3I HCivTvglBTlDjNouLC3sJ 5rAMafbnzhe1zpsqjpQhp ex2cpcq95kL74 B77qNXupBYWtWLDwWCYtE KMudQjxyz3jqA4hRk6+PG MphKH9bPR0bS8vOjNuRpZ 9FMlnP879MwFt rCArVylzk5bgz7bitJr1Q iNoPQFbvzNzsUvmDIA2a8 SsFk90G82vXEceNFVzDRO yMCUiIHZhbGln oo6lqC0jOy5+EW2kb7adn r98vJ63fAJ+JRMgCLE7fI dbDChuMRUpqT1iSHqmDkW 7MVQhDdTiiZ15 fEWlDAahPb5lsEfdvYalF K3fOWHqfgrdy601AdPgb1 teJELjdKEqGUmrZUM5M87 xc6W2TRSyTVPz JHM9mMZ2qE8soJktmxosj GVmdDsgdmVydGljYWwtYW ieT056NUYakLasBuUrbKK sE8faesEIQA4n OjwvdGQ+LWFvTOO9dLlrA RchMBOuhO5nSZWlX8c6Mt QnDpM8JFurK6TyybE1SML vbGQgMTBwdCBU mH7joupyr9qoqoskHtEsY JRvIBx8STa6KJDqkHwbVl PzSRN2TyM2LAN3rKDnmR7 teZmyopafjR3u Oyc+RklOOjwvdGQ+PHRkI BM4eOwtDQxmUUYkvO2hSV UoL8v0WxCbBqI2DNxzT7C tqcY0ASZusHJf KBKgcCDGnV0cafqvu4ohh seyRgLdHNBgYCy6DRx1XJ QazQfrIgZhGTW4FsZ8WLC 0xRQbnN3pdLzf nuhimM1aWjl+TVJOOjwvd GQ+JCVaLIW7iLemNVdrLV LypQ3gBNDmT0n6UxTvGuN 1NRsfL3CzocE0 CLZzeBVzGIQgmNRAvE8ov hnwx2ahuiatKkWtQWPpNQ m5GXy7ZGGdqTfjIyVjDNW 8IdE3JMB0kGYc cS5pwKmqiinigH4jGqw+U UG3YTB4KM22EN23A5PsFm wvdGFibGU+PHRhYmxlIHd pZHRoPScxMDAl JyBz (more content not included)... Normal [facility] Progress Note-Physicianon Progress Note-Physician Patient: PATRICIA [...] cant take steroids. Gabapentin- Dizzy, coordination. Ipratropium [place] Nasal- Nose bleeds. Irbesartan- Hair loss. Ketorolac [...] Problems Bilateral dry eyes / SNOMED CT [id number] / Confirmed History of hyperthyroidism / SNOMED CT [id number] / Confirmed S/P Radiation to Thyroid Hx of migraines optic / SNOMED CT 985928118 / Confirmed Optic Migraines [place] (hard of hearing) / SNOMED CT 93440329 / Confirmed Cardiac murmur / SNOMED CT 157815021 / Confirmed History of irregular heartbeat / SNOMED CT 4579026426 / Confirmed I've had fibrillation once in a while It wasn't diagnosed by any kind of monitor and I don't see anyone for it but me and my family doctor came up with that together Hypertension / SNOMED CT 4863682923 / Confirmed Heart palpitations / SNOMED CT 548620852 / Confirmed I've had fibrillation once in a while It wasn't diagnosed by any kind of monitor and I don't see anyone for it Resolved: High cholesterol / SNOMED CT 01433874 Histories Past Medical History: No active or resolved past medical history items have been selected or recorded. Family History: No family history items have been selected or recorded. Procedure history: mri with sedation on 04/27/2016 at 71 Years. History of YAG laser capsulotomy of lens ([id number]) in 2015 at 71 Years. Cataract extraction and insertion of intraocular lens (9603377202) in 2014 at 70 Years. Comments: 04/10/2016 10:41 Rhina Bermeo RN Left Eye History of appendectomy ([id number]) in 2008 at 64 Years. History of cholecystectomy (5458619769) in 2008 at 64 Years. History of repair of umbilical hernia (2611315839) in 2008 at 64 Years. Radiation to eyes in 2007 at 63 Years. Thyroid Radiation in 2006 at 62 Years. History of Left Meniscus Repair in 1999 at 55 Years. Diskectomy (6448975) in 1989 at 45 Years. Social History [...] results Radiology results ECG interpretation Condition Plan [place] [employer] (ASA) physical status classification: Class III. Anesthetic Preoperative Plan Anesthesia: General. . Anesthetic plan, risks, benefits, and alternatives discussed with the patient and/or famil (more content not included)... Normal [facility] Comment on above: Result Comment: Elec [...] cant take steroids. Gabapentin- Dizzy, coordination. Ipratropium [place] Nasal- Nose bleeds. Irbesartan- Hair loss. Ketorolac [...] meets criteria ( To home ). Normal [facility] Comment on above: Result Comment: Elec [...] MultiHance Contrast amount in ml's: 18 Normal [facility] CHEMISTRYOrdered By: SYSTEM SYSTEM on 05-29-2022 Creatinine [Mass/Vol] 0.8 mg/dL Normal 0.5 - 1.3 mg/dL [facility] Remisol GFR/1.73 sq M.predicted among blacks MDRD (S/P/Bld) [Vol rate/Area] mL/min/1.73 m2 Normal >=59mL/min/1. 73 m2 [facility] Chem S GFR/1.73 sq M.predicted among non-blacks MDRD (S/P/Bld) [Vol rate/Area] mL/min/1.73 m2 Normal >=59mL/min/1. 73 m2 [facility] Chem S Consent for Treatmenton Consent for Treatment [id number]#1 .00CD:127 Normal [facility] Creatinineon 05-29-2022 Creatinine [Mass/Vol] 0.8 mg/dL Normal 0.5-1.3 [facility] Comment on above: Performed By: #### 1 [id number] ####[facility] [address] [place] [address] Main OR PACU I Recordon Main OR PACU I Record PACU Phase I Docum ent Type FT Summary Primary Physician: NONE, XXXX Finalized Date/Time: 05/29/22 17:30:09 Pt. Name: YUEPATRICIA/Sex: 1945 Female Med Rec #: [id number] Physician: Suzi Neely MD Financial #: [id number] Pt. Type: A Room/Bed: [facility]/ Admit/Disch: 05/29/22 11:53:30 - 05/29/22 17:15:00 Institution: [...] 05/29/22 17:28 Melania Morris RN 05/29/22 17:30 [facility] Main OR PACU II Recordon Main OR PACU II Record PACU Phase II Document Type FT Summary Primary Physician: NONE, XXXX Finalized Date/Time: 05/29/22 17:19:40 Pt. Name: PATRICIA TURNER./Sex: 1945 Female Med Rec #: [id number] Physician: Suzi Neely MD Financial #: [id number] Pt. Type: A Room/Bed: Admit/Disch: 05/29/22 11:53:30 [...] Signatures Signed By: Nicki Ortiz 03/03/23 17:19 [facility] Monitor Recordon 05-29-2022 Monitor Record [id number]# 1.00CD:127 Normal [facility] Progress Note-Nurseon 2022 Progress Note-Nurse 1402 [...] NURSES ON ARRIVAL. Rosi GOULD RN. Normal [facility] RAD - MRI Screening Formon 0 05-29-2022 RAD - MRI Screening Form [id number] #1.00CD:127 Normal [facility] RAD - MRI Screening Form [id number] #1.00CD:127 Normal [facility] eGFRon 05-29-2022 GFR/1.73 sq M.predicted among blacks MDRD (S/P/Bld) [Vol rate/Area] mL/min/{1.73_m2} Normal >=59 [facility] Comment on above: Order Comment: Order added by Discern Expert. Result Comment: eGFR is race adjusted. AA=. Performed By: #### 1 [id number], [id number] ####[address] [place] [address] GFR/1.73 sq M.predicted among non-blacks MDRD (S/P/Bld) [Vol rate/Area] mL/min/{1.73_m2} Normal >=59 [facility] Comment on above: Order Comment: Order added by Discern Expert. Result Comment: Crusher Operator basia kidney disease could be indicated at eGFR's of less than 60 mL/min/1.73m2. Kidney failure is indicated at less than 15 mL/min/1.73m2. Performed By: #### 1 [id number], [id number] ####[facility] [address] [place] [address] Physician Orderon 05-28-2022 Physician Order [id number]# 1.00CD:127 Normal [facility] Outside Recordson 05-27-2022 Outside Records [id number]#1 .00CD:127 Normal [facility] Lipid Panelon 05-11-2022 Cholesterol [Mass/Vol] 191 mg/dL NINF - 200 mg/dL [facility] Comment on above: Cholesterol Guidelines: <200 Desirable 200-240 Borderline >240 Undesirable Cholesterol in HDL [Mass/Vol] 50 mg/dL 40 - PINF mg/dL [facility] Comment on above: HDL Guidelines: <40 Undesirable 40-59 Borderline >59 Desirable Cholesterol in LDL [Mass/Vol] 114 mg/dL 0 - 130 mg/dL [facility] Comment on above: LDL Guidelines: <100 Desirable 100-129 Near to/above Desirable 130-159 Borderline >159 Undesirable Direct (measured) LDL and calculated LDL are not interchangeable tests. Cholesterol.total/Cho lesterol in HDL [Mass ratio] 3.8 {ratio} NINF - 5 [facility] Triglyceride [Mass/Vol] 136 mg/dL NINF - 150 mg/dL [facility] Comment on above: Triglyceride Guidelines: <150 Desirable 150-199 Borderline 200-499 High >499 Very high Based on AHA Guidelines for fasting triglyceride, December 2011. [facility] Lipid Profileon 05-11-2022 Cholesterol [Mass/Vol] 191 mg/dL Normal <200 [facility] Comment on above: Result Comment: Cholesterol Guidelines: <200 Desirable 200-240 Borderline >240 Undesirable Performed By: #### Z FAST #### [facility] [address] [place] [address] Diamond Mounter: Abdirashid Boone MD #### LIPR #### [address] [address] Diamond Mounter: Morteza German MD Cholesterol in HDL [Mass/Vol] 50 mg/dL Normal >40 [facility] Comment on above: Result Comment: HDL Guidelines: <40 Undesirable 40-59 Borderline >59 Desirable Performed By: #### Z FAST #### [facility] [address] [place] [address] Diamond Mounter: Abdirashid Boone MD #### LIPR #### [address] [address] Diamond Mounter: Morteza German MD Cholesterol in LDL [Mass/Vol] 114 mg/dL Normal 0-130 [facility] Comment on above: Result Comment: LDL Guidelines: <100 Desirable 100-129 Near to/above Desirable 130-159 Borderline >159 Undesirable Direct (measured) LDL and calculated LDL are not interchangeable tests. Performed By: #### Z FAST #### [facility] [address] [place] [address] Diamond Mounter: Abdirashid Boone MD #### LIPR #### [address] [address] Diamond Mounter: Morteza German MD Cholesterol.total/Cho lesterol in HDL [Mass ratio] 3.8 {ratio} Normal <5 [facility] Comment on above: Performed By: #### Z FAST #### [facility] [address] [place] [address] Diamond Mounter: Abdirashid Boone MD #### LIPR #### [facility] [address] [place] [address] [id number] Diamond Mounter: Morteza German MD Triglyceride [Mass/Vol] 136 mg/dL Normal <150 [facility] Comment on above: Result Comment: Triglyceride Guidelines: <150 Desirable 150-199 Borderline 200-499 High >499 Very high Based on AHA Guidelines for fasting triglyceride, December 2011. Performed By: #### Z FAST #### [facility] [address] [place] [address] Diamond Mounter: Abdirashid Boone MD #### LIPR #### [facility] [address] [place], [place] [id number] Diamond Mounter: Morteza German MD Patient Fasting?on 3 Patient Fasting? yes [facility] Patient fasting?on 3 Patient fasting? yes Normal [facility] Comment on above: Performed By: #### Z FAST #### [facility] [address] [place] [address] Diamond Mounter: Abdirashid Boone MD #### LIPR #### [facility] [address] [place], [place] [id number] Diamond Mounter: Morteza German MD ECHOCARDIO M/2D COMPLETEon 0 05-01-2022 ECHOCARDIO M/2D COMPLETE Patient: PATRICIA TURNER Exam Date: 05/01/2022 : 1945 Gender:F Ordering : DR DEBORAH GARCIA . Admission #: [id number] Family : MARINA LERMA Order #: [id number] CLICK HERE TO VIEW EXAM ECHOCARDIOGRAM REPORT [...] House M.D. on 05/01/2022 at 11:36 Normal [facility] FREE T3on 05-01-2022 FREE T3 2.42 pg/mlL Normal 2.18-3.98 [facility] Comment on above: Performed By: #### F T3, T4, TSH #### [facility] [address] [place] [address] Dr. Britney Gambino MAGNESIUMon 05-01-2022 Magnesium [Mass/Vol] 1.9 mg/dL Normal 1.8-2.4 [facility] Comment on above: Performed By: #### Jessica Wells, CMP #### [facility] [address] [place] [address] Dr. Britney Gambino PROF 14(COMP METB)on 023 Albumin [Mass/Vol] 3.7 g/dL Normal 3.4-5.0 [facility] Comment on above: Performed By: #### Jessica Wells, CMP #### [facility] [address] [place] [address] Dr. Britney Gambino Albumin/Globulin [Mass ratio] 0.8 {ratio} Normal [place] [facility] Comment on above: Performed By: #### Jessica Wells, CMP #### [facility] [address] [place] [address] Dr. Britney Gambino ALP [Catalytic activity/Vol] 87 U/L Normal 46-116 [facility] Comment on above: Performed By: #### M G, CMP #### [facility] [address] [place] [address] Dr. Britney Gambino ALT [Catalytic activity/Vol] 19 U/L Normal 14-59 [facility] Comment on above: Performed By: #### Jessica Wells, CMP #### [facility] [address] [place] [address] Dr. Britney Gambino Anion gap [Moles/Vol] 13.0 mmol/L Normal [facility] Comment on above: Performed By: #### M G, CMP #### [facility] [address] [place] [address] Dr. Britney Gambino AST [Catalytic activity/Vol] 18 U/L Normal 15-37 [facility] Comment on above: Performed By: #### M G, CMP #### [facility] [address] [place] [address] Dr. Britney Gambino Bilirubin [Mass/Vol] 0.7 mg/dL Normal 0.2-1.0 [facility] Comment on above: Performed By: #### M G, CMP #### [facility] [address] [place] [address] Dr. Britney Gambino Calcium [Mass/Vol] 9.5 mg/dL Normal 8.5-10.1 [facility] Comment on above: Performed By: #### Jessica G, CMP #### [facility] [address] [place] [address] Dr. Britney Gambino Chloride [Moles/Vol] 103 mmol/L Normal 98-107 [facility] Comment on above: Performed By: #### M G, CMP #### [facility] [address] [place] [address] Dr. Britney Gambino CO2 [Moles/Vol] 27.1 mmol/L Normal 21.0-32.0 [facility] Comment on above: Performed By: #### Jessica Wells, CMP #### [facility] [address] [place] [address] Dr. Britney Gambino Creatinine [Mass/Vol] 0.90 mg/dL Normal 0.55-1.02 [facility] Comment on above: Performed By: #### M G, CMP #### [facility] [address] [place] [address] Dr. Britney Gambino EGFR-AF SERBIAN >60 Normal >=60 [facility] Comment on above: Performed By: #### M G, CMP #### [facility] [address] [place] [address] Dr. Britney Gambino EGFR-NON AF SERBIAN >60 Normal >=60 [facility] Comment on above: Performed By: #### M G, CMP #### [facility] [address] [place] [address] Dr. Britney Gambino Globulin (S) [Mass/Vol] 4.4 g/dL Normal [facility] Comment on above: Performed By: #### M G, CMP #### [facility] [address] [place] [address] Dr. Britney Gambino Glucose [Mass/Vol] 89 mg/dL Normal 74-106 [facility] Comment on above: Performed By: #### M G, CMP #### [facility] [address] [place] [address] Dr. Britney Gambino Potassium [Moles/Vol] 4.1 mmol/L Normal 3.5-5.1 [facility] Comment on above: Performed By: #### Jessica G, CMP #### [facility] [address] [place] [address] Dr. Britney Gambino Protein [Mass/Vol] 8.1 g/dL Normal 6.4-8.2 [facility] Comment on above: Performed By: #### M G, CMP #### [facility] [address] [place] [address] Dr. Britney Gambino Sodium [Moles/Vol] 139 mmol/L Normal 136-145 [facility] Comment on above: Performed By: #### M G, CMP #### [facility] [address] [place] [address] Dr. Britney Gambino Urea nitrogen [Mass/Vol] 17.0 mg/dL Normal 7.0-18.0 [facility] Comment on above: Performed By: #### M G, CMP #### [facility] [address] [place] [address] Dr. Britney Gambino Urea nitrogen/Creatinine [Mass ratio] 18.9 mg/mg Normal [facility] Comment on above: Performed By: #### M G, CMP #### [facility] [address] [place] [address] Dr. Britney Gambino T4on 05-01-2022 T4 [Mass/Vol] 10.10 ug/dL Normal 4.80-13.90 [facility] Comment on above: Performed By: #### F T3, T4, TSH #### [facility] [address] [place], [place] [address] Dr. Britney Gambino TSHon 05-01-2022 TSH 0.825 uIU/mL Normal 0.358-3.740 [facility] Comment on above: Performed By: #### F T3, T4, TSH #### [facility] [address] [address] [address] Britney Gambino RAD - MRI Screening Formon 0 04-22-2022 RAD - MRI Screening Form [id number]# 1.00CD:127 Normal [facility] COVID-19 ([facility])on 04-21-2022 Performing Instrument FT Octavio 2 Normal Fis [facility] Comment on above: Performed By: #### 2 [id number] ####[facility] [address] [place] [address] SARS-CoV-2 (COVID-19) RNA KRYSTA+probe Ql (Resp) Not detected Normal Not Detected [facility] Comment on above: Result Comment: This test result should be correlated with clinical presentations and medical history by a healthcare provider to determine its clinical significance. This assay was performed by a reverse transcriptase real-time polymerase chain reaction (rt PCR) method on the [employer] system. This test has been authorized only [...] or revoked sooner. Performed By: #### 2 [id number] ####[facility] [address] [place] [address] SARS-CoV-2 (COVID-19) RNA KRYSTA+probe Ql (Unsp spec) Pass Normal Pass [facility] Comment on above: Performed By: #### 2 [id number] ####[facility] [address] [place] [address] Specimen source Nom (Unsp spec) Nasal Normal [facility] Comment on above: Performed By: #### 2 [id number] ####[address] [place] [address] XR Chest 2 Viewson 3 XR Chest [...] MD Transcribed by: JERSEY Technologist: ORB Normal [facility] BUNon 04-20-2022 Urea nitrogen [Mass/Vol] 27 mg/dL High 5-21 [facility] Comment on above: Performed By: #### 2 102152, 6048266, 4283112, 67638753, 6624246, 4478371 ####[facility] [address] [place] [address] CBC w/Indiceson 04-20-2022 Erythrocyte distribution width (RBC) [Ratio] 14.9 % High 10.9-14.2 [facility] Comment on above: Performed By: #### 2 584361, 4664733, 4090908, 78462357, 6788157, 7985058 ####[facility] [address] [place] [address] Hematocrit (Bld) [Volume fraction] 43.9 % Normal 34.0-46.0 [facility] Comment on above: Performed By: #### 2 701271, 1456133, 9946795, 44587958, 7526405, 9513859 ####[facility] [address] [place] [address] Hemoglobin (Bld) [Mass/Vol] 14.1 g/dL Normal 12.0-16.0 [facility] Comment on above: Performed By: #### 2 070757, 6596262, 5737545, 01086756, 6196950, 4984796 ####[address] [place] [address] MCH (RBC) [Entitic mass] 30.8 pg Normal 27.0-34.0 [facility] Comment on above: Performed By: #### 2 064065, 4990273, 1800355, 58440258, 2766165, 3179483 ####[address] [address] MCHC (RBC) [Mass/Vol] 32.1 g/dL Normal 31.4-36.0 [facility] Comment on above: Performed By: #### 2 430027, 5182748, 7602144, 53861631, 0738758, 5750260 ####[address] [address] MCV (RBC) [Entitic vol] 96.1 fL Normal 80.0-100.0 [facility] Comment on above: Performed By: #### 2 415319, 9915343, 8491878, 00922215, 1612262, 5706501 ####[address] [place] [address] Platelet mean volume (Bld) [Entitic vol] 8.6 fL Normal 6.4-10.8 [facility] Comment on above: Performed By: #### 2 323061, 9788522, 1709034, 39063911, 8498410, 2584251 ####[address] [place] [address] Platelets (Bld) [#/Vol] 253.0 E9/L Normal 150.0-500.0 [facility] Comment on above: Performed By: #### 2 054004, 2208163, 6821499, 26383888, 5715343, 4509109 ####[facility] [address] [place] [address] RBC (Bld) [#/Vol] 4.6 E12/L Normal 4.3-5.9 [facility] Comment on above: Performed By: #### 2 612451, 9152001, 6295521, 97673362, 2216638, 6383179 ####[facility] [address] [place] [address] WBC corrected for nucl RBC Auto (Bld) [#/Vol] 6.4 E9/L Normal 4.0-11.0 [facility] Comment on above: Performed By: #### 2 007795, 9878582, 4157279, 56780401, 2594306, 1261461 ####[facility] [address] [place] [address] CHEMISTRYOrdered By: SYSTEM SYSTEM on 04-20-2022 Anion gap [Moles/Vol] 12 mmol/L Normal 6 - 16 mEq/L [facility] Remisol Chloride [Moles/Vol] 105 mmol/L Normal 101 - 1 11 mmol/L [facility] Remisol CO2 [Moles/Vol] 23 mmol/L Normal 21 - 31 mmol/L [facility] Remisol Creatinine [Mass/Vol] 0.8 mg/dL Normal 0.5 - 1.3 mg/dL [facility] Remisol GFR/1.73 sq M.predicted among blacks MDRD (S/P/Bld) [Vol rate/Area] mL/min/1.73 m2 Normal >=59mL/min/1. 73 m2 [facility] Chem S GFR/1.73 sq M.predicted among non-blacks MDRD (S/P/Bld) [Vol rate/Area] mL/min/1.73 m2 Normal >=59mL/min/1. 73 m2 [facility] Chem S Glucose [Mass/Vol] 82 mg/dL Normal 55 - 199 mg/dL [facility] Remisol Potassium [Moles/Vol] 4.1 mmol/L Normal 3.5 - 5.3 mmol/L [facility] Remisol Sodium [Moles/Vol] 136 mmol/L Normal 135 - 145 mmol/L [facility] Remisol Urea nitrogen [Mass/Vol] 27 mg/dL High 5 - 21 mg/dL [facility] Remisol Consent for Treatmenton 03-30 Consent for Treatment [id number]#1 .00CD:127 Normal [facility] Consent for Treatment [id number]# 1.00CD:127 Normal [facility] Creatinineon 04-20-2022 Creatinine [Mass/Vol] 0.8 mg/dL Normal 0.5-1.3 [facility] Comment on above: Performed By: #### 2 151731, 0209552, 2615180, 51811910, 4378717, 7389975 ####[facility] [address] [place] [address] Glucoseon 04-20-2022 Glucose [Mass/Vol] 82 mg/dL Normal 55-199 [facility] Comment on above: Performed By: #### 2 934610, 3683025, 1413669, 16976254, 0020618, 0597066 ####[facility] [address] [place] [address] HEMATOLOGYOrdered By: Katrina Arias on 04-20-2022 Erythrocyte distribution width (RBC) [Ratio] 14.9 % High 10.9 - 14.2 % [facility] HemeAutoSS Hematocrit (Bld) [Volume fraction] 43.9 % Normal 34.0 - 46.0 % [facility] HemeAutoSS Hemoglobin (Bld) [Mass/Vol] 14.1 g/dL Normal 12.0 - 16.0 gm/dL [facility] HemeAutoSS MCH (RBC) [Entitic mass] 30.8 pg Normal 27.0 - 34.0 pg [facility]eAutoSS MCHC (RBC) [Mass/Vol] 32.1 g/dL Normal 31.4 - 36.0 gm/dL [facility] HemeAutoSS MCV (RBC) [Entitic vol] 96.1 fL Normal 80.0 - 100.0 fL FT [facility] Platelet mean volume (Bld) [Entitic vol] 8.6 fL Normal 6.4 - 10.8 fL [facility]eAutoSS Platelets (Bld) [#/Vol] 253.0 E9/L Normal 150.0 - 500.0 E9/L FT [facility] RBC (Bld) [#/Vol] 4.6 E12/L Normal 4.3 - 5.9 E12/L [facility] HemeAutoSS WBC corrected for nucl RBC Auto (Bld) [#/Vol] 6.4 E9/L Normal 4.0 - 11.0 E9/L [facility] HemeAutoSS Lyteson 04-20-2022 Anion gap [Moles/Vol] 12 mmol/L Normal 6-16 [facility] Comment on above: Performed By: #### 2 860644, 8776914, 2210930, 34921551, 7068626, 1723279 ####[facility] [address] [place] [address] Chloride [Moles/Vol] 105 mmol/L Normal 101-111 [facility] Comment on above: Performed By: #### 2 741980, 3169374, 7480979, 22621192, 1590046, 3163076 ####[facility] [address] [place] [address] CO2 [Moles/Vol] 23 mmol/L Normal 21-31 [facility] Comment on above: Performed By: #### 2 364561, 7886853, 1356522, 33678928, 4075525, 8603825 ####[facility] [address] [place] [address] Potassium [Moles/Vol] 4.1 mmol/L Normal 3.5-5.3 [facility] Comment on above: Performed By: #### 2 513746, 2922544, 2748526, 93027789, 4575456, 5639241 ####[facility] [address] [place] [address] Sodium [Moles/Vol] 136 mmol/L Normal 135-145 [facility] Comment on above: Performed By: #### 2 793286, 7166863, 8864699, 47355600, 3622015, 3028024 ####[facility] [address] [place] [address] eGFRon 04-20-2022 GFR/1.73 sq M.predicted among blacks MDRD (S/P/Bld) [Vol rate/Area] mL/min/{1.73_m2} Normal >=59 [facility] Comment on above: Order Comment: Order added by Discern Expert. Result Comment: eGFR is race adjusted. AA=. Performed By: #### 2 750145, 2446605, 2331811, 62090001, 4193870, 1634429 ####[facility] [address] [place] [address] GFR/1.73 sq M.predicted among non-blacks MDRD (S/P/Bld) [Vol rate/Area] mL/min/{1.73_m2} Normal >=59 [facility] Comment on above: Order Comment: Order added by Discern Expert. Result Comment: Crusher Operator basia kidney disease could be indicated at eGFR's of less than 60 mL/min/1.73m2. Kidney failure is indicated at less than 15 mL/min/1.73m2. Performed By: #### 2 626044, 9765440, 1704817, 68637302, 9144666, 4105422 ####[facility] [address] [place] [address] COVID-19 ([facility]on 04-17-2022 ADMITTED TO INTENSIVE CARE UNIT FOR CONDITION OF INTEREST:FIND:PT: NO Normal [facility] Comment on above: Performed By: #### 2 [id number] ####[facility] [address] [place] [address] EMPLOYED IN A HEALTHCARE SETTING:FIND:PT: Unknown Normal [facility] Comment on above: Performed By: #### 2 [id number] ####[place] [address] FIRST TEST FOR CONDITION OF INTEREST:FIND:PT: Unknown Normal [facility] Comment on above: Performed By: #### 2 [id number] ####[place] [address] HAS SYMPTOMS RELATED TO CONDITION OF INTEREST:FIND:PT: Unknown Normal [facility] Comment on above: Performed By: #### 2 [id number] ####[place] [address] HOSPITALIZED FOR CONDITION OF INTEREST:FIND:PT: NO Normal [facility] Comment on above: Performed By: #### 2 [id number] ####[place] [address] STATUS:FIND:PT: NO Normal [facility] Comment on above: Performed By: #### 2 [id number] ####[place] [address] RESIDES IN A [facility] CARE SETTING:FIND:PT: Unknown Normal [facility] Comment on above: Performed By: #### 2 [id number] ####[place] [address] Physician Orderon 04-16-2022 Physician Order [id number]# 1.00CD:127 Normal [facility] Physician Orderon 04-15-2022 Physician Order [id number]#1 .00CD:127 Normal [facility] CBC AUTO DIFFon 01-02-2022 BASO # 0.0 103/ul Normal 0.0-0.1 [facility] Comment on above: Performed By: #### F T3, T4, TSH #### [facility] [address] [address] [address] Britney Gambino Basophils/100 WBC (Bld) 0.8 % Normal 0.2-2.0 [facility] Comment on above: Performed By: #### F T3, T4, TSH #### [facility] [address] [place] [address] Dr. Britney Gambino EO # 0.2 103/ul Normal 0.0-0.7 [facility] Comment on above: Performed By: #### F T3, T4, TSH #### [facility] [address] [place] [address] Dr. Britney Gambino Eosinophils/100 WBC (Bld) 4.7 % Normal 0.9-7.0 [facility] Comment on above: Performed By: #### F T3, T4, TSH #### [facility] [address] [place] [address] Dr. Britney Gambino Erythrocyte distribution width (RBC) [Ratio] 13.5 % Normal 11.0-15.0 [facility] Comment on above: Performed By: #### F T3, T4, TSH #### [facility] [address] [place] [address] Dr. Britney Gambino Hematocrit (Bld) [Volume fraction] 39.9 % Normal 36.0-48.0 [facility] Comment on above: Performed By: #### F T3, T4, TSH #### [facility] [address] [place] [address] Dr. Britney Gambino Hemoglobin (Bld) [Mass/Vol] 12.9 g/dL Normal 12.0-16.0 [facility] Comment on above: Performed By: #### F T3, T4, TSH #### [facility] [address] [place] [address] Dr. Britney Gambino IG # 0.02 10e3/ul Normal 0.00-0.03 [facility] Comment on above: Performed By: #### F T3, T4, TSH #### [facility] [address] [place] [address] Dr. Britney Gambino IG % 0.4 % Normal 0.0-0.5 [facility] Comment on above: Performed By: #### F T3, T4, TSH #### [facility] [address] [place] [address] Dr. Britney Gambino LYMPH # 2.1 103/ul Normal 1.2-3.8 [facility] Comment on above: Performed By: #### F T3, T4, TSH #### [facility] [address] [place] [address] Dr. Britney Gambino Lymphocytes/100 WBC (Bld) 40.6 % Normal 20.5-60.0 [facility] Comment on above: Performed By: #### F T3, T4, TSH #### [facility] [address] [place] [address] Dr. Britney Gamibno MANUAL DIFF REQ NO Normal [facility] Comment on above: Performed By: #### F T3, T4, TSH #### [facility] [address] [place] [address] Dr. Britney Gambino MCH (RBC) [Entitic mass] 31.2 pg Normal 26.7-34.0 [facility] Comment on above: Performed By: #### F T3, T4, TSH #### [facility] [address] [place] [address] Dr. Britney Gambino MCHC (RBC) [Mass/Vol] 32.3 g/dL Normal 29.9-35.2 [facility] Comment on above: Performed By: #### F T3, T4, TSH #### [facility] [address] [place] [address] Dr. Britney Gambino MCV (RBC) [Entitic vol] 96.4 fL Normal 81.0-99.0 [facility] Comment on above: Performed By: #### F T3, T4, TSH #### [facility] [address] [place] [address] Dr. Britney Gambino MONO # 0.4 103/ul Normal 0.3-0.8 [facility] Comment on above: Performed By: #### F T3, T4, TSH #### [facility] [address] [place] [address] Dr. Britney Gambino Monocytes/100 WBC (Bld) 7.6 % Normal 1.7-12.0 [facility] Comment on above: Performed By: #### F T3, T4, TSH #### [facility] [address] [address] [address] Britney Gambino NEUT # 2.3 103/ul Normal 1.4-6.5 [facility] Comment on above: Performed By: #### F T3, T4, TSH #### [facility] [address] [address] [address] Britney Gambino Neutrophils/100 WBC (Bld) 45.9 % Normal 43.0-75.0 [facility] Comment on above: Performed By: #### F T3, T4, TSH #### [facility] [address] [address] [address] Britney Gambino Platelet mean volume (Bld) [Entitic vol] 9.5 fL Normal 9.5-13.5 [facility] Comment on above: Performed By: #### F T3, T4, TSH #### [facility] [address] [address] [address] Britney Gambino PLT 250 103/ul Normal 150-450 [facility] Comment on above: Performed By: #### F T3, T4, TSH #### [facility] [address] [address] [address] Britney Gambino RBC 4.14 106/ul Critically low 4.20-5.40 [facility] Comment on above: Performed By: #### F T3, T4, TSH #### [facility] [address] [address] [address] Britney Gambino WBC 5.1 103/ul Normal 4.0-11.0 [facility] Comment on above: Performed By: #### F T3, T4, TSH #### [facility] [address] [address] [address] Britney Gambino FREE T3on 01-02-2022 FREE T3 2.30 pg/mlL Normal 2.18-3.98 [facility] Comment on above: Performed By: #### L IPID, TSH, CMP, T4, FT3 #### [facility] [address] [address] [address] Britney Gambino GLYCOHEMOGLOBIN A1Con 2021 ADA RECOMMENDATION SEE BELOW Normal [facility] Comment on above: Result Comment: ADA RECOMMENDED LIMIT 4.0 - 6.0 ADA THERAPEUTIC TARGET < 7.0 ACTION SUGGESTED > 7.0 Performed By: #### F T3, T4, TSH #### [facility] [address] [address] [address] Britney Gambino Glucose [Mass/Vol] 103 mg/dL Normal [facility] Comment on above: Performed By: #### F T3, T4, TSH #### [facility] [address] [address] [address] Britney Gambino HbA1c (Bld) [Mass fraction] 5.2 % Normal 4.5-6.2 [facility] Comment on above: Performed By: #### F T3, T4, TSH #### [facility] [address] [place] [address] Dr. Britney Gambino LIPID PROFILEon 01-02-2022 CHOL-HDL RATIO NORM SEE BELOW Normal [facility] Comment on above: Result Comment: 3.3 - 4.4 LOW RISK 4.4 - 7.1 AVERAGE RISK 7.1 - 11.0 MODERATE RISK >11.0 HIGH RISK Performed By: #### F T3, T4, TSH #### [facility] [address] [address] [address] Britney Gambino Cholesterol [Mass/Vol] 211 mg/dL Critically high <=200 [facility] Comment on above: Performed By: #### F T3, T4, TSH #### [facility] [address] [address] [address] Britney Gambino Cholesterol in HDL [Mass/Vol] 65 mg/dL Critically high 40-60 [facility] Comment on above: Performed By: #### F T3, T4, TSH #### [facility] [address] [address] [address] Britney Gambino Cholesterol in LDL [Mass/Vol] 129.0 mg/dL Normal [facility] Comment on above: Performed By: #### F T3, T4, TSH #### [facility] [address] [address] [address] Britney Gambino Cholesterol.total/Cho lesterol in HDL [Mass ratio] 3.2 {ratio} Normal [facility] Comment on above: Performed By: #### F T3, T4, TSH #### [facility] [address] [address] [address] Britney Gambino HDL NORMAL > or = 60 mg/dl - LO W CARDIOVASCULAR RISK <40 mg/dl - HIGH CARDIOVASCULAR RISK Normal [facility] Comment on above: Performed By: #### F T3, T4, TSH #### [facility] [address] [address] [address] Britney Gambino LDL CALC NORMAL SEE BELOW Normal [facility] [facility] Comment on above: Result Comment: <100 mg/dl OPTIMAL 100 - 129 mg/dl NEAR OR ABOVE OPTIMAL 130 - 159 mg/dl BORDERLINE HIGH 160 - 189 mg/dl HIGH >190 mg/dl VERY HIGH Performed By: #### F T3, T4, TSH #### [facility] [address] [address] [address] Britney Gambino Triglyceride [Mass/Vol] 85 mg/dL Normal <=150 [facility] Comment on above: Performed By: #### F T3, T4, TSH #### [facility] [address] [address] [address] Britney Gambino VLDL CALC 17.0 mg/dL Normal [facility] Comment on above: Performed By: #### F T3, T4, TSH #### [facility] [address] [address] [address] Britney Gambino PROF 14(COMP METB)on 022 Albumin [Mass/Vol] 3.8 g/dL Normal 3.4-5.0 [facility] Comment on above: Performed By: #### L IPID, TSH, CMP, T4, FT3 #### [facility] [address] [address] [address] Britney Gambino Albumin/Globulin [Mass ratio] 1.0 {ratio} Normal [facility] Comment on above: Performed By: #### L IPID, TSH, CMP, T4, FT3 #### [facility] [address] [address] [address] Britney Gambino ALP [Catalytic activity/Vol] 70 U/L Normal 46-116 [facility] Comment on above: Performed By: #### L IPID, TSH, CMP, T4, FT3 #### [facility] [address] [address] [address] Britney Gambino ALT [Catalytic activity/Vol] 19 U/L Normal 14-59 [facility] Comment on above: Performed By: #### L IPID, TSH, CMP, T4, FT3 #### [facility] [address] [address] [address] Britney Gambino Anion gap [Moles/Vol] 9.8 mmol/L Normal [facility] Comment on above: Performed By: #### L IPID, TSH, CMP, T4, FT3 #### [facility] [address] [place] [address] Dr. Britney Gambino AST [Catalytic activity/Vol] 18 U/L Normal 15-37 [facility] Comment on above: Performed By: #### L IPID, TSH, CMP, T4, FT3 #### [facility] [address] [place] [address] Dr. Britney Gambino Bilirubin [Mass/Vol] 0.8 mg/dL Normal 0.2-1.0 [facility] Comment on above: Performed By: #### L IPID, TSH, CMP, T4, FT3 #### [facility] [address] [place] [address] Dr. Britney Gambino Calcium [Mass/Vol] 9.3 mg/dL Normal 8.5-10.1 [facility] Comment on above: Performed By: #### L IPID, TSH, CMP, T4, FT3 #### [facility] [address] [address] [address] Britney Gambino Chloride [Moles/Vol] 104 mmol/L Normal 98-107 [facility] Comment on above: Performed By: #### L IPID, TSH, CMP, T4, FT3 #### [facility] [address] [address] [address] Britney Gambino CO2 [Moles/Vol] 27.1 mmol/L Normal 21.0-32.0 [facility] Comment on above: Performed By: #### L IPID, TSH, CMP, T4, FT3 #### [facility] [address] [place] [address] Dr. Britney Gambino Creatinine [Mass/Vol] 0.84 mg/dL Normal 0.55-1.02 [facility] Comment on above: Performed By: #### L IPID, TSH, CMP, T4, FT3 #### [facility] [address] [place] [address] Dr. Britney Gambino EGFR-AF SERBIAN >60 Normal >=60 [facility] Comment on above: Performed By: #### L IPID, TSH, CMP, T4, FT3 #### [facility] [address] [place] [address] Dr. Britney Gambino EGFR-NON AF SERBIAN >60 Normal >=60 [facility] Comment on above: Performed By: #### L IPID, TSH, CMP, T4, FT3 #### [facility] [address] [place] [address] Dr. Britney Gambino Globulin (S) [Mass/Vol] 3.8 g/dL Normal [facility] Comment on above: Performed By: #### L IPID, TSH, CMP, T4, FT3 #### [facility] [address] [place] [address] Dr. Britney Gambino Glucose [Mass/Vol] 95 mg/dL Normal 74-106 [facility] Comment on above: Performed By: #### L IPID, TSH, CMP, T4, FT3 #### [facility] [address] [place] [address] Dr. Britney Gambino Potassium [Moles/Vol] 3.9 mmol/L Normal 3.5-5.1 [facility] Comment on above: Performed By: #### L IPID, TSH, CMP, T4, FT3 #### [facility] [address] [place] [address] Dr. Britney Gambino Protein [Mass/Vol] 7.6 g/dL Normal 6.4-8.2 [facility] Comment on above: Performed By: #### L IPID, TSH, CMP, T4, FT3 #### [facility] [address] [address] [address] Britney Gambino Sodium [Moles/Vol] 137 mmol/L Normal 136-145 [facility] Comment on above: Performed By: #### L IPID, TSH, CMP, T4, FT3 #### [facility] [address] [place] [address] Dr. Britney Gambino Urea nitrogen [Mass/Vol] 16.0 mg/dL Normal 7.0-18.0 [facility] Comment on above: Performed By: #### L IPID, TSH, CMP, T4, FT3 #### [facility] [address] [place] [address] Dr. Britney Gambino Urea nitrogen/Creatinine [Mass ratio] 19.0 mg/mg Normal [facility] Comment on above: Performed By: #### L IPID, TSH, CMP, T4, FT3 #### [facility] [address] [place] [address] Dr. Britney Gambino T4on 01-02-2022 T4 [Mass/Vol] 11.40 ug/dL Normal 4.80-13.90 [facility] Comment on above: Performed By: #### L IPID, TSH, CMP, T4, FT3 #### [facility] [address] [place] [address] Dr. Britney Gambino TSHon 01-02-2022 TSH 1.861 uIU/mL Normal 0.358-3.740 [facility] Comment on above: Performed By: #### L IPID, TSH, CMP, T4, FT3 #### [facility] [address] [place] [address] Dr. Britney Gambino VITAMIN D 25 OHon 01-02-2022 VIT D 25-OH 35.9 ng/mL Normal [facility] Comment on above: Performed By: #### F T3, T4, TSH #### [facility] [address] [place] [address] Dr. Britney Gambino VIT D RANGES SEE BELOW Normal [facility] Comment on above: Result Comment: <20 ng/mL Vit D deficient 20 - <30 ng/mL Vit D insufficient 30 - 100 ng/mL Vit D sufficient >100 ng/mL Potential Toxicity Performed By: #### F T3, T4, TSH #### [facility] [address] [place] [address] Dr. Britney Gambino Vital Signs Date Time Vital Sign Value Performing Clinician Faci lity 05-29-2022 17:00-0500 Heart rate 80 /min Suzi Timmis [facility] 05-29-2022 17:00-0500 SaO2% (BldA) [Mass fraction] 100 % Suzi Timmis [facility] 05-29-2022 17:00-0500 Respiratory rate 18 /min Suzi Timmis [facility] 05-29-2022 17:00-0500 Diastolic blood pressure 88 mm[Hg] Suzi Timmis [facility] 05-29-2022 17:00-0500 Mean blood pressure 109 mm[Hg] Suzi Timmis [facility] 05-29-2022 17:00-0500 Systolic blood pressure 151 mm[Hg] Suzi Timmis [facility] 05-29-2022 16:03-0500 Heart rate 71 /min Suzi Timmis [facility] 05-29-2022 16:03-0500 SaO2% (BldA) [Mass fraction] 97 % Suzi Timmis [facility] 05-29-2022 16:03-0500 Respiratory rate 16 /min Suzi Timmis [facility] 05-29-2022 16:03-0500 Diastolic blood pressure 87 mm[Hg] Suzi Timmis [facility] 05-29-2022 16:03-0500 Mean blood pressure 111 mm[Hg] Suzi Timmis [facility] 05-29-2022 16:03-0500 Systolic blood pressure 161 mm[Hg] Suzi Timmis [facility] 05-29-2022 16:03-0500 Body temperature 98.78 [degF] Suzi Timmis [facility] 05-29-2022 15:50-0500 Blood Pressure Location Suzi Timmis [facility] 05-29-2022 15:50-0500 Body temperature 97.52 [degF] Suzi Timmis [facility] 05-29-2022 15:50-0500 Diastolic blood pressure 94 mm[Hg] Suzi Timmis [facility] 05-29-2022 15:50-0500 Heart rate 92 /min Suzi Timmis [facility] 05-29-2022 15:50-0500 Respiratory rate 18 /min Suzi Timmis [facility] 05-29-2022 15:50-0500 SaO2% (BldA) [Mass fraction] 96 % Suzi Timmis [facility] 05-29-2022 15:50-0500 Systolic blood pressure 146 mm[Hg] Suzi Timmis [facility] 05-29-2022 15:40-0500 Blood Pressure Location Suzi Timmis [facility] 05-29-2022 15:40-0500 Respiratory rate 15 /min Suzi Timmis [facility] 05-29-2022 15:35-0500 Blood Pressure Location Suzi Timmis [facility] 05-29-2022 15:35-0500 Respiratory rate 11 /min Suzi Timmis [facility] 05-29-2022 12:17-0500 Respiratory rate 20 /min Suzi Timmis [facility] 05-29-2022 12:16-0500 Mean blood pressure 110 mm[Hg] Suzi Timmis [facility] 04-20-2022 16:54-0500 Blood Pressure Location Suzi Timmis [facility] 04-20-2022 16:54-0500 Diastolic blood pressure 90 mm[Hg] Suzi Timmis [facility] 04-20-2022 16:54-0500 Systolic blood pressure 166 mm[Hg] Suzi Timmis [facility] 04-20-2022 16:43-0500 Heart rate 86 /min Suzi Timmis [facility] 04-20-2022 16:43-0500 SaO2% (BldA) [Mass fraction] 99 % Suzi Timmis [facility] 04-20-2022 16:43-0500 Diastolic blood pressure 91 mm[Hg] Suzi Timmis [facility] 04-20-2022 16:43-0500 Mean blood pressure 116 mm[Hg] Suzi Timmis [facility] 04-20-2022 16:43-0500 Systolic blood pressure 168 mm[Hg] Suzi Timmis [facility] 04-20-2022 16:43-0500 Blood Pressure Location Suzi Timmis [facility] 04-20-2022 16:43-0500 Body temperature 98.06 [degF] Suzi Neely [facility] 04-20-2022 16:43-0500 Respiratory rate 16 /min Suzi Neely [facility] 06-06-2018 08:05-0400 BP Diastolic 52 mm[Hg] [facility] 06-06-2018 08:05-0400 BP Systolic 109 mm[Hg] [facility] 06-06-2018 08:05-0400 Pulse (Heart Rate) 53 /min [facility] 06-06-2018 08:05-0400 Pulse Oximetry 93 % [facility] 06-06-2018 08:05-0400 Respiratory Rate 15 /min [facility] 06-06-2018 07:55-0400 Body Temperature 97 [degF] [facility] 06-06-2018 06:46-0400 BMI (Body Mass Index) 34.75 kg/m2 [facility] 06-06-2018 06:46-0400 Weight 86.18 kg [facility] 06-06-2018 06:43-0400 Height 157.5 cm [facility] Encounters Encounter Date Encounter Type Care Provider Facility Start: 04-16-2023 End: 04-16-2023 [facility] Start: 04-12-2023 End: 04-13-2023 [facility] Start: 07-15-2022 End: 07-16-[address] DEBORAH GARCIA . Facility: Start: 05-29-2022 End: 05-29-2022 ambulatory Suzi Kenzie Abhayharper Facility[facility] Start: 05-29-2022 End: 05-29-2022 Admission to same day surgery center Suzi Kenzie Abhayharper [facility] Start: 05-11-2022 End: 05-12-2022 ambulatory [facility] Start: 05-11-2022 [facility] other [facility]ced[facility] Start: 05-11-2022 End: 05-11-2022 Patient encounter status Deborah Garcia MD Work Phone: [facility] Start: 05-11-2022 End: 05-11-2022 Subsequent hospital visit by physician Deborah Garcia MD Work Phone: [facility] Comment on above: Abnormal EKG; Atrial flutter, unspecified type (HCC); Encounter for lipid screening for cardiovascular disease; Pre-op testing Start: 05-03-2022 Encounter for other preprocedural examination MARINA LERMA [facility] Start: 05-01-2022 End: 05-02-2022 Encounter for other preprocedural examination MARINA LERMA Facility:[facility] Start: 05-01-2022 End: 05-02-2022 ambulatory MARINA LERMA Facility:[facility] Start: 04-20-2022 End: 04-21-2022 ambulatory Suzi Neely Facility[facility] Start: 04-20-2022 End: 04-20-2022 Patient encounter procedure Suzi Neely [facility] Start: 04-15-2022 End: 04-24-2022 Pre-admission assessment Suzi Neely [facility] Start: 01-02-2022 End: 01-03-[address] DEBORAH GARCIA . Facility:[facility] Start: 10-09-[address] JUANCHO CHARLTON [facility] ity:[facility]1 Start: 06-06-2021 End: 06-06-2021 Subsequent hospital visit by physician Karmen George OT [facility] Comment on above: Arrived Start: 05-19-2019 End: 05-19-2019 Office outpatient visit 25 minutes Bud Henderson Work Phone: [facility] Comment on above: Vitreous detachment, left (Primary Dx) Start: 07-06-2018 Patient encounter procedure BUD [facility] Start: 06-14-2018 Patient encounter procedure BUD [facility] Start: 06-07-2018 Patient encounter procedure MASONRosi KATE [facility] Start: 06-06-2018 End: 06-06-2018 Patient encounter procedure MASON KATE [facility] Start: 06-06-2018 End: 06-06-2018 Patient encounter procedure Mason Kate Work Phone: [facility] Comment on above: Age-related nuclear cataract, right eye Start: 05-24-2018 End: 05-24-2018 Patient encounter procedure Mason Kate Work Phone: [facility] Start: 04-05-2018 End: 04-05-2018 Patient encounter procedure Historical Provider [facility] [place] Start: 04-01-2018 Patient encounter procedure BUD [facility] Procedures Date Procedure Procedure Detail Performing [...] Santiar y Chin Start: 03-29-2015 History of hkplovi-[id number] (YAG) laser capsulotomy of lens Suzi Abhaymis [...] 10-27-2021 Influenza vaccination Flu vaccine (# 1) [facility] Start: 06-13-2021 End: 06-13-2021 Patient encounter procedure 06/13/2021 Appointment Occupational Therapy Kala Bal OTA [facility] Start: 06-10-2021 End: 06-10-2021 Patient encounter procedure 06/10/2021 Appointment Occupational Therapy Karmen George OT [facility] Start: 06-06-2021 Annual Wellness Visi t (AWV) Annual Wellness Visit (AWV) [facility] Start: 11-27-2020 Influenza vaccination Flu vaccine (# 1) [facility] Start: 05-24-2020 End: 05-24-2020 Office Visit 05/24/2020 Office Visit Optometry Bud Henderson, OD [address] [place] [address] [facility] [place] Start: 11-27-2018 Influenza vaccination INFLUENZA VACC INE (#1) [facility] Start: 06-14-2018 End: 06-14-2018 Office Visit 06/14/2018 Office Visit Optometry Bud Henderson, OD [address] [place] [address] [facility] [place] Start: 06-07-2018 End: 06-07-2018 Office Visit 06/07/2018 Office Visit Ophthalmology Mason Kate MD [address] [place] [address] [place] [phone] [facility] Start: 06-06-2018 End: 06-06-2018 Procedure Pass [facility] Comment on above: Age-related nuclear cataract, right eye EXTRACTION EXTRACAPS ULAR CATARACT W/ IMPLANT (ECCE IOL) right Start: 05-24-2018 End: 05-24-2018 Ambulatory 05/24/2018 Office Visit Ophthalmology Mason Kate MD [address] [place] [phone] [facility] Start: 11-27-2017 Influenza vaccination INFLUENZA VACC INE (#1) [facility] Work Phone: Start: 2010 Pneumococcal 65+ yea rs Vaccine (1 - PCV) Pneumococcal 65+ years Vaccine (1 - PCV) [facility] Start: 2010 Pneumococcal 65+ yea rs Vaccine (1 of 1 - PPSV23) Pneumococcal 65+ years Vaccine (1 of 1 - PPSV23) [facility] Start: 2010 Pneumococcal vaccination PNEUMOCOCCAL VACCINE SERIES (1 of 2 - PCV13) [facility] Work Phone: Start: 2000 Screening for osteoporosis DEXA (modify frequency per FRAX score) [facility] Start: 1995 Colonoscopy COLORECTAL CAN CER SCREENING DISCUSSION [facility] Start: 1995 Protein mass conc COLON CANCER SCREENING DISCUSSION [facility] Work Phone: Start: 1995 Shingles Vaccine (1 of 2) Shingles Vaccine (1 of 2) [facility] Start: 1995 Zoster vaccine hzv l ilene for subcutaneous use ZOSTER (SHINGLES) VACCINE (1 of 2) [facility] Start: 1985 Fasting lipid profile LIPID SCREENIN G [facility] Work Phone: Start: 1985 Protein mass conc MAMMOGRAM SC REENING DISCUSSION [facility] Work Phone: Start: 1985 Screening mammography MAMMOGRA M SCREENING DISCUSSION [facility] Start: 1966 Screening for malign ant neoplasm of cervix [facility] Work Phone: Start: 1964 DTaP/Tdap/Td vaccine (1 - Tdap) DTaP/Tdap/Td vaccine (1 - Tdap) [facility] Start: 1964 Third diphtheria, tetanus and acellular pertussis (DTaP) vaccination TDAP (ADULT) [facility] Work Phone: Start: 1963 Hepatitis C screening Hepatitis C sc reen [facility] Start: 1963 Tetanus vaccination TETANUS [facility] Work Phone: Start: 1957 Depression Screen Depression Screen [facility] Start: 1950 COVID-19 Vaccine (1) COVID-19 Vaccin e (1) [facility] Start: 1945 COVID-19 Vaccine (#1) COVID-19 Vacci ne (#1) [facility] Start: 1945 Hepatitis C antibody , confirmatory test HEPATITIS C VIRUS SCREENING [facility] Work Phone: Start: 1945 Hepatitis C screening Hepatitis C sc [facility] Start: 1945 Screening for osteoporosis DEXA SCAN DISCUSSION [facility] Work Phone: Start: 1945 Thyrotropin Qn TSH [facility] Work Phone: Payers Date Payer Category Payer Unknown [id number] 2018 Medicare MEDICARE MEDICAR E A AND B xxxxxxxxxxx 2018-Present [place] xxxxxxxxxxx [id number] 2018 Unknown GENERIC PAYOR NERIC PLAN xxxxxxxx 2018-Present xxxxxxxx [id number] 2018 Unknown [id number] 1959 Medicare [id number] 1959 Self-pay 1959 Unknown [id number] 1945 Unknown [id number] 1945 Unknown [id number] 1945 Unknown [id number] 1945 Unknown [id number] 1945 Unknown [id number] 1945 Unknown [id number] 1945 Unknown [id number] 1945 Unknown [id number] 1945 Unknown [id number] 1945 Unknown [id number] 1945 Unknown [id number] 1945 Unknown [id number] 1945 Unknown [id number] 1945 Unknown [id number] 1945 Unknown [id number] Social History Date Type Detail Facility [facility] Work Phone: Start: 1945 Sex Assigned At Not on file [facility] Work Phone: Start: 05-24-2018 [facility] smoked [employer] Start: 02-18-2015 End: 06-06-2018 Tobacco smoking status NHIS Never smoker [facility] Start: 06-06-2018 Alcohol Comment rarely [facility] Start: 02-18-2015 Alcohol intake Current drinke r of alcohol (finding) [facility] Work Phone: Start: 02-18-2015 Alcohol intake [employer] [facility] Work Phone: Start: 02-18-2015 History SDOH Alcohol Comment occ [facility] Work Phone: Tobacco smoking status No Smokin g Status Entered [facility] Sex Assigned At Female [facility] History of tobacco use Passive smoker [employer] Work Phone: Medical Equipment Procedure Code Equipment Code Equipment Origin al Text Equipment Identifier Dates [employer] Start: 06-06-2018 Acrysof Iq Start: 06-06-2018 Acrysof Iq [id number] Start: 06-06-2018 Functional Status Date Assessment Result Facility 04-20-2022 Functional Status No [place] History of Present illness Narrative 06-06-2021 Karmen George, OT - 06/06/2021 3:30 PM EST Note Date & Type Note Facility 06-06-2021 History of Present illness Narrative Images from the original note were not included. [facility] Outpatient Occupational Therapy Evaluation Date: 06/06/2021 [...] demonstrates the above deficits with ROM & general dentist/owner/pinch strength and would benefit from continued outpt OT at this time. Pt has follow-up appt with surgeon on . 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 2: Pt to demonstrate L wrist radial deviation 20 degrees or more & L wrist ulnar deviation 35 degrees or more in order to open containers 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 3: Pt to demonstrate L general dentist/owner strength to within 10% of R hand in order to carry heavy items [facility]PC goal 4: Pt to demonstrate L lateral/tip/ 3pt pinch strength tto within 10% of the R hand in 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 Patient's Goal: Pt wishes to return to daily tasks Time In: 1535 Time Out: 1625 Timed Coded Minutes: 0 Total Treatment Time: 50 ALEK Shoemaker, OTR/L 06/06/2021 documented in this encounter [employer] Phone: Evaluation + Plan note Radiology Note Date & Type Note Facility Evaluation + Plan note Future Appointments Appointment Date:04/23/2022 10:00:00 AM Scheduled Provider: Location:.MRI Appointment Type:MRI Brain (FT) Appointment Date:04/23/2022 10:00:00 AM Scheduled Provider: Location:[facility] Appointment Type:Surgery FT Diagnostic Tests PendingCOVID-19 ([facility] 04/20/22 Future Scheduled TestsMRI Brain w/ + w/o Contrast 04/23/22 [facility] Evaluation note Note Date & Type Note Facility Evaluation note Diagnosis Abnormal EKG Nonspecific abnormal electrocardiogram (ECG) (EKG) Atrial flutter, unspecified type (HCC) Encounter for lipid screening for cardiovascular disease Pre-op testing Preoperative examination, unspecified documented in this encounter [facility] [employer] Phone: Hospital course Narrative Note Date & Type Note Facility Hospital course Narrative No data available for this section [facility] Hospital Discharge instructions Note Date & Type Note Facility Hospital Discharge instructions No data available for this section [facility] Progress note Note Date & Type Note Facility Progress note No data available for this section [facility] Assessments Diagnosis Age-related nuclear cataract, right eye Diagnosis Vitreous detachment, left Summary Purpose Family History No Family History Records FoundNo Family History Records FoundNo Family History Records FoundNo Family History Records FoundNo Family History Records Found Advance Directives No Advanced Directives Records FoundDocuments on File Type Date Recorded 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 ACP-Advance Directive ACP-Power of Denture Finisher Latest Code Status on File Code Status [...] right eye [H25.11] Mason Kate MD [address] [facility] [address] [place] [address] Reason Comments Eye Problem Specialty Diagnoses / Procedures Referred By Contac t Referred To Contact Occupational Therapy Diagnoses Encounter for other preprocedural examination Carpal tunnel syndrome, left upper limb Pre surg eval CTS Procedures eval and treat Stevenson Camilo PA-C [address] [facility] [address] [place] [address] [facility] [address] [place] [address] Referral ID Status Reason Start Date Expiration Date V isits Requested Visits Authorized [id number] Pending Review 05/26/2021 05/26/2022 1 1 INFORMATION SOURCE (unrecogn ized section and content) DATE CREATED AUTHOR 06/08/2018 [facility] DATE CREATED AUTHOR AUTHOR'S ORGANIZ ATION 07/07/2018 [facility] DATE CREATED AUTHOR AUTHOR'S ORGANIZ ATION 06/10/2022 [facility] DATE CREATED AUTHOR AUTHOR'S ORGANIZ ATION 07/19/2022 [facility] DATE CREATED AUTHOR AUTHOR'S ORGANIZ ATION 04/17/2023 [facility] Care Teams (unrecognized sec tion and content) Scrap Preparer Relationship Specialty [place] [address] [place] [id number] PCP - General 02/13/15 Scrap Preparer Relationship Specialty Start Date End Date Deborah Garcia MD [address] [place] [address] PCP - General 02/13/15 FOR RECORDS PERTAINING [...] BE BASED ON THE PRIMARY CLINICAL RECORDS. [facility] [employer] [facility]. provides no warranty or guarantee of the accuracy or completeness of information in this document.
[2024-09-13 09:09] LABS: Basophils Percent Auto 0.7 % (0.2-2.0); Eosinophils Absolute Auto 0.2 10^3/uL (0.0-0.7); Eosinophils Percent Auto 2.9 % (0.9-7.0); Hematocrit 41.1 % (36.0-48.0); Hemoglobin 13.6 g/dL (12.0-16.0); Immature Granulocytes Abs Auto 0.02 10^3/uL (0.00-0.03); Immature Granulocytes Pct Auto 0.3 % (0.0-0.5); Lymphocytes Absolute Auto 1.9 10^3/uL (1.2-3.8); Lymphocytes Percent Auto 31.2 % (20.5-60.0); Mean Corpuscular HGB Conc 33.1 g/dL (29.9-35.2); Mean Corpuscular Volume 90.5 fL (81.0-99.0); Mean Platelet Volume 9.6 fL (9.5-13.5); Monocytes Absolute Auto 0.5 10^3/uL (0.3-0.8); Monocytes Percent Auto 7.7 % (1.7-12.0); Neutrophils Absolute Auto 3.5 10^3/uL (1.4-6.5); Neutrophils Percent Auto 57.2 % (43.0-75.0); Platelet Count 262 10^3/uL (150-450); Red Blood Count 4.54 10^6/uL (4.20-5.40); Red Cell Distribution Width 16.9 % (11.0-15.0); White Blood Count 6.1 10^3/uL (4.0-11.0)
[2024-09-13 09:46] LABS: Alanine Aminotransferase 18 U/L (14-59); Albumin Globulin Ratio 0.8; Albumin Level 3.4 g/dL (3.4-5.0); Alkaline Phosphatase 79 U/L (46-116); Anion Gap 15.1; Aspartate Amino Transferase 20 U/L (15-37); BUN Creatinine Ratio 24.7; Bilirubin Total 0.6 mg/dL (0.2-1.0); Calcium 9.2 mg/dL (8.5-10.1); Carbon Dioxide 25.2 mmol/L (21.0-32.0); Chloride 103 mmol/L (98-107); Estimated GFR (African America >60 (>=60 mL/min/1.73m^2); Estimated GFR (Non-African Ame 55 (>=60 mL/min/1.73m^2); Globulin 4.1 g/dL; Glucose 91 mg/dL (74-106); Potassium 4.3 mmol/L (3.5-5.1); Sodium 139 mmol/L (136-145); Total Protein 7.5 g/dL (6.4-8.2)
== END 2024-09-13 08:27 | disposition home or self-care (01) ==
LOC: LAB 08:32
PROVIDERS: PCP Family Medicine; Visit Provider Registered Nurse
DX: M15.0 Primary generalized (osteo)arthritis (principal); Z79.899 Other long term (current) drug therapy
CPT/HCPCS: 36415; 80053; 85025

== ENCOUNTER 2025-01-24 10:11 | Outpatient (OUT) | payer MEDICARE, OTHER, SELFPAY ==
--- OUTSIDE RECORDS SUMMARY | 2025-01-24 10:15 | XMS_ITS | Clinical Summary ---
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 Name Role Phone Ernst Garcia MD Primary Care Provider [phone] Allergies Active AllergyReactionsCriticalityNoted RqtqXgfzggofZkdscqkvizdnl75/17/2015 Other reaction(s): AOF, Other (See Comments) davis Mldxqvlbxvm05/20/2016Sulfamethoxazole-Wcblcqhquari82/04/2019Black [place] Pollen 12/24/2015 Other reaction(s): AOF Fmxrfynxmpou02/27/5820Qicxtvlwynvat43/27/4324Eujavpzgf69/20/2016 Other reaction(s): AOF Hydrocodone-Biiuprhhikqyl12/20/2016 Other reaction(s): AOF Wxljfvock93/20/1900Dmtyvqeitgoub31/27/2016 Other reaction(s): UNKNOWN Boqdqkcamb81/20/5935Zdayuhu84/17/2015 Other reaction(s): AOF, Other (See Comments) h a ??vomiting Sulfa Hdlftgihyjk34/05/1523Ccxugmuds69/20/2016 Other reaction(s): AOF Harxhhblaej39/04/2019 Medications MedicationSigDispense QuantityRefillsLast FilledStart DateEnd DateStatus aspirin 81 MG Tab Take 81 mg by mouth.Active [place]-3 Fatty Acids (FISH OIL) 1000 MG Cap Take 4,000 mg by mouth.Active SYNTHROID 100 MCG Tab tablet 01/20/2018Active pantoprazole [address] tablet DR 03/08/2018Active flurbiprofen 50 MG Tab Take 50 mg by mouth 2 times daily.Active Active Problems ProblemNoted DateDiagnosed DateAge-related nuclear cataract, right eye05/24/2018 Overview (05/24/2018): Added automatically from request for surgery [id number] Social History Tobacco UseTypesPacks/DayYears UsedDateSmoking Tobacco: NeverSmokeless Tobacco: NeverCommentsNoSex and Gender InformationValueDate RecordedSex Assigned at BirthNot on fileLegal CbdFupggk89/31/2018 9:19 AM ESTGender IdentityFemale 03/28/2018 9:23 AM ESTSexual OrientationNot on file Last Filed Vital Signs Vital SignReadingTime TakenCommentsBlood Umqeogyc679/52006/06/2018 8:05 AM EDT Bzakn4180/11/2019 8:05 AM BEHJfpwsqhapfe76.1 ??C (97 ??F)06/06/2018 7:55 AM EDT Respiratory Vrzm223006/06/2018 8:05 AM EDTOxygen Vpmoidxvda58%06/06/2018 8:05 AM EDTInhaled Oxygen Concentration--Annsjj59.2 kg (190 lb)06/06/2018 6:46 AM EDT Kqnlaw577.5 cm (5' 2 )06/06/2018 6:43 AM EDTBody Mass Index34.75006/06/2018 6:43 AM EDT Plan of Treatment Health MaintenanceDue DateLast DoneCommentsDEXA SCAN ZNQOAPUBII1945 HEPATITIS C VIRUS JMVRTXHEN96/09/9864DZFPYDT1945TDAP (ADULT)1964 CERVICAL CANCER SCREENING VVYVMVMGHR75/09/1966MAMMOGRAM SCREENING DISCUSSION 1985COLORECTAL CANCER SCREENING JBVZBIPFPN45/09/1990PNEUMOCOCCAL VACCINE SERIES (1 of 1 - PCV)1995ZOSTER (SHINGLES) VACCINE (1 of 2)1995RSV VACCINE (1 - 1-dose 75+ series)2020COVID-19 VACCINE (1 - 2024- season) 2024INFLUENZA VACCINE (#1)2024HEP B VACCINEAged OutNo longer eligible based on patient's age to complete this topic Medical Devices ImplantedTypeAreaManufacturerDevice IdentifierShelf Expiration DateModel / Serial / LotAcrysof Iq Implanted:Qty: 1 on 06/06/2018 by Mason Kate MD at [facility] LOC Right: EyeALCON [id number] / [id number] / Insurance MemberSubscriberPlan / Payer (Effective 2010-Present)Name:PATRICIA TURNER Member ID:[id number] Relation to Subscriber:SelfName:Patricia Turner Subscriber ID:[id number] Payer ID:Not on file Group ID:Not on file Type:Not on file Address: [place] [id number] Care Teams Team MemberRelationshipSpecialtyStart Date Ernst Garcia MD [facility]01[facility]
--- OUTSIDE RECORDS SUMMARY | 2025-01-24 10:15 | XMS_ITS | Clinical Summary ---
Author Organization [facility] Address [address] [facility] [address] Phone Care Team Providers Care Powder Operator Name Role Phone Unavailable Primary Care Provider Unavailabl e Social History Tobacco UseTypesPacks/DayYears UsedDateSmoking Tobacco: Never Assessed CommentsUnknownSex and Gender InformationValueDate RecordedSex Assigned at Not on fileLegal NepBhrbbq47/20/2023 4:06 PM EDTGender IdentityNot on fileSexual OrientationNot on file Plan of Treatment Not on file
--- OUTSIDE RECORDS SUMMARY | 2025-01-24 10:15 | XMS_ITS | Clinical Summary ---
Author Organization [facility] Address [address] [place] [address] Care Team Providers Care Consultant Name Role Phone Ernst Garcia MD Primary Care Provider [phone] Allergies Active AllergyReactionsCriticalityNoted WwpfQhplvqmuZzladkcweipqb11/04/2023 Other Reaction(s): mild Azcgkqtzseg90/04/2023 Other Reaction(s): moderate Black [place] AznbgySwq97/27/2016 Other reaction(s): AOF Qxxsjpwg00/13/2023 Other reaction(s): Heart races Aqdzcjlnkb11/13/2023 Other reaction(s): throwing up, dizzy, disoriented Tlnojscq77/04/2023 Other Reaction(s): stomach upset, diarrhea Zghyozhigmew81/04/2023 Other Reaction(s): mild Xpjzowanxfpvf96/04/2023 Other Reaction(s): mild Fiovaudfb10/04/2023 Other Reaction(s): mild Itnlewfbfhd50/13/2023 Other reaction(s): hypertension over 200 cant take steroids Zpsvvuflvd42/13/2023 Other reaction(s): dizzy, coordination Hydrocodone-Mxclbgxglhtaz79/04/2023 Other Reaction(s): mild Iafsyjmljnt68/13/2023 Other reaction(s): nose bleeds Ylkfmbsacu31/13/2023 Other reaction(s): hair loss Ketorolac Hpupkriqkqlz87/04/2023 Other Reaction(s): mild Ysxauhdrgpfyx71/04/2023 Other Reaction(s): mild Onygezsngh52/13/2023 Other reaction(s): shakes ,chills, stomach pain, vomiting, dizzy Feurzzkgm66/13/2023 Other reaction(s): vomiting /diarrhea Fyywytnkjb40/13/2023 Other reaction(s): jitters Ouhnrbtpocipf59/04/2023 Other Reaction(s): mild Wwqwo-0-Zilj Ethyl Esters (Fish)08/30/2022 Other Reaction(s): mild Rgrnhzdkn47/04/2023 Other Reaction(s): joint pain Futpcgowsazv95/04/2023 Other Reaction(s): mild Vycymlba05/04/2023 Other Reaction(s): severe Cwxrpdznjcb73/04/2023 Other Reaction(s): critical Sulfa Zhxszwyxtly14/05/2016Sulfamethoxazole-Ejkpdurmoefh63/04/2023 Other Reaction(s): mild Medications MedicationSigDispense QuantityRefillsLast FilledStart DateEnd DateStatus buffered aspirin 81 MG tablet Take 81 mg by mouth.Active triamterene-hydroCHLOROthiazide (Dyazide) 37.5-25 MG capsule Take 1 capsule by mouth 1 (one) time each day at the same time.06/29/2022ctive [place]-3 Fatty Acids (FISH OIL ADULT GUMMIES PO) Take 1 tablet by mouth in the morning.Active cycloSPORINE (Restasis) 0.05 % ophthalmic emulsion 1 drop.Active levothyroxine (Synthroid, Levoxyl) 100 MCG tablet Take 100 mcg by mouth in the morning.Active omega-3 (Fish Oil) 1000 MG capsule Take 4,000 mg by mouth in the morning.Active pantoprazole (ProtoNix) 40 MG EC tablet Take 40 mg by mouth 1 (one) time each day at the same time.Active Active Problems ProblemNoted DateDiagnosed DateAsymmetrical sensorineural hearing loss08/30/2022 Bilateral vujyqevq11/04/2023ochlear hydrops of right ear08/30/2022 Resolved Problems ProblemNoted DateDiagnosed DateResolved DateLesion of fshoya35 Tonsil stonege-related nuclear cataract, right eye Overview (08/30/2022): Added automatically from request for surgery [id number] Cortical age-related cataract of left eye Family History Medical HistoryRelationNameCommentsHeart failureFatherStrokeFatherCancerMother Heart failurePaternal GrandfatherAsthmaPaternal GrandmotherDiabetesPaternal GrandmotherRelationNameStatusCommentsFatherDeceasedMotherDeceasedPaternal GrandfatherPaternal Grandmother Social History Tobacco UseTypesPacks/DayYears UsedDateSmoking Tobacco: NeverSmokeless Tobacco: Never Tobacco Cessation:Counseling Given: Not Answered Alcohol UseStandard Drinks/WeekCommentsYes2 (1 standard drink = 0.6 oz pure alcohol)CommentsUnknownSex and Gender InformationValueDate RecordedSex Assigned at BirthNot on fileLegal OitXumttm39/15/2023 6:52 PM EDTGender Identity Not on fileSexual OrientationNot on file Last Filed Vital Signs Vital SignReadingTime TakenCommentsBlood Rrihqbup023/8409/09/2022 8:59 AM EDT Pulse--Temperature--Respiratory Rate--Oxygen Saturation--Inhaled Oxygen Concentration--Xpgujr53.3 kg (177 lb)09/09/2022 8:59 AM TZSUhtcxt682 cm (5' 3 ) 09/09/2022 8:59 AM EDTBody Mass Index31.3506 8:59 AM EDT Plan of Treatment Not on file Insurance Care Teams Team MemberRelationshipSpecialtyStart DateEnd Ernst Garcia MD [facility]
[2025-01-24 10:44] LABS: Hematocrit 40.8 % (36.0-48.0); Hemoglobin 13.4 g/dL (12.0-16.0); Immature Granulocytes Abs Auto 0.02 10^3/uL (0.00-0.03); Immature Granulocytes Pct Auto 0.3 % (0.0-0.5); Lymphocytes Absolute Auto 2.2 10^3/uL (1.2-3.8); Mean Corpuscular HGB Conc 32.8 g/dL (29.9-35.2); Mean Corpuscular Hemoglobin 31.7 pg (26.7-34.0); Mean Corpuscular Volume 96.5 fL (81.0-99.0); Platelet Count 265 10^3/uL (150-450); Red Blood Count 4.23 10^6/uL (4.20-5.40); White Blood Count 5.8 10^3/uL (4.0-11.0)
[2025-01-24 12:44] LABS: Alanine Aminotransferase 25 U/L (14-59); Albumin Globulin Ratio 0.9; Albumin Level 3.6 g/dL (3.4-5.0); Alkaline Phosphatase 82 U/L (46-116); Anion Gap 15.3; Aspartate Amino Transferase 27 U/L (15-37); Blood Urea Nitrogen 24.0 mg/dL (7.0-18.0); Calcium 9.1 mg/dL (8.5-10.1); Carbon Dioxide 24.8 mmol/L (21.0-32.0); Chloride 105 mmol/L (98-107); Cholesterol 189 mg/dL (<=200); Estimated GFR (African America >60 (>=60 mL/min/1.73m^2); Estimated GFR (Non-African Ame >60 (>=60 mL/min/1.73m^2); Free T3 2.20 pg/mL (2.18-3.98); Globulin 4.1 g/dL; Glucose 87 mg/dL (74-106); HDL Cholesterol 60 mg/dL (40-60); Potassium 4.1 mmol/L (3.5-5.1); Sodium 141 mmol/L (136-145); Thyroid Stimulating Hormone 0.659 uIU/mL (0.358-3.740); Total Protein 7.7 g/dL (6.4-8.2); Triglycerides 73 mg/dL (<=150); VLDL CHOLESTEROL 14.6 mg/dL
[2025-01-24 13:05] LABS: Iron 123.0 ug/dL (50.0-170.0)
== END 2025-01-24 10:12 | disposition home or self-care (01) ==
LOC: LAB 10:12
PROVIDERS: PCP Family Medicine; Visit Provider Family Medicine
DX: I48.91 Unspecified atrial fibrillation (principal); K21.9 Gastro-esophageal reflux disease without esophagitis; E05.00 Thyrotoxicosis with diffuse goiter without thyrotoxic crisis or storm; R03.0 Elevated blood-pressure reading, without diagnosis of hypertension; E78.00 Pure hypercholesterolemia, unspecified; R73.09 Other abnormal glucose; D64.9 Anemia, unspecified; E03.9 Hypothyroidism, unspecified; E55.9 Vitamin D deficiency, unspecified; I10 Essential (primary) hypertension; D50.9 Iron deficiency anemia, unspecified
CPT/HCPCS: 36415; 80053; 80061; 82306; 83036; 83540; 84436; 84443; 84481; 85025

== ENCOUNTER 2025-03-16 09:14 | Outpatient (OUT) | payer MEDICARE, OTHER, SELFPAY ==
--- OUTSIDE RECORDS SUMMARY | 2025-03-16 09:20 | XMS_ITS | Clinical Summary ---
Author Organization [facility] Address [address] [facility] [place] [address] Phone Care Team Providers Care Talent Partner Name Role Phone Unavailable Primary Care Provider Unavailabl e Social History Tobacco UseTypesPacks/DayYears UsedDateSmoking Tobacco: Never Assessed CommentsUnknownSex and Gender InformationValueDate RecordedSex Assigned at Not on fileLegal HsgByersf12/20/2023 4:06 PM EDTGender IdentityNot on fileSexual OrientationNot on file Plan of Treatment Not on file
--- OUTSIDE RECORDS SUMMARY | 2025-03-16 09:20 | XMS_ITS | Patient Health Record ---
Author Organization [facility] Address [address] [place] [address] Care Team Providers Care Manager Training And Development Name Role Phone Ernst Garcia Primary Care Provider Unavailabl e Allergies Allergen (clinical drug ingredient) Drug/Non Drug Allergy documented on EMR Reaction Allergy Type Onset Date Status metronidazole METRONIDAZOLE comment: diarrhea,oral thrush; Drug Allergy ActiveSULFAMETHOXAZOLEcomment: stomach bloatness-bleeding;Drug AllergyActive trimethoprimTRIMETHOPRIMcomment: stomach bloatness-bleeding;Drug AllergyActive ketorolacKETOROLACcomment: (eye)-burning sinus,face,cheeks,teeth,head;Drug AllergyActivelovastatinLOVASTATINcomment: feels like head will explode;Drug AllergyActivesimvastatinSIMVASTATINcomment: headache,dizzy,joints hurt;Drug AllergyActivecaffeineCAFFEINEcomment: heart races;Drug AllergyActiveezetimibe EZETIMIBEcomment: regular-irregular heart beat;Drug AllergyActiveLEVOTHYROXINE SODIUMcomment: diarrhea;Drug AllergyActivePREDNISOLONE ACETATEcomment: (eye); Drug AllergyActive Reason For Referral No Information Medications Medication SIG (Take, Route, Frequency, Duration) Notes Start Date End Date Status Restasis 0.05% OPHTHALMIC RESTASIS Activetopiramate 50 mgORALTOPIRAMATEActiveAspir-Low 81 mgORALASPIR-LOWActive Synthroid 100 mcg (0.1 mg)ORALSYNTHROIDActiveFish OilORALFISH OILActiveIbuprofen 800 mgORALIBUPROFENActive Problems Problem Type SNOMED Code ICD Code Onset Dates Problem Status W/U Status Risk Notes Problem Carpal tunnel syndro me of right wrist ([id number]) Carpal tunnel syndrome of right wrist (G56.01) ActiveconfirmedProblemSurgical aftercare, nervous system (Z48.811)Active confirmed Plan Of Treatment No Information Insurance Providers Payer Name Payer Address Payer Phone Subscriber Number Group Number Insured Name Patient Relationship to Insured Coverage Start Date Coverage End [place] [address] [place] [address] [id number] Binh TURNER - patient is the insuredMutual [address] [id number], SUSANSelf - patient is the insured Medical (General) History Medical History History ICD Code Hypothyroidism Surgical History Surgery Date(Month/Year) Right endoscopic carpal tunnel release 0 04/16/2023
--- OUTSIDE RECORDS SUMMARY | 2025-03-16 09:21 | XMS_ITS | Patient Health Record ---
Author Organization [facility] [place] Address [address] [place] [address] Care Team Providers Care Public Health Registrar Name Role Phone Shabbir Garcia Primary Care Provider Allergies Allergen (clinical drug ingredient) Drug/Non Drug Allergy documented on EMR Reaction Allergy Type Onset Date Status propofol diprovan (uncoded) Unknown Allergy Activesulfamethoxazole / trimethoprimBactrimUnknownDrug AllergyActive metronidazoleFlagylUnknownDrug AllergyActiveketorolacKetorolac Tromethamine UnknownDrug AllergyActiveomega-3 acid ethyl esters (FPC)LovazaUnknownDrug AllergyActiveprednisoloneprednisoLONEUnknownDrug AllergyActivecyclosporine RestasisUnknownDrug AllergyActiveacetaminophenTylenolUnknownDrug AllergyActive VicodinUnknownDrug AllergyActiveezetimibeZetiaUnknownDrug AllergyActive difluprednateDurezolUnknownDrug AllergyActiveamoxicillinAmoxicillinUnknownDrug AllergyActivelevothyroxineLevothyroxineUnknownDrug AllergyActivesimvastatin SimvastatinUnknownDrug AllergyActive Results Component Value Reference Range Notes CBC AUTO DIFF Reviewed date:09/13/2024 05:36:07 PM Interpretation: Performing Lab: Notes/Report: [facility] , White Blood Count 6.1 4.0-11.0 10 3/uL Red Blood Count4.544.20-5.40 10 6/hPWiisqipxyz21.612.0-16.0 g/pIRsrevdrhen03.1 36.0-48.0 %Mean Corpuscular Qdlshx05.581.0-99.0 fLMean Corpuscular Hemoglobin 30.026.7-34.0 pgMean Corpuscular HGB Conc33.129.9-35.2 g/dLRed Cell Distribution Width16.911.0-15.0 %Platelet Rrapq737225-483 10 3/uLMean Platelet Volume9.69.5- 13.5 fLNeutrophils Percent Auto57.243.0-75.0 %Lymphocytes Percent Auto31.220.5- 60.0 %Monocytes Percent Auto7.71.7-12.0 %Eosinophils Percent Auto2.90.9-7.0 % Basophils Percent Auto0.70.2-2.0 %Immature Granulocytes Pct Auto0.30.0-0.5 % Neutrophils Absolute Auto3.51.4-6.5 10 3/uLLymphocytes Absolute Auto1.91.2-3.8 10 3/uLMonocytes Absolute Auto0.50.3-0.8 10 3/uLEosinophils Absolute Auto0.20.0- 0.7 10 3/uLBasophils Absolute Auto0.00.0-0.1 10 3/uLImmature Granulocytes Abs Auto0.020.00-0.03 10 3/uLPerforming Lab:see noteML - [facility] LBCBC AUTO DIFF Reviewed date:01/24/2025 12:36:54 PM Interpretation: Performing Lab: Notes/Report: [facility] ,White Blood Count5.84.0-11.0 10 3/uLRed Blood Count4.234.20-5.40 10 6/uL Wjdawdxpsu85.412.0-16.0 g/oKUgaqkczvle74.836.0-48.0 %Mean Corpuscular Tntkmr03.5 81.0-99.0 fLMean Corpuscular Cbrhoqsrfx44.726.7-34.0 pgMean Corpuscular HGB Conc 32.829.9-35.2 g/dLRed Cell Distribution Width14.611.0-15.0 %Platelet Aepni429 150-450 10 3/uLMean Platelet Volume9.79.5-13.5 fLNeutrophils Percent Auto49.8 43.0-75.0 %Lymphocytes Percent Auto37.620.5-60.0 %Monocytes Percent Auto7.81.7- 12.0 %Eosinophils Percent Auto3.60.9-7.0 %Basophils Percent Auto0.90.2-2.0 % Immature Granulocytes Pct Auto0.30.0-0.5 %Neutrophils Absolute Auto2.91.4-6.5 10 3/uLLymphocytes Absolute Auto2.21.2-3.8 10 3/uLMonocytes Absolute Auto0.50.3-0.8 10 3/uLEosinophils Absolute Auto0.20.0-0.7 10 3/uLBasophils Absolute Auto0.10.0- 0.1 10 3/uLImmature Granulocytes Abs Auto0.020.00-0.03 10 3/uLPerforming Lab:see noteML - [facility] LBVITAMIN D 25 [place] Reviewed date:01/24/2025 03:21:38 PM Interpretation: Performing Lab: Notes/Report: [facility] ,Vitamin D40.2 <20 ng/mL Vit D deficient 20-<30 ng/mL Vit D insufficient 30-100 ng/mL Vit D sufficient >100 ng/mL Potential Toxicity Performing Lab:see noteML - [facility] LBTSH Reviewed date:01/24/2025 12:58:03 PM Interpretation: Performing Lab: Notes/Report: [facility] ,Thyroid Stimulating Hormone0.6590.358-3.740 uIU/mLPerforming Lab:see noteML - [facility] LBT4 Reviewed date:01/24/2025 12:58:03 PM Interpretation: Performing Lab: Notes/Report: [facility] ,T4 Qwpdcnlmo20.804.80-13.90 ug/dLPerforming Lab:see noteML - [facility] LBPROF 14(COMP METB) Reviewed date:01/24/2025 12:58:03 PM Interpretation: Performing Lab: Notes/Report: [facility] ,Doibxx984511-885 mmol/LPotassium4.13.5-5.1 mmol/CPhooqein28633-213 mmol/LCarbon Dxayqba19.821.0-32.0 mmol/LAnion Gap15.4Gzsjktv1096-271 mg/dLBlood Urea Nitrogen 24.07.0-18.0 mg/dLCreatinine0.900.55-1.02 mg/dLEstimated GFR ( Nathalie>60 >=60 mL/min/1.73m 2Estimated GFR (Non- Lore>60>=60 mL/min/1.73m 2BUN Creatinine Ratio26.1Wpumecm3.18.5-10.1 mg/dLBilirubin Total0.90.2-1.0 mg/dL Aspartate Amino Mphemkvpiyf4529-62 U/LAlanine Upicnhhkzzqhcvck4605-63 U/L Alkaline Acxvcdoxcbm8728-054 U/LTotal Protein7.76.4-8.2 g/dLAlbumin Level3.63.4- 5.0 g/dLGlobulin4.1Albumin Globulin Ratio0.9Performing Lab:see noteML - [facility] LBLIPID PROFILE Reviewed date:01/24/2025 12:58:03 PM Interpretation: Performing Lab: Notes/Report: [facility] ,Zanuciuyuntmg95<=150 mg/dYIimercajqnh009<=200 mg/dLHDL Rkblqdbthbn4601-80 mg/dL > or =60 mg/dl - LOW CARDIOVASCULAR RISK <40 mg/dl - HIGH CARDIOVASCULAR RISK LDL Cholesterol Ifafrvbpow130.4 <100 mg/dl OPTIMAL 100-129 mg/dl NEAR OR ABOVE OPTIMAL 130-159 mg/dl BORDERLINE HIGH 160-189 mg/dl HIGH >190 mg/dl VERY HIGH VLDL TZLVJUEGWZJ98.6Chol HDL Ratio3.2 3.3 - 4.4 LOW RISK 4.4 - 7.1 AVERAGE RISK 7.1 - 11.0 MODERATE RISK >11.0 HIGH RISK Performing Lab:see noteML - [facility] LBIRON Reviewed date:01/24/2025 03:21:38 PM Interpretation: Performing Lab: Notes/Report: [facility] ,Mssn688.050.0-170.0 ug/dLPerforming Lab:see noteML - [facility] LB GLYCOHEMOGLOBIN A1C Reviewed date:01/24/2025 03:21:38 PM Interpretation: Performing Lab: Notes/Report: [facility] ,Glycohemoglobin A1C5.54.5-6.2 % ADA RECOMMENDED LIMIT 4.0 - 6.0 ADA THERAPEUTIC TARGET < 7.0 ACTION SUGGESTED > 7.0 Estimated Average Qxvlekp484Risncyojsr Lab:see noteML - [facility] LB FREE T3 Reviewed date:01/24/2025 12:58:03 PM Interpretation: Performing Lab: Notes/Report: [facility] ,Free T32.202.18-3.98 pg/mLPerforming Lab:see noteML - [facility] LB PROF 14(COMP METB) Reviewed date:09/13/2024 05:36:07 PM Interpretation: Performing Lab: Notes/Report: [facility] ,Wcnsek015663-485 mmol/LPotassium4.33.5-5.1 mmol/HKlexkech51034-853 mmol/LCarbon Jkpsllc92.221.0-32.0 mmol/LAnion Gap15.4Hcboben4685-916 mg/dLBlood Urea Nitrogen 24.07.0-18.0 mg/dLCreatinine0.970.55-1.02 mg/dLEstimated GFR ( Nathalie>60 >=60 mL/min/1.73m 2Estimated GFR (Non- Ame55>=60 mL/min/1.73m 2BUN Creatinine Ratio24.1Lenlhaw5.28.5-10.1 mg/dLBilirubin Total0.60.2-1.0 mg/dL Aspartate Amino Pzstgvzpmwh2892-75 U/LAlanine Iwnnpcspljryhlmo8553-92 U/L Alkaline Bhzcxluwflb9819-727 U/LTotal Protein7.56.4-8.2 g/dLAlbumin Level3.43.4- 5.0 g/dLGlobulin4.1Albumin Globulin Ratio0.8Performing Lab:see noteML - [facility] LBPROF 14(COMP METB) Reviewed date:05/17/2024 07:41:33 PM Interpretation: Performing Lab: Notes/Report: [facility] ,Mztwev833398-256 mmol/LPotassium4.23.5-5.1 mmol/WOkdubhzj91633-544 mmol/LCarbon Xfushng26.621.0-32.0 mmol/LAnion Gap12.8Xiykiof5325-473 mg/dLBlood Urea Nitrogen 24.07.0-18.0 mg/dLCreatinine1.100.55-1.02 mg/dLEstimated GFR ( Hvaqawa59 >=60 mL/min/1.73m 2Estimated GFR (Non- Ame48>=60 mL/min/1.73m 2BUN Creatinine Ratio21.6Vollokl0.48.5-10.1 mg/dLBilirubin Total0.80.2-1.0 mg/dL Aspartate Amino Sofnlmnlizv8773-78 U/LAlanine Qpnikoajbkswmdlk5890-88 U/L Alkaline Boatozlthyz3744-549 U/LTotal Protein7.56.4-8.2 g/dLAlbumin Level3.63.4- 5.0 g/dLGlobulin3.9Albumin Globulin Ratio0.9Performing Lab:see noteML - [facility] LBCBC AUTO DIFF Reviewed date:05/17/2024 07:41:33 PM Interpretation: Performing Lab: Notes/Report: [facility] ,White Blood Count5.54.0-11.0 10 3/uLRed Blood Count4.044.20-5.40 10 6/uL Mfnrbfmftd70.612.0-16.0 g/vVTivaedxdgi46.136.0-48.0 %Mean Corpuscular Rsajiw53.8 81.0-99.0 fLMean Corpuscular Osyvpqcrlu63.226.7-34.0 pgMean Corpuscular HGB Conc 32.229.9-35.2 g/dLRed Cell Distribution Width13.511.0-15.0 %Platelet Zymdj690 150-450 10 3/uLMean Platelet Volume9.29.5-13.5 fLNeutrophils Percent Auto53.7 43.0-75.0 %Lymphocytes Percent Auto34.520.5-60.0 %Monocytes Percent Auto6.91.7- 12.0 %Eosinophils Percent Auto3.60.9-7.0 %Basophils Percent Auto0.90.2-2.0 % Immature Granulocytes Pct Auto0.40.0-0.5 %Neutrophils Absolute Auto3.01.4-6.5 10 3/uLLymphocytes Absolute Auto1.91.2-3.8 10 3/uLMonocytes Absolute Auto0.40.3-0.8 10 3/uLEosinophils Absolute Auto0.20.0-0.7 10 3/uLBasophils Absolute Auto0.10.0- 0.1 10 3/uLImmature Granulocytes Abs Auto0.020.00-0.03 10 3/uLPerforming Lab:see noteML - [facility] Reason For Referral No Information Medications Medication SIG (Take, Route, Frequency, Duration) Notes Start Date End Date Status Synthroid 100 MCG 1 tablet in the morn ing on an empty stomach Orally Once a day; Duration: 90 days Active Social History Tobacco Use: Social History Observation Description Date Details (start date - stop date) Never Smoker NA - NA Tobacco Use/Smoking Question Answer Notes Patient is a nonsmoker Alcohol Screen (Audit-C) Question Answer Notes Did you have a drink containing alcohol in the p ast year? No Eijsba2LmnjbncsmprjepHteyaikiFJVUJ-U (Standard) Question Answer Notes Did you have a drink containing alcohol in the p ast year? Yes How often did you have six or more drinks on one occasion in the past year?Never (0 point)How many drinks did you have on a typical day when you were drinking in the past year?1 or 2 drinks (0 point)How often did you have a drink containing alcohol in the past year?Monthly or less (1 point)Awqhzh8FpgmfmrrfidmvlDqphsaew Problems Problem Type SNOMED Code ICD Code Onset Dates Problem Status W/U Status Risk Notes Problem Hyperlipidemia (65571149) Hyperlipidemia (E78.5) ActiveconfirmedProblemOsteoarthritis (070903327)Osteoarthritis (M19.90)Active confirmedProblemGastroesophageal reflux disease (645975281)GERD (gastroesophageal reflux disease) (K21.9)ActiveconfirmedProblemHypothyroidism (57377735)Hypothyroidism (E03.9)ActiveconfirmedProblemAtrial fibrillation (disorder) (29709336)Afib (I48.91)ActiveconfirmedProblemCarpal tunnel syndrome (60268597)Carpal tunnel syndrome (G56.00)ActiveconfirmedProblemDiverticular disease of colon (326485216)Diverticulosis (K57.90)ActiveconfirmedProblem Irritable bowel syndrome (01306018)IBS (irritable bowel syndrome) (K58.9)Active confirmedProblemElevated blood pressure reading without diagnosis of hypertension (474519134)Borderline hypertension (R03.0)ActiveconfirmedProblem Colitis (10607639)Colitis (K52.9)ActiveconfirmedProblemDegeneration of lumbar intervertebral disc (09540581)Degenerative disc disease, lumbar (M51.36)Active confirmedProblemSerous otitis media (17231529)Serous otitis media (H65.90)Active confirmedProblemParesthesia (04578988)Paresthesia (R20.2)ActiveconfirmedProblem Dysphagia (80299712)Dysphagia (R13.10)ActiveconfirmedProblemCervical disc disease (968420082)Cervical disc disease (M50.90)ActiveconfirmedProblemShoulder joint pain (738231265)Shoulder pain, right (M25.511)ActiveconfirmedProblemGraves disease (244537908)Graves disease (E05.00)ActiveconfirmedProblemOverweight (421478479)Over weight (E66.3)ActiveconfirmedProblemSpondylolysis of cervical spine (757871346)Cervical spondylolysis (M43.02)ActiveconfirmedProblem Hypercholesterolemia (56517270)Hypercholesterolemia (E78.00)Activeconfirmed Vital Signs Blood pressure diastolic 90 mm Hg 01/24/2025 Wsaybv75 in01/24/2025lood pressure ugwqfjel435 mm Hg01/24/20259904Dogsrg225.8 lbs 01/24/2025BMI32.56 kg/m201/24/2025 Encounters Encounter Location Date Provider Diagnosis [facility] [address] [place] [address] 01/24/2025 Shabbir Garcia [facility] [place] [address] 01/24/2025Shabbir Lindsey I48.91 ; GERD (gastroesophageal reflux disease) K21.9 ; Graves disease E05.00 ; Borderline hypertension R03.0 and Hypercholesterolemia E78.00 Assessments Encounter Date Diagnosis (ICD Code) Assessment Notes Treatment Notes Treatment Clinical Notes Section Notes 01/24/2025 Afib (ICD-10 - I48.91) 01/24/2025GERD (gastroesophageal reflux disease) (ICD-10 - K21.9)01/24/2025 Graves disease (ICD-10 - E05.00)01/24/2025orderline hypertension (ICD-10 - R03.0)01/24/2025Hypercholesterolemia (ICD-10 - E78.00) Plan Of Treatment Pending Test Test Name Order Date CMP (COMPLETE METABOLIC PANEL) 4 HEMOGLOBIN A1C (GLYCO) 11/16/2023 HEMOGLOBIN A1C (GLYCO) 01/24/2025 IRON, TOTAL 01/24/2025 IRON, TOTAL 11/16/2023 LIPID PANEL (CHOL/TRIG/HDL/LDL) 11/16/19 24 LIPID PANEL (CHOL/TRIG/HDL/LDL) 01/25/20 25 CBC WITH DIFF (EXP 01/2025) 11/16/2023 VITAMIN D, 25 LEVEL (TOTAL) 11/16/2023 VITAMIN D, 25 LEVEL (TOTAL) 01/24/2025 CBC AUTO DIFF 10/30/2022 THYROID PROFILE WITH TSH 10/30/2022 THYROID PANEL (T4/TSH/FREE T3) 5 THYROID PANEL (T4/TSH/FREE T3) 4 MM screening mammo BI 11/16/2023 CMP (COMP MET FABIAN) w/eGFR CKD-EPI 2024 CBC WITH DIFF 01/24/2025 Insurance Providers Payer Name Payer Address Payer Phone Subscriber Number Group Number Insured Name Patient Relationship to Insured Coverage Start Date Coverage End Date [place] [address] [place] [address] [id number] Priscila Brady - patient is the insuredMUTUAL OF [id number] [facility] MEDICARE SUPP CLMS DEPT [place]ER [phone] Priscila Brady - patient is the insured Medical (General) [...] bowel syndrome) K58.9 Surgical History Surgery Date(Month/Year) intracular lens cataract right kpd5690icvnav tunnel release left bzyes7771ehkghe tunnel release right lzlls3719uabvuvfpegyoottlvexbjatcabtVisitmtkcusllda History Reason Date(Month/Year) see above
--- OUTSIDE RECORDS SUMMARY | 2025-03-16 09:21 | XMS_ITS | Clinical Summary ---
Author Organization [facility] Address [address] [place] [address] Care Team Providers Care Senior Advisor Name Role Phone Ernst Garcia MD Primary Care Provider [phone] Allergies Active AllergyReactionsCriticalityNoted DjthQhfuxoqzXsreyufejrtwg63/04/2023 Other Reaction(s): mild Jkzpqkneqoa02/04/2023 Other Reaction(s): moderate [place] UhyhbjEcf10/27/2016 Other reaction(s): AOF Zalwonfp24/13/2023 Other reaction(s): Heart races Tbsbwsqkye78/13/2023 Other reaction(s): throwing up, dizzy, disoriented Tcfkzebz44/04/2023 Other Reaction(s): stomach upset, diarrhea Ylasfsonappj76/04/2023 Other Reaction(s): mild Odkznpvhjcfpd80/04/2023 Other Reaction(s): mild Paxysbbyl34/04/2023 Other Reaction(s): mild Gmxssvydwec31/13/2023 Other reaction(s): hypertension over 200 cant take steroids Edvhfmdeig82/13/2023 Other reaction(s): dizzy, coordination Hydrocodone-Vlsvzbknwccvm75/04/2023 Other Reaction(s): mild Yvqxyjlqazw77/13/2023 Other reaction(s): nose bleeds Fbkrkmzrol68/13/2023 Other reaction(s): hair loss Ketorolac Lucogqlwyhsg70/04/2023 Other Reaction(s): mild Bvydocyjvsvvj66/04/2023 Other Reaction(s): mild Wsjkqyfhnp45/13/2023 Other reaction(s): shakes ,chills, stomach pain, vomiting, dizzy Qtbmetrki13/13/2023 Other reaction(s): vomiting /diarrhea Mhkznomdiz57/13/2023 Other reaction(s): jitters Nenaexzpktgoi26/04/2023 Other Reaction(s): mild Swpgl-2-Kvel Ethyl Esters (Fish)08/30/2022 Other Reaction(s): mild Azossmknk10/04/2023 Other Reaction(s): joint pain Cupgvkqmhrek20/04/2023 Other Reaction(s): mild Aqfmvgmr53/04/2023 Other Reaction(s): severe Rnymhblgcem87/04/2023 Other Reaction(s): critical Sulfa Vxfbcdejdmq56/05/2016Sulfamethoxazole-Ruqqctmfiyuy80/04/2023 Other Reaction(s): mild Medications MedicationSigDispense QuantityRefillsLast FilledStart DateEnd DateStatus buffered aspirin 81 MG tablet Take 81 mg by mouth.Active triamterene-hydroCHLOROthiazide (Dyazide) 37.5-25 MG capsule Take 1 capsule by mouth 1 (one) time each day at the same time.06/29/2022ctive [place]-3 Fatty Acids (FISH OIL ADULT GUMMIES PO) [...] ProblemNoted DateDiagnosed DateAsymmetrical sensorineural hearing loss08/30/2022 Bilateral cimdtlmr45/04/2023ochlear hydrops of right ear08/30/2022 Resolved Problems ProblemNoted DateDiagnosed DateResolved DateLesion of mooqrj99 Tonsil stonege-related nuclear cataract, right eye Overview (08/30/2022): Added automatically from request for surgery [id number] Cortical age-related cataract of left eye Family History Medical HistoryRelationNameCommentsHeart failureFatherStrokeFatherCancerMother Heart failurePaternal GrandfatherAsthmaPaternal GrandmotherDiabetesPaternal GrandmotherRelationNameStatusCommentsFatherDeceasedMotherDeceasedPaternal GrandfatherPaternal Grandmother Social History Tobacco UseTypesPacks/DayYears UsedDateSmoking Tobacco: NeverSmokeless Tobacco: Never Tobacco Cessation:Counseling Given: Not Answered Alcohol UseStandard Drinks/WeekCommentsYes2 (1 standard drink = 0.6 oz pure alcohol)CommentsUnknownSex and Gender InformationValueDate RecordedSex Assigned at BirthNot on fileLegal NurCmznwi91/15/2023 6:52 PM EDTGender Identity Not on fileSexual OrientationNot on file Last Filed Vital Signs Vital SignReadingTime TakenCommentsBlood Gnomguwl109/8409/09/2022 8:59 AM EDT Pulse--Temperature--Respiratory Rate--Oxygen Saturation--Inhaled Oxygen Concentration--Huhxtj57.3 kg (177 lb)09/09/2022 8:59 AM RLZTypwjy969 cm (5' 3 ) 09/09/2022 8:59 AM EDTBody Mass Index31.3506 8:59 AM EDT Plan of Treatment Not on file Insurance Care Teams Team MemberRelationshipSpecialtyStart DateEnd Ernst Garcia MD [facility]
--- OUTSIDE RECORDS SUMMARY | 2025-03-16 09:21 | XMS_ITS | Clinical Summary ---
Author Organization [facility] Address [address] [place] [address] Care Team Providers Care Mate First Name Role Phone Ernst Garcia MD Primary Care Provider [phone] Allergies Active AllergyReactionsCriticalityNoted UzaaBnvshcatEclvybooiahcy90/17/2015 Other reaction(s): AOF, Other (See Comments) davis Oluwkldwwla03/20/2016Sulfamethoxazole-Shuovztitjfp17/04/2019[place] Pollen 12/24/2015 Other reaction(s): AOF Dwsizwyapbkg13/27/4775Jcrzkmwqnzzjx86/27/4071Frpwmlifj71/20/2016 Other reaction(s): AOF Hydrocodone-Ujkpuxvkhanox86/20/2016 Other reaction(s): AOF Aijdyfxhl45/20/9854Zetksjqquewux32/27/2016 Other reaction(s): UNKNOWN Bgrvhzdyce69/20/7388Bbcdrok37/17/2015 Other reaction(s): AOF, Other (See Comments) h a ??vomiting Sulfa Fzrwtjfashd60/05/5628Nsdjfytbi79/20/2016 Other reaction(s): AOF Idnlabozlda80/04/2019 Medications MedicationSigDispense QuantityRefillsLast FilledStart DateEnd DateStatus aspirin 81 MG Tab Take 81 mg by mouth.Active [place]-3 Fatty Acids (FISH OIL) 1000 MG Cap Take 4,000 mg by mouth.Active SYNTHROID 100 MCG Tab tablet 01/20/2018Active pantoprazole [address] tablet DR 03/08/2018Active flurbiprofen 50 MG Tab Take 50 mg by mouth 2 times daily.Active Active Problems ProblemNoted DateDiagnosed DateAge-related nuclear cataract, right eye05/24/2018 Overview (05/24/2018): Added automatically from request for surgery [id number] Social History Tobacco UseTypesPacks/DayYears UsedDateSmoking Tobacco: NeverSmokeless Tobacco: NeverCommentsNoSex and Gender InformationValueDate RecordedSex Assigned at BirthNot on fileLegal QdfAaqzig62/31/2018 9:19 AM ESTGender IdentityFemale 03/28/2018 9:23 AM ESTSexual OrientationNot on file Last Filed Vital Signs Vital SignReadingTime TakenCommentsBlood Gnhcknuq542/52006/06/2018 8:05 AM EDT Snkka1566/11/2019 8:05 AM WLJDdqpningaen89.1 ??C (97 ??F)06/06/2018 7:55 AM EDT Respiratory Egkz171406/06/2018 8:05 AM EDTOxygen Rxuvfrirop35%06/06/2018 8:05 AM EDTInhaled Oxygen Concentration--Qozcmo79.2 kg (190 lb)06/06/2018 6:46 AM EDT Xljbas900.5 cm (5' 2 )06/06/2018 6:43 AM EDTBody Mass Index34.75006/06/2018 6:43 AM EDT Plan of Treatment Health MaintenanceDue DateLast DoneCommentsDEXA SCAN JBQAVPGFLC1945TETANUS 1945TDAP (ADULT)1964CERVICAL CANCER SCREENING LFBLDQXXBM17/09/1966 MAMMOGRAM SCREENING YURKMXARNK32/09/1985COLORECTAL CANCER SCREENING DISCUSSION 1990PNEUMOCOCCAL VACCINE SERIES (1 of 1 - PCV)1995ZOSTER (SHINGLES) VACCINE (1 of 2)1995RSV VACCINE (1 - 1-dose 75+ series)2020COVID-19 VACCINE (1 - 2024- season)2024INFLUENZA VACCINE (#1)2024HEP B VACCINEAged OutNo longer eligible based on patient's age to complete this topic Medical Devices ImplantedTypeAreaManufacturerDevice IdentifierShelf Expiration DateModel / Serial / LotAcrysof Iq Implanted:Qty: 1 on 06/06/2018 by Mason Kate MD at [facility] LOC Right: EyeALCON [id number] / [id number] / Insurance MemberSubscriberPlan / Payer (Effective 2018-Present)Name:PATRICIA TURNER Member ID:[id number] Relation to Subscriber:SelfName:Patricia Turner Subscriber ID:[id number] Payer ID:Not on file Group ID:Not on file Type:Not on file Address: [place] [phone] Care Teams Team MemberRelationshipSpecialtyStart Date Ernst Garcia MD PCP - GeneralFanyly Medicine04/01/18
[2025-03-16 09:38] LABS: Hematocrit 40.7 % (36.0-48.0); Hemoglobin 13.4 g/dL (12.0-16.0); Immature Granulocytes Abs Auto 0.03 10^3/uL (0.00-0.03); Immature Granulocytes Pct Auto 0.5 % (0.0-0.5); Lymphocytes Absolute Auto 1.9 10^3/uL (1.2-3.8); Mean Corpuscular HGB Conc 32.9 g/dL (29.9-35.2); Mean Corpuscular Hemoglobin 31.9 pg (26.7-34.0); Mean Corpuscular Volume 96.9 fL (81.0-99.0); Platelet Count 267 10^3/uL (150-450); Red Blood Count 4.20 10^6/uL (4.20-5.40); White Blood Count 5.9 10^3/uL (4.0-11.0)
[2025-03-16 10:04] LABS: Alanine Aminotransferase 22 U/L (14-59); Albumin Globulin Ratio 0.9; Albumin Level 3.5 g/dL (3.4-5.0); Alkaline Phosphatase 91 U/L (46-116); Anion Gap 3.5; Aspartate Amino Transferase 21 U/L (15-37); Blood Urea Nitrogen 16.0 mg/dL (7.0-18.0); Calcium 9.3 mg/dL (8.5-10.1); Carbon Dioxide 29.1 mmol/L (21.0-32.0); Chloride 103 mmol/L (98-107); Estimated GFR (African America >60 (>=60 mL/min/1.73m^2); Estimated GFR (Non-African Ame 58 (>=60 mL/min/1.73m^2); Globulin 4.1 g/dL; Glucose 90 mg/dL (74-106); Potassium 3.6 mmol/L (3.5-5.1); Sodium 132 mmol/L (136-145); Total Protein 7.6 g/dL (6.4-8.2)
== END 2025-03-16 09:15 | disposition home or self-care (01) ==
PROVIDERS: PCP Family Medicine; Visit Provider Registered Nurse
DX: M15.0 Primary generalized (osteo)arthritis (principal); Z79.899 Other long term (current) drug therapy
CPT/HCPCS: 36415; 80053; 85025